=== PATIENT | female | born 1970 | race Caucasian/White ===

== ENCOUNTER → 2020-03-27 16:41 | Outpatient (BNVA) | payer OTHER, SELFPAY | PROVIDERS: PCP Internal Medicine; Referring Provider Internal Medicine; Visit Provider Dietitian, Registered | DX: Z76.89 Persons encountering health services in other specified circumstances (principal) ==

== ENCOUNTER → 2020-12-17 08:24 | Outpatient (REF) | payer OTHER, SELFPAY ==
--- NOTE | 2020-12-17 08:29 | CA_ITS ---
Transthoracic Echocardiogram Patient (Last, First, Middle): Nicole Ortiz A Gender: Female Date of : 1970 Age: 50 Procedure Date: 12/17/2020 Procedure Type: Transthoracic Echocardiogram Location: OP Height: 154.94 cm Weight: 68.04 kg BSA: 1.67 m2 Heart Rate: bpm BP: 115 / 90 mmHg Party Plan Demonstrator: ISAI Referring MD: Jeff Singh MD Symptoms: I35.0 NON RHEUM AVS Study Quality: Good ECG Rhythm: Sinus Conclusions: - The left ventricular systolic function is normal. The calculated ejection fraction is 57% by biplane method. - There is mild aortic valve stenosis. Findings Left Ventricle Normal left ventricular cavity size. There is normal left ventricular wall thickness. The left ventricular systolic function is normal. The calculated ejection fraction is 57% by biplane method. There is no evidence of regional wall motion abnormalities. Diastolic function is normal for age. Right Ventricle Normal right ventricular cavity size and systolic function. Atria The left atrium is mildly dilated. The right atrium is normal in size. Aortic Valve There is mild calcification of the aortic valve. There is mild aortic valve stenosis. The peak aortic velocity is 2.74 m/s with a calculated peak gradient of 30 mmHg. The mean gradient is 16 mmHg. The aortic valve area is 1.32 cm2. There is no aortic valve regurgitation. Mitral Valve The mitral valve appears normal. There is trace mitral valve regurgitation. There is no mitral valve stenosis. Pulmonic Valve The pulmonic valve was not well visualized. Tricuspid Valve Normal tricuspid valve structure. There is trace tricuspid valve regurgitation. The pulmonary artery systolic pressure is normal. Great Vessels The aortic annulus, sinuses of valsalva, and asc aorta are normal in size. Venous The inferior vena cava is normal in size and collapses greater than 50% with inspiration. Pericardium/Pleural There is no evidence of pericardial effusion. Prior Study Comparison No significant change compared to prior study dated: 06/10/2019. Measurements 2D Linear Measurements IVSd: 0.81 0.6-0.9/0.6-1.0 cm LVIDd: 4.92 3.9-5.3/4.2-5.9 cm LVIDd Index: 2.95 2.4-3.2/2.2-3.1 cm/m2 LVIDs: 3.12 2.0-3.6 cm LVPWd: 0.88 0.7-1.1 cm Ao Root: 2.90 2.1-3.5 cm LA Diam: 4.10 2.7-3.8/3.0-4.0 cm LAIDs Index: 2.46 1.5-2.3 cm/m2 LV Mass: 177.32 67-162/88-224 g LV Mass Index: 106.18 43-95/49-115 g/m2 LVOT Diam: 2.00 3.0+(-)1.3 cm 2D Systolic Function EF 4C: 59.50 >55% EF 2C: 59.20 >55% EF BiP: 56.50 >55% Mitral Valve MV Pk E: 0.81 MV PK A: 0.78 MV Decel Time: 337.00 E/A: 1.00 E'Lateral: 12.10 E'Medial: 8.16 E/E' Med: 9.90 E/E' Lat: 6.70 PHT: 99.00 MVA PHT: 2.22 Decel [place]: 2.40 Aortic Valve AoV Pk Uriel: 2.74 AoV Mn Uriel: 1.89 AoV VTI: 0.65 AoV Pk Grad: 30.00 Aov Mn Grad: 16.00 ADOLPH Cont.VTI: 1.32 LVOT LVOT Pk Uriel: 1.17 LVOT Mn Uriel: 0.83 LVOT VTI: 0.27 LVOT Pk Grad: 5.00 LVOT Mn Grad: 3.00 LVOT Diam: 2.00 LVOT Area: 3.14 Diastolic Function MV Pk E: 0.81 MV Pk A: 0.78 E/A: 1.00 E'Medial: 8.16 E/E' Med: 9.90 E' Laterial: 12.10 E/E' Lat: 6.70 Tricuspid Valve TR Pk Uriel: 1.98 TR Pk Grad: 16.00 RA Press: 3.00 RVSP: 19.00 Great Vessels Aorta Ao Root-2D: 2.90 2.0-3.7 cm Ao Asc: 2.90 2.1-3.4 cm Ao Arch: 2.70 Updated in Other Vendor System with Status of Final Popeye Tomlinson MD electronically signed on 12/18/2020 3:36:46 PM with status of Final
== END ==
LOC: HO.CARD 08:24
PROVIDERS: PCP Nurse Practitioner Family; Visit Provider Internal Medicine Cardiovascular Disease
DX: I35.0 Nonrheumatic aortic (valve) stenosis (principal)
CPT/HCPCS: 93306

== ENCOUNTER → 2021-01-14 15:10 | Outpatient (BNVA) | payer OTHER, SELFPAY | PROVIDERS: PCP Nurse Practitioner Family; Visit Provider Internal Medicine Cardiovascular Disease | DX: I35.0 Nonrheumatic aortic (valve) stenosis (principal); I10 Essential (primary) hypertension | CPT/HCPCS: 93005 ==

== ENCOUNTER → 2022-04-11 12:40 | Outpatient (BNVA) | payer OTHER, SELFPAY | PROVIDERS: PCP Nurse Practitioner Family; Visit Provider Internal Medicine Cardiovascular Disease | DX: I35.0 Nonrheumatic aortic (valve) stenosis (principal); I10 Essential (primary) hypertension; E66.01 Morbid (severe) obesity due to excess calories; Z68.30 Body mass index [BMI] 30.0-30.9, adult; Z98.84 Bariatric surgery status | CPT/HCPCS: 93005 ==

== ENCOUNTER 2022-07-25 12:08 | Day surgery (SDC) | payer OTHER, SELFPAY ==
--- NOTE | ~2022-07-25 | CT_ITS ---
EXAMINATION: CT COLONOGRAPHY CLINICAL INFORMATION: Incomplete colonoscopy. COMPARISON: None TECHNIQUE: Despite multiple attempts the patient was unable to tolerate adequate insufflation or distention. Bowel preparation: Inadequate. Stool tagging with Gastrografin and barium: Stool tagging was not used. Colonic distention: CO2 mechanical insufflator used via enema tube with Inadequate distention. Acquisition: Low dose imaging targeted to colonic was performed in the supine and prone positions. Procedure: No immediate complication reported. Review: The acquired images were reviewed in axial, coronal and sagittal planes. Attempts at 3-D fly through images were unsuccessful at an independent workstation. Inadequate distention did not allow 3-D post processing This CT examination was performed using dose optimization techniques as appropriate, variously including the following: *Automated exposure control *Adjustment of mA and/or kV according to patient size (this includes techniques or standardized protocols for targeted exams where dose is matched to indication/reason for exam; i.e. extremities or head) *Use of iterative reconstruction technique DLP: 407 mGy-cm FINDINGS: Colonic findings: Incomplete distention. Large amount retained material including some fat attenuation. The study is nondiagnostic for polyps or masses. Non-colonic findings: Evidence of previous bariatric surgery. The gallbladder is distended. There are multiple right renal calculi. The largest in the right renal pelvis measures 2.1 cm and is 12.2 cm from the skin. There are some punctate left renal calculi without evidence of obstruction. There is a 4.5 cm cyst in the right adnexa. CT/CT colonography IMPRESSION: Incomplete distention and retained colonic material precludes assessment for significant polyps or masses in the colon. There is some fat retained within the colon suggesting malabsorption. Previous bariatric surgery and numerous bilateral renal calculi. 4.5 cm right adnexal cyst. Recommend pelvic ultrasound
--- NOTE | 2022-07-25 12:11 | HO.ANESPROP2 ---
HPI - Anesthesia Eval Consult details Narrative: Colonoscopy PMFSH Active Problems Active Problems: All Active Problems (Updated 07/01/22 @ 07:31 by Marquita Shaw RN) Aortic stenosis (Acute) Essential hypertension (Acute) Past Medical History Medical History (Updated 07/01/22 @ 07:31 by Marquita Shaw RN) Anxiety GERD (gastroesophageal reflux disease) History of kidney stones HTN (hypertension) Hx of panniculitis Family History Family History Father Heart attack Mother Hypertension Brother Hypertension Sister Hypertension Sister Hypertension Family history of problems with anesthesia: No Surgical History Surgical History (Updated 07/22/22 @ 12:53 by Kimberly Cuevas RN) Hx of esophagogastroduodenoscopy Hx of gastric bypass Status post panniculectomy History of Problems with Anesthesia: No Social History Social History Alcohol intake: current Alcohol intake frequency: holidays/special occasions only Patient Tobacco Use Status: Former Tobacco user Quit Date: 2001 Years Smoked: 20+ off/on Meds Allergies Allergy/AdvReac Type Severity Reaction Status Date / Time Seasonal Allergies Allergy Unknown itching Uncoded 02/06/20 00:00 Home Medications Medication Instructions Recorded Confirmed Last Taken Type atenolol 50 mg tablet 25 mg PO DAILY 01/14/21 04/11/22 Unknown History bupropion HCl 150 mg 24 hr tablet, 150 mg PO QAM 01/14/21 04/11/22 Unknown History extended release fluoxetine 20 mg capsule 20 mg PO DAILY 01/14/21 04/11/22 Unknown History Avapro 07/01/22 07/01/22 Unknown History Vitamin B-Complex 07/01/22 07/01/22 Unknown History loratadine 10 mg tablet (Claritin) 10 mg PO DAILY PRN Allergy Symptoms 07/01/22 07/01/22 Unknown History Exam Exam Date and Time: July 25, 2022 121 Airway Mallampati Class: II TM Dist: >3cm Neck ROM: Limited Heart: rrr, sm Lungs: cta Assessment and Plan Assessment Anesthesia Assessment: Anesthesia Plan Discussed and Chart Reviewed Final Anesthetic Review Family History of Problems with Anesthesia: No History of Problems with Anesthesia: No NPO: Yes ASA Class: II Final Preanesthetic Review: No Changes in Pt Med Stat, Meds/Allgs Chart Reviewed, Consent Obtained/Reviewed and Anes Risks/Benef Reviewed Patient Risk: Intermediate Procedure Risk: Low Anesthetic Plan Anesthetic Plan: MAC: Disposition: Standard PACU
--- NOTE | 2022-07-25 12:16 | PC.NURSE ---
patient states has not had a menstrual cycle in years
[2022-07-25 12:26] VITALS: BMI 30.6
[2022-07-25 12:41] VITALS: BP 128/70; PULSE 61; RESP 18; TEMP 36.4; O2SAT 99
[2022-07-25] MEDS: Lactated Ringers 1,000 ML 50 ML IVCONT (12:42)
--- NOTE | 2022-07-25 14:26 | PM.OP ---
Brief Operative Note Date of Service: 07/25/22 Pre-op diagnosis: Screening Post-op diagnosis: other (Incomplete colonoscopy to the sigmoid colon) Procedure: Incomplete Colonoscopy to 50cm Surgeon: Hebert Marino Anesthesia: MAC Was an Customs Brokerage Manager used for this Procedure?: No Estimated blood loss (mL): 0 Pathology: none sent Condition: stable Disposition: PACU
[2022-07-25 14:28] VITALS: BP 106/62; PULSE 62; RESP 16; TEMP 37; O2SAT 95
[2022-07-25 15:45] VITALS: BP 145/71; PULSE 53; RESP 16; TEMP 36.2; O2SAT 99
--- NOTE | 2022-07-26 01:10 | OP_ITS ---
SURGEON: Hebert Marino MD INDICATIONS: The patient presents for evaluation of colorectal cancer screening. Full consent has been obtained from her for this, including risks of bleeding and perforation. PREOPERATIVE DIAGNOSIS: Colorectal cancer screening. POSTOPERATIVE DIAGNOSIS: PROCEDURE PERFORMED: Incomplete colonoscopy to the sigmoid colon. ESTIMATED BLOOD LOSS: COMPLICATIONS: ANESTHESIA: Monitored anesthesia care. ASSISTANTS: SPECIMENS: POSTOPERATIVE DIAGNOSES: Colorectal cancer screening, normal colonoscopy to 50 cm, other than diverticulosis and internal hemorrhoids. DESCRIPTION OF PROCEDURE: The patient was placed in the left lateral decubitus position. The digital rectal exam revealed no abnormalities. The Olympus video pediatric colonoscope was entered into the rectum and advanced to between 40 and 50 cm in the sigmoid colon. At this level, there was a significant diverticular disease and I could not definitively visualize bowel lumen. A good deal of time was spent, trying to find the lumen, but despite the abdominal pressure, I could not visualize any definitive lumen and therefore could not advance the scope. Therefore, the scope was slowly withdrawn assessing all mucosal surfaces carefully. Preparation in this distal portion of the colon and rectum was excellent. Other than diverticulosis, I did not visualize any sign of colitis, polyps nor angiodysplasia. In the rectum, scope was retroflexed visualizing small internal hemorrhoids, but no other pathology. The rectal mucosa appeared normal. The scope was straightened and withdrawn from the patient. She tolerated the procedure well and was returned to the recovery area in stable condition. IMPRESSION: 1. Diverticulosis. 2. Internal hemorrhoids. 3. Incomplete colonoscopy most likely in relation to adhesions from her previous gastric bypass. PLAN: If possible, the patient will have a CT colonography today. I have also instructed her to obtain a Cologuard test kit from her primary care physician for further colorectal cancer screening. If the CT scan and the Cologuard are both negative, I would then recommend a Cologuard test every three years going forward. If the Cologuard test is positive and/or the CT scan shows a suspicion of an abnormality, then we would have to contemplate a repeat attempted colonoscopy. This has been discussed with the patient and her sister today. MD HEBER Levi/CELINA / [id number] CHAO
== END 2022-07-25 16:13 | disposition home or self-care (01) ==
PROVIDERS: PCP Nurse Practitioner Family; Visit Provider Internal Medicine
PROC: 0DJD8ZZ Inspection of Lower Intestinal Tract, Via Natural or Artificial Opening Endoscopic (ICD-10-PCS; CPT 45378; principal; 2022-07-25 13:20)
DX: Z12.11 Encounter for screening for malignant neoplasm of colon (principal); K57.30 Diverticulosis of large intestine without perforation or abscess without bleeding; K64.8 Other hemorrhoids; R93.3 Abnormal findings on diagnostic imaging of other parts of digestive tract; K21.9 Gastro-esophageal reflux disease without esophagitis; N83.291 Other ovarian cyst, right side; N20.0 Calculus of kidney; Z98.84 Bariatric surgery status; I10 Essential (primary) hypertension; F41.1 Generalized anxiety disorder; Z79.899 Other long term (current) drug therapy; Z87.891 Personal history of nicotine dependence
CPT/HCPCS: 45330; 74261; J3010

== ENCOUNTER 2022-12-26 07:33 | Inpatient (IN) | payer OTHER, SELFPAY ==
[2022-12-26] VITALS (7 sets, daily range): BP systolic 97–160; BP diastolic 59–99; PULSE 54–77; RESP 16–20; TEMP 34.5–37.6; O2SAT 94–99; BMI 28.7
--- NOTE | ~2022-12-26 | FL_ITS ---
EXAMINATION: RF fluoroscopy enema with Gastrografin CLINICAL INFORMATION: Large bowel obstruction COMPARISON: Previous CT of the abdomen and pelvis from earlier the same day and CT colonoscopy July 2022 TECHNIQUE: Gel Coater film was obtained. Single contrast limited barium enema was performed using Gastrografin. Post evacuation views were obtained. Fluoroscopy time 1.4 minutes. DAP 26 yu per centimeter squared. Total dose of 94 mgy. 10 fluoroscopic images and 8 overhead images. FINDINGS: Gel Coater film demonstrates dilated large bowel. There are surgical clips from previous gastric surgery. There are bilateral renal stones, right greater than left. There is a near-complete distal large bowel obstruction at the level of the sigmoid colon. There is only a small amount of contrast passing beyond this point into the left colon. No evidence of significant diverticular disease is seen. FL/FL enema w gastrografin IMPRESSION: Near-complete distal large bowel obstruction. Findings were communicated to Dr. Oates and Dr. Hill at the completion of the exam.
--- NOTE | ~2022-12-26 | CT_ITS ---
EXAMINATION: CT ABDOMEN AND PELVIS WITH CONTRAST CLINICAL INFORMATION: Generalized abdominal pain. History of gastric bypass. COMPARISON: 07/25/2022 TECHNIQUE: Multidetector volumetric images were obtained from the superior aspect of the liver through the pubic symphysis following administration 85 mL of Omnipaque 350 intravenous contrast. Sagittal and coronal reformatted images were obtained on the technologist's workstation. Oral contrast: No This CT examination was performed using dose optimization techniques as appropriate, variously including the following: *Automated exposure control *Adjustment of mA and/or kV according to patient size (this includes techniques or standardized protocols for targeted exams where dose is matched to indication/reason for exam; i.e. extremities or head) *Use of iterative reconstruction technique DLP: 487 mGy-cm FINDINGS: LUNG BASES: No pleural or pericardial effusion. LIVER, GALLBLADDER, AND BILIARY TREE: The liver is normal in size and contour. No biliary ductal dilatation is present. The gallbladder is distended. PANCREAS: No ductal dilatation. SPLEEN: Not enlarged. ADRENAL GLANDS: No adrenal mass. KIDNEYS AND URETERS: The kidneys are symmetric in size and enhancement. Nonobstructing bilateral renal calculi. Large nonobstructing calculus in the right renal pelvis measures 2.0 x 1.4 cm. No hydronephrosis or perinephric stranding. BLADDER: Decompressed. GASTROINTESTINAL TRACT: Marked colonic distention up to 8 cm to the level of a possible soft tissue mass in the sigmoid colon as seen on image 56 of series 2. No small bowel obstruction. Small bowel loops are decompressed. Status post gastric bypass. ABDOMINAL WALL: No significant hernia is appreciated. LYMPH NODES: No bulky abdominal or pelvic lymphadenopathy. VASCULAR: Normal caliber abdominal aorta. PELVIC VISCERA: Hypoattenuating lesion in the right hemipelvis measures 4.3 x 5.1 cm. The uterus is displaced into the right hemipelvis. OSSEOUS STRUCTURES: No destructive bone lesions. CT/CT abdomen pelvis w IV con IMPRESSION: Functional obstruction of the large bowel most likely related to an obstructing mass in the sigmoid colon. Correlation with direct visualization is advised. Hypoattenuating lesion in the right hemipelvis measuring 4.3 x 5.1 cm. This may be further evaluated by pelvic ultrasound on a nonemergent basis. Bilateral nephrolithiasis including calculus right renal pelvis measuring 2.0 x 1.4 cm. No hydronephrosis.
--- NOTE | 2022-12-26 08:10 | ED_ITS ---
HPI - Abdominal Pain General Chief Complaint: Abdominal Pain Stated Complaint: abd pain Time Seen by Provider: 12/26/22 07:41 Source: patient Mode of arrival: ambulatory Limitations: no limitations History of Present Illness HPI narrative: 52-year-old female status post gastric bypass presents with generalized abdo soo pain. Symptoms started 3 weeks ago. Patient has a chronic abdominal discomfort followed by acute exacerbations that she rates as a 9/10. Pain is generalized and does not radiate. She describes the pain as severe cramping. Symptoms can be exacerbated by sitting up and relieved by lying on her back. She has had nausea and vomiting. The vomiting has been nonbilious, nonbloody no coffee-ground emesis. She has had no fevers or chills. She has had lack of stool in several days. She has scant passing flatus. She denies and abdominal distension. She denies any blood in her stool or melanotic stool. She has tried managing for constipation with magnesium citrate and MiraLax with no improvement in her symptoms. Related Data Home Medications Medication Instructions Recorded Confirmed atenolol 50 mg tablet 25 mg PO DAILY 01/14/21 04/11/22 bupropion HCl 150 mg 24 hr tablet, 150 mg PO QAM 01/14/21 04/11/22 extended release fluoxetine 20 mg capsule 20 mg PO DAILY 01/14/21 04/11/22 Avapro 07/01/22 07/01/22 Vitamin B-Complex 07/01/22 07/01/22 loratadine 10 mg tablet (Claritin) 10 mg PO DAILY PRN Allergy Symptoms 07/01/22 07/01/22 Previous Rx's Medication Instructions Recorded omeprazole 20 mg capsule,delayed 20 mg PO DAILY #30 caps 06/22/20 release Allergies Allergy/AdvReac Type Severity Reaction Status Date / Time Seasonal Allergies Allergy Unknown itching Uncoded 02/06/20 00:00 Review of Systems Review of Systems CONSTITUTIONAL: Denies weight loss, fever and chills. HEENT: Denies changes in vision and hearing. RESPIRATORY: Denies SOB and cough. CV: Denies palpitations no CP. GI: + abdominal pain, nausea, vomiting - diarrhea. : Denies dysuria and urinary frequency. MSK: Denies myalgia and joint pain. SKIN: Denies rash and pruritus. NEUROLOGICAL: Denies headache and syncope. PSYCHIATRIC: Denies recent changes in mood. Denies anxiety and depression. All other ROS are negative unless in HPI [facility] Past Medical History Medical History Anxiety GERD (gastroesophageal reflux disease) History of kidney stones HTN (hypertension) Hx of panniculitis Surgical History Hx of esophagogastroduodenoscopy Hx of gastric bypass Status post panniculectomy Family History Family History Father Heart attack Mother Hypertension Brother Hypertension Sister Hypertension Sister Hypertension Social History Social History Alcohol intake: current Alcohol intake frequency: holidays/special occasions only Patient Tobacco Use Status: Former Tobacco user Quit Date: 2001 Smoked: 20+ off/on Smoked in Last 30 Days: No Use of substances other than those prescribed or required for medical reasons: No Advance Directives: No Advance Directives Information Provided: No Physical Exam ED Vital Signs: Vital Signs - 24 hr 12/26/22 07:36 12/26/22 11:21 12/26/22 12:26 Temperature 98.8 F 99.5 F 99.6 F Pulse Rate 72 60 55 Respiratory Rate 18 16 20 Blood Pressure 151/99 H 150/85 H 146/84 H Pulse Oximetry 96 97 96 Oxygen Delivery Method Room Air Room Air Room Air BMI result Body Mass Index 28.7 GEN: Well developed, no acute distress, alert, oriented HEENT: Normocephalic, atraumatic, normal external ears, nose appears normal, no oropharyngeal edema or exudates Eyes: Normal to appearance Neck: Supple, no lymphadenopathy Respiratory: Talks in complete sentences, no respiratory distress, clear to auscultation bilaterally Cardiovascular: Regular rate and rhythm, no murmurs rubs or gallops Abdomen: Soft, nontender, nondistended, no guarding, no rebound Back: No CVA tenderness Extremities: No clubbing cyanosis or edema Neurologic: No focal neurologic deficits, cranial nerves 2-12 intact, strength is 5/5 bilaterally Skin: No rash Course Course Course Narrative: Patient's workup is complete at this time. Patient has what appears to be a large bowel obstruction possibly due to an obstructing mass. Earlier this year, patient had a incomplete colonoscopy. They went up to 50 cm. I did contact General surgery, Dr. Hill who will follow along peripherally and LEs need to have surgical intervention. Dr. Oates was contacted as well who will evaluate the patient and planned O2 and colonoscopy. Hospitalist was made aware of the patient's admission. Medical Decision Making Medical Decision Making [facility] Narrative: 52-year-old female presents with generalized abdominal pain. She does have a history of gastric bypass. She reports decreased flatus and stool. Examination was benign. Differential diagnosis: Small-bowel obstruction, ileus, constipation, IBS, IBD, stricture Plan: In order rule out the differential diagnosis above, will perform routine laboratory analysis, CT scan the abdomen and pelvis especially important given her history of gastric bypass and concerns for small bowel obstruction versus ileus. Patient will also receive analgesia, antiemetics, IV fluids. Disposition: Admission is possible depending upon findings on CT scan as well as clinical improvement. Differential Diagnosis Differential Diagnoses: The differential diagnosis associated with the presentation includes (See above) Large bowel obstruction Admission/Observation Consideration of admission/observation: Escalation of care including admission/observation considered Consult Healthcare Provider Management of the patient was discussed with: Hospitalist and Piano Accompanist Lab Data [facility] Lab Attestation statement: I reviewed the patient's lab results. 12/26/22 08:21 12/26/22 08:21 Labs: Lab Results 12/26/22 12/26/22 12/26/22 Range/Units 08:21 08:21 12:16 WBC 8.0 (4.8-10.8) X10*3/uL RBC 3.99 L (4.20-5.50) X10*6/uL Hgb 11.8 L (12.0-16.0) g/dl Hct 36.6 L (37.0-47.0) % MCV 91.7 (80.0-98.0) fL MCH 29.6 (27.0-33.0) pg MCHC 32.2 (31.0-35.0) g/dl RDW 12.7 (11.0-16.0) % Plt Count 359 (160-400) X10*3/uL MPV 9.0 L (9.4-12.3) fL Immature Gran % (Auto) 0.2 (0.0-0.4) % Neut % (Auto) 71.8 (45-73) % Lymph % (Auto) 19.0 L (20-40) % [place] % (Auto) 7.2 (2-11) % Eos % (Auto) 1.1 (0-4) % Baso % (Auto) 0.7 (0-2) % Lymph # (Auto) 1.5 (1.2-4.9) X10*3/uL [place] # (Auto) 0.6 (0.1-1.2) X10*3/uL Eos # (Auto) 0.1 (0.0-0.4) X10*3/uL Baso # (Auto) 0.1 (0.0-0.2) X10*3/uL Abs Immat Gran (auto) 0.02 (0.00-0.03) X10*3/uL Absolute Neuts (auto) 5.8 (2.0-8.3) x10*3/uL Absolute Nucleated RBC 0.000 (0.0-0.012) X10*3/uL Nucleated RBC % (auto) 0.0 (0.0-0.2) /100WBC Sodium 137 (135-145) mmol/L Potassium 3.8 (3.3-5.1) mmol/L Chloride 101 (96-108) mmol/L Carbon Dioxide 21 L (22-29) mmol/L Anion Gap 19 (12-20) BUN 13 (9-16) mg/dL Creatinine 0.84 (0.5-1.4) mg/dL Estim Creat Clear Calc 68.8 Estimated GFR > 60 Random Glucose 89 (60-115) mg/dL Calcium 9.4 (8.4-10.2) mg/dL Total Bilirubin 1.1 H (0.0-1.0) mg/dL AST 10 (5-31) U/L ALT 8 (0-31) U/L Alkaline Phosphatase 72 (39-117) U/L Total Protein 7.1 (6.5-8.0) g/dL Albumin 3.9 (3.5-5.0) g/dL Lipase 8 (8-78) U/L TSH 0.80 (0.32-4.0) uIU/mL Urine Color Yellow Urine Appearance Clear Urine pH 5.5 (5.0-9.0) Ur Specific [place] >= 1.030 H (1.005-1.025) Urine Protein Trace (Neg-Trace) mg/dL Urine Glucose (UA) Negative (Negative) mg/dL Urine Ketones 40 (Negative) mg/dL Urine Blood Small (1+) H (Negative) Urine Nitrite Negative (Negative) Ur Leukocyte Esterase Negative (Negative) Independent Interpretation I performed an independent interpretation of an: CT Scan Radiology Impression Discussion of test interpretation with radiology: I have reviewed the radiolog ist's reading. Prescription Management I considered prescription management with: Pain Medication Medications Administered Discontinued Medications Generic Name Dose Route Start Last Admin Trade Name Freq PRN Reason Stop Dose Admin Famotidine 20 mg 12/26/22 07:55 12/26/22 08:38 Famotidine/Pf 20 Mg/2 Ml Vial IVPUSH 12/26/22 07:56 20 mg ONCE ONE Administration Glycerin 1 supp 12/26/22 08:17 12/26/22 09:46 Glycerin Adult Supp.Rect TN 12/26/22 08:18 1 supp ONCE ONE Administration Sodium Chloride 2,068.38 mls @ 2,068.38 mls/hr 12/26/22 07:55 12/26/22 10:40 Ns 30 ml/kg infuse over 1 hr (2068.38 ml) 12/26/22 08:54 Infused IV Infusion .Q1H STA Iohexol 100 ml 12/26/22 09:15 12/26/22 09:16 Iohexol 350 Mg/Ml 100 Ml Infus..Btl IV 12/26/22 09:16 85 ml ONCE ONE Administration Morphine Sulfate 4 mg 12/26/22 07:55 12/26/22 08:38 Morphine Sulfate 4 Mg/Ml Cartridge IVPUSH 12/26/22 07:56 4 mg ONCE ONE Administration Protocol Ondansetron HCl 4 mg 12/26/22 07:55 12/26/22 08:37 Ondansetron Hcl 4 Mg/2 Ml Vial IVPUSH 12/26/22 07:56 4 mg ONCE ONE Administration Critical Care Time Critical Care Time Total Critical Care Time: 40 Attestation: Approximately 40 minutes of critical care time was spent with patient inclusive of initial evaluation, repeat evaluation, interpretation and medical data, consultation with consultants including General surgery and Gastroenterology. Patient is large bowel obstruction that has a potential for significant morbidity mortality inclusive of bowel perforation. Discharge Plan Discharge Clinical Impression: Abdominal pain, Large bowel obstruction Patient Disposition: Admitted As Inpatient Instructions: Constipation (ED), Abdominal Pain (ED) Prescriptions: No Action omeprazole 20 mg capsule,delayed release(DR/EC) 20 mg PO DAILY Qty: 30 6RF Avapro loratadine [Claritin] 10 mg Tablet 10 mg PO DAILY PRN (Reason: Allergy Symptoms) Vitamin B-Complex fluoxetine 20 mg capsule 20 mg PO DAILY atenolol 50 mg tablet 25 mg PO DAILY bupropion HCl 150 mg tablet extended release 24 hr 150 mg PO QAM Referrals: Vianca Braden NP [Primary Care Provider] - 3 days
[2022-12-26 08:25] LABS: MANUAL DIFF FLAG NO
[2022-12-26 08:28] LABS: Basophils Absolute Auto 0.1 X10*3/uL (0.0-0.2); Basophils Percent Auto 0.7 % (0-2); Eosinophils Absolute Auto 0.1 X10*3/uL (0.0-0.4); Eosinophils Percent Auto 1.1 % (0-4); Hematocrit 36.6 % (37.0-47.0); Hemoglobin 11.8 g/dl (12.0-16.0); Imm Gran Abs Auto 0.02 X10*3/uL (0.00-0.03); Imm Gran Pct Auto 0.2 % (0.0-0.4); Lymphocytes Absolute Auto 1.5 X10*3/uL (1.2-4.9); Mean Corpuscular HGB Conc 32.2 g/dl (31.0-35.0); Mean Corpuscular Hemoglobin 29.6 pg (27.0-33.0); Mean Corpuscular Volume 91.7 fL (80.0-98.0); Monocytes Absolute Auto 0.6 X10*3/uL (0.1-1.2); Monocytes Percent Auto 7.2 % (2-11); Neutrophils Absolute Auto 5.8 x10*3/uL (2.0-8.3); Neutrophils Percent Auto 71.8 % (45-73); Platelet Count 359 X10*3/uL (160-400); Red Blood Count 3.99 X10*6/uL (4.20-5.50); Red Cell Distribution Width 12.7 % (11.0-16.0)
[2022-12-26] MEDS: ondansetron HCL 4 MG/2 ML VIAL IVPUSH ×2 (08:37→15:01)
[2022-12-26] MEDS: 0.9 % Sodium Chloride 2,068.38 ML 2068.38 ML IV (08:37)
[2022-12-26] MEDS: Famotidine/PF 20 MG/2 ML VIAL IVPUSH (08:38)
[2022-12-26] MEDS: Morphine Sulfate 4 MG/ML CARTRIDGE IVPUSH (08:38)
[2022-12-26 08:50] LABS: Alanine Aminotransferase 8 U/L (0-31); Albumin Level 3.9 g/dL (3.5-5.0); Alkaline Phosphatase 72 U/L (39-117); Anion Gap 19 (12-20); Aspartate Amino Transferase 10 U/L (5-31); Bilirubin Total 1.1 mg/dL (0.0-1.0); Blood Urea Nitrogen 13 mg/dL (9-16); Calcium 9.4 mg/dL (8.4-10.2); Carbon Dioxide 21 mmol/L (22-29); Chloride 101 mmol/L (96-108); Creatinine Clr Calc Pharmacy 68.8; Estimated Glomerular Filt Rate > 60; Glucose Random 89 mg/dL (60-115); Lipase 8 U/L (8-78); Potassium 3.8 mmol/L (3.3-5.1); Sodium 137 mmol/L (135-145); Total Protein 7.1 g/dL (6.5-8.0)
[2022-12-26] MEDS: iohexoL 350 MG/ML 100 ML INFUS..BTL IV (09:16)
[2022-12-26] MEDS: Glycerin Adult SUPP.RECT 1 SUPP PR (09:46)
[2022-12-26 12:26] LABS: Appearance Urine Clear; Color Urine Yellow; Glucose Urine UA Negative (Negative); Leukocyte Esterase Urine Negative (Negative); Nitrite Urine Negative (Negative); PH 5.5 (5.0-9.0); Specific Gravity - Urine >= 1.030 (1.005-1.025); UMIC TRIGGER UACC YES; Urine Blood Small (1+) (Negative); Urine Ketones 40 mg/dL (Negative); Urine Protein Trace mg/dL (Neg-Trace)
[2022-12-26 12:51] LABS: Bacteria Urine None Seen (None Seen); Hyaline Casts Urine 0-2 /LPF (0-2); RBC Urine >20 /HPF (0-2); Squamous Epithelial Cell Urine 0-2 /HPF (0-2); WBC Urine 0-5 /HPF (0-5)
--- NOTE | 2022-12-26 13:23 | P.CONGS_ITS ---
History of Present Illness Consult details Consult date: 12/26/22 Narrative: Patient being evaluated emerged department because of abdominal pain and failure to pass stool over the last several days time. She is passing flatus. Patient has history of gastric bypass in the past. She lost almost 200 lb. Weight. In July this year, patient had attempted colonoscopy which was aborted because scope could not be advanced above the sigmoid. This was followed by virtual CT colonoscopy which was a suboptimal exam as well. Patient has attempted stool softeners and laxatives with minimal success. She is passing some flatus however. Chart was reviewed patient evaluated [facility] Past Medical History Medical History Anxiety GERD (gastroesophageal reflux disease) History of kidney stones HTN (hypertension) Hx of panniculitis Family History Family History Father Heart attack Mother Hypertension Brother Hypertension Sister Hypertension Sister Hypertension Surgical History Surgical History Hx of esophagogastroduodenoscopy Hx of gastric bypass Status post panniculectomy Social History Social History Alcohol intake: current Alcohol intake frequency: holidays/special occasions only Patient Tobacco Use Status: Former Tobacco user Quit Date: 2001 Years Smoked: 20+ off/on Smoked in Last 30 Days: No Use of substances other than those prescribed or required for medical reasons: No Advance Directives: No Advance Directives Information Provided: No Meds Allergies Allergy/AdvReac Type Severity Reaction Status Date / Time Seasonal Allergies Allergy Unknown itching Uncoded 02/06/20 00:00 Home Medications Medication Instructions Recorded Confirmed Last Taken Type atenolol 50 mg tablet 25 mg PO DAILY 01/14/21 04/11/22 Unknown History bupropion HCl 150 mg 24 hr tablet, 150 mg PO QAM 01/14/21 04/11/22 Unknown History extended release fluoxetine 20 mg capsule 20 mg PO DAILY 01/14/21 04/11/22 Unknown History Avapro 07/01/22 07/01/22 Unknown History Vitamin B-Complex 07/01/22 07/01/22 Unknown History loratadine 10 mg tablet (Claritin) 10 mg PO DAILY PRN Allergy Symptoms 07/01/22 07/01/22 Unknown History Physical Exam Vital Signs: Vital Signs: Last Vital Signs Temp 94.1 F L 12/26/22 12:31 Pulse 77 12/26/22 12:31 Resp 17 12/26/22 12:31 BP 97/59 L 12/26/22 12:31 Pulse Ox 94 12/26/22 12:31 O2 Del Method BiPAP 12/26/22 12:31 FiO2 30 12/26/22 12:31 BMI result Body Mass Index 28.7 GI: Other: Mildly corpulent abdomen. Laparoscopic scars are all well healed. Abdomen is soft with no focalized tenderness. No evidence of any guarding, rebound, or rigidity. Results Labs 12/26/22 08:21 12/26/22 08:21 Labs: Abnormal lab results 12/26/22 12/26/22 12/26/22 Range/Units 08:21 08:21 12:16 RBC 3.99 L (4.20-5.50) X10*6/uL Hgb 11.8 L (12.0-16.0) g/dl Hct 36.6 L (37.0-47.0) % MPV 9.0 L (9.4-12.3) fL Lymph % (Auto) 19.0 L (20-40) % Carbon Dioxide 21 L (22-29) mmol/L Total Bilirubin 1.1 H (0.0-1.0) mg/dL Ur Specific [place] >= 1.030 H (1.005-1.025) Urine Blood Small (1+) H (Negative) Urine RBC >20 H (0-2) /HPF Short CBC 12/26/22 Range/Units 08:21 WBC 8.0 (4.8-10.8) X10*3/uL Hgb 11.8 L (12.0-16.0) g/dl Hct 36.6 L (37.0-47.0) % Plt Count 359 (160-400) X10*3/uL BMP 12/26/22 08:21 Sodium 137 Potassium 3.8 Chloride 101 Carbon Dioxide 21 L BUN 13 Creatinine 0.84 Calcium 9.4 Liver Function 12/26/22 Range/Units 08:21 Total Bilirubin 1.1 H (0.0-1.0) mg/dL AST 10 (5-31) U/L ALT 8 (0-31) U/L Alkaline Phosphatase 72 (39-117) U/L Albumin 3.9 (3.5-5.0) g/dL Urine 12/26/22 Range/Units 12:16 Urine Color Yellow Urine Appearance Clear Urine pH 5.5 (5.0-9.0) Ur Specific [place] >= 1.030 H (1.005-1.025) Urine Protein Trace (Neg-Trace) mg/dL Urine Glucose (UA) Negative (Negative) mg/dL All other labs normal. Assessment and Plan (1) Large bowel obstruction: Status: Acute Plan Current plan is to her consider GI consultation for colonoscopy. Further interventions and studies will be directed by the results of the above-mentioned procedure. Surgery will follow in consultation. Time Spent With Patient Time: Total time managing care of this patient today ____ minutes. Procedures Date of Service Date of Service: 12/26/22
--- NOTE | 2022-12-26 13:43 | P.HPHOSP_ITS ---
History of Present Illness Date of Service: 12/26/22 Attending physician on admission: Sp Moses Chief Complaint: abd pain 52-year-old female with history of hypertension, depression, GERD, aortic stenosis, and history of gastric bypass in 1999 with chronic constipation presented to the ED earlier today for evaluation of diffuse abdominal pain worsening over the last 3 weeks. She states the pain is sharp and crampy and is constant but occasionally acutely worsens in the lower abdomen. There is also been nausea and vomiting which she feels is secondary to the pain. She has not moved her bowels since despite taking magnesium citrate, MiraLax, and stool softeners. She does report occasionally passing flatus. Denies any fevers, chills, diarrhea, melena, hematochezia. Colonoscopy attempt was made 4 months ago but was aborted as the go could not be advanced beyond the sigmoid and with and followed by a virtual CT colonoscopy which was also suboptimal due to patient's discomfort. In the ED, vitals have been stable. There is no leukocytosis. There is a mild normocytic anemia with H/H 11.8/36.6%. Renal function and electrolyte levels normal. Urinalysis indicative of some dehydration but otherwise unremarkable. CT abdomen/pelvis showed functional obstruction of the large bowel most likely related to an obstructing mass in the sigmoid colon. Incidentally seen hypoattenuating lesion in the right hemipelvis measuring 4.3 x 5.1 cm which may be further evaluated with pelvic ultrasound on nonemergent basis. General surgery and Gastroenterology with plan for colonoscopy tomorrow. Review of Systems Review of Systems: General: No fevers, malaise, unintentional weight loss Cardiovascular: No chest pain, palpitations, or leg edema Respiratory: No shortness of breath, wheezing, cough GI: + abdominal pain, + nausea, + vomiting, + obstipation. No diarrhea, melena, hematochezia : No dysuria, hematuria, increased urinary frequency, decreased urinary output MSK: No myalgia, back pain Neuro: No headaches, weakness, paresthesias Skin: No rashes or lesions [facility] Medical History Anxiety GERD (gastroesophageal reflux disease) History of kidney stones HTN (hypertension) Hx of panniculitis Family History Father Heart attack Mother Hypertension Brother Hypertension Sister Hypertension Sister Hypertension Surgical History Hx of esophagogastroduodenoscopy Hx of gastric bypass Status post panniculectomy Social History Alcohol intake: current Alcohol intake frequency: holidays/special occasions only Patient Tobacco Use Status: Former Tobacco user Quit Date: 2001 Years Smoked: 20+ off/on Smoked in Last 30 Days: No Use of substances other than those prescribed or required for medical reasons: No Advance Directives: No Advance Directives Information Provided: No Meds Allergies Allergy/AdvReac Type Severity Reaction Status Date / Time Seasonal Allergies Allergy Unknown itching Uncoded 02/06/20 00:00 Active Medications: Current Medications Acetaminophen (Acetaminophen 325 Mg Tablet) 650 mg PO Q6H PRN PRN Reason: Pain, Mild (Pain Scale 1-3) Ondansetron HCl (Ondansetron Hcl 4 Mg/2 Ml Vial) 4 mg IVPUSH Q8H PRN PRN Reason: Nausea and Vomiting Pharmacy Consult (Consult Rx Perform Med Rec) 1 each MISCELLANE ONCE PRN PRN Reason: Consult order Sodium Chloride (0.9 % Sodium Chloride Flush 3 Ml Syringe) [facility] Medication Instructions Recorded Confirmed Last Taken Type atenolol 50 mg tablet 25 mg PO DAILY 01/14/21 04/11/22 Unknown History bupropion HCl 150 mg 24 hr tablet, 150 mg PO QAM 01/14/21 04/11/22 Unknown History extended release fluoxetine 20 mg capsule 20 mg PO DAILY 01/14/21 04/11/22 Unknown History Avapro 07/01/22 07/01/22 Unknown History Vitamin B-Complex 07/01/22 07/01/22 Unknown History loratadine 10 mg tablet (Claritin) 10 mg PO DAILY PRN Allergy Symptoms 07/01/22 07/01/22 Unknown History Physical Exam Vital Signs and Narrative: Vital Signs: Last Vital Signs Temp 94.1 F L 12/26/22 12:31 Pulse 77 12/26/22 12:31 Resp 17 12/26/22 12:31 BP 97/59 L 12/26/22 12:31 Pulse Ox 94 12/26/22 12:31 O2 Del Method BiPAP 12/26/22 12:31 FiO2 30 12/26/22 12:31 BMI result Body Mass Index 28.7 Constitutional - Awake and Alert, No apparent distress Eyes - PERRLA, EOMI Cardiovascular - S1S2, RRR, No edema Respiratory - Normal lung expansion, Normal respiratory effort, No respiratory distress, CTA bilaterally Gastrointestinal - softly distended with mild diffuse ttp, hypoactive bowel sounds; No rebound or guarding Extremities - no calf tenderness bilaterally, no swelling Skin - Warm/Dry Neurological - Alert & oriented x3 Psychological - Appropriate affect Results Labs 12/26/22 08:21 12/26/22 08:21 Labs: Laboratory Results - last 24 hr 12/26/22 12/26/22 12/26/22 08:21 08:21 12:16 MCV 91.7 MCH 29.6 MCHC 32.2 RDW 12.7 Plt Count 359 MPV 9.0 L Immature Gran % (Auto) 0.2 Neut % (Auto) 71.8 Lymph % (Auto) 19.0 L [place] % (Auto) 7.2 Eos % (Auto) 1.1 Baso % (Auto) 0.7 Lymph # (Auto) 1.5 [place] # (Auto) 0.6 Eos # (Auto) 0.1 Baso # (Auto) 0.1 Abs Immat Gran (auto) 0.02 Absolute Neuts (auto) 5.8 Absolute Nucleated RBC 0.000 Nucleated RBC % (auto) 0.0 Anion Gap 19 Estim Creat Clear Calc 68.8 Estimated GFR > 60 Random Glucose 89 Calcium 9.4 Total Bilirubin 1.1 H AST 10 ALT 8 Alkaline Phosphatase 72 Total Protein 7.1 Albumin 3.9 Lipase 8 TSH 0.80 Urine Color Yellow Urine Appearance Clear Urine pH 5.5 Ur Specific [place] >= 1.030 H Urine Protein Trace Urine Glucose (UA) Negative Urine Ketones 40 Urine Blood Small (1+) H Urine Nitrite Negative Ur Leukocyte Esterase Negative Urine RBC >20 H Urine WBC 0-5 Ur Squamous Epith Cells 0-2 Urine Bacteria None Seen Hyaline Casts 0-2 Imaging Radiologist's Impressions: Impressions Abdomen/Pelvis CT 12/26/22 09:18 IMPRESSION: Functional obstruction of the large bowel most likely related to an obstructing mass in the sigmoid colon. Correlation with direct visualization is advised. Hypoattenuating lesion in the right hemipelvis measuring 4.3 x 5.1 cm. This may be further evaluated by pelvic ultrasound on a nonemergent basis. Bilateral nephrolithiasis including calculus right renal pelvis measuring 2.0 x 1.4 cm. No hydronephrosis. Assessment and Plan (1) Large bowel obstruction: Status: Acute Plan 52-year-old female with history of hypertension, depression, GERD, aortic stenosis, and history of gastric bypass in 1999 with chronic constipation admitted for large bowel obstruction. #Large bowel obstruction -CT abd/pelvis shows functional obstruction sigmoid colon with possible sigmoid mass -GI consult with plan for colonoscopy tomorrow -Colonoscopy prep per GI given hx gastric bypass -Clear liquids with small sips -Pain management prn -General surgery to follow as well #Obstipation -2/2 to above -Plan as above #HTN -bp reasonably controlled -continue home meds #depression -continue home meds #Gerd -continue ppi DVT prophylaxis- SCPs Full code Pt requires inpt stay at least 2 midnights for management of large bowel obstruction with possible sigmoid mass with intractable abdominal pain and PO i ntolerance and possible surgical intervention pending colonoscopy findings. Time Spent With Patient Time: Total time managing care of this patient today ____ minutes. Quality Stroke Does the patient have a stroke diagnosis?: No VTE Prior VTE?: No VTE Risk Level:: Medical - moderate - high VTE Device Contraindication: N/A - Device Ordered VTE Drug Contraindication: Treatment Not Indicated
--- NOTE | 2022-12-26 14:31 | PHA.MEDREC ---
Pharmacy Consult ? Medication Reconciliation Pharmacy has completed the medication reconciliation. spoke with patient and confirmed her medications.
[2022-12-26] MEDS: Morphine Sulfate 2 MG/ML CARTRIDGE IVPUSH ×2 (15:01→21:14)
[2022-12-26] MEDS: 0.9 % Sodium Chloride Flush 3 ML SYRINGE IVFLUSH (15:06)
--- NOTE | 2022-12-26 15:30 | PC.NURSE ---
pt reports feeling abd cramping and nausea, admission was completed
--- NOTE | 2022-12-26 16:18 | PC.NURSE ---
RETURNS FROM PROCEDURE, STATES SHE WAS ABLE TO MOVE SOME STOOL OUT. PAIN WELL MANAGED
[2022-12-26] MEDS: Diatrizoate Meglumine, Sodium 120 ML SOLUTION PO (16:34)
[2022-12-26] MEDS: Lactated Ringers 1,000 ML 100 ML IVCONT (17:10)
--- NOTE | 2022-12-26 17:16 | PM.EVENT ---
Event Note Date of Service: 12/26/22 Event Note: GI consult dictated Unprepped LGI endoscopy planned 12/27 for further evaluation. Time Spent With Patient Time: Total time managing care of this patient today ____ minutes.
--- NOTE | 2022-12-26 17:19 | MHC.SHP ---
Pre-Procedural Eval Section A Date of Service: 12/26/22 The patient is an INPATIENT: Yes Changes since office visit: No Cold of Flu in the past 2 weeks, No New Medical Problems, No Changes in Medication and No Patient answered all questions The History & Physical has been completed within 30 days and I have reviewed it.: Yes Section B Chief Complaint: Large Bowel Obstruction Allergies: Allergies Allergy/AdvReac Type Severity Reaction Status Date / Time Seasonal Allergies Allergy Unknown itching Uncoded 02/06/20 00:00 Plan I have reviewed the history and physical and performed a pertinent physical examination on my patient. No changes have occurred unless specified. Time Spent With Patient Time: Total time managing care of this patient today ____ minutes.
--- NOTE | 2022-12-26 22:25 | CONS_ITS ---
DATE OF SERVICE: 12/26/2022 REFERRING PHYSICIAN: Boogie Pennington MD REASON FOR CONSULTATION: Abdominal pain and abnormal CT scan of the colon. HISTORY OF PRESENT ILLNESS: The patient is a pleasant 52-year-old woman, who was admitted to the hospital after presenting to the emergency department with complaints of 3 weeks of abdominal discomfort, crampy abdominal pain, constipation and bloating. Symptoms worsened and did not respond to citrate of magnesia, MiraLAX and stool softeners and she presented to the emergency room, where she was evaluated with CT scanning as well as lab work. She was found to have a mild anemia with a hematocrit of 36.[address] scanning, which is reviewed. This is interpreted as showing a possible obstructing mass in the sigmoid colon. She subsequently underwent a Gastrografin enema, which showed a near complete distal large bowel obstruction, at the level of the sigmoid colon. She underwent a screening colonoscopy in July of this year, which showed diverticulosis, internal hemorrhoids and was an incomplete examination to 40-50 cm, which was limited rather by diverticulosis. No mass was identified. A CT colonography was done, which was limited examination due to inability to tolerate adequate insufflation. The patient denies any rectal bleeding. She has no family history of colon cancer and reports a good appetite up until her symptoms began approximately 3 weeks ago. PAST MEDICAL HISTORY: 1. Hypertension. 2. Anxiety. 3. Gastroesophageal reflux disease. 4. Aortic stenosis. 5. Laparoscopic Davon-en-Y gastric bypass. 6. Panniculectomy. CURRENT MEDICATIONS: Her current medication list is reviewed in the chart. ALLERGIES: SEASONAL. FAMILY HISTORY: This is reviewed with the patient and is noncontributory. SOCIAL HISTORY: There is no current tobacco, alcohol, or substance abuse. REVIEW OF SYSTEMS: SKIN: No pruritus. HEENT: Negative. CARDIOPULMONARY: No shortness of breath or chest pain. GASTROINTESTINAL: As above. GENITOURINARY: Negative. NEUROPSYCHIATRIC: Negative. PHYSICAL EXAMINATION: GENERAL: Shows a pleasant female in no acute distress. VITAL SIGNS: Reviewed in electronic medical record and are stable. SKIN: Anicteric. HEENT: Shows no scleral icterus. NECK: Without lymphadenopathy or thyromegaly. LUNGS: Clear. HEART: Shows a regular rate and rhythm. S1, S2. No murmur. ABDOMEN: Soft. Bowel sounds are present. No organomegaly is noted. There is mild tenderness diffusely. EXTREMITIES: Without edema. LABORATORY DATA AND IMAGING STUDIES: Reviewed. IMPRESSION: Abdominal pain with bowel obstruction. It seems most likely that based on her workup to date, this is due to diverticular disease rather than a mass. I have recommended a repeat attempt at lower GI tract endoscopy to try to further define this. I have discussed risks and benefits of sigmoidoscopy with her and this will be arranged for tomorrow. I do not think she will tolerate a GoLYTELY prep. Therefore, she will have a Fleet enema in the morning. Thanks for asking me to see her. I will follow her in the hospital with you. MD ROLO Alvarado/CELINA / [phone]
[2022-12-27] VITALS (12 sets, daily range): BP systolic 118–180; BP diastolic 62–90; PULSE 57–90; RESP 16–20; TEMP 36.2–37.2; O2SAT 95–100
[2022-12-27] MEDS: Morphine Sulfate 2 MG/ML CARTRIDGE IVPUSH (03:38)
[2022-12-27] MEDS: Lactated Ringers 1,000 ML 100 ML IVCONT ×2 (03:38→20:29)
[2022-12-27 06:17] LABS: MANUAL DIFF FLAG NO
[2022-12-27 06:20] LABS: Basophils Absolute Auto 0.1 X10*3/uL (0.0-0.2); Basophils Percent Auto 0.8 % (0-2); Eosinophils Absolute Auto 0.1 X10*3/uL (0.0-0.4); Eosinophils Percent Auto 1.3 % (0-4); Hematocrit 32.8 % (37.0-47.0); Hemoglobin 10.5 g/dl (12.0-16.0); Imm Gran Abs Auto 0.04 X10*3/uL (0.00-0.03); Imm Gran Pct Auto 0.5 % (0.0-0.4); Lymphocytes Percent Auto 25.1 % (20-40); Mean Corpuscular Hemoglobin 29.4 pg (27.0-33.0); Mean Corpuscular Volume 91.9 fL (80.0-98.0); Mean Platelet Volume 9.2 fL (9.4-12.3); Monocytes Absolute Auto 0.8 X10*3/uL (0.1-1.2); Neutrophils Percent Auto 62.3 % (45-73); Platelet Count 306 X10*3/uL (160-400); Red Blood Count 3.57 X10*6/uL (4.20-5.50); Red Cell Distribution Width 12.7 % (11.0-16.0)
[2022-12-27 06:29] LABS: Anion Gap 16 (12-20); Blood Urea Nitrogen 11 mg/dL (9-16); Calcium 8.9 mg/dL (8.4-10.2); Carbon Dioxide 21 mmol/L (22-29); Chloride 107 mmol/L (96-108); Creatinine Clr Calc Pharmacy 71.3; Estimated Glomerular Filt Rate > 60; Glucose Random 72 mg/dL (60-115); Potassium 3.3 mmol/L (3.3-5.1); Sodium 141 mmol/L (135-145)
--- NOTE | 2022-12-27 10:17 | HO.ANESPROP2 ---
HPI - Anesthesia Eval Consult details Narrative: 52 yo female patient for Laparotomy, sigmoid colon resection PMFSH Active Problems Active Problems: All Active Problems (Updated 12/27/22 @ 12:15 by Mary Jo Flaherty MD) Large bowel obstruction (Acute) Aortic stenosis (Acute)- mild ADOLPH 1.32. Asymptomatic. Sees cardiology every 1-2 years. Last visit 04/02. Stable Essential hypertension (Acute) Abdominal pain (Acute) H/o gastric bypass 2020 Past Medical History Medical History Anxiety GERD (gastroesophageal reflux disease) History of kidney stones HTN (hypertension) Hx of panniculitis Family History Family History Father Heart attack Mother Hypertension Brother Hypertension Sister Hypertension Sister Hypertension Family history of problems with anesthesia: No Surgical History Surgical History (Updated 12/27/22 @ 12:37 by Mary Jo Flaherty MD) Hx of colonoscopy Hx of esophagogastroduodenoscopy Hx of gastric bypass Status post panniculectomy History of Problems with Anesthesia: No Social History Social History Household Members: Other Household Members Other:: mother Housing: House Do you presently have visiting nurse or other home services: No Alcohol intake: current Alcohol intake frequency: does not drink Patient Tobacco Use Status: Former Tobacco user Quit Date: 2001 Years Smoked: 20+ off/on Second Hand Smoke Exposure: No Substance Use Type: Marijuana Meds Allergies Allergy/AdvReac Type Severity Reaction Status Date / Time Seasonal Allergies Allergy Unknown itching Uncoded 02/06/20 00:00 Active Medications: Current Medications Acetaminophen (Acetaminophen 325 Mg Tablet) 650 mg PO Q6H PRN PRN Reason: Pain, Mild (Pain Scale 1-3) Lactated Ringer's (Lr) 1,000 mls @ 100 mls/hr IVCONT .Q10H MARY Last Admin: 12/27/22 03:38 Dose: 100 mls/hr Morphine Sulfate (Morphine Sulfate 2 Mg/Ml Cartridge) 2 mg IVPUSH Q4H PRN; Protocol PRN Reason: Pain, Severe (Pain Scale 7-10) Last Admin: 12/27/22 03:38 Dose: 2 mg Ondansetron HCl (Ondansetron Hcl 4 Mg/2 Ml Vial) 4 mg IVPUSH Q8H PRN PRN Reason: Nausea and Vomiting Last Admin: 12/26/22 15:01 Dose: 4 mg Oxycodone HCl (Oxycodone Hcl Immed Release 5 Mg Tablet) 5 mg PO Q4H PRN PRN Reason: Pain, Moderate(Pain Scale 4-6) Pharmacy Consult (Consult Rx Perform Med Rec) 1 each MISCELLANE ONCE PRN PRN Reason: Consult order Sodium Biphosphate/Sodium Phosphate (Sodium Phosphate,[place]-Dibasic 133 Ml Enema) 133 ml GA ONCE MARY Sodium Chloride (0.9 % Sodium Chloride Flush 3 Ml Syringe) 3 ml IVFLUSH QSHIFT MARY Last Admin: 12/27/22 06:54 Dose: Not Given Home Medications Medication Instructions Recorded Confirmed Last Taken Type atenolol 50 mg tablet 25 mg PO DAILY 01/14/21 12/26/22 12/26/22 History bupropion HCl 150 mg 24 hr tablet, 150 mg PO QAM 01/14/21 12/26/22 12/26/22 History extended release fluoxetine 20 mg capsule 20 mg PO DAILY 01/14/21 12/26/22 12/26/22 History loratadine 10 mg tablet (Claritin) 10 mg PO DAILY PRN Allergy Symptoms 07/01/22 12/26/22 12/26/22 History ascorbic acid (vitamin C) 500 mg 500 mg PO DAILY 12/26/22 12/26/22 12/26/22 History tablet (Vitamin C) cyanocobalamin (vitamin B-12) 1,000 mcg PO DAILY 12/26/22 12/26/22 12/26/22 History 1,000 mcg tablet docusate sodium 100 mg capsule 200 mg PO DAILY 12/26/22 12/26/22 12/26/22 History (Stool Softener) valsartan 160 mg tablet 80 mg PO DAILY 12/26/22 12/26/22 12/26/22 History Exam Exam Date and Time: December 27, 2022 1017 Height,Weight and Vital Signs: Height 5 ft 1 in Weight 68.946 kg Last Vital Signs Temp 98.4 F 12/27/22 07:48 Pulse 90 12/27/22 07:48 Resp 20 12/27/22 07:48 BP 154/84 H 07/18/23 07:48 Pulse Ox 95 12/27/22 07:48 O2 Del Method Room Air 12/27/22 07:48 FiO2 30 12/26/22 12:31 Vital Signs Temp Pulse Resp BP Pulse Ox O2 Del Method 12/27/22 10:56 98.9 F 57 16 163/84 H 98 Room Air 12/27/22 07:48 98.4 F 90 20 154/84 H 95 Room Air 12/27/22 01:11 97.6 F 59 16 146/80 H 98 Room Air Pertinent Lab Results Pertinent Lab Results: Laboratory Tests 12/26/22 12/26/22 12/26/22 08:21 08:21 12:16 WBC 8.0 RBC 3.99 L Hgb 11.8 L Hct 36.6 L MCV 91.7 MCH 29.6 MCHC 32.2 RDW 12.7 Plt Count 359 MPV 9.0 L Immature Gran % (Auto) 0.2 Neut % (Auto) 71.8 Lymph % (Auto) 19.[address] [place] % (Auto) 7.2 Eos % (Auto) 1.1 Baso % (Auto) 0.7 Lymph # (Auto) 1.5 [place] # (Auto) 0.6 Eos # (Auto) 0.1 Baso # (Auto) 0.1 Abs Immat Gran (auto) 0.02 Absolute Neuts (auto) 5.8 Absolute Nucleated RBC 0.000 Nucleated RBC % (auto) 0.0 Sodium 137 Potassium 3.8 Chloride 101 Carbon Dioxide 21 L Anion Gap 19 BUN 13 Creatinine 0.84 Estim Creat Clear Calc 68.8 Estimated GFR > 60 Random Glucose 89 Calcium 9.4 Total Bilirubin 1.1 H AST 10 ALT 8 Alkaline Phosphatase 72 Total Protein 7.1 Albumin 3.9 Lipase 8 Carcinoembryonic Ag TSH 0.80 Urine Color Yellow Urine Appearance Clear Urine pH 5.5 Ur Specific [place] >= 1.030 H Urine Protein Trace Urine Glucose (UA) Negative Urine Ketones 40 Urine Blood Small (1+) H Urine Nitrite Negative Ur Leukocyte Esterase Negative Urine RBC >20 H Urine WBC 0-5 Ur Squamous Epith Cells 0-2 Urine Bacteria None Seen Hyaline Casts 0-2 Blood Type Antibody Screen 12/26/22 12/26/22 12/27/22 16:54 16:54 06:06 WBC 8.0 RBC 3.57 L Hgb 10.5 L Hct 32.8 L MCV 91.9 MCH 29.4 MCHC 32.0 RDW 12.7 Plt Count 306 MPV 9.2 L Immature Gran % (Auto) 0.5 H Neut % (Auto) 62.3 Lymph % (Auto) 25.1 [place] % (Auto) 10.0 Eos % (Auto) 1.3 Baso % (Auto) 0.8 Lymph # (Auto) 2.0 [place] # (Auto) 0.8 Eos # (Auto) 0.1 Baso # (Auto) 0.1 Abs Immat Gran (auto) 0.04 H Absolute Neuts (auto) 5.0 Absolute Nucleated RBC 0.000 Nucleated RBC % (auto) 0.0 Sodium Potassium Chloride Carbon Dioxide Anion Gap BUN Creatinine Estim Creat Clear Calc Estimated GFR Random Glucose Calcium Total Bilirubin AST ALT Alkaline Phosphatase Total Protein Albumin Lipase Carcinoembryonic Ag 3.60 TSH Urine Color Urine Appearance Urine pH Ur Specific [place] Urine Protein Urine Glucose (UA) Urine Ketones Urine Blood Urine Nitrite Ur Leukocyte Esterase Urine RBC Urine WBC Ur Squamous Epith Cells Urine Bacteria Hyaline Casts Blood Type A Positive Antibody Screen NEGATIVE 12/27/22 06:06 WBC RBC Hgb Hct MCV MCH MCHC RDW Plt Count MPV Immature Gran % (Auto) Neut % (Auto) Lymph % (Auto) [place] % (Auto) Eos % (Auto) Baso % (Auto) Lymph # (Auto) [place] # (Auto) Eos # (Auto) Baso # (Auto) Abs Immat Gran (auto) Absolute Neuts (auto) Absolute Nucleated RBC Nucleated RBC % (auto) Sodium 141 Potassium 3.3 Chloride 107 Carbon Dioxide 21 L Anion Gap 16 BUN 11 Creatinine 0.81 Estim Creat Clear Calc 71.3 Estimated GFR > 60 Random Glucose 72 Calcium 8.9 Total Bilirubin AST ALT Alkaline Phosphatase Total Protein Albumin Lipase Carcinoembryonic Ag TSH Urine Color Urine Appearance Urine pH Ur Specific [place] Urine Protein Urine Glucose (UA) Urine Ketones Urine Blood Urine Nitrite Ur Leukocyte Esterase Urine RBC Urine WBC Ur Squamous Epith Cells Urine Bacteria Hyaline Casts Blood Type Antibody Screen Narrative Narrative: Procedure Date:? 12/17/2020 Procedure Type:? Transthoracic Echocardiogram Conclusions: - The left ventricular systolic function is normal.? The ? calculated ejection fraction is 57% by biplane method. ? - There is mild aortic valve stenosis. ? 04/11/22 EKG NSR 62. Non-specific T wave abnormality Airway Mallampati Class: II TM Dist: >3cm Neck ROM: Full Loose/Missing/Broken Teeth: Yes (Missing molars) and No ([place] bottom right intact. denie broken or loose teeth) Heart: RRR + murmur Lungs: CTAB Assessment and Plan Assessment Anesthesia Assessment: Anesthesia Plan Discussed and Chart Reviewed Final Anesthetic Review Family History of Problems with Anesthesia: No History of Problems with Anesthesia: No NPO: Yes ASA Class: III and Emergency Final Preanesthetic Review: No Changes in Pt Med Stat, Meds/Allgs Chart Reviewed, Consent Obtained/Reviewed and Anes Risks/Benef Reviewed Patient Risk: High Procedure Risk: Intermediate Assessment/Block/Sedation in SS: Assess/Block/Sedation-SS Anesthetic Plan Anesthetic Plan: GA Disposition: Standard PACU and Inp. Admit - Standard Bed
--- NOTE | 2022-12-27 12:39 | P.PNIM_ITS ---
Subjective Subjective Date of Service: 12/27/22 Review of Systems Follow up Bowel obstruction pain is not as bad no nausea or vomiting Physical Exam Vital Signs: Vital Signs: Last Vital Signs Temp 98.9 F 12/27/22 10:56 Pulse 57 12/27/22 10:56 Resp 16 12/27/22 10:56 BP 163/84 H 12/27/22 10:56 Pulse Ox 98 12/27/22 10:56 O2 Del Method Room Air 12/27/22 10:56 FiO2 30 12/26/22 12:31 BMI result Body Mass Index 28.7 Appearing in no acute distress lung sounds are clear to auscultation heart regular rate rhythm, clear S1, S2 positive bowel sounds, abdomen is soft, nontender neuro patient is alert x3, no focal deficits Objective Data Active Medications Acetaminophen (Acetaminophen 325 Mg Tablet) 650 mg PO Q6H PRN PRN Reason: Pain, Mild (Pain Scale 1-3) Lactated Ringer's (Lr) 1,000 mls @ 100 mls/hr IVCONT .Q10H [facility] Last Admin: 12/27/22 03:38 Dose: 100 mls/hr Documented By: SINA Morphine Sulfate (Morphine Sulfate 2 Mg/Ml Cartridge) 2 mg IVPUSH Q4H PRN; Protocol PRN Reason: Pain, Severe (Pain Scale 7-10) Last Admin: 12/27/22 03:38 Dose: 2 mg Documented By: SINA Ondansetron HCl (Ondansetron Hcl 4 Mg/2 Ml Vial) 4 mg IVPUSH Q8H PRN PRN Reason: Nausea and Vomiting Last Admin: 12/26/22 15:01 Dose: 4 mg Documented By: LASHON Oxycodone HCl (Oxycodone Hcl Immed Release 5 Mg Tablet) 5 mg PO Q4H PRN PRN Reason: Pain, Moderate(Pain Scale 4-6) Pharmacy Consult (Consult Rx Perform Med Rec) 1 each MISCELLANE ONCE PRN PRN Reason: Consult order Sodium Biphosphate/Sodium Phosphate (Sodium Phosphate,[place]-Dibasic 133 Ml Enema) 133 ml [place] ONCE MARY Sodium Chloride (0.9 % Sodium Chloride Flush 3 Ml Syringe) 3 ml IVFLUSH QSHIFT [facility] Last Admin: 12/27/22 06:54 Dose: Not Given Documented By: HO.DABA Non-Admin Reason: IV Running Labs 12/27/22 06:06 12/27/22 06:06 Labs: Laboratory Results - last 24 hr 12/26/22 12/26/22 12/26/22 12:16 16:54 16:54 MCV MCH MCHC RDW Plt Count MPV Immature Gran % (Auto) Neut % (Auto) Lymph % (Auto) [place] % (Auto) Eos % (Auto) Baso % (Auto) Lymph # (Auto) [place] # (Auto) Eos # (Auto) Baso # (Auto) Abs Immat Gran (auto) Absolute Neuts (auto) Absolute Nucleated RBC Nucleated RBC % (auto) Anion Gap Estim Creat Clear Calc Estimated GFR Random Glucose Calcium Carcinoembryonic Ag 3.60 Urine Color Yellow Urine Appearance Clear Urine pH 5.5 Ur Specific [place] >= 1.030 H Urine Protein Trace Urine Glucose (UA) Negative Urine Ketones 40 Urine Blood Small (1+) H Urine Nitrite Negative Ur Leukocyte Esterase Negative Urine RBC >20 H Urine WBC 0-5 Ur Squamous Epith Cells 0-2 Urine Bacteria None Seen Hyaline Casts 0-2 Blood Type A Positive Antibody Screen NEGATIVE 12/27/22 12/27/22 06:06 06:06 MCV 91.9 MCH 29.4 MCHC 32.0 RDW 12.7 Plt Count 306 MPV 9.2 L Immature Gran % (Auto) 0.5 H Neut % (Auto) 62.3 Lymph % (Auto) 25.1 [place] % (Auto) 10.0 Eos % (Auto) 1.3 Baso % (Auto) 0.8 Lymph # (Auto) 2.0 [place] # (Auto) 0.8 Eos # (Auto) 0.1 Baso # (Auto) 0.1 Abs Immat Gran (auto) 0.04 H Absolute Neuts (auto) 5.0 Absolute Nucleated RBC 0.000 Nucleated RBC % (auto) 0.0 Anion Gap 16 Estim Creat Clear Calc 71.3 Estimated GFR > 60 Random Glucose 72 Calcium 8.9 Carcinoembryonic Ag Urine Color Urine Appearance Urine pH Ur Specific [place] Urine Protein Urine Glucose (UA) Urine Ketones Urine Blood Urine Nitrite Ur Leukocyte Esterase Urine RBC Urine WBC Ur Squamous Epith Cells Urine Bacteria Hyaline Casts Blood Type Antibody Screen Assessment and Plan (1) Large bowel obstruction: Status: Acute Plan 52-year-old female with history of hypertension, depression, GERD, aortic stenosis, and history of gastric bypass in 1999 with chronic constipation admitted for large bowel obstruction. Large bowel obstruction with obstipation CT abd/pelvis shows functional obstruction sigmoid colon with possible sigmoid mass Seen and evaluated by GI>CT likely representing diverticular disease plan for laparotomy and sigmoid resection pain management post op normocytic anemia, non blood loss, acute monitor HH above transfusion threshold HTN bp reasonably controlled hold blood pressure medications preoperative avoid postoperative hypotension start medications as blood pressure allows depression continue home meds Gerd continue ppi Mental health Continue home medications DVT prophylaxis- SCPs Attending Dr. Moses Full code continue hospitalization for treatment of bowel obstruction requiring surgical intervention Time Spent With Patient Time: Total time managing care of this patient today ____ minutes. Quality Stroke Does the patient have a stroke diagnosis?: No VTE Prior VTE?: No VTE Risk Level:: Medical - moderate - high VTE Device Contraindication: N/A - Device Ordered VTE Drug Contraindication: Treatment Not Indicated
--- NOTE | 2022-12-27 14:16 | MHC.SHP ---
Pre-Procedural Eval Section A Date of Service: 12/27/22 The patient is an INPATIENT: Yes Changes since office visit: No Cold of Flu in the past 2 weeks, No New Medical Problems, No Changes in Medication and No Patient answered all questions Section B Chief Complaint: Large Bowel Obstruction Details of Present Illness: Patient is a complete large bowel of obstruction of the sigmoid based on clinical evaluation, CT scan, and Gastrografin enema performed yesterday Evening. Risks, benefits, alternatives exploratory laparotomy with sigmoid resection and ostomy formation were extensively reviewed with the patient and included but not limited to bleeding, infection, numbness, pain, scarring, ostomy issues, and the patient wishes to proceed. All questions were answered. This Will be performed as an add on case today. Allergies: Allergies Allergy/AdvReac Type Severity Reaction Status Date / Time Seasonal Allergies Allergy Unknown itching Uncoded 02/06/20 00:00 Plan I have reviewed the history and physical and performed a pertinent physical examination on my patient. No changes have occurred unless specified. Time Spent With Patient Time: Total time managing care of this patient today ____ minutes.ay.
--- NOTE | 2022-12-27 15:30 | MHC.CM.PN ---
met with pts sister who was waiting for pt to come up from or she explains that pt lives w/mother ,and that pt is worried she just started a new job andfd may not health ins coverage referral faxced to financial counselor
--- NOTE | 2022-12-27 16:07 | W.PM.OPN ---
Operative Note Operative Note Date of Service: 12/27/22 Narrative: <del>Preoperative</del> <del>diagnosis:</del> <del>[]</del> <del>Complete</del> <del>distal</del> <del>large</del> <del>bowel</del> <del>obstruction</del> Postop diagnosis: [] Same Procedure [] exploratory laparotomy, enterolysis, sleeve resection sigmoid colon, end colostomy, Zia's pouch Surgeon: [] Sergio Senior Enterprise Architect: [] MEHDI Cast Type of Anesthesia: [] General Indication for surgery: [] Patient presents with a distal complete large bowel obstruction. Intraoperative findings demonstrated chino cicatrization and scarring involving the left ovary, fallopian tube, and uterus around a segment of mid sigmoid colon resulting in chronic stricturing and complete obstruction. Aside from a large right ovarian cyst, and massively dilated colon proximal to the obstruction, No other gross abdominal pathology demonstrated. Findings: [] Patient brought to the operating room, placed on operative table in supine position, after adequate level of general anesthesia was induced, the patient's abdomen was prepped and draped usual sterile fashion. Patient has had a prior abdominal plasty and no umbilicus was present. What would amount to a lower midline incision, this carried down through skin, subcutaneous tissue, and linea alba. Posterior fascia and perineum were opened and extended along the length of the incision using Bovie. Packs and retractors were placed to enhance exposure. Exploration of the abdomen demonstrated findings as noted above. The left fallopian tube, ovary and uterus were intimately adhered around the knuckle of mid sigmoid colon resulting in kinking and marked cicatrization/ scarring resulting in complete obstruction. The left ovary, fallopian tube and uterus were dissected off the sigmoid colon. Because of the chronicity of the pathology, this was not amenable to leaving it intact secondary to scarring resulting in complete obstruction,, it was decided to perform a sleeve resection. TANIKA 80 and TANIKA 60 were placed sigmoid colon at the desired locations and uneventfully fired. Mesentery of the specimen was sequentially taken down using double firing of ligature device. Specimen sent to pathology. The lateral peritoneal reflection was taken down using Bovie and with adequately mobilized massively dilated proximal bowel, an ostomy site was performed a muscle sparing position in the left lower quadrant. Bowel was brought out through this without incident and correctly oriented. Abdominal cavity was then copiously irrigated and secured hemostasis. Wound was closed in the following manner; posterior fashion and perineum were closed using running 0 Maxon suture. Fascia was reapproximated using looped 1. PDS. Interrupted inverted dermal 3-0 Vicryl sutures followed by running subcuticular 4-0 Vicryl sutures were placed. Steri-Strips sterile dressings and Tegaderm were placed. Next the ostomy was secured to the skin using seromuscular to dermal circumferential interrupted 3-0 Vicryl sutures. The ostomy was pink, viable, and showed good perfusion. Because of the enormous size, the ostomy could not be formally matured. Next the staple line was partially opened and the colon was cannulated with a pool sucker and copious amounts of liquid stool were retrieved. Remaining Staple line was then excised using Bovie peer Next an ostomy appliance was appropriately fitted and placed. Continued copious stool output was demonstrated. Sponge, needle, instrument counts reported correct. Patient tolerated the procedure well and emerged anesthesia stable condition. EBL minimal
[2022-12-27] MEDS: Acetaminophen 1,000 MG/100 ML PIGGYBACK 400 MG IV (20:28)
[2022-12-27] MEDS: Ketorolac Tromethamine 15 MG/ML VIAL IVPUSH (20:29)
[2022-12-27] MEDS: hydrALAZINE HCl 20 MG/ML VIAL 10 MG IVPUSH (22:38)
[2022-12-28] VITALS: RESP 18
[2022-12-28] MEDS: Acetaminophen 1,000 MG/100 ML PIGGYBACK 400 MG IV ×4 (04:05→22:24)
[2022-12-28] MEDS: Lactated Ringers 1,000 ML 100 ML IVCONT (06:22)
[2022-12-28] MEDS: Omeprazole 20 MG CAPSULE.DR PO (06:22)
[2022-12-28] MEDS: FLUoxetine HCl 20 MG CAPSULE PO (07:16)
[2022-12-28] MEDS: buPROPion HCl XL 150 MG TAB.ER.24H PO (07:16)
[2022-12-28] MEDS: Cyanocobalamin (Vitamin B-12) 1,000 MCG TABLET 1000 MCG PO (07:17)
[2022-12-28] MEDS: Ascorbic Acid 500 MG TABLET PO (07:17)
--- NOTE | 2022-12-28 07:43 | PM.PNGS ---
Subjective Subjective Date of Service: 12/28/22 Interval history: Feels well this morning. Has only required ofirmev and ketorolac overnight for pain. Tolerating water. Denies nausea/vomiting. Has not been OOB yet. Physical Exam Vital Signs: Vital Signs: Last Vital Signs Temp 97.2 F 12/27/22 18:42 Pulse 62 12/27/22 23:17 Resp 18 12/28/22 00:00 BP 118/62 12/27/22 23:17 Pulse Ox 97 12/27/22 23:38 O2 Del Method Room Air 12/27/22 23:38 O2 Flow Rate 2.0 12/27/22 18:42 FiO2 30 12/26/22 12:31 BMI result Body Mass Index 28.7 Const: General: comfortable, no acute distress and alert Orientation/consciousness: patient oriented x3 Resp: Effort & Inspection: normal respiratory effort Cardio: Rate: regular rate GI: Other: colostomy viable appearing, very edematous, liquid stool in appliance Inspection: No distended and Yes incision (dressing c/d/i) Palpation (GI): Soft to palpation, Tenderness to palpation present (GI) (incisional), no guarding and not rigid Skin: General skin exam: no rashes or lesions noted Neuro: General: patient oriented x3 and moves all extremities Objective Data Active Medications Ascorbic Acid (Ascorbic Acid 500 Mg Tablet) 500 mg PO DAILY [facility] Last Admin: 12/28/22 07:17 Dose: 500 mg Documented By: ZORA Bupropion HCl (Bupropion Hcl Xl 150 Mg Tab.Er.24h) 150 mg PO DAILY [facility] Last Admin: 12/28/22 07:16 Dose: 150 mg Documented By: ZORA Cyanocobalamin (Cyanocobalamin (Vitamin B-12) 1,000 Mcg Tablet) 1,000 mcg PO DAILY [facility] Last Admin: 12/28/22 07:17 Dose: 1,000 mcg Documented By: ZORA Fluoxetine HCl (Fluoxetine Hcl 20 Mg Capsule) 20 mg PO DAILY [facility] Last Admin: 12/28/22 07:16 Dose: 20 mg Documented By: ZORA Lactated Ringer's (Lr) 1,000 mls @ 100 mls/hr IVCONT .Q10H [facility] Last Admin: 12/28/22 06:22 Dose: 100 mls/hr Documented By: HO.LYSZ Acetaminophen (Ofirmev) 1,000 mg in 100 mls @ 400 mls/hr IV Q6H [facility] Last Infusion: 12/28/22 04:20 Dose: 0 mls/hr Documented By: WALLY Ketorolac Tromethamine (Ketorolac Tromethamine 15 Mg/Ml Vial) 15 mg IVPUSH Q6H PRN PRN Reason: Pain, Moderate(Pain Scale 4-6) Last Admin: 12/27/22 20:29 Dose: 15 mg Documented By: WALLY Loratadine (Loratadine 10 Mg Tablet) 10 mg PO DAILY PRN PRN Reason: Allergy Symptoms Morphine Sulfate (Morphine Sulfate 4 Mg/Ml Cartridge) 4 mg IVPUSH Q4H PRN; Protocol PRN Reason: Pain, Severe (Pain Scale 7-10) Omeprazole (Omeprazole 20 Mg Capsule.Dr) 20 mg PO DAILY@0630 [facility] Last Admin: 12/28/22 06:22 Dose: 20 mg Documented By: WALLY Ondansetron HCl (Ondansetron Hcl 4 Mg/2 Ml Vial) 4 mg IVPUSH Q8H PRN PRN Reason: Nausea and Vomiting Last Admin: 12/26/22 15:01 Dose: 4 mg Documented By: LASHON Oxycodone HCl (Oxycodone Hcl Immed Release 5 Mg Tablet) 5 mg PO Q4H PRN PRN Reason: Pain, Moderate(Pain Scale 4-6) Oxycodone HCl (Oxycodone Hcl Immed Release 5 Mg Tablet) 10 mg PO Q4H PRN PRN Reason: Pain, Severe (Pain Scale 7-10) Pharmacy Consult (Consult Rx Perform Med Rec) 1 each MISCELLANE ONCE PRN PRN Reason: Consult order Sodium Chloride (0.9 % Sodium Chloride Flush 3 Ml Syringe) 3 ml IVFLUSH QSHIFT [facility] Last Admin: 12/28/22 07:14 Dose: Not Given Documented By: ZORA Non-Admin Reason: IV Running Labs 12/27/22 06:06 12/27/22 06:06 Procedures Date of Service Date of Service: 12/28/22 Progress Note: A&P Assessment and plan (1) Large bowel obstruction: Status: Acute Plan 52 year old female admitted with LBO now POD #1 s/p exploratory laparotomy, enterolysis, sleeve resection sigmoid colon, end colostomy, Zia's pouch. Found to have chino cicatrization and scarring involving the left ovary, fallopian tube, and uterus around a segment of mid sigmoid colon resulting in chronic stricturing and complete obstruction.? Patient doing well post, good pain control. VSS. Abd benign with appropriate post op tenderness. Colostomy viable appearing but edematous with stool output. Will advance diet as tolerated. howard James IVF. Encouraged OOB/ambulation of halls today and IS use. Pain management. Colostomy education. Await pathology. Time Spent With Patient Time: Total time managing care of this patient today ____ minutes. Quality Stroke Does the patient have a stroke diagnosis?: No VTE Prior VTE?: No VTE Risk Level:: Medical - moderate - high VTE Device Contraindication: N/A - Device Ordered VTE Drug Contraindication: Treatment Not Indicated
[2022-12-28 08:00] VITALS: BP 152/75; PULSE 66; RESP 18; TEMP 36; O2SAT 98
[2022-12-28 08:23] LABS: Hematocrit 32.3 % (37.0-47.0); Hemoglobin 10.6 g/dl (12.0-16.0); Mean Corpuscular HGB Conc 32.8 g/dl (31.0-35.0); Mean Corpuscular Hemoglobin 29.7 pg (27.0-33.0); Mean Corpuscular Volume 90.5 fL (80.0-98.0); Mean Platelet Volume 9.5 fL (9.4-12.3); Platelet Count 350 X10*3/uL (160-400); Red Blood Count 3.57 X10*6/uL (4.20-5.50); Red Cell Distribution Width 12.5 % (11.0-16.0); White Blood Count 11.3 X10*3/uL (4.8-10.8)
[2022-12-28 08:36] LABS: Anion Gap 16 (12-20); Blood Urea Nitrogen 9 mg/dL (9-16); Calcium 9.2 mg/dL (8.4-10.2); Carbon Dioxide 24 mmol/L (22-29); Chloride 103 mmol/L (96-108); Creatinine Clr Calc Pharmacy 68.8; Estimated Glomerular Filt Rate > 60; Glucose Random 82 mg/dL (60-115); Potassium 3.7 mmol/L (3.3-5.1); Sodium 139 mmol/L (135-145)
--- NOTE | 2022-12-28 08:51 | PC.NURSE ---
Will menard D/C at 0815 pt DTV @[id number]
[2022-12-28] MEDS: Ketorolac Tromethamine 15 MG/ML VIAL IVPUSH (10:32)
[2022-12-28] MEDS: Morphine Sulfate 4 MG/ML CARTRIDGE IVPUSH (13:38)
--- NOTE | 2022-12-28 14:12 | HO.POSTANES ---
Post Anesthesia Evaluation Post Anesthesia Evaluation Date of Service: 12/28/22 Vital Signs: Vital Signs Temp Pulse Resp BP Pulse Ox O2 Del Method 12/28/22 08:00 96.8 F 66 18 152/75 H 98 Room Air Anesthesia: General Endotracheal-GETA Mental Status: Awake Pain Control: Satisfactory Nausea/Vomiting: None Hydration: Adequate Anesthesia-Related Issues: No Anes. Related Issues
--- NOTE | 2022-12-28 14:24 | P.PNIM_ITS ---
Subjective Subjective Date of Service: 12/28/22 Interval History: seen and examined this morning follow up for large bowel obstruction s/p exploratory laparotomy, enterolysis, sleeve resection sigmoid colon, end colostomy, Zia's pouch received a dose of IV hydralazine for elevated bp overnight feeling well this am, pain adequately controlled Review of Systems Review of Systems: Yes all other systems are reviewed and are negative Constitutional Constitutional: Denies chills and Denies fever(s) ENT Ears, Nose, Mouth, and Throat: Denies dizziness Cardiovascular Cardiovascular: Denies chest pain, Denies palpitations and Denies dyspnea Respiratory Respiratory: Denies cough and Denies dyspnea Gastrointestinal Gastrointestinal: Denies nausea and Denies vomiting Neurologic Neurologic: Denies dizziness Endocrine Endocrine: Denies palpitations Physical Exam Vital Signs: Vital Signs: Last Vital Signs Temp 96.8 F 12/28/22 08:00 Pulse 66 12/28/22 08:00 Resp 18 12/28/22 08:00 BP 152/75 H 12/28/22 08:00 Pulse Ox 98 12/28/22 08:00 O2 Del Method Room Air 12/28/22 08:00 O2 Flow Rate 2.0 12/27/22 18:42 FiO2 30 12/26/22 12:31 BMI result Body Mass Index 28.7 Const: General: cooperative, comfortable, no acute distress, alert and awake Nutritional Appearance: average body habitus Orientation/consciousness: patient oriented x3 Resp: Effort & Inspection: normal respiratory effort, no respiratory distress and no use of accessory muscles Auscultation: clear to auscultation bilaterally Cardio: Rate: regular rate Heart sounds: S1 normal heart sound present, S2 normal heart sound present and Murmur heart sound present GI: Other: colostomy in place with some liquid stool output abdomen non-distended, dressing c/d/i Inspection: No distended Palpation (GI): Soft to palpation and no guarding Neuro: General: patient oriented x3, moves all extremities and CN's II-XI intact bilaterally Extrem: General: Yes no pedal edema Objective Data Active Medications Ascorbic Acid (Ascorbic Acid 500 Mg Tablet) 500 mg PO DAILY [facility] Last Admin: 12/28/22 07:17 Dose: 500 mg Documented By: DABAntony Bupropion HCl (Bupropion Hcl Xl 150 Mg Tab.Er.24h) 150 mg PO DAILY [facility] Last Admin: 12/28/22 07:16 Dose: 150 mg Documented By: ZORA Cyanocobalamin (Cyanocobalamin (Vitamin B-12) 1,000 Mcg Tablet) 1,000 mcg PO DAILY [facility] Last Admin: 12/28/22 07:17 Dose: 1,000 mcg Documented By: ZORA Fluoxetine HCl (Fluoxetine Hcl 20 Mg Capsule) 20 mg PO DAILY [facility] Last Admin: 12/28/22 07:16 Dose: 20 mg Documented By: ZORA Lactated Ringer's (Lr) 1,000 mls @ 60 mls/hr IVCONT .[id number] [facility] Last Admin: 12/28/22 06:22 Dose: 100 mls/hr Documented By: WALLY Acetaminophen (Ofirmev) 1,000 mg in 100 mls @ 400 mls/hr IV Q6H [facility] Last Infusion: 12/28/22 09:35 Dose: 0 mls/hr Documented By: ZORA Ketorolac Tromethamine (Ketorolac Tromethamine 15 Mg/Ml Vial) 15 mg IVPUSH Q6H PRN PRN Reason: Pain, Moderate(Pain Scale 4-6) Last Admin: 12/28/22 10:32 Dose: 15 mg Documented By: ZORA Loratadine (Loratadine 10 Mg Tablet) 10 mg PO DAILY PRN PRN Reason: Allergy Symptoms Morphine Sulfate (Morphine Sulfate 4 Mg/Ml Cartridge) 4 mg IVPUSH Q4H PRN; Protocol PRN Reason: Pain, Severe (Pain Scale 7-10) Last Admin: 12/28/22 13:38 Dose: 4 mg Documented By: ZORA Omeprazole (Omeprazole 20 Mg Capsule.Dr) 20 mg PO DAILY@0630 [facility] Last Admin: 12/28/22 06:22 Dose: 20 mg Documented By: WALLY Ondansetron HCl (Ondansetron Hcl 4 Mg/2 Ml Vial) 4 mg IVPUSH Q8H PRN PRN Reason: Nausea and Vomiting Last Admin: 12/26/22 15:01 Dose: 4 mg Documented By: LASHON Oxycodone HCl (Oxycodone Hcl Immed Release 5 Mg Tablet) 5 mg PO Q4H PRN PRN Reason: Pain, Moderate(Pain Scale 4-6) Oxycodone HCl (Oxycodone Hcl Immed Release 5 Mg Tablet) 10 mg PO Q4H PRN PRN Reason: Pain, Severe (Pain Scale 7-10) Pharmacy Consult (Consult Rx Perform Med Rec) 1 each MISCELLANE ONCE PRN PRN Reason: Consult order Sodium Chloride (0.9 % Sodium Chloride Flush 3 Ml Syringe) 3 ml IVFLUSH QSHIFT [facility] Last Admin: 12/28/22 13:21 Dose: Not Given Documented By: ZORA Non-Admin Reason: IV Running Labs 12/28/22 07:48 12/28/22 07:48 Labs: Laboratory Results - last 24 hr 12/28/22 12/28/22 07:48 07:48 MCV 90.5 MCH 29.7 MCHC 32.8 RDW 12.5 Plt Count 350 MPV 9.5 Absolute Nucleated RBC 0.000 Nucleated RBC % (auto) 0.0 Anion Gap 16 Estim Creat Clear Calc 68.8 Estimated GFR > 60 Random Glucose 82 Calcium 9.2 Assessment and Plan (1) Large bowel obstruction: Status: Acute Plan 52-year-old female with history of hypertension, depression, GERD, aortic stenosis, and history of gastric bypass in 1999 with chronic constipation admitted for large bowel obstruction. Large bowel obstruction CT abd/pelvis shows functional obstruction sigmoid colon with possible sigmoid mass. Found to have marked cicatrization and scarring involving the left ovary, fallopian tube, and uterus around a segment of mid sigmoid colon resulting in chronic stricturing and complete obstruction seen by surgery and POD #1 s/p exploratory laparotomy, enterolysis, sleeve resection sigmoid colon, end colostomy, Zia's pouch normocytic anemia, non blood loss, acute above transfusion threshold H/H stable HTN bp reasonably controlled resume home atenolol, and likely losartan in am monitor bp closely mood continue home meds Gerd continue ppi DVT prophylaxis- SCDs Attending Dr. Moses Full code continue hospitalization for treatment of bowel obstruction requiring surgical intervention Time Spent With Patient Time: Total time managing care of this patient today ____ minutes. Quality Stroke Does the patient have a stroke diagnosis?: No VTE Prior VTE?: No VTE Risk Level:: Medical - moderate - high VTE Device Contraindication: N/A - Device Ordered VTE Drug Contraindication: Treatment Not Indicated
--- NOTE | 2022-12-28 14:38 | MHC.CM.PN ---
CM MET WITH PT AT BEDSIDE. LIVES WITH MOTHER. INDEPENDENT AND EMPLOYED F/T. +COVID VAX X3 NO HCP BUT WILLING TO COMPLETE WHILE HERE. PCP MELITON FIELDS NP DP: HOME , NO SERVICES ANTICIPATED. HAS OWN RIDE HOME.
[2022-12-28] MEDS: atenoloL 25 MG TABLET PO (15:11)
[2022-12-28 15:43] VITALS: BP 115/58; PULSE 56; RESP 18; TEMP 36; O2SAT 97
[2022-12-28 19:20] VITALS: BP 140/63; PULSE 55; RESP 18; TEMP 36.1; O2SAT 97
[2022-12-28] MEDS: 0.9 % Sodium Chloride Flush 3 ML SYRINGE IVFLUSH (22:49)
[2022-12-28 23:24] VITALS: BP 154/73; PULSE 51; RESP 16; TEMP 36; O2SAT 98
[2022-12-29] MEDS: Omeprazole 20 MG CAPSULE.DR PO (05:49)
[2022-12-29] MEDS: buPROPion HCl XL 150 MG TAB.ER.24H PO (07:50)
[2022-12-29] MEDS: Cyanocobalamin (Vitamin B-12) 1,000 MCG TABLET 1000 MCG PO (07:50)
[2022-12-29] MEDS: Valsartan 80 MG TABLET PO (07:50)
[2022-12-29] MEDS: atenoloL 25 MG TABLET PO (07:50)
[2022-12-29] MEDS: Ascorbic Acid 500 MG TABLET PO (07:50)
[2022-12-29] MEDS: FLUoxetine HCl 20 MG CAPSULE PO (07:51)
[2022-12-29] MEDS: 0.9 % Sodium Chloride Flush 3 ML SYRINGE IVFLUSH ×3 (07:51→19:57)
[2022-12-29 08:00] VITALS: BP 152/77; PULSE 56; RESP 18; TEMP 36.7; O2SAT 97
--- NOTE | 2022-12-29 08:16 | PM.PNGS ---
Subjective Subjective Date of Service: 12/29/22 Interval history: Continues to feel better. Comfortable at rest, mild incisional discomfort but relieved by analgesics. Tolerating clears and is hungry. OOB and ambulating halls without difficulty. Physical Exam Vital Signs: Vital Signs: Last Vital Signs Temp 98.1 F 12/29/22 08:00 Pulse 56 12/29/22 08:00 Resp 18 12/29/22 08:00 BP 152/77 H 12/29/22 08:00 Pulse Ox 97 12/29/22 08:00 O2 Del Method Room Air 12/29/22 08:00 O2 Flow Rate 2.0 12/27/22 18:42 FiO2 30 12/26/22 12:31 BMI result Body Mass Index 28.7 Const: General: comfortable, no acute distress and alert Orientation/consciousness: patient oriented x3 Resp: Effort & Inspection: normal respiratory effort GI: Other: dressings c/d/i stoma viable appearing,remains edematous, liquid stool in appliance Inspection: No distended Palpation (GI): Soft to palpation, Tenderness to palpation present (GI) (incisional), no guarding and not rigid Skin: General skin exam: no rashes or lesions noted Neuro: General: patient oriented x3 and moves all extremities Objective Data Active Medications Ascorbic Acid (Ascorbic Acid 500 Mg Tablet) 500 mg PO DAILY [facility] Last Admin: 12/29/22 07:50 Dose: 500 mg Documented By: ZORA Atenolol (Atenolol 25 Mg Tablet) 25 mg PO DAILY [facility]; Protocol Last Admin: 12/29/22 07:50 Dose: 25 mg Documented By: ZORA Bupropion HCl (Bupropion Hcl Xl 150 Mg Tab.Er.24h) 150 mg PO DAILY [facility] Last Admin: 12/29/22 07:50 Dose: 150 mg Documented By: ZORA Cyanocobalamin (Cyanocobalamin (Vitamin B-12) 1,000 Mcg Tablet) 1,000 mcg PO DAILY [facility] Last Admin: 12/29/22 07:50 Dose: 1,000 mcg Documented By: ZORA Fluoxetine HCl (Fluoxetine Hcl 20 Mg Capsule) 20 mg PO DAILY [facility] Last Admin: 12/29/22 07:51 Dose: 20 mg Documented By: ZORA Acetaminophen (Ofirmev) 1,000 mg in 100 mls @ 400 mls/hr IV Q6H [facility] Last Admin: 12/29/22 03:46 Dose: Not Given Documented By: ISABELLA Non-Admin Reason: Patient Refused Ketorolac Tromethamine (Ketorolac Tromethamine 15 Mg/Ml Vial) 15 mg IVPUSH Q6H PRN PRN Reason: Pain, Moderate(Pain Scale 4-6) Last Admin: 12/28/22 10:32 Dose: 15 mg Documented By: ZORA Loratadine (Loratadine 10 Mg Tablet) 10 mg PO DAILY PRN PRN Reason: Allergy Symptoms Morphine Sulfate (Morphine Sulfate 4 Mg/Ml Cartridge) 4 mg IVPUSH Q4H PRN; Protocol PRN Reason: Pain, Severe (Pain Scale 7-10) Last Admin: 12/28/22 13:38 Dose: 4 mg Documented By: ZORA Omeprazole (Omeprazole 20 Mg Capsule.Dr) 20 mg PO DAILY@0630 [facility] Last Admin: 12/29/22 05:49 Dose: 20 mg Documented By: ISABELLA Ondansetron HCl (Ondansetron Hcl 4 Mg/2 Ml Vial) 4 mg IVPUSH Q8H PRN PRN Reason: Nausea and Vomiting Last Admin: 12/26/22 15:01 Dose: 4 mg Documented By: LASHON Oxycodone HCl (Oxycodone Hcl Immed Release 5 Mg Tablet) 5 mg PO Q4H PRN PRN Reason: Pain, Moderate(Pain Scale 4-6) Oxycodone HCl (Oxycodone Hcl Immed Release 5 Mg Tablet) 10 mg PO Q4H PRN PRN Reason: Pain, Severe (Pain Scale 7-10) Pharmacy Consult (Consult Rx Perform Med Rec) 1 each MISCELLANE ONCE PRN PRN Reason: Consult order Sodium Chloride (0.9 % Sodium Chloride Flush 3 Ml Syringe) 3 ml IVFLUSH QSHIFT [facility] Last Admin: 12/29/22 07:51 Dose: 3 ml Documented By: ZORA Valsartan (Valsartan 80 Mg Tablet) 80 mg PO DAILY [facility]; Protocol Last Admin: 12/29/22 07:50 Dose: 80 mg Documented By: ZORA Labs 12/28/22 07:48 12/28/22 07:48 Labs: Laboratory Results - last 24 hr 12/28/22 12/28/22 07:48 07:48 MCV 90.5 MCH 29.7 MCHC 32.8 RDW 12.5 Plt Count 350 MPV 9.5 Absolute Nucleated RBC 0.000 Nucleated RBC % (auto) 0.0 Anion Gap 16 Estim Creat Clear Calc 68.8 Estimated GFR > 60 Random Glucose 82 Calcium 9.2 Procedures Date of Service Date of Service: 12/29/22 Progress Note: A&P Assessment and plan (1) Large bowel obstruction: Status: Acute (2) Colostomy in place: Status: Acute Plan 52 year old female admitted with LBO now POD #2 s/p exploratory laparotomy, enterolysis, sleeve resection sigmoid colon, end colostomy, Zia's pouch. Found to have chino cicatrization and scarring involving the left ovary, fallopian tube, and uterus around a segment of mid sigmoid colon resulting in chronic stricturing and complete obstruction. Continues to do well post op. VSS. Abd remains benign, dressing c/d/i, colostomy remains edematous but viable appearing with stool output. Advance diet to solids. Transition to po analgesics. Encouraged OOB/ambulation and IS use. Colostomy education. Await pathology. Time Spent With Patient Time: Total time managing care of this patient today ____ minutes. Quality Stroke Does the patient have a stroke diagnosis?: No VTE Prior VTE?: No VTE Risk Level:: Medical - moderate - high VTE Device Contraindication: N/A - Device Ordered VTE Drug Contraindication: Treatment Not Indicated
[2022-12-29] MEDS: Acetaminophen 325 MG TABLET 975 MG PO ×3 (08:31→19:52)
--- NOTE | 2022-12-29 10:29 | PM.GIPN ---
Subjective Subjective Date of Service: 12/29/22 Interval History: feels ok Critical Care Time (minutes): 0 Physical Exam Vital Signs: Vital Signs: Last Vital Signs Temp 98.1 F 12/29/22 08:00 Pulse 56 12/29/22 08:00 Resp 18 12/29/22 08:00 BP 152/77 H 12/29/22 08:00 Pulse Ox 97 12/29/22 08:00 O2 Del Method Room Air 12/29/22 08:00 O2 Flow Rate 2.0 12/27/22 18:42 FiO2 30 12/26/22 12:31 BMI result Body Mass Index 28.7 GI: Other: abdomen is soft Objective Data Labs 12/28/22 07:48 12/28/22 07:48 Procedures Date of Service Date of Service: 12/29/22 Progress Note: A&P Assessment and plan (1) Large bowel obstruction: Status: Acute Assessment and Plan: doing well after surgery pathology pending given the limitations of her previous lower gi tract evaluation, she should have a colonoscopy at some point down the road. I discussed this with Nicole. Time Spent With Patient Time: Total time managing care of this patient today ____ minutes. Quality Stroke Does the patient have a stroke diagnosis?: No VTE Prior VTE?: No VTE Risk Level:: Medical - moderate - high VTE Device Contraindication: N/A - Device Ordered VTE Drug Contraindication: Treatment Not Indicated
[2022-12-29] MEDS: oxyCODONE HCl Immed Release 5 MG TABLET PO ×2 (11:43→19:56)
--- NOTE | 2022-12-29 12:33 | MHC.CM.PN ---
Call placed to financial counselors to follow up with patient re: insurance.
[2022-12-29 15:16] VITALS: BP 141/71; PULSE 54; RESP 18; TEMP 36.6; O2SAT 98
--- NOTE | 2022-12-29 15:30 | P.PNIM_ITS ---
Subjective Subjective Date of Service: 12/29/22 Interval History: seen and examined this morning follow up for bowel obstruction no overnight events feeling well, diet advanced to solid food this am ambulating in the hallway without difficulty Review of Systems Review of Systems: Yes all other systems are reviewed and are negative Constitutional Constitutional: Denies chills and Denies fever(s) Cardiovascular Cardiovascular: Denies chest pain, Denies palpitations and Denies dyspnea Respiratory Respiratory: Denies cough and Denies dyspnea Gastrointestinal Gastrointestinal: Denies abdominal pain, Denies nausea and Denies vomiting Endocrine Endocrine: Denies palpitations Physical Exam Vital Signs: Vital Signs: Last Vital Signs Temp 97.9 F 12/29/22 15:16 Pulse 54 12/29/22 15:16 Resp 18 12/29/22 15:16 BP 141/71 H 12/29/22 15:16 Pulse Ox 98 12/29/22 15:16 O2 Del Method Room Air 12/29/22 15:16 O2 Flow Rate 2.0 12/27/22 18:42 FiO2 30 12/26/22 12:31 BMI result Body Mass Index 28.7 Const: General: cooperative, comfortable, no acute distress, alert and awake Nutritional Appearance: average body habitus Orientation/consciousness: patient oriented x3 Resp: Effort & Inspection: normal respiratory effort, no respiratory distress and no use of accessory muscles Auscultation: clear to auscultation bilaterally Cardio: Rate: regular rate Heart sounds: S1 normal heart sound present, S2 normal heart sound present and Murmur heart sound present GI: Other: colostomy in place with some liquid stool output abdomen non-distended Inspection: No distended Palpation (GI): Soft to palpation and no guarding Neuro: General: patient oriented x3, moves all extremities and CN's II-XI intact bilaterally Extrem: General: Yes no pedal edema Objective Data Active Medications Acetaminophen (Acetaminophen 325 Mg Tablet) 975 mg PO Q6H [facility] Last Admin: 12/29/22 14:40 Dose: 975 mg Documented By: ZORA Ascorbic Acid (Ascorbic Acid 500 Mg Tablet) 500 mg PO DAILY [facility] Last Admin: 12/29/22 07:50 Dose: 500 mg Documented By: ZORA Atenolol (Atenolol 25 Mg Tablet) 25 mg PO DAILY [facility]; Protocol Last Admin: 12/29/22 07:50 Dose: 25 mg Documented By: ZORA Bupropion HCl (Bupropion Hcl Xl 150 Mg Tab.Er.24h) 150 mg PO DAILY [facility] Last Admin: 12/29/22 07:50 Dose: 150 mg Documented By: ZORA Cyanocobalamin (Cyanocobalamin (Vitamin B-12) 1,000 Mcg Tablet) 1,000 mcg PO DAILY [facility] Last Admin: 12/29/22 07:50 Dose: 1,000 mcg Documented By: ZORA Fluoxetine HCl (Fluoxetine Hcl 20 Mg Capsule) 20 mg PO DAILY [facility] Last Admin: 12/29/22 07:51 Dose: 20 mg Documented By: ZORA Ketorolac Tromethamine (Ketorolac Tromethamine 15 Mg/Ml Vial) 15 mg IVPUSH Q6H PRN PRN Reason: Pain, Moderate(Pain Scale 4-6) Last Admin: 12/28/22 10:32 Dose: 15 mg Documented By: ZORA Loratadine (Loratadine 10 Mg Tablet) 10 mg PO DAILY PRN PRN Reason: Allergy Symptoms Morphine Sulfate (Morphine Sulfate 4 Mg/Ml Cartridge) 4 mg IVPUSH Q4H PRN; Protocol PRN Reason: Pain, Severe (Pain Scale 7-10) Last Admin: 12/28/22 13:38 Dose: 4 mg Documented By: ZORA Omeprazole (Omeprazole 20 Mg Capsule.Dr) 20 mg PO DAILY@0630 [facility] Last Admin: 12/29/22 05:49 Dose: 20 mg Documented By: OZORALMalgorzata Ondansetron HCl (Ondansetron Hcl 4 Mg/2 Ml Vial) 4 mg IVPUSH Q8H PRN PRN Reason: Nausea and Vomiting Last Admin: 12/26/22 15:01 Dose: 4 mg Documented By: LASHON Oxycodone HCl (Oxycodone Hcl Immed Release 5 Mg Tablet) 5 mg PO Q4H PRN PRN Reason: Pain, Moderate(Pain Scale 4-6) Last Admin: 12/29/22 11:43 Dose: 5 mg Documented By: ZORA Oxycodone HCl (Oxycodone Hcl Immed Release 5 Mg Tablet) 10 mg PO Q4H PRN PRN Reason: Pain, Severe (Pain Scale 7-10) Pharmacy Consult (Consult Rx Perform Med Rec) 1 each MISCELLANE ONCE PRN PRN Reason: Consult order Sodium Chloride (0.9 % Sodium Chloride Flush 3 Ml Syringe) 3 ml IVFLUSH QSHIFT [facility] Last Admin: 12/29/22 14:42 Dose: 3 ml Documented By: ZORA Valsartan (Valsartan 80 Mg Tablet) 80 mg PO DAILY [facility]; Protocol Last Admin: 12/29/22 07:50 Dose: 80 mg Documented By: ZORA Labs 12/28/22 07:48 12/28/22 07:48 Assessment and Plan (1) Colostomy in place: Status: Acute (2) Large bowel obstruction: Status: Acute Plan 52-year-old female with history of hypertension, depression, GERD, aortic stenosis, and history of gastric bypass in 1999 with chronic constipation admitt ed for large bowel obstruction. Large bowel obstruction CT abd/pelvis shows functional obstruction sigmoid colon with possible sigmoid mass. Found to have marked cicatrization and scarring involving the left ovary, fallopian tube, and uterus around a segment of mid sigmoid colon resulting in chronic stricturing and complete obstruction POD #2 s/p exploratory laparotomy, enterolysis, sleeve resection sigmoid colon, end colostomy, Zia's pouch surgery following, tolerating regular diet per GI - should have outpatient colonoscopy in the future normocytic anemia, non blood loss, acute above transfusion threshold H/H stable HTN losartan, atenolol resumed at home doses mood continue home meds Gerd continue ppi DVT prophylaxis- SCDs, has been ambulating in the hallway Attending Dr. Moses Full code continue hospitalization for treatment of bowel obstruction requiring surgical intervention Time Spent With Patient Time: Total time managing care of this patient today ____ minutes. Quality Stroke Does the patient have a stroke diagnosis?: No VTE Prior VTE?: No VTE Risk Level:: Medical - moderate - high VTE Device Contraindication: N/A - Device Ordered VTE Drug Contraindication: Treatment Not Indicated
[2022-12-29 23:11] VITALS: BP 141/70; PULSE 53; RESP 16; TEMP 36.1; O2SAT 98
[2022-12-30] MEDS: Acetaminophen 325 MG TABLET 975 MG PO (02:24)
[2022-12-30] MEDS: Omeprazole 20 MG CAPSULE.DR PO (05:30)
[2022-12-30] MEDS: oxyCODONE HCl Immed Release 5 MG TABLET 10 MG PO (05:30)
[2022-12-30 07:36] VITALS: BP 135/73; PULSE 76; RESP 18; TEMP 37; O2SAT 99
--- NOTE | 2022-12-30 08:24 | PM.PNGS ---
Subjective Subjective Date of Service: 12/30/22 Interval history: Feels well this morning. Reports some abdominal discomfort but manageable. Tolerating a solid diet. OOB and ambulating. Emptying ostomy appliance on her own. Feels ready for discharge. Physical Exam Vital Signs: Vital Signs: Last Vital Signs Temp 98.6 F 12/30/22 07:36 Pulse 76 12/30/22 07:36 Resp 18 12/30/22 07:36 BP 135/73 12/30/22 07:36 Pulse Ox 99 12/30/22 07:36 O2 Del Method Room Air 12/30/22 07:36 O2 Flow Rate 2.0 12/27/22 18:42 FiO2 30 12/26/22 12:31 BMI result Body Mass Index 28.7 Const: General: comfortable, no acute distress and alert Orientation/consciousness: patient oriented x3 Resp: Effort & Inspection: normal respiratory effort GI: Other: ostomy remains edematous, protruding, stool in appliance Inspection: No distended and Yes incision (clean) Palpation (GI): Soft to palpation, Tenderness to palpation present (GI) (mild, incisional), no guarding and not rigid Percussion: Yes normal to percussion Skin: General skin exam: no rashes or lesions noted Neuro: General: patient oriented x3 and moves all extremities Objective Data Active Medications Acetaminophen (Acetaminophen 325 Mg Tablet) 975 mg PO Q6H [facility] Last Admin: 12/30/22 02:24 Dose: 975 mg Documented By: OZORALB Ascorbic Acid (Ascorbic Acid 500 Mg Tablet) 500 mg PO DAILY [facility] Last Admin: 12/29/22 07:50 Dose: 500 mg Documented By: ZORA Atenolol (Atenolol 25 Mg Tablet) 25 mg PO DAILY [facility]; Protocol Last Admin: 12/29/22 07:50 Dose: 25 mg Documented By: ZORA Bupropion HCl (Bupropion Hcl Xl 150 Mg Tab.Er.24h) 150 mg PO DAILY [facility] Last Admin: 12/29/22 07:50 Dose: 150 mg Documented By: ZORA Cyanocobalamin (Cyanocobalamin (Vitamin B-12) 1,000 Mcg Tablet) 1,000 mcg PO DAILY [facility] Last Admin: 12/29/22 07:50 Dose: 1,000 mcg Documented By: ZORA Fluoxetine HCl (Fluoxetine Hcl 20 Mg Capsule) 20 mg PO DAILY [facility] Last Admin: 12/29/22 07:51 Dose: 20 mg Documented By: ZORA Ketorolac Tromethamine (Ketorolac Tromethamine 15 Mg/Ml Vial) 15 mg IVPUSH Q6H PRN PRN Reason: Pain, Moderate(Pain Scale 4-6) Last Admin: 12/28/22 10:32 Dose: 15 mg Documented By: ZORA Loratadine (Loratadine 10 Mg Tablet) 10 mg PO DAILY PRN PRN Reason: Allergy Symptoms Morphine Sulfate (Morphine Sulfate 4 Mg/Ml Cartridge) 4 mg IVPUSH Q4H PRN; Protocol PRN Reason: Pain, Severe (Pain Scale 7-10) Last Admin: 12/28/22 13:38 Dose: 4 mg Documented By: ZORA Omeprazole (Omeprazole 20 Mg Capsule.Dr) 20 mg PO DAILY@0630 [facility] Last Admin: 12/30/22 05:30 Dose: 20 mg Documented By: MONISHA Ondansetron HCl (Ondansetron Hcl 4 Mg/2 Ml Vial) 4 mg IVPUSH Q8H PRN PRN Reason: Nausea and Vomiting Last Admin: 12/26/22 15:01 Dose: 4 mg Documented By: LASHON Oxycodone HCl (Oxycodone Hcl Immed Release 5 Mg Tablet) 5 mg PO Q4H PRN PRN Reason: Pain, Moderate(Pain Scale 4-6) Last Admin: 12/29/22 19:56 Dose: 5 mg Documented By: ISABELLA Oxycodone HCl (Oxycodone Hcl Immed Release 5 Mg Tablet) 10 mg PO Q4H PRN PRN Reason: Pain, Severe (Pain Scale 7-10) Last Admin: 12/30/22 05:30 Dose: 10 mg Documented By: MONISHA Pharmacy Consult (Consult Rx Perform Med Rec) 1 each MISCELLANE ONCE PRN PRN Reason: Consult order Sodium Chloride (0.9 % Sodium Chloride Flush 3 Ml Syringe) 3 ml IVFLUSH [facility] Last Admin: 12/29/22 19:57 Dose: 3 ml Documented By: ISABELLA Valsartan (Valsartan 80 Mg Tablet) 80 mg PO DAILY [facility]; Protocol Last Admin: 12/29/22 07:50 Dose: 80 mg Documented By: DABA Labs 12/28/22 07:48 12/28/22 07:48 Procedures Date of Service Date of Service: 12/30/22 Progress Note: A&P Assessment and plan (1) Colostomy in place: Status: Acute (2) Large bowel obstruction: Status: Acute Plan 52 year old female admitted with LBO now POD #3 s/p exploratory laparotomy, enterolysis, sleeve resection sigmoid colon, end colostomy, Zia's pouch. Found to have chino cicatrization and scarring involving the left ovary, fallopian tube, and uterus around a segment of mid sigmoid colon resulting in chronic stricturing and complete obstruction. Doing well from surgical standpoint. Abd benign with clean incision, colostomy viable and functioning well. Stable for discharge to home today with VNA services. F/u in office in 1 week. Pathology remains pending. Time Spent With Patient Time: Total time managing care of this patient today ____ minutes. Quality Stroke Does the patient have a stroke diagnosis?: No VTE Prior VTE?: No VTE Risk Level:: Medical - moderate - high VTE Device Contraindication: N/A - Device Ordered VTE Drug Contraindication: Treatment Not Indicated
[2022-12-30] MEDS: Valsartan 80 MG TABLET PO (08:25)
[2022-12-30] MEDS: FLUoxetine HCl 20 MG CAPSULE PO (08:26)
[2022-12-30] MEDS: atenoloL 25 MG TABLET PO (08:26)
[2022-12-30] MEDS: buPROPion HCl XL 150 MG TAB.ER.24H PO (08:26)
[2022-12-30] MEDS: Ascorbic Acid 500 MG TABLET PO (08:26)
[2022-12-30] MEDS: 0.9 % Sodium Chloride Flush 3 ML SYRINGE IVFLUSH (08:27)
[2022-12-30] MEDS: Cyanocobalamin (Vitamin B-12) 1,000 MCG TABLET 1000 MCG PO (08:27)
--- NOTE | 2022-12-30 10:19 | MHC.CM.PN ---
DP: PT HAS BEEN MEDICALLY CLEARED FOR DC HOME, NO SERVICES. RN AWARE AND OSTOMY SUPPLIES SENT. PT HAS OWN RIDE HOME.
[2022-12-30] MEDS: oxyCODONE HCl Immed Release 5 MG TABLET PO (10:35)
--- NOTE | 2022-12-30 11:06 | PM.DS ---
DS: Providers Provider Date of Service: 12/30/22 Date of admission: 12/26/22 13:39 Date of discharge: 12/30/22 Primary care physician: Vianca Braden NP Consults: 12/26/22 13:39 Consult to Gastroenterology Routine Consulting Provider: Syed Oates Reason for consultation: Large bowel obstruction- colonoscopy prep s/p gastric bypass Attending physician on discharge: Sp Moses Discharging clinician: Renetta Sandra DS: Diagnosis Discharge Diagnosis (1) Colostomy in place: Status: Acute (2) Large bowel obstruction: Status: Acute DS: Summary Hospital Course Hospital Course: From H&P on day of admission 52-year-old female with history of hypertension, depression, GERD, aortic stenosis, and history of gastric bypass in 1999 with chronic constipation presented to the ED earlier today for evaluation of diffuse abdominal pain worsening over the last 3 weeks.? She states the pain is sharp and crampy and is constant but occasionally acutely worsens in the lower abdomen.? There is also been nausea and vomiting which she feels is secondary to the pain.? She has not moved her bowels since despite taking magnesium citrate, MiraLax, and stool softeners.? She does report occasionally passing flatus.? Denies any fevers, chills, diarrhea, melena, hematochezia.? Colonoscopy attempt was made 4 months ago but was aborted as the go could not be advanced beyond the sigmoid and with and followed by a virtual CT colonoscopy which was also suboptimal due to patient's discomfort. In the ED, vitals have been stable.? There is no leukocytosis.? There is a mild normocytic anemia with H/H 11.8/36.6%.? Renal function and electrolyte levels normal.? Urinalysis indicative of some dehydration but otherwise unremarkable.? CT abdomen/pelvis showed functional obstruction of the large bowel most likely related to an obstructing mass in the sigmoid colon.? Incidentally seen hypoattenuating lesion in the right hemipelvis measuring 4.3 x 5.1 cm which may be further evaluated with pelvic ultrasound on nonemergent basis.? General surgery and Gastroenterology with plan for colonoscopy tomorrow. CT abd/pelvis showed functional obstruction sigmoid colon with possible sigmoid mass. Initially lower GI was planned, but ultimately she was seen by surgery and went to the OR for exploratory laparotomy and was found to have marked cicatrization and scarring involving the left ovary, fallopian tube, and uterus around a segment of mid sigmoid colon resulting in chronic stricturing and complete obstruction requiring enterolysis, sleeve resection sigmoid colon, end colostomy, Zia's pouch. She has done well postoperatively and is tolerating a solid diet, she has been ambulating and emptying ostomy appliance on her own. She will be discharged home with VNA with plans to follow up with General surgery as outpatient. Pathology results pending at the time of discharge. GI recommends outpatient colonoscopy in the future. Time Spent with Patient Time attestation: Total time managing care of this patient today ____ minutes. Discharge coordination time: Greater than 30 minutes Quality: Safe Use of Opioids Does Pt have an Active Cancer Diagnosis on the Problem List?: No Quality: Stroke Does the patient have a stroke diagnosis?: No Physical Exam Vital Signs: Vital Signs: Last Vital Signs Temp 98.6 F 12/30/22 07:36 Pulse 76 12/30/22 07:36 Resp 18 12/30/22 07:36 BP 135/73 12/30/22 07:36 Pulse Ox 99 12/30/22 07:36 O2 Del Method Room Air 12/30/22 07:36 O2 Flow Rate 2.0 12/27/22 18:42 FiO2 30 12/26/22 12:31 BMI result Body Mass Index 28.7 Const: General: cooperative, comfortable, no acute distress, alert and awake Nutritional Appearance: average body habitus Orientation/consciousness: patient oriented x3 Resp: Effort & Inspection: normal respiratory effort, no respiratory distress and no use of accessory muscles Auscultation: clear to auscultation bilaterally Cardio: Rate: regular rate Heart sounds: S1 normal heart sound present, S2 normal heart sound present and Murmur heart sound present GI: Other: colostomy in place with some liquid stool output abdomen non-distended Inspection: No distended Palpation (GI): Soft to palpation and no guarding Neuro: General: patient oriented x3, moves all extremities and CN's II-XI intact bilaterally Extrem: General: Yes no pedal edema DS: Data Data Completed and Pending Pending studies at discharge: Pending at discharge 12/27/22 16:06 Surgical [PTH] Routine Discharge Plan Discharge Anticipated Discharge Date/Time: 12/30/22 11:44 Patient Disposition: Home, Self-Care Discharge Diagnosis: sigmoid stricture Referrals: Vianca Braden NP [Primary Care Provider] - 3 days Rudolph Hill MD [Physician] - 1 Week Discharge Medications: New oxycodone 5 mg tablet 5 mg PO Q4H PRN (Reason: pain (scale score 7-10)) Qty: 24 0RF Rx Instructions: Partial Fill upon patient request. (DME) ostomy adhesive Strip See Rx Instructions .Route Qty: 15 2RF Rx Instructions: As directed (DME) Skin Prep Wipes Misc See Rx Instructions .Route Qty: 50 2RF Rx Instructions: As directed (DME) colostomy bags 3 misc See Rx Instructions .ROUTE .MEDSUPPLY Qty: 30 2RF Rx Instructions: As directed Continued omeprazole 20 mg capsule,delayed release(DR/EC) 20 mg PO DAILY Qty: 30 6RF loratadine [Claritin] 10 mg Tablet 10 mg PO DAILY PRN (Reason: Allergy Symptoms) cyanocobalamin (vitamin B-12) 1,000 mcg Tablet 1,000 mcg PO DAILY ascorbic acid (vitamin C) [Vitamin C] 500 mg Tablet 500 mg PO DAILY docusate sodium [Stool Softener] 100 mg Capsule 200 mg PO DAILY valsartan 160 mg tablet 80 mg PO DAILY fluoxetine 20 mg capsule 20 mg PO DAILY atenolol 50 mg tablet 25 mg PO DAILY bupropion HCl 150 mg tablet extended release 24 hr 150 mg PO QAM Discharge Orders: Discharge Order (Routine); Ordered 12/30/22 Ordered By: Awa Cast Diet: Advance to usual diet Activity on Discharge: No heavy lifting Stand Alone Forms: Patient Portal Discharge page, Work/School Release Activity Restrictions/Additional Instructions: Apply an ice pack for short intervals (20 minutes on, followed by at least 20 minutes off) for the first 2 days. Do not apply heat. Do not use creams, lotions, or topical antibiotics. These can cause infection or allergic reaction. Ok to shower. You have steri strips (small white cloth strips) covering your incision- these will fall off ~1 week. Follow up in office with Dr. Hill in 1 week. ([phone]) No heavy lifting (>10lbs) or strenuous activity! Call Your Doctor If: -Your temperature exceeds 101.5? F -You experience excessive pain or swelling -You have an unexpected reaction to medication -You have excessive bleeding -You experience continued vomiting/nausea -Your incision begins to separate -Your incision shows signs of infection such as increased redness, swelling, excessive pain, drainage (light blood or clear fluid is normal) or heat Care Plan Goals: Return to baseline health and resume normal activities following recovery period. Health Concerns: large bowel obstruction sigmoid stricture Plan of Treatment: s/p ex lap, hartmanns procedure colostomy care f/u in office in 1 week recommend outpatient colonocopy in near future Assessment: Doing well post op Patient Instructions: Constipation (ED), Abdominal Pain (ED)
== END 2022-12-30 11:39 | disposition home or self-care (01) | DRG 331 ==
LOC: HO.ED 12:38 → HO.EDOVER 13:49 → HO.S3 15:41
PROVIDERS: Surgery; Admitting Provider Physician Assistant; Emergency Provider Emergency Medicine; PCP Nurse Practitioner Family; Visit Provider Physician Assistant Medical
PROC: 0DBN0ZZ Excision of Sigmoid Colon, Open Approach (ICD-10-PCS; principal; 2022-12-27 11:10)
DX: K56.691 Other complete intestinal obstruction (principal); F41.9 Anxiety disorder, unspecified; I10 Essential (primary) hypertension; G89.18 Other acute postprocedural pain; Z98.84 Bariatric surgery status; Z79.899 Other long term (current) drug therapy
CPT/HCPCS: 36415; 74177; 74270; 80048; 80053; 81001; 82378; 83690; 84443; 85025; 85027; 86850; 86900; 86901; 88304; 88307; 88341; 88342; 99284; C1758; J0131; J0330; J1100; J1170; J1885; J2250; J2270; J2405; J2795; J3010; Q9967

== ENCOUNTER → 2022-12-26 08:02 | Outpatient (BNV) | payer SELFPAY | PROVIDERS: Emergency Provider Emergency Medicine; PCP Nurse Practitioner Family; Visit Provider Surgery | DX: K56.609 Unspecified intestinal obstruction, unspecified as to partial versus complete obstruction (principal); Z93.3 Colostomy status | CPT/HCPCS: 44143; 99024; 99223 ==

== ENCOUNTER 2022-12-26 13:39 | Outpatient (BNV) | payer SELFPAY | END 2022-12-26 14:45 | PROVIDERS: Admitting Provider Physician Assistant; Emergency Provider Emergency Medicine; PCP Nurse Practitioner Family; Visit Provider Radiology Diagnostic Radiology | DX: K56.600 Partial intestinal obstruction, unspecified as to cause (principal) | CPT/HCPCS: 74270 ==

== ENCOUNTER → 2022-12-26 13:39 | Outpatient (BNV) | payer SELFPAY | PROVIDERS: Admitting Provider Physician Assistant; Emergency Provider Emergency Medicine; PCP Nurse Practitioner Family; Visit Provider Physician Assistant | DX: K56.609 Unspecified intestinal obstruction, unspecified as to partial versus complete obstruction (principal); Z93.3 Colostomy status | CPT/HCPCS: 99223; 99232; 99233; 99239 ==

== ENCOUNTER 2023-01-06 09:23 | Outpatient (AMB) | payer BC, OTHER, SELFPAY ==
[2023-01-06 09:31] VITALS: BP 180/84; PULSE 73
--- NOTE | 2023-01-06 09:31 | MHC.OFFVIS ---
Intake Vital Signs 01/06/23 09:31 Weight 154 lb BP 180/84 H Blood Pressure Location Rt brachial Position Sitting Pulse 73 Intake Visit Reasons: s/p exploratory laparotomy Intake Note: Patient here s/p exploratory laparotomy. Patient c/o pain on Lt lower back that spreads accross to lower abd. Pain is 4 out of 10. Pain gets worse with walking. Taking rx pain meds as needed. 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 All things considered, she is doing quite well. She has time diet. She is having normal ostomy output. She is slowly but steadily increasing her activity level. She has minimal incisional discomfort. [facility] Medical History Anxiety GERD (gastroesophageal reflux disease) History of kidney stones HTN (hypertension) Hx of panniculitis Surgical History Hx of colonoscopy Hx of esophagogastroduodenoscopy Hx of gastric bypass Status post panniculectomy Family History Father Heart attack Mother Hypertension Brother Hypertension Sister Hypertension Sister Hypertension Social History Household Members: Other Household Members Other:: mother Housing: House Do you presently have visiting nurse or other home services: No Alcohol intake: current Alcohol intake frequency: does not drink Patient Tobacco Use Status: Former Tobacco user Quit Date: 2001 Years Smoked: 20+ off/on Second Hand Smoke Exposure: No Substance Use Type: Marijuana service: No Physical Exam Vital Signs: Last Vital Signs Pulse 73 01/06/23 09:31 BP 180/84 H 01/06/23 09:31 GI Other: Abdomen soft. Midline wound well healed. Ostomy has had a markedly decreased in size of her obstructed colon. Assessment & Plan Assessment & Plan (1) Colostomy in place: Comment: ex lap, BRIDGETTE, sigmoid resection, end colostomy 12/27/22 (Sergio) Code(s): Z93.3 - Colostomy status (2) Large bowel obstruction: Code(s): K56.609 - Unspecified intestinal obstruction, unspecified as to partial versus complete obstruction Plan Patient is to continue her convalescence. She can increase her activity level but no heavy lifting. Diet as tolerated. She will see me as directed or p.r.n.. Prior to colostomy reversal, patient will require a formal colonoscopy. Coding Level of Care Code Global (00292) Diagnoses Colostomy in place Z93.3 Large bowel obstruction K56.609
== END 2023-01-06 09:48 | disposition home or self-care (01) ==
PROVIDERS: PCP Nurse Practitioner Family; Visit Provider Surgery
DX: Z93.3 Colostomy status (principal); K56.609 Unspecified intestinal obstruction, unspecified as to partial versus complete obstruction
CPT/HCPCS: 99024

== ENCOUNTER → 2023-01-06 09:23 | Outpatient (BNVA) | payer BC, OTHER, SELFPAY | PROVIDERS: PCP Nurse Practitioner Family; Visit Provider Surgery ==

== ENCOUNTER 2023-01-21 13:39 | Emergency (ER) | payer BC, OTHER, SELFPAY ==
[2023-01-21 14:17] VITALS: BP 163/83; PULSE 58; RESP 16; TEMP 37.3; O2SAT 97; BMI 30.2
--- NOTE | 2023-01-21 14:18 | ED_ITS ---
HPI - General Adult General Chief complaint: Skin/Abscess/Foreign Body Stated complaint: ? infection on surgery site Time Seen by Provider: 01/21/23 16:33 Source: patient and old records reviewed Mode of arrival: ambulatory Limitations: no limitations History of Present Illness HPI narrative: 52 yo female with history of large bowel obstruction s/p exploratory laparotomy, enterolysis, sleeve resection sigmoid colon, end colostomy, Zia's pouch on 12/[address] Hill who presents to the ER for evaluation of ongoing irritation at her colostomy site with new discoloration of the skin adjacent to the stoma that she noticed today. She states she has been having difficulty with the bags fitting properly and is constantly having liquid stool leaking. She states she was unable to have ostomy nurses come to her home because of insurance issues. She denies any fever or chills. She is concerned about possible infection. MD complaint: Discoloration of skin at ostomy site Onset (ago): day(s) Location: abdomen Radiation: non-radiation Severity: moderate Quality: aching Pain Consistency: intermittent Relieving factors: none Exacerbating factors: other (Changing ostomy bag) Associated symptoms: denies other symptoms Treatments prior to arrival: none Related Data Home Medications Medication Instructions Recorded Confirmed atenolol 50 mg tablet 25 mg PO DAILY 01/14/21 12/26/22 bupropion HCl 150 mg 24 hr tablet, 150 mg PO QAM 01/14/21 12/26/22 extended release fluoxetine 20 mg capsule 20 mg PO DAILY 01/14/21 12/26/22 loratadine 10 mg tablet (Claritin) 10 mg PO DAILY PRN Allergy Symptoms 07/01/22 12/26/22 ascorbic acid (vitamin C) 500 mg 500 mg PO DAILY 12/26/22 12/26/22 tablet (Vitamin C) cyanocobalamin (vitamin B-12) 1,000 mcg PO DAILY 12/26/22 12/26/22 1,000 mcg tablet docusate sodium 100 mg capsule 200 mg PO DAILY 12/26/22 12/26/22 (Stool Softener) valsartan 160 mg tablet 80 mg PO DAILY 12/26/22 12/26/22 Previous Rx's Medication Instructions Recorded omeprazole 20 mg capsule,delayed 20 mg PO DAILY #30 caps 06/22/20 release colostomy bags 3 #30 ea 12/30/22 ostomy adhesive #15 ea 12/30/22 ostomy supplies (Skin Prep Wipes) #50 ea 12/30/22 oxycodone 5 mg tablet 5 mg PO Q4H PRN pain (scale score 12/30/22 7-10) #24 tabs Allergies Allergy/AdvReac Type Severity Reaction Status Date / Time Seasonal Allergies Allergy Unknown itching Uncoded 01/21/23 14:17 Review of Systems Review of Systems: Yes all other systems are reviewed and are negative [facility] Past Medical History Medical History Anxiety GERD (gastroesophageal reflux disease) History of kidney stones HTN (hypertension) Hx of panniculitis Surgical History Hx of colonoscopy Hx of esophagogastroduodenoscopy Hx of gastric bypass Status post panniculectomy Family History Family History Father Heart attack Mother Hypertension Brother Hypertension Sister Hypertension Sister Hypertension Social History Social History Household Members: Other Household Members Other:: mother Housing: House Do you presently have visiting nurse or other home services: No Alcohol intake: current Alcohol intake frequency: does not drink Patient Tobacco Use Status: Former Tobacco user Quit Date: 2001 Years Smoked: 20+ off/on Second Hand Smoke Exposure: No Substance Use Type: Marijuana Advance Directives: No Advance Directives Information Provided: Yes service: No Physical Exam ED Vital Signs: Vital Signs - 24 hr 01/21/23 14:17 Temperature 99.1 F Pulse Rate 58 Respiratory Rate 16 Blood Pressure 163/83 H Pulse Oximetry 97 Oxygen Delivery Method Room Air BMI result Body Mass Index 30.2 Appearance: Alert. Oriented X3. No acute distress. Head: normocephalic, atraumatic. Eyes: Pupils equal, round and reactive to light. ENT: Pharynx normal. No tonsillar swelling or exudate. Neck: Normal inspection. Neck supple. CVS: Normal heart rate and rhythm. Pulses normal. Respiratory: No respiratory distress. Breath sounds normal. Abdomen: Well-healing surgical scar. Soft and nontender. Ostomy site is red with some edema. Liquid stool draining. There is some erythema and induration expanding slightly short suprapubic area with a ulceration at 09:00 o'clock.. See photo below +BS x4 Skin: Skin warm and dry. Normal skin color. Normal skin turgor. No rashes. Extremities: No lower extremity edema. No joint swelling. Neuro/psych: Oriented X 3. No motor deficit. No sensory deficit. CN II-XII intact. Normal speech and cognition. Course Course Course Narrative: RME- a 52-year-old female presents for evaluation of ?I think my ostomy is infected. ? Patient had a colostomy placed last month the left lower quadrant. She reports the skin around the ostomy is painful, red and ?there is a wound there. Medical Decision Making Medical Decision Making [facility] Narrative: 52-year-old female with history of large bowel resection and colostomy on December 27 presents to the ER for evaluation for skin irritation and wound adjacent to her ostomy site. She has been having difficulty with proper ostomy bag fitting and leakage of stool since the procedure. Her lab workup today is unremarkable. There is no drainage from the ulceration adjacent to the ostomy site to suggest a fistula at this time. Dr. Allred as, the surgeon on-call came to evaluate the patient at the bedside. He does not feel it is acutely infected. He feels most likely due to skin irritation from stool. He is recommending patient follow-up closely with Jayden the ostomy nurse in the office. Patient stable for discharge home with close outpatient follow-up. Differential Diagnosis Differential Diagnoses: The differential diagnosis associated with the presentation includes Skin irritation due to stool exposure, fistula creation, cellulitis, abscess, complication of ostomy site Admission/Observation Consideration of admission/observation: Escalation of care including admission/observation considered Considered admission for this patient with new wound and a fresh ostomy site w ith erythema and ulceration Consult Healthcare Provider Management of the patient was discussed with: Barrel Inspector Tight Dr. Marin Lab Data [facility] Lab Attestation statement: I reviewed the patient's lab results. Stable anemia, no leukocytosis 01/21/23 14:34 01/21/23 14:34 Labs: Lab Results 01/21/23 01/21/23 01/21/23 Range/Units 14:34 14:34 14:34 WBC 8.3 (4.8-10.8) X10*3/uL RBC 3.32 L (4.20-5.50) X10*6/uL Hgb 9.6 L (12.0-16.0) g/dl Hct 30.6 L (37.0-47.0) % MCV 92.2 (80.0-98.0) fL MCH 28.9 (27.0-33.0) pg MCHC 31.4 (31.0-35.0) g/dl RDW 13.7 (11.0-16.0) % Plt Count 354 (160-400) X10*3/uL MPV 8.8 L (9.4-12.3) fL Immature Gran % (Auto) 0.4 (0.0-0.4) % Neut % (Auto) 68.1 (45-73) % Lymph % (Auto) 20.0 (20-40) % Frederick % (Auto) 7.7 (2-11) % Eos % (Auto) 3.3 (0-4) % Baso % (Auto) 0.5 (0-2) % Lymph # (Auto) 1.7 (1.2-4.9) X10*3/uL Frederick # (Auto) 0.6 (0.1-1.2) X10*3/uL Eos # (Auto) 0.3 (0.0-0.4) X10*3/uL Baso # (Auto) 0.0 (0.0-0.2) X10*3/uL Abs Immat Gran (auto) 0.03 (0.00-0.03) X10*3/uL Absolute Neuts (auto) 5.7 (2.0-8.3) x10*3/uL Absolute Nucleated RBC 0.000 (0.0-0.012) X10*3/uL Nucleated RBC % (auto) 0.0 (0.0-0.2) /100WBC Sodium 142 (135-145) mmol/L Potassium 4.0 (3.3-5.1) mmol/L Chloride 105 (96-108) mmol/L Carbon Dioxide 28 (22-29) mmol/L Anion Gap 13 (12-20) BUN 10 (9-16) mg/dL Creatinine 0.70 (0.5-1.4) mg/dL Estim Creat Clear Calc 84.7 Estimated GFR > 60 Random Glucose 116 H (60-115) mg/dL Lactic Acid 0.8 (0.5-2.0) mmol/L Calcium 9.2 (8.4-10.2) mg/dL Total Bilirubin 0.7 (0.0-1.0) mg/dL AST 8 (5-31) U/L ALT 5 (0-31) U/L Alkaline Phosphatase 86 (39-117) U/L Total Protein 6.8 (6.5-8.0) g/dL Albumin 3.4 L (3.5-5.0) g/dL Lipase 8 (8-78) U/L External Record Review External record reviewed: Office record, Outpatient record, Prior outpatient labs and Prior outpatient radiology Tests considered The following testing was considered but not selected: Considered CT scan to look for deeper infection however not indicated today given examination by surgeon Prescription Management I considered prescription management with: Pain Medication and Antibiotic Social Determinants Patient?s care significantly limited by Social Determinants of Health including: Other Social Determinant of Health (insurance issues) Critical Care Time Critical Care Time Critical Care Time: No Discharge Plan Discharge Clinical Impression: Skin irritation Patient Disposition: Home, Self-Care Instructions: Colostomy Care (ED) Additional Instructions: Your labs today were unremarkable. There is no evidence of active infection Recommend following up with Ostomy nurse in the office If you develop new or worsening symptoms call 911 or come back to the ER for further evaluation. Prescriptions: No Action omeprazole 20 mg capsule,delayed release(DR/EC) 20 mg PO DAILY Qty: 30 6RF loratadine [Claritin] 10 mg Tablet 10 mg PO DAILY PRN (Reason: Allergy Symptoms) cyanocobalamin (vitamin B-12) 1,000 mcg Tablet 1,000 mcg PO DAILY ascorbic acid (vitamin C) [Vitamin C] 500 mg Tablet 500 mg PO DAILY docusate sodium [Stool Softener] 100 mg Capsule 200 mg PO DAILY valsartan 160 mg tablet 80 mg PO DAILY oxycodone 5 mg tablet 5 mg PO Q4H PRN (Reason: pain (scale score 7-10)) Qty: 24 0RF Rx Instructions: Partial Fill upon patient request. (DME) ostomy adhesive Strip See Rx Instructions .Route Qty: 15 2RF Rx Instructions: As directed (DME) Skin Prep Wipes Misc See Rx Instructions .Route Qty: 50 2RF Rx Instructions: As directed (DME) colostomy bags 3 misc See Rx Instructions .ROUTE .MEDSUPPLY Qty: 30 2RF Rx Instructions: As directed fluoxetine 20 mg capsule 20 mg PO DAILY atenolol 50 mg tablet 25 mg PO DAILY bupropion HCl 150 mg tablet extended release 24 hr 150 mg PO QAM Referrals: [facility] [place] General Surgeons [Provider Group] (ostomy site irritation) Vianca Braden NP [Primary Care Provider] - Interventions: ED Discharge Assessment Last Done: 01/21/23 18:38 Discharge Date/Time: 01/21/23 18:38
[2023-01-21 14:39] LABS: MANUAL DIFF FLAG NO
[2023-01-21 14:40] LABS: Basophils Percent Auto 0.5 % (0-2); Eosinophils Absolute Auto 0.3 X10*3/uL (0.0-0.4); Eosinophils Percent Auto 3.3 % (0-4); Hematocrit 30.6 % (37.0-47.0); Hemoglobin 9.6 g/dl (12.0-16.0); Imm Gran Abs Auto 0.03 X10*3/uL (0.00-0.03); Imm Gran Pct Auto 0.4 % (0.0-0.4); Lymphocytes Absolute Auto 1.7 X10*3/uL (1.2-4.9); Mean Corpuscular HGB Conc 31.4 g/dl (31.0-35.0); Mean Corpuscular Hemoglobin 28.9 pg (27.0-33.0); Mean Corpuscular Volume 92.2 fL (80.0-98.0); Mean Platelet Volume 8.8 fL (9.4-12.3); Monocytes Absolute Auto 0.6 X10*3/uL (0.1-1.2); Monocytes Percent Auto 7.7 % (2-11); Neutrophils Absolute Auto 5.7 x10*3/uL (2.0-8.3); Neutrophils Percent Auto 68.1 % (45-73); Platelet Count 354 X10*3/uL (160-400); Red Blood Count 3.32 X10*6/uL (4.20-5.50); Red Cell Distribution Width 13.7 % (11.0-16.0); White Blood Count 8.3 X10*3/uL (4.8-10.8)
[2023-01-21 15:15] LABS: Lactic Acid 0.8 mmol/L (0.5-2.0)
[2023-01-21 15:19] LABS: Alanine Aminotransferase 5 U/L (0-31); Albumin Level 3.4 g/dL (3.5-5.0); Alkaline Phosphatase 86 U/L (39-117); Anion Gap 13 (12-20); Aspartate Amino Transferase 8 U/L (5-31); Bilirubin Total 0.7 mg/dL (0.0-1.0); Blood Urea Nitrogen 10 mg/dL (9-16); Calcium 9.2 mg/dL (8.4-10.2); Carbon Dioxide 28 mmol/L (22-29); Chloride 105 mmol/L (96-108); Creatinine Clr Calc Pharmacy 84.7; Estimated Glomerular Filt Rate > 60; Glucose Random 116 mg/dL (60-115); Lipase 8 U/L (8-78); Sodium 142 mmol/L (135-145); Total Protein 6.8 g/dL (6.5-8.0)
--- NOTE | 2023-01-21 18:00 | PC.NURSE ---
removed ostomy appliance, stoma warm,moist, red-pink in color. pt stoma site cleansed with NS, patted dry,placed saline soaked dressing over stoma- Gen surgery contacted
--- NOTE | 2023-01-21 18:26 | PC.NURSE ---
new ostomy appliance applied with Dr. Marin at bedside, plan is for pt to follow up with ostomy nurse, Jayden RN on monday- pt agrees and verbalizes understanding
== END 2023-01-21 18:38 | disposition home or self-care (01) ==
PROVIDERS: Physician Assistant; Emergency Provider Emergency Medicine; PCP Nurse Practitioner Family
DX: Z43.3 Encounter for attention to colostomy (principal); R21 Rash and other nonspecific skin eruption
CPT/HCPCS: 36415; 80053; 83605; 83690; 85025; 87040; 99282; 99283

== ENCOUNTER → 2023-01-24 09:32 | Outpatient (BNVA) | payer BC, OTHER, SELFPAY | PROVIDERS: PCP Nurse Practitioner Family; Visit Provider Surgery ==

== ENCOUNTER 2023-02-06 10:06 | Outpatient (AMB) | payer BC, OTHER, SELFPAY ==
[2023-02-06 10:20] VITALS: BP 133/75; PULSE 55; BMI 28.9
--- NOTE | 2023-02-06 10:20 | MHC.OFFVIS ---
Intake Vital Signs 02/06/23 10:20 Height 5 ft 1 in Weight 153 lb BMI 28.9 BP 133/75 Blood Pressure Location Lt brachial Position Sitting Pulse 55 Intake Visit Reasons: S/p colectomy Intake Note: Patient here s/p colectomy. Reports healing well. No changes with meds or medical hx since last visit. 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 She demonstrates continued improvement from her original surgery. She is tolerating her diet. Ostomy is functioning well. [facility] Medical History Anxiety GERD (gastroesophageal reflux disease) History of kidney stones HTN (hypertension) Hx of panniculitis Surgical History Hx of colonoscopy Hx of esophagogastroduodenoscopy Hx of gastric bypass Status post panniculectomy Family History Father Heart attack Mother Hypertension Brother Hypertension Sister Hypertension Sister Hypertension Social History Household Members: Other Household Members Other:: mother Housing: House Do you presently have visiting nurse or other home services: No Alcohol intake: current Alcohol intake frequency: does not drink Patient Tobacco Use Status: Former Tobacco user Quit Date: 2001 Years Smoked: 20+ off/on Second Hand Smoke Exposure: No Substance Use Type: Marijuana service: No Physical Exam Vital Signs: Last Vital Signs Pulse 55 02/06/23 10:20 BP 133/75 02/06/23 10:20 BMI result Body Mass Index 28.9 GI Other: Ostomy bag full of stool. Patient's incision demonstrates good 1st intention healing said for the most central part which has a superficial area which is granulating uneventfully. Measures approximately 1 cm. Assessment & Plan Assessment & Plan (1) Colostomy in place: Comment: ex lap, BRIDGETTE, sigmoid resection, end colostomy 12/27/22 (Sergio) Code(s): Z93.3 - Colostomy status (2) Large bowel obstruction: Code(s): K56.609 - Unspecified intestinal obstruction, unspecified as to partial versus complete obstruction Plan Patient is continue current therapy. Down the road, she will require a colonoscopy prior to takedown of ostomy. Incidentally patient has a kidney stone issue and we will refer her to Urology. Coding Level of Care Code Global (18356) Diagnoses Colostomy in place Z93.3 Large bowel obstruction K56.609
== END 2023-02-06 10:38 | disposition home or self-care (01) ==
PROVIDERS: PCP Nurse Practitioner Family; Visit Provider Surgery
DX: Z93.3 Colostomy status (principal); K56.609 Unspecified intestinal obstruction, unspecified as to partial versus complete obstruction
CPT/HCPCS: 99024

== ENCOUNTER → 2023-02-06 10:06 | Outpatient (BNVA) | payer BC, OTHER, SELFPAY | PROVIDERS: PCP Nurse Practitioner Family; Visit Provider Surgery ==

== ENCOUNTER 2023-03-13 09:03 | Outpatient (AMB) | payer BC, OTHER, SELFPAY ==
[2023-03-13 09:09] VITALS: BP 145/68; PULSE 53
--- NOTE | 2023-03-13 09:09 | MHC.OFFVIS ---
Intake Vital Signs 03/13/23 09:09 Weight 159 lb BP 145/68 H Blood Pressure Location Rt brachial Position Sitting Pulse 53 Intake Visit Reasons: 1 mth follow up colectomy Intake Note: Patient here for 1m f/u colectomy. C/o swelling, redness. Feels sore. Constantly experiencing belly aches. 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 She is having no ostomy issues or complaints although she has some protuberance at the ostomy site. [facility] Medical History Hx of panniculitis GERD (gastroesophageal reflux disease) HTN (hypertension) Anxiety History of kidney stones Surgical History Hx of colonoscopy Status post panniculectomy Hx of esophagogastroduodenoscopy Hx of gastric bypass Family History Father Heart attack Mother Hypertension Brother Hypertension Sister Hypertension Sister Hypertension Social History Household Members: Other Household Members Other:: mother Housing: House Do you presently have visiting nurse or other home services: No Alcohol intake: current Alcohol intake frequency: does not drink Patient Tobacco Use Status: Former Tobacco user Quit Date: 2001 Years Smoked: 20+ off/on Second Hand Smoke Exposure: No Substance Use Type: Marijuana service: No Physical Exam Vital Signs: Last Vital Signs Pulse 53 03/13/23 09:09 BP 145/68 H 03/13/23 09:09 GI Other: Abdomen soft. Incision clean clean and healed uneventfully. Small peristomal protrusion/early hernia. Assessment & Plan Assessment & Plan (1) Colostomy in place: Comment: ex lap, BRIDGETTE, sigmoid resection, end colostomy 12/27/22 ([facility]) Code(s): Z93.3 - Colostomy status Plan Patient was reassured that the personal hernia once the ostomy is reversed will be repaired and should resolve that issue. In the meantime, patient is to have a scheduled pre colostomy takedown colonoscopy there networking engineer Dr. Marino. Arrangements will be made for this. Patient will see me in approximately 6 weeks time or p.r.n.. Incidentally, patient is being evaluated by [facility] regarding her kidney stone issues this month. Coding Level of Care Code Global (59031) Diagnoses Colostomy in place Z93.3
== END 2023-03-13 09:33 | disposition home or self-care (01) ==
PROVIDERS: PCP Nurse Practitioner Family; Visit Provider Surgery
DX: Z93.3 Colostomy status (principal)
CPT/HCPCS: 99024

== ENCOUNTER → 2023-03-13 09:03 | Outpatient (BNVA) | payer BC, OTHER, SELFPAY | PROVIDERS: PCP Nurse Practitioner Family; Visit Provider Surgery ==

== ENCOUNTER 2023-04-17 13:19 | Outpatient (AMB) | payer BC, SELFPAY ==
--- NOTE | 2023-04-17 13:28 | MHC.OFFVIS ---
Intake Vital Signs 04/17/23 13:41 Height 5 ft 1 in Weight 159 lb 9.835 oz BMI 30.2 BP 122/72 Blood Pressure Location Rt brachial Position Sitting Respiration 12 Pulse 68 Pulse Source Palpation Intake Visit Reasons: 1 year fu Intake Note: Nicole is a 52 year old female who presets today for her 1 year follow up. EKG was obtained. Patient reports no changes at the moment. Allergies Seasonal Allergies Allergy (Unknown, Uncoded 03/13/23 09:10) itching Medication List - Last Reconciled 04/17/23 by Jeff Singh MD ascorbic acid (vitamin C) (Vitamin C) 500 mg PO DAILY atenolol 25 mg PO DAILY bupropion HCl 150 mg PO QAM colostomy bags As directed cyanocobalamin (vitamin B-12) 1,000 mcg PO DAILY docusate sodium (Stool Softener) 200 mg PO DAILY fluoxetine 20 mg PO DAILY loratadine (Claritin) 10 mg PO DAILY PRN omeprazole 20 mg PO DAILY ostomy adhesive As directed ostomy supplies (Skin Prep Wipes) As directed valsartan 80 mg PO DAILY HPI HPI Comments History of Present Illness Details 52-year-old female who is here for follow-up. She has background history of hypertension. She underwent bariatric surgery and she was seen for perioperative cardiovascular risk assessment. She underwent bariatric surgery successfully and lost significant weight. She is returning for follow-up today and unfortunately had its bowel obstruction in December 2022 and currently has colostomy bag. She is saying that there will be close to do were so at some stage. She is denying any chest pain or shortness of breath. No other complaints currently. Blood pressure control is good. EKG reviewed. [facility] Medical History Hx of panniculitis GERD (gastroesophageal reflux disease) HTN (hypertension) Anxiety History of kidney stones Surgical History Hx of colonoscopy Status post panniculectomy Hx of esophagogastroduodenoscopy Hx of gastric bypass Family History Father Heart attack Mother Hypertension Brother Hypertension Sister Hypertension Sister Hypertension Social History Household Members: Other Household Members Other:: mother Housing: House Do you presently have visiting nurse or other home services: No Alcohol intake: current Alcohol intake frequency: does not drink Patient Tobacco Use Status: Former Tobacco user Quit Date: 2001 Years Smoked: 20+ off/on Second Hand Smoke Exposure: No Substance Use Type: Marijuana service: No Physical Exam GENERAL APPEARANCE: in no acute distress, pleasant. NECK: no carotid bruit, no jugular venous distention. SKIN: no suspicious lesions, warm and dry. HEART: no murmurs, regular rate and rhythm. Bradycardic. LUNGS: clear to auscultation bilaterally. ABDOMEN: soft, nontender. Colostomy bag. EXTREMITIES: no edema. PERIPHERAL PULSES: equal. NEUROLOGIC: No gross deficits, AAO X 3 Office Procedures EKG Details: Sinus bradycardia 49 beats per minute, normal axis, normal EKG, QTC 393 milliseconds. [id number], Complete Assessment & Plan Assessment & Plan (1) Essential hypertension: Code(s): I10 - Essential (primary) hypertension (2) Aortic stenosis: Code(s): I35.0 - Nonrheumatic aortic (valve) stenosis Plan Pleasant 52-year-old female who is here for follow-up. She has background of mild aortic valve stenosis hypertension. Clinically stable from cardiovascular point of view. Blood pressure control is good. Low to intermediate risk for surgery whenever she goes back for colostomy reversal. Follow-up with us in 1 year. Thank you for allowing me to participate in the care of your patient. Please feel free to contact me if you have any questions. Coding Level of Care Code Est Pt Level 3 (98048) Diagnoses Essential hypertension I10 Aortic stenosis I35.0 CPT Codes EKG - CPT: [id number], Complete ([id number])
[2023-04-17 13:41] VITALS: BP 122/72; PULSE 68; RESP 12; BMI 30.2
== END 2023-04-17 13:49 | disposition home or self-care (01) ==
PROVIDERS: PCP Nurse Practitioner Family; Visit Provider Internal Medicine Cardiovascular Disease
DX: I10 Essential (primary) hypertension (principal); I35.0 Nonrheumatic aortic (valve) stenosis
CPT/HCPCS: 93010; 99213

== ENCOUNTER → 2023-04-17 13:19 | Outpatient (BNVA) | payer BC, OTHER, SELFPAY | PROVIDERS: PCP Nurse Practitioner Family; Visit Provider Internal Medicine Cardiovascular Disease | DX: I10 Essential (primary) hypertension (principal); I35.0 Nonrheumatic aortic (valve) stenosis; R00.1 Bradycardia, unspecified; Z98.84 Bariatric surgery status; Z93.3 Colostomy status | CPT/HCPCS: 93005 ==

== ENCOUNTER 2023-04-24 08:59 | Outpatient (AMB) | payer BC, SELFPAY ==
[2023-04-24 09:04] VITALS: BP 157/71; PULSE 53; BMI 30.2
--- NOTE | 2023-04-24 09:04 | A.OFFVIS_ITS ---
Intake Vital Signs 04/24/23 09:04 Height 5 ft 1 in Weight 160 lb BMI 30.2 BP 157/71 H Blood Pressure Location Rt brachial Position Sitting Pulse 53 Intake Visit Reasons: 6 wk follow up colostomy Intake Note: Patient here for 6wk f/u colostomy. Doing well. Scheduled with Dr. Marino on 05-22-23. Endoscope Technician Required: No Accompanied by: Self / Same As Patient Allergies Seasonal Allergies Allergy (Unknown, Uncoded 04/24/23 09:07) itching HPI HPI Comments History of Present Illness Details Patient is doing well. She has no GI issues or complaints. She is anxious to have her colostomy reversed. Patient is tentatively scheduled for colonoscopy by Dr. Marino on 05/22. She will see me after this to arrange for colostomy reversal. PFSH Medical History Hx of panniculitis GERD (gastroesophageal reflux disease) HTN (hypertension) Anxiety History of kidney stones Surgical History Hx of colonoscopy Status post panniculectomy Hx of esophagogastroduodenoscopy Hx of gastric bypass Family History Father Heart attack Mother Hypertension Brother Hypertension Sister Hypertension Sister Hypertension Social History Household Members: Other Household Members Other:: mother Housing: House Do you presently have visiting nurse or other home services: No Alcohol intake: current Alcohol intake frequency: does not drink Patient Tobacco Use Status: Former Tobacco user Quit Date: 2001 Years Smoked: 20+ off/on Second Hand Smoke Exposure: No Substance Use Type: Marijuana service: No Physical Exam Vital Signs: Last Vital Signs Pulse 53 04/24/23 09:04 BP 157/71 H 04/24/23 09:04 BMI result Body Mass Index 30.2 GI Other: Abdomen soft. Ostomy clean dry and intact. Small parastomal hernia status quo Assessment & Plan Assessment & Plan (1) Colostomy in place: Comment: ex lap, BRIDGETTE, sigmoid resection, end colostomy 12/27/22 ([facility]) Code(s): Z93.3 - Colostomy status Plan As noted above, for preop colonoscopy in May and she will see me after that procedure for arrangements for colostomy reversal. All questions answered. Coding Level of Care Code Est Pt Level 4 (44239) Diagnoses Colostomy in place Z93.3
== END 2023-04-24 09:24 | disposition home or self-care (01) ==
PROVIDERS: PCP Nurse Practitioner Family; Visit Provider Surgery
DX: Z93.3 Colostomy status (principal)
CPT/HCPCS: 99214

== ENCOUNTER → 2023-04-24 08:59 | Outpatient (BNVA) | payer BC, OTHER, SELFPAY | PROVIDERS: PCP Nurse Practitioner Family; Visit Provider Surgery ==

== ENCOUNTER 2023-05-22 12:20 | Day surgery (SDC) | payer BC, OTHER, SELFPAY ==
--- NOTE | 2023-05-19 10:22 | P.CONAN_ITS ---
Documented by User: Stefanie Calle NP 05/19/23 10:25 HPI - Anesthesia Eval Consult details Narrative: 52yo F for Colonoscopy PMFSH Active Problems Active Problems: All Active Problems (Updated 01/22/23 @ 00:07 by Joseph Devries) Colostomy in place (Acute) Large bowel obstruction (Acute) Aortic stenosis (Acute) Essential hypertension (Acute) Past Medical History Medical History Hx of panniculitis GERD (gastroesophageal reflux disease) HTN (hypertension) Anxiety History of kidney stones Family History Family History Father Heart attack Mother Hypertension Brother Hypertension Sister Hypertension Sister Hypertension Family history of problems with anesthesia: No Surgical History Surgical History Hx of colonoscopy Status post panniculectomy Hx of esophagogastroduodenoscopy Hx of gastric bypass History of Problems with Anesthesia: No Social History Social History Household Members: Other Household Members Other:: mother Housing: House Do you presently have visiting nurse or other home services: No Alcohol intake: current Alcohol intake frequency: does not drink Patient Tobacco Use Status: Former Tobacco user Quit Date: 2001 Years Smoked: 20+ off/on Second Hand Smoke Exposure: No Substance Use Type: Marijuana Substance Use Frequency: Occasionally Are you DNR?: No Advance Directives: No Advance Directives Information Provided: Yes Nutrition Risks: No Nutritional Risk service: No Meds Allergies Allergy/AdvReac Type Severity Reaction Status Date / Time Seasonal Allergies Allergy Unknown itching Uncoded 05/22/23 12:44 Home Medications Medication Instructions Recorded Confirmed Last Taken Type atenolol 50 mg tablet 25 mg PO DAILY 01/14/21 05/22/23 05/22/23 History bupropion HCl 150 mg 24 hr tablet, 150 mg PO QAM 01/14/21 04/17/23 12/26/22 History extended release fluoxetine 20 mg capsule 20 mg PO DAILY 01/14/21 05/22/23 05/22/23 History loratadine 10 mg tablet (Claritin) 10 mg PO DAILY PRN Allergy Symptoms 01/04/17/23 12/26/22 History ascorbic acid (vitamin C) 500 mg 500 mg PO DAILY 12/26/22 04/17/23 12/26/22 History tablet (Vitamin C) cyanocobalamin (vitamin B-12) 1,000 mcg PO DAILY 12/26/22 04/17/23 12/26/22 History 1,000 mcg tablet docusate sodium 100 mg capsule 200 mg PO DAILY 12/26/22 04/17/23 12/26/22 History (Stool Softener) valsartan 160 mg tablet 80 mg PO DAILY 12/26/22 04/17/23 12/26/22 History Exam Pertinent Lab Results Pertinent Lab Results: Laboratory Tests 01/21/23 14:34 WBC 8.3 Hgb 9.6 L Hct 30.6 L Plt Count 354 Sodium 142 Potassium 4.0 Chloride 105 Carbon Dioxide 28 BUN 10 Creatinine 0.70 Assessment and Plan Assessment Anesthesia Assessment: Chart Reviewed Final Anesthetic Review Family History of Problems with Anesthesia: No History of Problems with Anesthesia: No Documented by User: Sarah Flores MD 05/22/23 13:04 [facility] Past Medical History Medical History Hx of panniculitis GERD (gastroesophageal reflux disease) HTN (hypertension) Anxiety History of kidney stones Family History Family History Father Heart attack Mother Hypertension Brother Hypertension Sister Hypertension Sister Hypertension Surgical History Surgical History Hx of colonoscopy Status post panniculectomy Hx of esophagogastroduodenoscopy Hx of gastric bypass Social History Social History Household Members: Other Household Members Other:: mother Housing: House Do you presently have visiting nurse or other home services: No Alcohol intake: current Alcohol intake frequency: does not drink Patient Tobacco Use Status: Former Tobacco user Quit Date: 2001 Years Smoked: 20+ off/on Second Hand Smoke Exposure: No Substance Use Type: Marijuana Substance Use Frequency: Occasionally Are you DNR?: No Advance Directives: No Advance Directives Information Provided: Yes Nutrition Risks: No Nutritional Risk service: No Meds Allergies Allergy/AdvReac Type Severity Reaction Status Date / Time Seasonal Allergies Allergy Unknown itching Uncoded 05/22/23 12:44 Home Medications Medication Instructions Recorded Confirmed Last Taken Type atenolol 50 mg tablet 25 mg PO DAILY 01/14/21 05/22/23 05/22/23 History bupropion HCl 150 mg 24 hr tablet, 150 mg PO QAM 01/14/21 04/17/23 12/26/22 History extended release fluoxetine 20 mg capsule 20 mg PO DAILY 01/14/21 05/22/23 05/22/23 History loratadine 10 mg tablet (Claritin) 10 mg PO DAILY PRN Allergy Symptoms 07/01/22 04/17/23 12/26/22 History ascorbic acid (vitamin C) 500 mg 500 mg PO DAILY 12/26/22 04/17/23 12/26/22 History tablet (Vitamin C) cyanocobalamin (vitamin B-12) 1,000 mcg PO DAILY 12/26/22 04/17/23 12/26/22 History 1,000 mcg tablet docusate sodium 100 mg capsule 200 mg PO DAILY 12/26/22 04/17/23 12/26/22 History (Stool Softener) valsartan 160 mg tablet 80 mg PO DAILY 12/26/22 04/17/23 12/26/22 History Exam Airway Mallampati Class: II (crown bottom side) TM Dist: >3cm Neck ROM: Full Heart: rr r Lungs: cta Assessment and Plan Assessment Anesthesia Assessment: Anesthesia Plan Discussed Final Anesthetic Review NPO: Yes ASA Class: II Final Preanesthetic Review: No Changes in Pt Med Stat, Meds/Allgs Chart Reviewed and Consent Obtained/Reviewed Patient Risk: Intermediate Procedure Risk: Intermediate Anesthetic Plan Anesthetic Plan: MAC: Disposition: Standard PACU
[2023-05-22 12:42] VITALS: BMI 30.3
[2023-05-22] MEDS: Lactated Ringers 1,000 ML 100 ML IVCONT (12:46)
[2023-05-22 12:57] VITALS: BP 151/69; PULSE 45; RESP 18; TEMP 36.7; O2SAT 98
--- NOTE | 2023-05-22 12:59 | PC.NURSE ---
Dr. Flores aware of pulse. ok to proceed.
--- NOTE | 2023-05-22 15:05 | PM.OP ---
Brief Operative Note Date of Service: 05/22/23 Pre-op diagnosis: Screening Post-op diagnosis: other (Normal colonoscopy to the cecum via the stoma) Procedure: Colonoscopy to the cecum via the stoma Surgeon: Hebert Marino MD Anesthesia: MAC Was an Home Theater Specialist used for this Procedure?: No Estimated blood loss (mL): 0 Pathology: none sent Condition: stable Disposition: PACU
[2023-05-22 15:06] VITALS: BP 118/64; PULSE 52; RESP 16; TEMP 36.3; O2SAT 99
[2023-05-22 15:21] VITALS: BP 132/60; PULSE 53; RESP 14; O2SAT 99
[2023-05-22 15:36] VITALS: BP 133/89; PULSE 50; RESP 14; TEMP 36.2; O2SAT 100
--- NOTE | 2023-05-23 00:38 | OP_ITS ---
DATE OF SERVICE: 05/22/2023 SURGEON: Hebert Marino MD INDICATIONS: The patient presents for evaluation of colorectal cancer screening prior to planned colostomy reversal. Full consent has been obtained from her for this, including risks of bleeding and perforation. PREOPERATIVE DIAGNOSIS: Colorectal cancer screening. POSTOPERATIVE DIAGNOSIS: PROCEDURE PERFORMED: Colonoscopy via the stoma to the cecum. ESTIMATED BLOOD LOSS: COMPLICATIONS: ANESTHESIA: Monitored anesthesia care. ASSISTANTS: SPECIMENS: POSTOPERATIVE DIAGNOSES: Colorectal cancer screening, normal colonoscopy to the cecum via the stoma. DESCRIPTION OF PROCEDURE: The patient was placed in the supine position. The stoma was visualized and appeared pink and completely normal. With lubrication the Olympus video pediatric colonoscope was entered into the stoma and then advanced easily to the cecum. Once in the cecum I did identify normal-appearing cecal pouch with appendiceal orifice and a normal-appearing ileocecal valve. The entire cecum and ileocecal valve appeared normal. The scope was slowly withdrawn assessing all mucosal surfaces carefully. Preparation was excellent. I did not visualize any sign of polyps, colitis, nor angiodysplasia. The scope was then withdrawn from the stoma. She tolerated the procedure well and was returned to the recovery area in stable condition. IMPRESSION: Normal colonoscopy to the cecum via the stoma. PLAN: I would recommend a repeat colonoscopy in 10 years for further screening. She does have an appointment to see Dr. Hill at the end of this week to further discuss the colostomy reversal and schedule that procedure. Of note, I did not bother to evaluate the rectum and remaining distal sigmoid colon as that had been done with her limited colonoscopy back in July. At that time in July. I did not visualize any polyps nor other abnormalities aside from just diverticulosis. If the patient continues to do well from a GI standpoint she will see me on a p.r.n. basis. This has been discussed with her sister. MD HEBER Levi/CELINA / [id number] MTDD
== END 2023-05-22 15:40 | disposition home or self-care (01) ==
PROVIDERS: PCP Nurse Practitioner Family; Visit Provider Internal Medicine
PROC: 0DJD8ZZ Inspection of Lower Intestinal Tract, Via Natural or Artificial Opening Endoscopic (ICD-10-PCS; CPT 45378; principal; 2023-05-22 13:50)
DX: Z12.11 Encounter for screening for malignant neoplasm of colon (principal); K63.89 Other specified diseases of intestine; N20.0 Calculus of kidney; I10 Essential (primary) hypertension; I35.0 Nonrheumatic aortic (valve) stenosis; K21.9 Gastro-esophageal reflux disease without esophagitis; F12.90 Cannabis use, unspecified, uncomplicated; Z93.3 Colostomy status; Z87.891 Personal history of nicotine dependence; Z79.899 Other long term (current) drug therapy
CPT/HCPCS: 44388; J2704

== ENCOUNTER 2023-05-26 08:47 | Outpatient (AMB) | payer BC, SELFPAY ==
[2023-05-26 08:58] VITALS: BP 157/78; PULSE 78
--- NOTE | 2023-05-26 08:58 | A.OFFVIS_ITS ---
Intake Vital Signs 05/26/23 08:58 Weight 158 lb BP 157/78 H Blood Pressure Location Rt brachial Position Sitting Pulse 78 Intake Visit Reasons: 1 mth follow up colostomy Intake Note: Patient here for 1m f/u to discuss colostomy reversal. Patient recently seen by Dr. Marino on 05-22-23. Colonoscopy went well. Was recommended repeat colonoscopy in 10 yrs. 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 This was within normal limits. Patient is very anxious to have her colostomy reversed. She has no other issues or complaints PFSH Medical History Hx of panniculitis GERD (gastroesophageal reflux disease) HTN (hypertension) Anxiety History of kidney stones Surgical History Hx of colonoscopy Status post panniculectomy Hx of esophagogastroduodenoscopy Hx of gastric bypass Family History Father Heart attack Mother Hypertension Brother Hypertension Sister Hypertension Sister Hypertension Social History Household Members: Other Household Members Other:: mother Housing: House Do you presently have visiting nurse or other home services: No Alcohol intake: current Alcohol intake frequency: does not drink Patient Tobacco Use Status: Former Tobacco user Quit Date: 2001 Years Smoked: 20+ off/on Second Hand Smoke Exposure: No Substance Use Type: Marijuana service: No Physical Exam Vital Signs: Last Vital Signs Pulse 78 05/26/23 08:58 BP 157/78 H 05/26/23 08:58 Chest Other: Chest sounds bilaterally, HS 1 in 2 GI Other: Abdomen soft. Midline wound well healed. Ostomy with small para-stomal hernia. Assessment & Plan Assessment & Plan (1) Colostomy in place: Comment: ex lap, BRIDGETTE, sigmoid resection, end colostomy 12/27/22 ([facility]) Code(s): Z93.3 - Colostomy status Plan Risks, benefits, alternatives all colostomy reversal reviewed with the patient and included but not limited to bleeding, infection, numbness, pain, scarring, temporary diverting ostomy, and the patient which to proceed. All questions answered. She will undergo full bowel prep with oral antibiotics day prior to surgery as well as fleets enema through the rectal stump. Coding Level of Care Code Est Pt Level 5 (31302) Diagnoses Colostomy in place Z93.3
== END 2023-05-26 09:03 | disposition home or self-care (01) ==
PROVIDERS: PCP Nurse Practitioner Family; Visit Provider Surgery
DX: Z93.3 Colostomy status (principal)
CPT/HCPCS: 99214

== ENCOUNTER → 2023-05-26 08:47 | Outpatient (BNVA) | payer BC, OTHER, SELFPAY | PROVIDERS: PCP Nurse Practitioner Family; Visit Provider Surgery | DX: Z93.3 Colostomy status (principal) ==

== ENCOUNTER 2023-05-31 13:42 | Outpatient (AMB) | payer BC, SELFPAY ==
--- NOTE | 2023-05-31 14:13 | MHC.OFFVIS ---
Intake Intake Visit Reasons: Kidney Stones Intake Note: New Patient presents for initial visit for kidney stones Urology Medications: none Blood Thinner: none Service Or Work Dispatcher Chief Required: No Accompanied by: Self / Same As Patient Allergies Seasonal Allergies Allergy (Unknown, Uncoded 06/01/23 23:22) itching Medication List - Last Reconciled 06/01/23 by DEB Bonilla-ROLO ascorbic acid (vitamin C) (Vitamin C) 500 mg PO DAILY atenolol 25 mg PO DAILY bupropion HCl 150 mg PO QAM colostomy bags As directed cyanocobalamin (vitamin B-12) 1,000 mcg PO DAILY fluoxetine 20 mg PO DAILY loratadine (Claritin) 10 mg PO DAILY PRN omeprazole 20 mg PO DAILY ostomy adhesive As directed ostomy supplies (Skin Prep Wipes) As directed valsartan 80 mg PO DAILY HPI HPI Comments History of Present Illness Details Nicole is a very pleasant 52-year-old female patient of Dr. Braden. SHe has a PMH of large bowel obstruction s/p exploratory laparotomy, enterolysis, sleeve resection sigmoid colon, end colostomy, Zia's pouch on 12/[address] Hill, GERD, hypertension, anxiety, and nephrolithiasis. She presents to the office today as a new patient for nephrolithiasis. In discussion with the patient today she reports during episode of bowel obstruction she was noted to have 2.0 x 1.4 cm right renal pelvis stone with no hydronephrosis noted. CT results reviewed with the patient today. Discussed at length potential causes of nephrolithiasis. Discussed surgical intervention versus surveillance monitoring at length. Discussed PCNL versus ureteroscopy verses ESWL. Discussed risks and benefits of these interventions at length. When asked she denies any bothersome urinary issues or concerns. She denies urinary urgency, urinary frequency, incontinence, nocturia, hematuria, dysuria, foul smelling urine, changes to urinary stream, flank pain, fever, and or chills.She is happy with her current voiding parameters. She discusses her upcoming colostomy reversal within the next few weeks. When asked she reports difficulty with drinking plenty of water daily given history of gastric sleeve. She does report a history of nephrolithiasis the past however has never undergone any surgical intervention for nephrolithiasis. In office urinalysis results reviewed with the patient today. She otherwise offers no other issues or concerns at this time. [facility] Medical History Hx of panniculitis GERD (gastroesophageal reflux disease) HTN (hypertension) Anxiety History of kidney stones Surgical History Hx of colonoscopy Status post panniculectomy Hx of esophagogastroduodenoscopy Hx of gastric bypass Family History Father Heart attack Mother Hypertension Brother Hypertension Sister Hypertension Sister Hypertension Social History Household Members: Other Household Members Other:: mother Housing: House Do you presently have visiting nurse or other home services: No Alcohol intake: current Alcohol intake frequency: does not drink Patient Tobacco Use Status: Former Tobacco user Quit Date: 2001 Years Smoked: 20+ off/on Second Hand Smoke Exposure: No Substance Use Type: Marijuana service: No Review of Systems Const Reports as per HPI Eyes Reports no additional complaints ENT Reports no additional complaints Card Reports as per HPI Resp Reports no additional complaints GI Reports as per HPI Reports as per HPI Musc Reports no additional complaints Neuro Reports no additional complaints Psych Reports no additional complaints Endo Reports no additional complaints Xu/Lymph Reports no additional complaints Aller/Immun Reports no additional complaints Physical Exam Const General: cooperative, healthy appearing, comfortable, no acute distress, well developed, alert and awake Orientation/consciousness: patient oriented x3 Limitations: no limitations HEENT Head: Yes normal to inspection, Yes normocephalic and Yes atraumatic Ears: hearing grossly normal bilaterally Eyes General: appearance normal, both eyes and all related structures Neck Neck: Yes normal visual inspection and Yes trachea midline Chest Chest palpation & inspection: normal inspection of the chest Resp Effort & Inspection: normal respiratory effort and able to speak in complete sentences Cardio Rate: regular rate GI Inspection: Yes normal to inspection General: Yes no CVA tenderness Back/Spine/Pelvis Back: no CVA tenderness Skin General skin exam: no rashes or lesions noted Neuro General: patient oriented x3 Extrem General: Yes normal to inspection Psych Appearance: grossly normal and well kempt Mental Status: mental status grossly normal Speech and movement: Normal speech and movement present and Clear speech present Affect: normal affect Attitude: cooperative Thought process: Normal thought process present Thought content: Normal thought content present Insight: Good insight present (Psych) Judgement: Good judgement present (Psych) Results AMB Urinalysis, Automated UA Leukoctes 0 Jessica/uL Last Edit by [employer]be[employer] on 05/31/23 14:35 UA Nitrite Negative Last Edit by [employer] on 05/31/23 14:35 UA Urobilinogen 0.2 mg/dL Last Edit by [employer] on 05/31/23 14:35 UA Protein 0 mg/dL Last Edit by [employer] on 05/31/23 14:35 UA pH 6.5 Last Edit by [employer] on 05/31/23 14:35 UA Blood 25 Adilson/uL Last Edit by [employer] on 05/31/23 14:35 UA Specific [place] 1.015 Last Edit by [employer] on 05/31/23 14:35 UA Ketone Negative Last Edit by [employer] on 05/31/23 14:35 UA Bilirubin 0 mg/dL Last Edit by [employer] on 05/31/23 14:35 UA Glucose 0 mg/dL Last Edit by Mod[employer] on 05/31/23 14:35 Results Reviewed Results Reviewed: Laboratory Last Values Urine pH (Auto) 6.5 05/31/23 14:34 Specific [place] (Auto) 1.015 05/31/23 14:34 Urine Protein (Auto) 0 mg/dL 05/31/23 14:34 Glucose (UA)(Auto) 0 mg/dL 05/31/23 14:34 Urine Ketones (Auto) Negative 05/31/23 14:34 Urine Blood (Auto) 25 Adilson/uL 05/31/23 14:34 Urine Nitrite (Auto) Negative 05/31/23 14:34 Urine Bilirubin (Auto) 0 mg/dL 05/31/23 14:34 Urine Urobilinogen (Auto) 0.2 mg/dL 05/31/23 14:34 Leukocyte Esterase (Auto) 0 Jessica/uL 05/31/23 14:34 Date of Service: 12/26/22 EXAMINATION: CT ABDOMEN AND PELVIS WITH CONTRAST FINDINGS: LUNG BASES: No pleural or pericardial effusion. LIVER, GALLBLADDER, AND BILIARY TREE: The liver is normal in size and contour. No biliary ductal dilatation is present. The gallbladder is distended. PANCREAS: No ductal dilatation. SPLEEN: Not enlarged. ADRENAL GLANDS: No adrenal mass. KIDNEYS AND URETERS: The kidneys are symmetric in size and enhancement. Nonobstructing bilateral renal calculi. Large nonobstructing calculus in the right renal pelvis measures 2.0 x 1.4 cm. No hydronephrosis or perinephric stranding. BLADDER: Decompressed. GASTROINTESTINAL TRACT: Marked colonic distention up to 8 cm to the level of a possible soft tissue mass in the sigmoid colon as seen on image 56 of series 2. No small bowel obstruction. Small bowel loops are decompressed. Status post gastric bypass. ABDOMINAL WALL: No significant hernia is appreciated. LYMPH NODES: No bulky abdominal or pelvic lymphadenopathy. VASCULAR: Normal caliber abdominal aorta. PELVIC VISCERA: Hypoattenuating lesion in the right hemipelvis measures 4.3 x 5.1 cm. The uterus is displaced into the right hemipelvis. OSSEOUS STRUCTURES: No destructive bone lesions. CT/CT abdomen pelvis w IV con IMPRESSION: Functional obstruction of the large bowel most likely related to an obstructing mass in the sigmoid colon. Correlation with direct visualization is advised. Hypoattenuating lesion in the right hemipelvis measuring 4.3 x 5.1 cm. This may be further evaluated by pelvic ultrasound on a nonemergent basis. Bilateral nephrolithiasis including calculus right renal pelvis measuring 2.0 x 1.4 cm. No hydronephrosis. Assessment & Plan Assessment & Plan (1) Nephrolithiasis: Code(s): N20.0 - Calculus of kidney Plan: Plan Extracorporeal Shock Wave Lithotripsy We discussed the nature of the decision and reasonable alternatives for performing the above surgery. Interventions include chemical dissolution, ESWL, ureteroscopy with laser lithotripsy and stent placement, PCNL. ? Options such as medical therapy were discussed. The relative uncertainties and benefits related to each alternate procedure were adequately discussed. General surgical risks including, but not limited to, pain, bleeding, infection, myocardial infarction, pulmonary embolus, deep vein thrombosis and cerebrovascular accident which may result in further hospitalization were discussed.? Full disclosure of the procedure as well as all major risks, benefits and complications were discussed including but not limited to risks of bleeding, injury to the kidney with hematoma or chinyere-hematoma, failure to fragments stone, potential for ureteric obstruction from stone passage and need for secondary procedures.? There is a small long-term risk of hypertension and a question chino of diabetes.? Success rate of fragmentation and passage is approximately 70- 75%.? This is compared to the risks and benefits for ureteroscopy which has a higher success rate but is a more invasive procedure. The success rate of the procedure was discussed. Success of the procedure in the short-term does not necessarily guarantee that long-term success will be maintained. Suitable follow up will need to be maintained. The patient showed understanding of the discussion as well as the typical recovery time, and the outpatient nature of this procedure. Opportunity was given for questions. Repeat-back protocol used to confirm understanding. They wish to proceed with right ESWL Plan In office urinalysis results reviewed with the patient today; as noted above. Recent CT results reviewed with the patient today; as noted above. Discussed at length treatment options; discussed PCNL versus ureteroscopy verses ESWL; discussed risks and benefits of these interventions at length; all questions were answered Discussed, educated, and stressed the importance of drinking water throughout the day. Discussed adding 1 oz of lemon juice to water daily. Will schedule for right-sided ESWL as discussed once she is cleared to do so after colostomy reversal. Follow-up status post right-sided ESWL per Dr. Hartley's orders; or sooner with any issues, concerns, and or questions. Orders: Orders AMB Urinalysis Automated 05/31/23 Z13.9 - Encounter for screening, unspecified Patient Instructions: The patient had an opportunity to ask questions regarding the treatment plan. All questions were answered. Physical exam, labs, and imaging were discussed and reviewed in detail. As well as risks, benefits, and discussion of treatment choices. No major barriers to understanding were identified. The patient expressed understanding and agreement with the above treatment plan. The patient was made aware they should contact our office by phone for worsening of their current condition, the appearance of new symptoms, or with any questions or concerns. Compliance is encouraged with any medications and follow up testing that is ordered. It is a privilege to be allowed the opportunity to participate in? your urological care.? Again, if you have any questions or concerns If you have any questions or concerns please do not hesitate to contact me. The office is [phone]. This note is constructed using voice recognition software. While every effort has been made to ensure accuracy communications analyst errors may have been included. Yours sincerely, DEB Bonilla-ROLO Coding Level of Care Code New Pt Level 4 (46758) Diagnoses Nephrolithiasis N20.0
== END 2023-05-31 15:10 | disposition home or self-care (01) ==
PROVIDERS: PCP Nurse Practitioner Family; Visit Provider Nurse Practitioner Family
DX: N20.0 Calculus of kidney (principal)
CPT/HCPCS: 99204

== ENCOUNTER → 2023-05-31 13:42 | Outpatient (BNVA) | payer BC, SELFPAY | PROVIDERS: PCP Nurse Practitioner Family; Visit Provider Nurse Practitioner Family | DX: N20.0 Calculus of kidney (principal) | CPT/HCPCS: 81003 ==

== ENCOUNTER 2023-06-15 07:20 | Inpatient (IN) | payer BC, SELFPAY ==
[2023-06-07 12:10] VITALS: BP 157/86; PULSE 54; RESP 16; O2SAT 98
[2023-06-07 12:45] LABS: Hematocrit 33.8 % (37.0-47.0); Hemoglobin 10.8 g/dl (12.0-16.0); Mean Corpuscular Volume 90.6 fL (80.0-98.0); Mean Platelet Volume 9.3 fL (9.4-12.3); Platelet Count 281 X10*3/uL (160-400); Red Blood Count 3.73 X10*6/uL (4.20-5.50); Red Cell Distribution Width 14.3 % (11.0-16.0); White Blood Count 6.7 X10*3/uL (4.8-10.8)
[2023-06-07 13:32] LABS: Anion Gap 13 (12-20); Blood Urea Nitrogen 22 mg/dL (9-16); Calcium 9.5 mg/dL (8.4-10.2); Carbon Dioxide 26 mmol/L (22-29); Chloride 107 mmol/L (96-108); Creatinine Clr Calc Pharmacy 74.7; Estimated Glomerular Filt Rate > 60; Glucose Random 85 mg/dL (60-115); Potassium 4.2 mmol/L (3.3-5.1); Sodium 142 mmol/L (135-145)
--- NOTE | 2023-06-14 09:07 | HO.ANESPROP2 ---
Documented by User: Stefanie Calle NP 06/14/23 09:13 HPI - Anesthesia Eval Consult details Narrative: 52yo F for Exploratory Laparotomy takedown colostomy lithotomy, protoscope Follows [facility] [place] cardiology. Stable at 04/2023 appoint and cleared for surgery Seen in [facility] 06/07/[address] Wayne s/p colectomy 12/2022 with GA-ETT 7.5 s/p colo 05/2023 with MAC PMFSH Active Problems Active Problems: All Active Problems (Updated 06/08/23 @ 10:01 by Sherri Vickers, GINGER) Nephrolithiasis (Acute) Colostomy in place (Acute) Large bowel obstruction (Acute) Essential hypertension (Acute) Aortic stenosis (Acute) Past Medical History Medical History Seasonal allergies History of anemia Hx of panniculitis GERD (gastroesophageal reflux disease) HTN (hypertension) Anxiety History of kidney stones Family History Family History Father Heart attack Mother Hypertension Brother Hypertension Sister Hypertension Sister Hypertension Family history of problems with anesthesia: No Surgical History Surgical History Hx of colectomy (~12/27/22) Hx of colonoscopy Status post panniculectomy Hx of esophagogastroduodenoscopy Hx of gastric bypass History of Problems with Anesthesia: No Social History Social History Household Members: Other Household Members Other:: mother Housing: House Are you a primary managed care coordinator to a significant other at home: Yes (mom, sister will help post-op) Do you presently have visiting nurse or other home services: No Alcohol intake: current Alcohol intake frequency: does not drink Patient Tobacco Use Status: Former Tobacco user Quit Date: 15 yrs ago Tobacco use type: Cigarette Years Smoked: 20+ off/on Second Hand Smoke Exposure: No Use of substances other than those prescribed or required for medical reasons: Yes Substance Use Type: Marijuana Substance Use Frequency: Daily Have you been hit, kicked, punched, or otherwise hurt by someone within the past year? If so, by whom?: No Are you DNR?: No Advance Directives: No Advance Directives Information Provided: Yes Advance Directives on File: No Recently lost weight without trying: No Nutrition Risks: No Nutritional Risk Patient : No FDLMP: years service: No Meds Allergies Allergy/AdvReac Type Severity Reaction Status Date / Time Seasonal Allergies Allergy Unknown itching Uncoded 06/01/23 23:22 Home Medications Medication Instructions Recorded Confirmed Last Taken Type atenolol 50 mg tablet 25 mg PO DAILY 01/14/21 06/07/23 05/22/23 History bupropion HCl 150 mg 24 hr tablet, 150 mg PO QAM 01/14/21 06/07/23 12/26/22 History extended release fluoxetine 20 mg capsule 20 mg PO DAILY 01/14/21 06/07/23 05/22/23 History loratadine 10 mg tablet (Claritin) 10 mg PO DAILY PRN Allergy Symptoms 07/01/22 06/07/23 12/26/22 History cyanocobalamin (vitamin B-12) 1,000 mcg PO DAILY 12/26/22 06/07/23 12/26/22 History 1,000 mcg tablet valsartan 160 mg tablet 80 mg PO DAILY 12/26/22 06/07/23 12/26/22 History cholecalciferol (vitamin D3) 50 50 mcg PO DAILY 06/07/23 06/07/23 Unknown History mcg (2,000 unit) tablet (Vitamin D3) Exam Height,Weight and Vital Signs: Height 5 ft 1 in Weight 72.121 kg Last Vital Signs Pulse 54 06/07/23 12:10 Resp 16 06/07/23 12:10 BP 157/86 H 06/07/23 12:10 Pulse Ox 98 06/07/23 12:10 O2 Del Method Room Air 06/07/23 12:10 Pertinent Lab Results Pertinent Lab Results: Laboratory Tests 06/07/23 12:37 WBC 6.7 RBC 3.73 L Hgb 10.8 L Hct 33.8 L MCV 90.6 MCH 29.0 MCHC 32.0 RDW 14.3 Plt Count 281 MPV 9.3 L Absolute Nucleated RBC 0.000 Nucleated RBC % (auto) 0.0 Sodium 142 Potassium 4.2 Chloride 107 Carbon Dioxide 26 Anion Gap 13 BUN 22 H Creatinine 0.79 Estim Creat Clear Calc 74.7 Estimated GFR > 60 Random Glucose 85 Calcium 9.5 Narrative Narrative: EKG 03/2023 Sinus bradycardia 49 beats per minute, normal axis, normal EKG, QTC 393 milliseconds ECHO 2020 Conclusions: - The left ventricular systolic function is normal. The calculated ejection fraction is 57% by biplane method. - There is mild aortic valve stenosis. Assessment and Plan Assessment Anesthesia Assessment: Chart Reviewed Final Anesthetic Review Family History of Problems with Anesthesia: No History of Problems with Anesthesia: No Documented by User: Sheldon Coker MD 06/15/23 08:11 [facility] Past Medical History Medical History Seasonal allergies History of anemia Hx of panniculitis GERD (gastroesophageal reflux disease) HTN (hypertension) Anxiety History of kidney stones Family History Family History Father Heart attack Mother Hypertension Brother Hypertension Sister Hypertension Sister Hypertension Surgical History Surgical History Hx of colectomy (~12/27/22) Hx of colonoscopy Status post panniculectomy Hx of esophagogastroduodenoscopy Hx of gastric bypass Social History Social History Household Members: Other Household Members Other:: mother Housing: House Are you a primary managed care coordinator to a significant other at home: Yes (mom, sister will help post-op) Do you presently have visiting nurse or other home services: No Alcohol intake: current Alcohol intake frequency: does not drink Patient Tobacco Use Status: Former Tobacco user Quit Date: 15 yrs ago Tobacco use type: Cigarette Years Smoked: 20+ off/on Second Hand Smoke Exposure: No Use of substances other than those prescribed or required for medical reasons: Yes Substance Use Type: Marijuana Substance Use Frequency: Daily Have you been hit, kicked, punched, or otherwise hurt by someone within the past year? If so, by whom?: No Are you DNR?: No Advance Directives: No Advance Directives Information Provided: Yes Advance Directives on File: No Recently lost weight without trying: No Nutrition Risks: No Nutritional Risk Patient : No FDLMP: years service: No Meds Allergies Allergy/AdvReac Type Severity Reaction Status Date / Time Seasonal Allergies Allergy Unknown itching Uncoded 06/01/23 23:22 Home Medications Medication Instructions Recorded Confirmed Last Taken Type atenolol 50 mg tablet 25 mg PO DAILY 01/14/21 06/07/23 05/22/23 History bupropion HCl 150 mg 24 hr tablet, 150 mg PO QAM 01/14/21 06/07/23 12/26/22 History extended release fluoxetine 20 mg capsule 20 mg PO DAILY 01/14/21 06/07/23 05/22/23 History loratadine 10 mg tablet (Claritin) 10 mg PO DAILY PRN Allergy Symptoms 07/01/22 06/07/23 12/26/22 History cyanocobalamin (vitamin B-12) 1,000 mcg PO DAILY 12/26/22 06/07/23 12/26/22 History 1,000 mcg tablet valsartan 160 mg tablet 80 mg PO DAILY 12/26/22 06/07/23 12/26/22 History cholecalciferol (vitamin D3) 50 50 mcg PO DAILY 06/07/23 06/07/23 Unknown History mcg (2,000 unit) tablet (Vitamin D3) Exam Airway Mallampati Class: III TM Dist: >3cm Neck ROM: Full Loose/Missing/Broken Teeth: No Heart: rrr +s1s2 Lungs: cta b/l Assessment and Plan Assessment Anesthesia Assessment: Anesthesia Plan Discussed and PAT Visit Final Anesthetic Review NPO: Yes ASA Class: II Final Preanesthetic Review: No Changes in Pt Med Stat, Meds/Allgs Chart Reviewed, Consent Obtained/Reviewed and Anes Risks/Benef Reviewed Patient Risk: Intermediate Procedure Risk: Intermediate Assessment/Block/Sedation in SS: Assess/Block/Sedation-SS Anesthetic Plan Anesthetic Plan: GA and Agree w/ Assess. and Plan Disposition: Standard PACU
--- NOTE | 2023-06-14 11:44 | MHC.SHP ---
Pre-Procedural Eval Section A Date of Service: 06/14/23 The patient is an INPATIENT: Yes Changes since office visit: No Cold of Flu in the past 2 weeks, No New Medical Problems, No Changes in Medication and No Patient answered all questions The History & Physical has been completed within 30 days and I have reviewed it.: Yes Section B Chief Complaint: Colostomy status Allergies: Allergies Allergy/AdvReac Type Severity Reaction Status Date / Time Seasonal Allergies Allergy Unknown itching Uncoded 06/01/23 23:22 Plan I have reviewed the history and physical and performed a pertinent physical examination on my patient. No changes have occurred unless specified. Time Spent With Patient Time: Total time managing care of this patient today ____ minutes.
--- NOTE | 2023-06-14 12:26 | PHA.MEDREC ---
Pharmacy Consult ? Medication Reconciliation Pharmacy has completed the medication reconciliation. Reviewed med rec done by nursing
[2023-06-15] VITALS (12 sets, daily range): BP systolic 130–180; BP diastolic 64–84; PULSE 48–62; RESP 14–18; TEMP 35.8–37.1; O2SAT 94–100; BMI 30.9
--- NOTE | 2023-06-15 14:49 | W.PM.OPN ---
Operative Note Operative Note Date of Service: 06/15/23 Narrative: Preoperative diagnosis: [] End colostomy Postop diagnosis: [] Same Procedure [] exploratory laparotomy, colostomy takedown, colo colo functional end to end anastomosis, enterolysis, primary repair of peristomal hernia Surgeon: [] Sergio Sports Instructor: [] Dao/Segun Type of Anesthesia: [] General Indication for surgery: [] Patient is status post end colostomy for large bowel obstruction several months ago. She presents for colostomy reversal. Intraoperative findings demonstrated dense small bowel adhesions necessitating extensive enterolysis just to gain entry into the abdominal cavity. Uneventful functional end-to-end anastomosis was performed with distal left colon and sigmoid colon. Patient had a significant peristomal hernia repaired primarily. Findings: [] Patient brought to the operating room, placed on table supine position, after adequate level of general anesthesia was induced, patient placed in lithotomy position. Rectal exam demonstrated minimal intra rectal mucus in stool. Ostomy was sutured closed and the abdomen and perineum were prepped and draped in usual sterile fashion. A transverse bi- elliptical incision was made around the ostomy site and carried down through skin, subcutaneous tissue, down to the fascia and a peristomal hernia sac was identified as well. Bowel was circumferentially dissected down to the fascia and return to down the cavity. Hernia sac was amputated. Next the lower midline incisional scar was excised in this with incision was carried down through subcutaneous tissue down the fascia and opened longitudinally. Posterior fascia peritoneum were opened and extended along the length of the incision. Small-bowel adhesions were meticulously taken down and small packed into the upper abdomen. Next the lateral peritoneal reflection of the left colon was mobilized along with the peritoneal reflection of the rectosigmoid to allow a tension-free functional end-to-end anastomosis. Both ends of the anastomotic bowel were transected using TANIKA staplers and supplying mesentery to these areas taken on 3 clamps, cut, tied using 2-0 Vicryl ties. Using TANIKA 60 TA 60, functional end-to-end anastomosis was then performed. Anastomosis was patent, under no tension, well perfused. Proximal anastomosis was buttressed using seromuscular 3-0 silk sutures. Succus and air traversed the anastomosis with no obvious leak. Abdominal cavity was very copiously irrigated secured hemostasis. Wounds were closed in the following manner; perineum of the ostomy site was closed using running 0 Vicryl suture. Fascia of the ostomy site was closed using interrupted 0 Vicryl suture. Midline wound has fascia reapproximated using running looped 1. PDS suture followed by interrupted inverted dermal 3-0 Vicryl sutures. Ostomy site was closed using widely spaced interrupted inverted dermal 3-0 Vicryl sutures followed by skin terese. Wounds were infiltrated 0.5% Marcaine at completion. Sponge, needle, instrument counts reported correct. Patient tolerated the procedure well emerged anesthesia stable condition. EBL minimal
[2023-06-15] MEDS: Acetaminophen 1,000 MG/100 ML PIGGYBACK 400 MG IV (16:05)
[2023-06-16 00:02] VITALS: BP 144/76; PULSE 61; RESP 16; TEMP 36.3; O2SAT 95
[2023-06-16 03:30] VITALS: BP 146/78; PULSE 63; RESP 16; TEMP 36.4; O2SAT 95
[2023-06-16 06:23] LABS: Anion Gap 15 (12-20); Blood Urea Nitrogen 11 mg/dL (9-16); Carbon Dioxide 26 mmol/L (22-29); Chloride 102 mmol/L (96-108); Creatinine Clr Calc Pharmacy 84.3; Estimated Glomerular Filt Rate > 60; Glucose Random 96 mg/dL (60-115); Potassium 4.1 mmol/L (3.3-5.1); Sodium 139 mmol/L (135-145)
[2023-06-16 07:34] VITALS: BP 129/71; PULSE 59; RESP 18; TEMP 37.3; O2SAT 96
--- NOTE | 2023-06-16 08:22 | PM.PNGS ---
Subjective Subjective Date of Service: 06/16/23 Interval history: Feels overall well, has some incisional soreness mostly at old colostomy site but overall comfortable with analgesics. Has not been OOB or used incentive spirometer yet. Denies nausea, did not have much of clears yet. Physical Exam Vital Signs: Vital Signs: Last Vital Signs Temp 99.1 F 06/16/23 07:34 Pulse 59 06/16/23 07:34 Resp 18 06/16/23 07:34 BP 129/71 06/16/23 07:34 Pulse Ox 96 06/16/23 07:34 O2 Del Method Room Air 06/16/23 07:34 O2 Flow Rate 4 06/15/23 15:06 BMI result Body Mass Index 30.9 Const: General: comfortable, no acute distress and alert Orientation/consciousness: patient oriented x3 Resp: Effort & Inspection: normal respiratory effort GI: Inspection: No distended and Yes incision (dressings c/d/i) Palpation (GI): Soft to palpation, Tenderness to palpation present (GI) (mild incisional), no guarding and not rigid Skin: General skin exam: no rashes or lesions noted and no jaundice Neuro: General: patient oriented x3 and moves all extremities Objective Data Active Medications Al Hydroxide/Mg Hydroxide (Magnesium Hydrox/Alum Hydrox 30 Ml Oral.Susp) 30 ml PO Q4H PRN PRN Reason: Heartburn/Nausea Atenolol (Atenolol 25 Mg Tablet) 25 mg PO DAILY [facility]; Protocol Last Admin: 06/16/23 08:03 Dose: 25 mg Documented By: TEMO Bupropion HCl (Bupropion Hcl Xl 150 Mg Tab.Er.24h) 150 mg PO DAILY [facility] Last Admin: 06/16/23 08:02 Dose: 150 mg Documented By: TEMO Fentanyl (Fentanyl Citrate/Pf 100 Mcg/2 Ml Vial) 50 mcg IVPUSH Q5M PRN; Protocol PRN Reason: Pain, Severe (Pain Scale 7-10) Last Admin: 06/15/23 15:10 Dose: 50 mcg Documented By: SHARON Fluoxetine HCl (Fluoxetine Hcl 20 Mg Capsule) 20 mg PO DAILY [facility] Last Admin: 06/16/23 08:02 Dose: 20 mg Documented By: TEMO Heparin Sodium (Porcine) (Heparin Sodium,Porcine 5,000 Unit/Ml Vial) 5,000 unit SUBCUT Q8H [facility] Hydromorphone HCl (Hydromorphone Hcl 0.5 Mg/0.5 Ml Syringe) 0.5 mg IVPUSH Q5M PRN; Protocol PRN Reason: Pain, Severe (Pain Scale 7-10) Hydromorphone HCl (Hydromorphone Hcl 0.5 Mg/0.5 Ml Syringe) 0.5 mg IVPUSH Q4H PRN; Protocol PRN Reason: Pain, Severe (Pain Scale 7-10) Last Admin: 06/16/23 08:01 Dose: 0.5 mg Documented By: TEMO Lactated Ringer's (Lr) 1,000 mls @ 80 mls/hr IVCONT .[id number] [facility] Last Admin: 06/16/23 03:30 Dose: 80 mls/hr Documented By: ISI Acetaminophen (Ofirmev) 1,000 mg in 100 mls @ 400 mls/hr IV Q6H [facility] Last Infusion: 06/16/23 03:43 Dose: Infused Documented By: ISI Melatonin (Melatonin 3 Mg Tablet) 6 mg PO BEDTIME PRN PRN Reason: Insomnia Omeprazole (Omeprazole 20 Mg Capsule.Dr) 20 mg PO DAILY@0630 [facility] Last Admin: 06/16/23 08:03 Dose: 20 mg Documented By: TEMO Ondansetron HCl (Ondansetron Hcl 4 Mg/2 Ml Vial) 4 mg IVPUSH Q8H PRN PRN Reason: Nausea and Vomiting Oxycodone HCl (Oxycodone Hcl Immed Release 5 Mg Tablet) 5 mg PO Q4H PRN PRN Reason: Pain, Moderate(Pain Scale 4-6) Oxycodone HCl (Oxycodone Hcl Immed Release 5 Mg Tablet) 10 mg PO Q4H PRN PRN Reason: Pain, Severe (Pain Scale 7-10) Sodium Chloride (0.9 % Sodium Chloride Flush 3 Ml Syringe) 3 ml IVFLUSH [facility] Last Admin: 06/16/23 08:02 Dose: 3 ml Documented By: TEMO Sodium Chloride (0.9 % Sodium Chloride Flush 3 Ml Syringe) 3 ml IVFLUSH [facility] Last Admin: 01/05/24 08:09 Dose: Not Given Documented By: TEMO Non-Admin Reason: Duplicate Order Valsartan (Valsartan 80 Mg Tablet) 80 mg PO DAILY [facility]; Protocol Last Admin: 06/16/23 08:02 Dose: 80 mg Documented By: TEMO Vitamin D (Cholecalciferol (Vitamin D3) 25 Mcg Tablet) 50 mcg PO DAILY [facility] Last Admin: 06/16/23 08:02 Dose: 50 mcg Documented By: TEMO Labs 06/16/23 05:40 06/16/23 05:40 Labs: Laboratory Results - last 24 hr 06/16/23 05:40 MCV 89.3 MCH 28.8 MCHC 32.3 RDW 14.1 Plt Count 297 MPV 10.0 Immature Gran % (Auto) 0.5 H Neut % (Auto) 82.9 H Lymph % (Auto) 9.0 L [place] % (Auto) 7.4 Eos % (Auto) 0.0 Baso % (Auto) 0.2 Lymph # (Auto) 1.2 [place] # (Auto) 0.9 Eos # (Auto) 0.0 Baso # (Auto) 0.0 Abs Immat Gran (auto) 0.07 H Absolute Neuts (auto) 10.6 H Absolute Nucleated RBC 0.000 Nucleated RBC % (auto) 0.0 Anion Gap 15 Estim Creat Clear Calc 84.3 Estimated GFR > 60 Random Glucose 96 Calcium 9.0 Procedures Date of Service Date of Service: 06/16/23 Progress Note: A&P Assessment and plan (1) History of colostomy reversal: Status: Acute (2) Colostomy in place: Status: Acute Plan 52 year old female POD #1 s/p exploratory laparotomy, colostomy takedown, colo colo functional end to end anastomosis, enterolysis, 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 Doing well post op, vitals stable, abd with appropriate post op tenderness, dressings c/d/i. Dc hogan, cont clear liquids for now. Encouraged OOB and ambulation and IS use today. Cont pain control. Await return of bowel function. Time Spent With Patient Time: Total time managing care of this patient today ____ minutes. Quality Stroke Does the patient have a stroke diagnosis?: No VTE Prior VTE?: No VTE Risk Level:: Surgical - low VTE Device Contraindication: N/A - Device Ordered VTE Drug Contraindication: N/A - Med Ordered
--- NOTE | 2023-06-16 13:09 | HO.POSTANES ---
Post Anesthesia Evaluation Post Anesthesia Evaluation Date of Service: 06/16/23 Vital Signs: Vital Signs Temp Pulse Resp BP Pulse Ox O2 Del Method 06/16/23 07:34 99.1 F 59 18 129/71 96 Room Air 06/16/23 03:30 97.6 F 63 16 146/78 H 95 Room Air Anesthesia: General Endotracheal-GETA Mental Status: Awake Pain Control: Satisfactory Nausea/Vomiting: None Hydration: Adequate Anesthesia-Related Issues: No Anes. Related Issues
[2023-06-16 15:40] VITALS: BP 157/85; PULSE 54; RESP 18; TEMP 36.9; O2SAT 97
[2023-06-16 20:00] VITALS: BP 160/81; PULSE 52; RESP 18; TEMP 37; O2SAT 96
[2023-06-17 03:20] VITALS: BP 160/85; PULSE 52; RESP 16; TEMP 36.5; O2SAT 95
[2023-06-17 07:45] VITALS: BP 147/83; PULSE 63; RESP 18; TEMP 36.6; O2SAT 96
--- NOTE | 2023-06-17 14:22 | PM.PNGS ---
Subjective Subjective Date of Service: 06/17/23 Interval history: pt feels well, no flatus as yet but walking and doing ok, feels full with clear liquids but no emesis or nausea pain fine Physical Exam Vital Signs: Vital Signs: Last Vital Signs Temp 97.8 F 06/17/23 07:45 Pulse 63 06/17/23 07:45 Resp 18 06/17/23 07:45 BP 147/83 H 06/17/23 07:45 Pulse Ox 96 06/17/23 07:45 O2 Del Method Room Air 06/17/23 07:45 O2 Flow Rate 4 06/15/23 15:06 BMI result Body Mass Index 30.9 Const: General: cooperative, healthy appearing, comfortable, no acute distress and well developed Resp: Auscultation: clear to auscultation bilaterally Cardio: Rate: regular rate Rhythm: regular rhythm GI: Other: soft nondistended hypo bowel sounds incision looks good and ostomy site fine- one end a little open Objective Data Active Medications Al Hydroxide/Mg Hydroxide (Magnesium Hydrox/Alum Hydrox 30 Ml Oral.Susp) 30 ml PO Q4H PRN PRN Reason: Heartburn/Nausea Atenolol (Atenolol 25 Mg Tablet) 25 mg PO DAILY [facility]; Protocol Last Admin: 06/17/23 08:30 Dose: 25 mg Documented By: VICTOR HUGO Bupropion HCl (Bupropion Hcl Xl 150 Mg Tab.Er.24h) 150 mg PO DAILY [facility] Last Admin: 06/17/23 08:30 Dose: 150 mg Documented By: VICTOR HUGO Fentanyl (Fentanyl Citrate/Pf 100 Mcg/2 Ml Vial) 50 mcg IVPUSH Q5M PRN; Protocol PRN Reason: Pain, Severe (Pain Scale 7-10) Last Admin: 06/15/23 15:10 Dose: 50 mcg Documented By: SHARON Fluoxetine HCl (Fluoxetine Hcl 20 Mg Capsule) 20 mg PO DAILY [facility] Last Admin: 06/17/23 08:30 Dose: 20 mg Documented By: VICTOR HUGO Heparin Sodium (Porcine) (Heparin Sodium,Porcine 5,000 Unit/Ml Vial) 5,000 unit SUBCUT Q8H [facility] Last Admin: 06/17/23 05:56 Dose: 5,000 unit Documented By: ISI Hydromorphone HCl (Hydromorphone Hcl 0.5 Mg/0.5 Ml Syringe) 0.5 mg IVPUSH Q5M PRN; Protocol PRN Reason: Pain, Severe (Pain Scale 7-10) Hydromorphone HCl (Hydromorphone Hcl 0.5 Mg/0.5 Ml Syringe) 0.5 mg IVPUSH Q4H PRN; Protocol PRN Reason: Pain, Severe (Pain Scale 7-10) Last Admin: 06/17/23 08:39 Dose: 0.5 mg Documented By: VICTOR HUGO Lactated Ringer's (Lr) 1,000 mls @ 80 mls/hr IVCONT .[id number] [facility] Last Admin: 06/17/23 03:49 Dose: 80 mls/hr Documented By: ISI Acetaminophen (Ofirmev) 1,000 mg in 100 mls @ 400 mls/hr IV Q6H [facility] Last Infusion: 06/17/23 08:48 Dose: Infused Documented By: VICTOR HUGO Melatonin (Melatonin 3 Mg Tablet) 6 mg PO BEDTIME PRN PRN Reason: Insomnia Omeprazole (Omeprazole 20 Mg Capsule.Dr) 20 mg PO DAILY@0630 [facility] Last Admin: 06/17/23 05:56 Dose: 20 mg Documented By: ISI Ondansetron HCl (Ondansetron Hcl 4 Mg/2 Ml Vial) 4 mg IVPUSH Q8H PRN PRN Reason: Nausea and Vomiting Oxycodone HCl (Oxycodone Hcl Immed Release 5 Mg Tablet) 5 mg PO Q4H PRN PRN Reason: Pain, Moderate(Pain Scale 4-6) Oxycodone HCl (Oxycodone Hcl Immed Release 5 Mg Tablet) 10 mg PO Q4H PRN PRN Reason: Pain, Severe (Pain Scale 7-10) Last Admin: 06/16/23 11:10 Dose: 10 mg Documented By: TEMO Sodium Chloride (0.9 % Sodium Chloride Flush 3 Ml Syringe) 3 ml IVFLUSH [facility] Last Admin: 06/17/23 08:41 Dose: Not Given Documented By: VICTOR HUGO Non-Admin Reason: IV Running Sodium Chloride (0.9 % Sodium Chloride Flush 3 Ml Syringe) 3 ml IVFLUSH [facility] Last Admin: 06/17/23 08:42 Dose: Not Given Documented By: VICTOR HUGO Non-Admin Reason: IV Running Valsartan (Valsartan 80 Mg Tablet) 80 mg PO DAILY [facility]; Protocol Last Admin: 06/17/23 08:30 Dose: 80 mg Documented By: VICTOR HUGO Vitamin D (Cholecalciferol (Vitamin D3) 25 Mcg Tablet) 50 mcg PO DAILY [facility] Last Admin: 06/17/23 08:30 Dose: 50 mcg Documented By: VICTOR HUGO Labs 06/16/23 05:40 06/16/23 05:40 Procedures Date of Service Date of Service: 06/17/23 Progress Note: A&P Assessment and plan (1) History of colostomy reversal: Status: Acute Assessment and Plan: pod#2 s/p colostomy reversal doing very well cont with just some clear liquids as tolerated , ivf, ambulate, iv to po pain meds once flatus can advance diet and probable dc home - she agrees with the plan Time Spent With Patient Time: Total time managing care of this patient today ____ minutes. Quality Stroke Does the patient have a stroke diagnosis?: No VTE Prior VTE?: No VTE Risk Level:: Surgical - low VTE Device Contraindication: N/A - Device Ordered VTE Drug Contraindication: N/A - Med Ordered
--- NOTE | 2023-06-17 14:37 | MHC.CM.PN ---
PT REPORTS SHE LIVES WITH HER MOTHER AND IS INDEPENDENT WITH CARE PT HAS NO DME AND NO HOME SERVICES AND SHE WORKS [employer] HCP ON FILE PCP: MELITON FIELDS DCP: HOME NO SERVICES VIA PRIVATE TRANSPORT
[2023-06-17 16:00] VITALS: BP 148/82; PULSE 61; RESP 16; TEMP 36.6; O2SAT 95
[2023-06-17 19:40] VITALS: BP 155/74; PULSE 57; RESP 19; TEMP 36.6; O2SAT 94
[2023-06-18 01:36] VITALS: BP 184/84; PULSE 54
[2023-06-18 04:00] VITALS: BP 139/67; PULSE 60; RESP 16; TEMP 36.3; O2SAT 96
[2023-06-18 07:50] VITALS: BP 152/79; PULSE 60; RESP 18; TEMP 36.9; O2SAT 96
--- NOTE | 2023-06-18 14:55 | PM.PNGS ---
Subjective Subjective Date of Service: 06/18/23 Interval history: Patient is doing well has not passed gas yet but feels a lot of rumbling and has been walking other issues or complaints. Physical Exam Vital Signs: Vital Signs: Last Vital Signs Temp 98.4 F 06/18/23 07:50 Pulse 60 06/18/23 07:50 Resp 18 06/18/23 07:50 BP 152/79 H 06/18/23 07:50 Pulse Ox 96 06/18/23 07:50 O2 Del Method Room Air 06/18/23 07:50 O2 Flow Rate 4 06/15/23 15:06 BMI result Body Mass Index 30.9 Const: General: cooperative, healthy appearing, comfortable, no acute distress and well developed Orientation/consciousness: oriented to person, oriented to place and oriented to time Resp: Effort & Inspection: normal respiratory effort Auscultation: clear to auscultation bilaterally Cardio: Rate: regular rate Rhythm: regular rhythm GI: Other: Abdomen is soft nondistended nontender other than just at the incision area. Wounds are good. She has active pretty good bowel sounds. Neuro: General: oriented to person, oriented to place and oriented to time Extrem: General: Yes normal to inspection Psych: Appearance: grossly normal Mental Status: mental status grossly normal Speech and movement: Normal speech and movement present Affect: normal affect Attitude: cooperative Objective Data Active Medications Al Hydroxide/Mg Hydroxide (Magnesium Hydrox/Alum Hydrox 30 Ml Oral.Susp) 30 ml PO Q4H PRN PRN Reason: Heartburn/Nausea Atenolol (Atenolol 25 Mg Tablet) 25 mg PO DAILY [facility]; Protocol Last Admin: 06/18/23 08:43 Dose: 25 mg Documented By: VICTOR HUGO Bupropion HCl (Bupropion Hcl Xl 150 Mg Tab.Er.24h) 150 mg PO DAILY [facility] Last Admin: 06/18/23 08:43 Dose: 150 mg Documented By: VICTOR HUGO Fentanyl (Fentanyl Citrate/Pf 100 Mcg/2 Ml Vial) 50 mcg IVPUSH Q5M PRN; Protocol PRN Reason: Pain, Severe (Pain Scale 7-10) Last Admin: 06/15/23 15:10 Dose: 50 mcg Documented By: PODEPI Fluoxetine HCl (Fluoxetine Hcl 20 Mg Capsule) 20 mg PO DAILY [facility] Last Admin: 06/18/23 08:43 Dose: 20 mg Documented By: VICTOR HUGO Heparin Sodium (Porcine) (Heparin Sodium,Porcine 5,000 Unit/Ml Vial) 5,000 unit SUBCUT Q8H [facility] Last Admin: 06/18/23 14:48 Dose: 5,000 unit Documented By: VICTOR HUGO Hydromorphone HCl (Hydromorphone Hcl 0.5 Mg/0.5 Ml Syringe) 0.5 mg IVPUSH Q5M PRN; Protocol PRN Reason: Pain, Severe (Pain Scale 7-10) Hydromorphone HCl (Hydromorphone Hcl 0.5 Mg/0.5 Ml Syringe) 0.5 mg IVPUSH Q4H PRN; Protocol PRN Reason: Pain, Severe (Pain Scale 7-10) Last Admin: 06/17/23 18:33 Dose: 0.5 mg Documented By: VICTOR HUGO Acetaminophen (Ofirmev) 1,000 mg in 100 mls @ 400 mls/hr IV Q6H [facility] Last Infusion: 06/18/23 09:50 Dose: Infused Documented By: VICTOR HUGO Melatonin (Melatonin 3 Mg Tablet) 6 mg PO BEDTIME PRN PRN Reason: Insomnia Omeprazole (Omeprazole 20 Mg Capsule.Dr) 20 mg PO DAILY@0630 [facility] Last Admin: 06/18/23 06:16 Dose: 20 mg Documented By: ISI Ondansetron HCl (Ondansetron Hcl 4 Mg/2 Ml Vial) 4 mg IVPUSH Q8H PRN PRN Reason: Nausea and Vomiting Oxycodone HCl (Oxycodone Hcl Immed Release 5 Mg Tablet) 5 mg PO Q4H PRN PRN Reason: Pain, Moderate(Pain Scale 4-6) Oxycodone HCl (Oxycodone Hcl Immed Release 5 Mg Tablet) 10 mg PO Q4H PRN PRN Reason: Pain, Severe (Pain Scale 7-10) Last Admin: 06/18/23 01:34 Dose: 10 mg Documented By: MALAIKA Sodium Chloride (0.9 % Sodium Chloride Flush 3 Ml Syringe) 3 ml IVFLUSH [facility] Last Admin: 06/18/23 08:45 Dose: 3 ml Documented By: VICTOR HUGO Sodium Chloride (0.9 % Sodium Chloride Flush 3 Ml Syringe) 3 ml IVFLUSH [facility] Last Admin: 06/18/23 08:46 Dose: 3 ml Documented By: VICTOR HUGO Valsartan (Valsartan 80 Mg Tablet) 80 mg PO DAILY [facility]; Protocol Last Admin: 06/18/23 08:43 Dose: 80 mg Documented By: VICTOR HUGO Vitamin D (Cholecalciferol (Vitamin D3) 25 Mcg Tablet) 50 mcg PO DAILY [facility] Last Admin: 06/18/23 08:43 Dose: 50 mcg Documented By: VICTOR HUGO Labs 06/16/23 05:40 06/16/23 05:40 Procedures Date of Service Date of Service: 06/18/23 Progress Note: A&P Assessment and plan (1) History of colostomy reversal: Status: Acute Assessment and Plan: Patient is a 52-year-old female 3 days status post colostomy reversal doing pretty well. Still has not passed gas but otherwise looks good tolerating p.o. liquids well urinating. Plan to continue with clear liquids care little slice of toast she is hungry and really would like to have something to eat. She is taking p.o. pain meds as needed which isn't very often in ambulating a lot. When she passes more gas with can advance her diet more. She understands and agrees Time Spent With Patient Time: Total time managing care of this patient today ____ minutes. Quality Stroke Does the patient have a stroke diagnosis?: No VTE Prior VTE?: No VTE Risk Level:: Surgical - low VTE Device Contraindication: N/A - Device Ordered VTE Drug Contraindication: N/A - Med Ordered
[2023-06-18 15:43] VITALS: BP 168/80; PULSE 56; RESP 18; TEMP 37; O2SAT 96
[2023-06-18 19:37] VITALS: BP 170/81; PULSE 54; RESP 20; TEMP 36.3; O2SAT 97
[2023-06-19 03:57] VITALS: BP 175/80; PULSE 56; RESP 16; TEMP 35.9; O2SAT 94
[2023-06-19 04:48] VITALS: BP 162/82
--- NOTE | 2023-06-19 04:56 | PC.NURSE ---
pt still not passing the gas, walked [address] 2 times and in side of room, more cramping pain 12/19. oxycodone 5mg wasn't touch. provided dilaudid 0.5 mg per mar. provide zofran for nauseate and ice pack q2. pt couldn't get comfortable. BS active. will continue to provide as much as we can and monitor any changes.
[2023-06-19 07:35] VITALS: BP 136/78; PULSE 56; RESP 18; TEMP 36.1; O2SAT 96
--- NOTE | 2023-06-19 10:24 | PM.PNGS ---
Subjective Subjective Date of Service: 06/19/23 Interval history: Had bad gas pains last night but now passing flatus and had a small liquid BM. Incisional pain is mild. OOB and ambulating without difficulty. Tolerating diet. Wants to go home. Physical Exam Vital Signs: Vital Signs: Last Vital Signs Temp 96.9 F 06/19/23 07:35 Pulse 56 06/19/23 07:35 Resp 18 06/19/23 07:35 BP 136/78 06/19/23 07:35 Pulse Ox 96 06/19/23 07:35 O2 Del Method Room Air 06/19/23 07:35 O2 Flow Rate 4 06/15/23 15:06 BMI result Body Mass Index 30.9 Const: General: comfortable, no acute distress and alert Orientation/consciousness: patient oriented x3 Resp: Effort & Inspection: normal respiratory effort GI: Other: incisions clean, old ostomy site with some serosanguineous drainage Inspection: No distended Palpation (GI): Soft to palpation, Tenderness to palpation present (GI) (very mild incisional), no guarding and not rigid Percussion: Yes normal to percussion Skin: General skin exam: no rashes or lesions noted and no jaundice Neuro: General: patient oriented x3 and moves all extremities Objective Data Active Medications Al Hydroxide/Mg Hydroxide (Magnesium Hydrox/Alum Hydrox 30 Ml Oral.Susp) 30 ml PO Q4H PRN PRN Reason: Heartburn/Nausea Atenolol (Atenolol 25 Mg Tablet) 25 mg PO DAILY [facility]; Protocol Last Admin: 06/19/23 08:01 Dose: Not Given Documented By: TIKA Non-Admin Reason: Decreased Heart Rate Bupropion HCl (Bupropion Hcl Xl 150 Mg Tab.Er.24h) 150 mg PO DAILY [facility] Last Admin: 06/19/23 07:56 Dose: 150 mg Documented By: TIKA Docusate Sodium (Docusate Sodium 100 Mg Capsule) 100 mg PO BID [facility] Last Admin: 06/19/23 08:50 Dose: 100 mg Documented By: TIKA Fentanyl (Fentanyl Citrate/Pf 100 Mcg/2 Ml Vial) 50 mcg IVPUSH Q5M PRN; Protocol PRN Reason: Pain, Severe (Pain Scale 7-10) Last Admin: 06/15/23 15:10 Dose: 50 mcg Documented By: SHARON Fluoxetine HCl (Fluoxetine Hcl 20 Mg Capsule) 20 mg PO DAILY [facility] Last Admin: 06/19/23 07:56 Dose: 20 mg Documented By: TIKA Heparin Sodium (Porcine) (Heparin Sodium,Porcine 5,000 Unit/Ml Vial) 5,000 unit SUBCUT Q8H [facility] Last Admin: 06/19/23 06:16 Dose: Not Given Documented By: ISI Non-Admin Reason: Patient Asleep Hydromorphone HCl (Hydromorphone Hcl 0.5 Mg/0.5 Ml Syringe) 0.5 mg IVPUSH Q5M PRN; Protocol PRN Reason: Pain, Severe (Pain Scale 7-10) Hydromorphone HCl (Hydromorphone Hcl 0.5 Mg/0.5 Ml Syringe) 0.5 mg IVPUSH Q4H PRN; Protocol PRN Reason: Pain, Severe (Pain Scale 7-10) Last Admin: 06/19/23 04:53 Dose: 0.5 mg Documented By: ISI Melatonin (Melatonin 3 Mg Tablet) 6 mg PO BEDTIME PRN PRN Reason: Insomnia Omeprazole (Omeprazole 20 Mg Capsule.Dr) 20 mg PO DAILY@0630 [facility] Last Admin: 06/19/23 07:56 Dose: 20 mg Documented By: TIKA Ondansetron HCl (Ondansetron Hcl 4 Mg/2 Ml Vial) 4 mg IVPUSH Q8H PRN PRN Reason: Nausea and Vomiting Last Admin: 06/19/23 04:53 Dose: 4 mg Documented By: ISI Oxycodone HCl (Oxycodone Hcl Immed Release 5 Mg Tablet) 5 mg PO Q4H PRN PRN Reason: Pain, Moderate(Pain Scale 4-6) Last Admin: 06/19/23 02:18 Dose: 5 mg Documented By: ISI Oxycodone HCl (Oxycodone Hcl Immed Release 5 Mg Tablet) 10 mg PO Q4H PRN PRN Reason: Pain, Severe (Pain Scale 7-10) Last Admin: 06/18/23 01:34 Dose: 10 mg Documented By: MALAIKA Polyethylene Glycol (Polyethylene Glycol 3350 17 Gm Powd.Pack) 17 gm PO DAILY [facility] Last Admin: 06/19/23 08:52 Dose: 17 gm Documented By: TIKA Sodium Chloride (0.9 % Sodium Chloride Flush 3 Ml Syringe) [facility] Last Admin: 06/19/23 07:56 Dose: 3 ml Documented By: TIKA Sodium Chloride (0.9 % Sodium Chloride Flush 3 Ml Syringe) 3 ml IVFLUSH [facility] Last Admin: 06/19/23 08:01 Dose: Not Given Documented By: TIKA Non-Admin Reason: Duplicate Order Valsartan (Valsartan 80 Mg Tablet) 80 mg PO DAILY [facility]; Protocol Last Admin: 06/19/23 07:56 Dose: 80 mg Documented By: TIKA Vitamin D (Cholecalciferol (Vitamin D3) 25 Mcg Tablet) 50 mcg PO DAILY [facility] Last Admin: 06/19/23 07:56 Dose: 50 mcg Documented By: TIKA Labs 06/16/23 05:40 06/16/23 05:40 Procedures Date of Service Date of Service: 06/19/23 Progress Note: A&P Assessment and plan (1) History of colostomy reversal: Status: Acute Plan Doing well with good post op pain control, tolerating diet and now with good GI function. Abd benign with clean incisions. Stable for dc to home. F/u in office with Dr. Hill in 1 week. Patient comfortable with plan. Time Spent With Patient Time: Total time managing care of this patient today ____ minutes. Quality Stroke Does the patient have a stroke diagnosis?: No VTE Prior VTE?: No VTE Risk Level:: Surgical - low VTE Device Contraindication: N/A - Device Ordered VTE Drug Contraindication: N/A - Med Ordered
--- NOTE | 2023-06-19 10:31 | P.DS_ITS ---
DS: Providers Provider Date of Service: 06/19/23 Date of admission: 06/15/23 07:20 Primary care physician: Vianca Braden NP Attending physician on admission: Rudolph Hill Attending physician on discharge: Rudolph Hill DS: Diagnosis Discharge Diagnosis (1) History of colostomy reversal: Status: Acute DS: Summary Hospital Course Hospital Course: HPI AT ADMISSION: Patient is status post end colostomy for large bowel o bstruction several months ago. She presents for colostomy reversal. HOSPITAL COURSE: On 06/15/23, an exploratory laparotomy, colostomy takedown, colo colo functional end to end anastomosis, enterolysis, primary repair of peristomal hernia by Dr. Hill without immediate complications. The patient tolerated the procedure well and was admitted to the medical/surgical floor for observation. She had an uncomplicated recovery course. On POD #1, she felt overall well with good pain control. She was tolerating clears without nausea or vomiting. She was not passing flatus and therefore clears were continued. Her hogan was discontinued. She was ambulated. Her abd was benign with clean incision and wound terese were removed. She remained inpatient over the next few days for incisional pain control and while awaiting return of GI function. She was advanced to a solid diet on POD #3. She was started on a bowel regimen. On POD #4, she began to pass flatus and had a bowel movement. She was tolerating a solid diet without nausea or vomiting. Her abdomen remained benign and incisions clean. She felt ready for discharge to home. She was discharged to home on 06/19/23 in stable condition. Status at Discharge Functional status at discharge: independent ambulation Overall status at discharge: patient is progressing back to baseline Time Attestation Discharge coordination time: Less than 30 minutes Quality: Safe Use of Opioids Does Pt have an Active Cancer Diagnosis on the Problem List?: No Quality: Stroke Does the patient have a stroke diagnosis?: No Physical Exam Vital Signs: Vital Signs: Last Vital Signs Temp 96.9 F 06/19/23 07:35 Pulse 56 06/19/23 07:35 Resp 18 06/19/23 07:35 BP 136/78 06/19/23 07:35 Pulse Ox 96 06/19/23 07:35 O2 Del Method Room Air 06/19/23 07:35 O2 Flow Rate 4 06/15/23 15:06 BMI result Body Mass Index 30.9 Const: General: comfortable, no acute distress and alert Orientation/consciousness: patient oriented x3 GI: Inspection: No distended and Yes incision (clean) Palpation (GI): Soft to palpation Skin: General skin exam: no rashes or lesions noted Neuro: General: patient oriented x3 DS: Data Data Completed and Pending Completed studies during hospitalization [Text1]: Procedures Bypass Sigmoid Colon to Cutaneous with Autologous Tissue Substitute, Open Approach (12/26/22) Excision of Sigmoid Colon, Open Approach (12/26/22) Introduction of Anesthetic Agent into Peripheral Nerves and Plexi, Percutaneous Approach (12/26/22) Pending studies at discharge: 06/15/23 14:11 Surgical [PTH] Routine A. Labeled ostomy site (revision): -Intact mucocutaneous anastomosis with fibrosis, inflammation, and focal foreign body granulomatous reaction to refractile material. -Benign colonic mucosa and wall. -Two annular portions of colon consistent with anastomotic rings. B. Hernia sac, parastomal (herniorrhaphy): -Fibromembranous and adipose tissue consistent with hernia sac. Discharge Plan Discharge Anticipated Discharge Date/Time: 06/18/23 12:16 Patient Disposition: Home, Self-Care Discharge Diagnosis: Colostomy reversal Referrals: Vianca Braden NP [Primary Care Provider] - 1 Week Rudolph Hill MD [Physician] - 1 Week Discharge Medications: New hydrocodone-acetaminophen 5-325 mg tablet 1 tab PO Q4-6H PRN (Reason: pain) Qty: 30 0RF Rx Instructions: Partial Fill upon patient request. Continued omeprazole 20 mg capsule,delayed release(DR/EC) 20 mg PO DAILY Qty: 30 6RF loratadine [Claritin] 10 mg Tablet 10 mg PO DAILY PRN (Reason: Allergy Symptoms) cyanocobalamin (vitamin B-12) 1,000 mcg Tablet 1,000 mcg PO DAILY valsartan 160 mg tablet 80 mg PO DAILY cholecalciferol (vitamin D3) [Vitamin D3] 50 mcg (2,000 unit) Tablet 50 mcg PO DAILY fluoxetine 20 mg capsule 20 mg PO DAILY atenolol 50 mg tablet 25 mg PO DAILY bupropion HCl 150 mg tablet extended release 24 hr 150 mg PO QAM Discontinued (DME) ostomy adhesive Strip See Rx Instructions .Route Qty: 15 2RF Rx Instructions: As directed (DME) Skin Prep Wipes Misc See Rx Instructions .Route Qty: 50 2RF Rx Instructions: As directed (DME) colostomy bags 3 misc See Rx Instructions .ROUTE .MEDSUPPLY Qty: 30 2RF Rx Instructions: As directed Discharge Orders: Discharge Order (Routine); Ordered 06/19/23 Ordered By: Awa Cast Diet: Advance to usual diet Activity on Discharge: No heavy lifting Stand Alone Forms: Patient Portal Discharge page Activity Restrictions/Additional Instructions: Apply an ice pack for short intervals (20 minutes on, followed by at least 20 minutes off) for the first 2 days. Do not apply heat. Do not use creams, lotions, or topical antibiotics. These can cause infection or allergic reaction. Ok to shower. No tub bath. You have steri strips (small white cloth strips) c overing your incision- these will fall off ~1 week. Follow up in office with Dr. Hill in 1 week. ([phone]) No heavy lifting (>10lbs) or strenuous activity! Call Your Doctor If: -Your temperature exceeds 101.5? F -You experience excessive pain or swelling -You have an unexpected reaction to medication -You have excessive bleeding -You experience continued vomiting/nausea -Your incision begins to separate -Your incision shows signs of infection such as increased redness, swelling, excessive pain, drainage (light blood or clear fluid is normal) or heat Care Plan Goals: Return to baseline health and resume normal activities following recovery period. Health Concerns: sigmoid stricture s/p janis procedure, colostomy in place Plan of Treatment: s/p colostomy closure f/u in office in 1 week Assessment: Doing well post op. Discharge Date/Time: 06/19/23 12:02
--- NOTE | 2023-06-19 10:41 | MHC.CM.PN ---
PT WILL DC HOME TODAY WITH NO SERVICES VIA PRIVATE TRANSPORT
--- NOTE | 2023-06-19 12:03 | PC.NURSE ---
1030- Pt states she is now passing gas and had a BM in toilet, witnessed by this RN
== END 2023-06-19 12:02 | disposition home or self-care (01) | DRG 223 ==
LOC: HO.SSSA 08:14 → HO.S3 14:59
PROVIDERS: Physician Assistant Surgical; Admitting Provider Surgery; PCP Nurse Practitioner Family; Visit Provider Surgery
PROC: 0DSN0ZZ Reposition Sigmoid Colon, Open Approach (ICD-10-PCS; CPT 49000; principal; 2023-06-15 09:40)
DX: Z43.3 Encounter for attention to colostomy (principal); K43.5 Parastomal hernia without obstruction or gangrene; K66.0 Peritoneal adhesions (postprocedural) (postinfection); Z98.84 Bariatric surgery status; Z59.02 Unsheltered homelessness; Z79.899 Other long term (current) drug therapy
CPT/HCPCS: 36415; 80048; 85025; 85027; 86850; 86900; 86901; 88302; 88304; 88305; 99024; C1758; J0131; J0690; J1100; J1170; J1596; J1644; J2250; J2405; J2704; J2795; J3010; J7120

== ENCOUNTER → 2023-06-15 07:20 | Outpatient (BNV) | payer BC, SELFPAY | PROVIDERS: Admitting Provider Surgery; PCP Nurse Practitioner Family; Visit Provider Surgery | DX: Z98.890 Other specified postprocedural states (principal) | CPT/HCPCS: 44626; 99024 ==

== ENCOUNTER 2023-06-23 10:03 | Outpatient (AMB) | payer BC, SELFPAY ==
--- NOTE | 2023-06-23 10:53 | MHC.OFFVIS ---
Intake Intake Visit Reasons: wound check, bleeding Allergies Seasonal Allergies Allergy (Unknown, Uncoded 06/01/23 23:22) itching HPI HPI Comments History of Present Illness Details Patient's proximal weeks status post colostomy reversal. She had some drainage from her midline incision yesterday. She presents here for further evaluation. She is otherwise doing relatively well. She has tolerating a diet. She is having regular bowel habits. She is increasing her activity level. [facility] Medical History Seasonal allergies History of anemia Hx of panniculitis GERD (gastroesophageal reflux disease) HTN (hypertension) Anxiety History of kidney stones Surgical History Hx of colectomy (~12/27/22) Hx of colonoscopy Status post panniculectomy Hx of esophagogastroduodenoscopy Hx of gastric bypass Family History Father Heart attack Mother Hypertension Brother Hypertension Sister Hypertension Sister Hypertension Social History Household Members: Family Household Members Other:: mother Housing: Homeless Are you a primary director of patient care to a significant other at home: Yes (mom, sister will help post-op) Do you presently have visiting nurse or other home services: No Alcohol intake: current Alcohol intake frequency: does not drink Comment: COUNTS CORRECT Patient Tobacco Use Status: Former Tobacco user Quit Date: 15 yrs ago Tobacco use type: Cigarette Years Smoked: 20+ off/on Second Hand Smoke Exposure: No Substance Use Type: Marijuana service: No Physical Exam GI Other: Ostomy site clean dry and intact. Midline wound has along the lower midline area some drainage. Under sterile technique, this was opened and copious amounts of infected seroma was retrieved. Wound was digitally explored and completely empty. The wound Was irrigated, packed, and dressing applied. Assessment & Plan Assessment & Plan (1) Superficial postoperative wound infection: Code(s): T81.49XA - Infection following a procedure, other surgical site, initial encounter Plan Patient has been given local instructions and arrangements Jayden regarding wound care. She will see me as directed. She will be given a script for antibiotics. Orders: Referrals [facility] Referral T81.49XA - Infection following a procedure, other surgical site, initial encounter, Z98.890 - Other specified postprocedural states Coding Level of Care Code Global (23800) Diagnoses Superficial postoperative wound infection T81.49XA
== END 2023-06-23 10:48 | disposition home or self-care (01) ==
PROVIDERS: PCP Nurse Practitioner Family; Visit Provider Surgery
DX: T81.49XA Infection following a procedure, other surgical site, initial encounter (principal)
CPT/HCPCS: 99024

== ENCOUNTER → 2023-06-23 10:03 | Outpatient (BNVA) | payer BC, SELFPAY | PROVIDERS: PCP Nurse Practitioner Family; Visit Provider Surgery ==

== ENCOUNTER 2023-07-04 10:52 | Outpatient (AMB) | payer BC, OTHER, SELFPAY ==
[2023-07-04 10:57] VITALS: BP 126/66; PULSE 60
--- NOTE | 2023-07-04 10:57 | A.OFFVIS_ITS ---
Intake Vital Signs 07/04/23 10:57 Weight 151 lb BP 126/66 Blood Pressure Location Rt brachial Position Sitting Pulse 60 Intake Visit Reasons: S/P Expl. lap takedown colostomy Intake Note: Patient here s/p exp lap takedown colostomy. Reports incisions healing well. Patient c/o: starting to heal well. Finished cipro course. Growth Media Mixer Mushroom Required: No Accompanied by: Self / Same As Patient Allergies Seasonal Allergies Allergy (Unknown, Uncoded 07/04/23 10:59) itching HPI HPI Comments History of Present Illness Details Patient presents for follow-up. She has tolerating a diet. He is having regular bowel habits. Her central part of her incision drainage is res olving. [facility] Medical History Seasonal allergies History of anemia Hx of panniculitis GERD (gastroesophageal reflux disease) HTN (hypertension) Anxiety History of kidney stones Surgical History Hx of colectomy (~12/27/22) Hx of colonoscopy Status post panniculectomy Hx of esophagogastroduodenoscopy Hx of gastric bypass Family History Father Heart attack Mother Hypertension Brother Hypertension Sister Hypertension Sister Hypertension Social History Household Members: Family Household Members Other:: mother Housing: Homeless Are you a primary gericare aide to a significant other at home: Yes (mom, sister will help post-op) Do you presently have visiting nurse or other home services: No Alcohol intake: current Alcohol intake frequency: does not drink Comment: COUNTS CORRECT Patient Tobacco Use Status: Former Tobacco user Quit Date: 15 yrs ago Tobacco use type: Cigarette Years Smoked: 20+ off/on Second Hand Smoke Exposure: No Substance Use Type: Marijuana service: No Physical Exam Vital Signs: Last Vital Signs Pulse 60 07/04/23 10:57 BP 126/66 07/04/23 10:57 GI Other: Abdomen soft. Ostomy site clean dry and intact. Midline wound has good 1st intention healing above and below the central part which is granulating well. Packing was placed. This has markedly decreased in size. Dressing applied. Assessment & Plan Assessment & Plan (1) Superficial postoperative wound infection: Code(s): T81.49XA - Infection following a procedure, other surgical site, initial encounter Plan Patient is continue local wound care and will follow-up as directed or p.r.n.. All questions answered. Coding Level of Care Code Global (23703) Diagnoses Superficial postoperative wound infection T81.49XA
== END 2023-07-04 11:06 | disposition home or self-care (01) ==
PROVIDERS: PCP Nurse Practitioner Family; Visit Provider Surgery
DX: T81.49XA Infection following a procedure, other surgical site, initial encounter (principal)
CPT/HCPCS: 99024

== ENCOUNTER → 2023-07-04 10:52 | Outpatient (BNVA) | payer BC, OTHER, SELFPAY | PROVIDERS: PCP Nurse Practitioner Family; Visit Provider Surgery ==

== ENCOUNTER 2023-07-18 10:38 | Outpatient (AMB) | payer BC, OTHER, SELFPAY ==
[2023-07-18 10:47] VITALS: BP 136/71; PULSE 59
--- NOTE | 2023-07-18 10:47 | A.OFFVIS_ITS ---
Intake Vital Signs 07/18/23 10:47 Weight 153 lb BP 136/71 Blood Pressure Location Rt brachial Position Sitting Pulse 59 Intake Visit Reasons: S/P Expl. lap takedown colostomy, 2wk follow up Intake Note: Patient here for 2wk f/u exp lap takedown colostomy. Patient reports incisions healing well. No concerns. Sdv Pilot/Navigator/Dds Operator Required: No Accompanied by: Self / Same As Patient Allergies Seasonal Allergies Allergy (Unknown, Uncoded 07/18/23 10:48) itching HPI HPI Comments History of Present Illness Details Patient presents for follow-up. She is using both VNA and self-care regarding her incisional wound packing. Patient is otherwise doing well. She has tolerating a diet. Having regular bowel habits. [facility] Medical History Seasonal allergies History of anemia Hx of panniculitis GERD (gastroesophageal reflux disease) HTN (hypertension) Anxiety History of kidney stones Surgical History Hx of colectomy (~12/27/22) Hx of colonoscopy Status post panniculectomy Hx of esophagogastroduodenoscopy Hx of gastric bypass Family History Father Heart attack Mother Hypertension Brother Hypertension Sister Hypertension Sister Hypertension Social History Household Members: Family Household Members Other:: mother Housing: Homeless Are you a primary emergency care tech to a significant other at home: Yes (mom, sister will help post-op) Do you presently have visiting nurse or other home services: No Alcohol intake: current Alcohol intake frequency: does not drink Comment: COUNTS CORRECT Patient Tobacco Use Status: Former Tobacco user Quit Date: 15 yrs ago Tobacco use type: Cigarette Years Smoked: 20+ off/on Second Hand Smoke Exposure: No Substance Use Type: Marijuana service: No Physical Exam Vital Signs: Last Vital Signs Pulse 59 07/18/23 10:47 BP 136/71 07/18/23 10:47 GI Other: Superior and inferior aspect of the incision have good 1st intention healing. Central part is granulating with healthy tissue. Wound was probed with a Q-tip and no evidence of any infection or under drained areas. Packing and dressing were reapplied. Well-tolerated. Assessment & Plan Assessment & Plan (1) Superficial postoperative wound infection: Code(s): T81.49XA - Infection following a procedure, other surgical site, initial encounter Plan Patient has been given local instructions as before and will see me as directed or p.r.n.. All questions answered. Coding Level of Care Code Global (19676) Diagnoses Superficial postoperative wound infection T81.49XA
== END 2023-07-18 11:09 | disposition home or self-care (01) ==
PROVIDERS: PCP Nurse Practitioner Family; Visit Provider Surgery
DX: T81.49XA Infection following a procedure, other surgical site, initial encounter (principal)
CPT/HCPCS: 99024

== ENCOUNTER → 2023-07-18 10:38 | Outpatient (BNVA) | payer BC, OTHER, SELFPAY | PROVIDERS: PCP Nurse Practitioner Family; Visit Provider Surgery ==

== ENCOUNTER 2023-08-01 11:10 | Outpatient (AMB) | payer BC, SELFPAY ==
[2023-08-01 11:22] VITALS: BP 137/73; PULSE 54
--- NOTE | 2023-08-01 11:22 | MHC.OFFVIS ---
Intake Vital Signs 08/01/23 11:22 Weight 154 lb BP 137/73 Blood Pressure Location Rt brachial Position Sitting Pulse 54 Intake Visit Reasons: S/P Expl. lap takedown colostomy, 2wk follow up Intake Note: Patient here for 2wk f/u superficial postoperative wound infection. Patient c/o: mild discharge with dressing changes. Plate Put In Worker Required: No Accompanied by: Self / Same As Patient Allergies Seasonal Allergies Allergy (Unknown, Uncoded 08/01/23 11:23) itching HPI HPI Comments History of Present Illness Details Patient presents for follow-up for wound check. According to the visiting nurse, her wound is decreasing in size. She has no other GI issues or complaints. [facility] Medical History Seasonal allergies History of anemia Hx of panniculitis GERD (gastroesophageal reflux disease) HTN (hypertension) Anxiety History of kidney stones Surgical History Hx of colectomy (~12/27/22) Hx of colonoscopy Status post panniculectomy Hx of esophagogastroduodenoscopy Hx of gastric bypass Family History Father Heart attack Mother Hypertension Brother Hypertension Sister Hypertension Sister Hypertension Social History Household Members: Family Household Members Other:: mother Housing: Homeless Are you a primary before and after school daycare worker to a significant other at home: Yes (mom, sister will help post-op) Do you presently have visiting nurse or other home services: No Alcohol intake: current Alcohol intake frequency: does not drink Comment: COUNTS CORRECT Patient Tobacco Use Status: Former Tobacco user Quit Date: 15 yrs ago Tobacco use type: Cigarette Years Smoked: 20+ off/on Second Hand Smoke Exposure: No Substance Use Type: Marijuana service: No Physical Exam Vital Signs: Last Vital Signs Pulse 54 08/01/23 11:22 BP 137/73 08/01/23 11:22 GI Other: Abdomen soft. Central part of the incision demonstrates healthy granulating tissue with good 1st intention healing on either side. This was probed with no obvious foreign bodies demonstrated. Granulating tissue was clean dry and intact. Dressing was applied. Assessment & Plan Assessment & Plan (1) Superficial postoperative wound infection: Code(s): T81.49XA - Infection following a procedure, other surgical site, initial encounter Plan Patient is continue local therapy and will see me as directed or p.r.n.. If she still has persistence of slow healing, patient may need formal wound exploration to rule out any other foreign body or stitch. This was explained. Patient will see me as directed or p.r.n.. All questions answered. Coding Level of Care Code Global (28886) Diagnoses Superficial postoperative wound infection T81.49XA
== END 2023-08-01 11:31 | disposition home or self-care (01) ==
PROVIDERS: PCP Nurse Practitioner Family; Visit Provider Surgery
DX: T81.49XA Infection following a procedure, other surgical site, initial encounter (principal)
CPT/HCPCS: 99024

== ENCOUNTER → 2023-08-01 11:10 | Outpatient (BNVA) | payer BC, OTHER, SELFPAY | PROVIDERS: PCP Nurse Practitioner Family; Visit Provider Surgery ==

== ENCOUNTER 2023-08-22 14:47 | Outpatient (AMB) | payer BC, SELFPAY ==
--- NOTE | 2023-08-22 14:48 | MHC.OFFVIS ---
Intake Intake Visit Reasons: H&P Right ESWL LVM reminder Allergies Seasonal Allergies Allergy (Unknown, Uncoded 08/30/23 06:22) itching HPI HPI Comments History of Present Illness Details Nicole is a pleasant female. She is a patient of Dr. Cormier. She is seen for the following urologic conditions - nephrolithiasis Telemedicine Evaluation 15 min Consultation DoximSezWho Devin Video attempted' Discussed procedure Right-sided ESWL Nephrolithiasis Background of Zia's pouch May have malabsorption CT scan - 06/03 Large nonobstructing calculus in the right renal pelvis measures 2.0 x 1.4 cm Plan ESWL This is a staged procedure and may require secondary intervention She is aware [facility] Medical History Seasonal allergies History of anemia Hx of panniculitis GERD (gastroesophageal reflux disease) HTN (hypertension) Anxiety History of kidney stones Surgical History History of colostomy reversal Hx of colectomy (~12/27/22) Hx of colonoscopy Status post panniculectomy Hx of esophagogastroduodenoscopy Hx of gastric bypass Family History Father Heart attack Mother Hypertension Brother Hypertension Sister Hypertension Sister Hypertension Social History Household Members: Family Household Members Other:: mother Housing: Homeless Are you a primary patient care technician to a significant other at home: Yes (mom, sister will help post-op) Do you presently have visiting nurse or other home services: No Alcohol intake: current Alcohol intake frequency: does not drink Patient Tobacco Use Status: Former Tobacco user Quit Date: 15 yrs ago Tobacco use type: Cigarette Years Smoked: 20+ off/on Second Hand Smoke Exposure: No Substance Use Type: Marijuana service: No Review of Systems Const All systems reviewed & are unremarkable except as noted in HPI and below Reports no additional complaints Resp Reports no additional complaints GI Reports no additional complaints Reports as per HPI Musc Reports no additional complaints Physical Exam Telemedicine evaluation Appropriate responses Regular breathing rate and rhythm HEENT Head: Yes normal to inspection Ears: hearing grossly normal bilaterally Eyes General: appearance normal, both eyes and all related structures Neck Neck: Yes normal visual inspection Chest Chest palpation & inspection: normal inspection of the chest Resp Effort & Inspection: normal respiratory effort and able to speak in complete sentences Assessment & Plan Assessment & Plan (1) Nephrolithiasis: Code(s): N20.0 - Calculus of kidney Plan Extracorporeal Shock Wave Lithotripsy We discussed the nature of the decision and reasonable alternatives for performing the above surgery. Interventions include chemical dissolution, ESWL, ureteroscopy with laser lithotripsy and stent placement, PCNL. Options such as medical therapy were discussed. The relative uncertainties and benefits related to each alternate procedure were adequately discussed. General surgical risks including, but not limited to, pain, bleeding, infection, myocardial infarction, pulmonary embolus, deep vein thrombosis and cerebrovascular accident which may result in further hospitalization were discussed. Full disclosure of the procedure as well as all major risks, benefits and complications were discussed including but not limited to risks of bleeding, injury to the kidney with hematoma or chinyere-hematoma, failure to fragments stone, potential for ureteric obstruction from stone passage and need for secondary procedures. There is a small long-term risk of hypertension and a question chino of diabetes. Success rate of fragmentation and passage is approximately 70- 75%. This is compared to the risks and benefits for ureteroscopy which has a higher success rate but is a more invasive procedure. The success rate of the procedure was discussed. Success of the procedure in the short-term does not necessarily guarantee that long-term success will be maintained. Suitable follow up will need to be maintained. The patient showed understanding of the discussion as well as the typical recovery time, and the outpatient nature of this procedure. Opportunity was given for questions. Repeat-back protocol used to confirm understanding. They wish to proceed with right ESWL Patient Instructions: Imaging studies, laboratory and physical exam results were discussed and reviewed in detail. No major barriers to patient understanding were identified. An opportunity to ask questions regarding the treatment plan was provided. All questions were answered. The patient expressed understanding and agreement with the above treatment plan. The patient is aware they should contact our office by phone for worsening of their current condition or the appearance of new urologic symptoms. Compliance is encouraged with any medications and followup testing that is ordered. It is a privilege to participate in the urologic care of your patient. If you have any questions or concerns regarding treatment for the above conditions, or other urologic issues, please do not hesitate to contact me. The office telephone contact is [phone]. This note is constructed using voice recognition software. While every effort has been made to ensure accuracy central station operator errors may have been included. Yours sincerely, Dr Hal Hartley MD, JONATHAN [facility] - Urology Providers of Expert, Compassionate Care for the Genitourinary System Telehealth Telehealth Location of provider rendering services: practice address Location of patient: address on file Patient Identification confirmed using: Name, : Yes Telehealth method: voice only Patient verbally consented to treatment: Yes Patient verbally consented to billing insurance company: Yes Patient informed of any privacy concerns related to visit: Yes Coding Level of Care Code Tele Est Pt Level 3 (31191) Diagnoses Nephrolithiasis N20.0
== END 2023-08-22 15:13 | disposition home or self-care (01) ==
LOC: HO.HUSH 14:48
PROVIDERS: PCP Nurse Practitioner Family; Visit Provider Urology
DX: N20.0 Calculus of kidney (principal)
CPT/HCPCS: 99442

== ENCOUNTER → 2023-08-22 14:47 | Outpatient (BNVA) | payer BC, SELFPAY | PROVIDERS: PCP Nurse Practitioner Family; Visit Provider Urology ==

== ENCOUNTER 2023-08-29 10:44 | Outpatient (AMB) | payer BC, OTHER, SELFPAY ==
--- NOTE | 2023-08-29 10:49 | A.OFFVIS_ITS ---
Intake Vital Signs 08/29/23 10:53 Weight 154 lb BP 148/70 H Blood Pressure Location Rt brachial Position Sitting Pulse 52 Intake Visit Reasons: S/P Expl. lap takedown colostomy, 1mo follow up Intake Note: Patient here s/p exp lap takedown colostomy. Reports incision healing well. SX: 06-15-23. Patient c/o: no concerns. 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 She is returned to work. She has tolerating a diet. Having regular bowel habits. She is undergoing self central part of incision local wound care. She states that the wound is decreasing in size. [facility] Medical History Seasonal allergies History of anemia Hx of panniculitis GERD (gastroesophageal reflux disease) HTN (hypertension) Anxiety History of kidney stones Surgical History History of colostomy reversal Hx of colectomy (~12/27/22) Hx of colonoscopy Status post panniculectomy Hx of esophagogastroduodenoscopy Hx of gastric bypass Family History Father Heart attack Mother Hypertension Brother Hypertension Sister Hypertension Sister Hypertension Social History Household Members: Family Household Members Other:: mother Housing: Homeless Are you a primary acute care physician to a significant other at home: Yes (mom, sister will help post-op) Do you presently have visiting nurse or other home services: No Alcohol intake: current Alcohol intake frequency: does not drink Comment: COUNTS CORRECT Patient Tobacco Use Status: Former Tobacco user Quit Date: 15 yrs ago Tobacco use type: Cigarette Years Smoked: 20+ off/on Second Hand Smoke Exposure: No Substance Use Type: Marijuana service: No Physical Exam Vital Signs: Last Vital Signs Pulse 52 08/29/23 10:53 BP 148/70 H 08/29/23 10:53 GI Other: Abdomen is soft, benign. The central part incision has markedly decreased in size and granulating well. Remaining incision above and below has good 1st intention healing. Assessment & Plan Assessment & Plan (1) Superficial postoperative wound infection: Code(s): T81.49XA - Infection following a procedure, other surgical site, initial encounter (2) Status post colon resection: Code(s): Z90.49 - Acquired absence of other specified parts of digestive tract Plan Patient is continue local therapy and will otherwise follow-up p.r.n.. I told her that within a few weeks time she should have complete closure of the central part of her incision. All questions answered. Coding Level of Care Code Global (30075) Diagnoses Superficial postoperative wound infection T81.49XA Status post colon resection Z90.49
[2023-08-29 10:53] VITALS: BP 148/70; PULSE 52
== END 2023-08-29 10:58 | disposition home or self-care (01) ==
PROVIDERS: PCP Nurse Practitioner Family; Visit Provider Surgery
DX: T81.49XA Infection following a procedure, other surgical site, initial encounter (principal); Z90.49 Acquired absence of other specified parts of digestive tract
CPT/HCPCS: 99024

== ENCOUNTER → 2023-08-29 10:44 | Outpatient (BNVA) | payer BC, OTHER, SELFPAY | PROVIDERS: PCP Nurse Practitioner Family; Visit Provider Surgery ==

== ENCOUNTER 2023-08-30 06:02 | Day surgery (SDC) | payer BC, SELFPAY ==
[2023-08-28 14:15] VITALS: BMI 29.1
--- NOTE | 2023-08-29 09:47 | HO.ANESPROP2 ---
Documented by User: Stefanie Calle NP 08/29/23 09:48 HPI - Anesthesia Eval Consult details Narrative: 52yo F for Right Lithotripsy ESW s/p Exploratory Laparotomy takedown colostomy 06/2023 Follows [facility] [place] cardiology. Stable at 04/2023 appoint and cleared for exlap surgery s/p colectomy 12/2022 with GA-ETT 7.5 s/p colo 05/2023 with MAC PMFSH Active Problems Active Problems: All Active Problems (Updated 06/27/23 @ 00:02 by Background Damaryann) Superficial postoperative wound infection (Acute) Nephrolithiasis (Acute) Large bowel obstruction (Acute) Essential hypertension (Acute) Aortic stenosis (Acute) Past Medical History Medical History Seasonal allergies History of anemia Hx of panniculitis GERD (gastroesophageal reflux disease) HTN (hypertension) Anxiety History of kidney stones Family History Family History Father Heart attack Mother Hypertension Brother Hypertension Sister Hypertension Sister Hypertension Family history of problems with anesthesia: No Surgical History Surgical History History of colostomy reversal Hx of colectomy (~12/27/22) Hx of colonoscopy Status post panniculectomy Hx of esophagogastroduodenoscopy Hx of gastric bypass History of Problems with Anesthesia: No Social History Social History Household Members: Family Household Members Other:: mother Housing: Homeless Are you a primary foster care case manager to a significant other at home: Yes (mom, sister will help post-op) Do you presently have visiting nurse or other home services: No Alcohol intake: current Alcohol intake frequency: does not drink Comment: COUNTS CORRECT Patient Tobacco Use Status: Former Tobacco user Quit Date: 15 yrs ago Tobacco use type: Cigarette Years Smoked: 20+ off/on Second Hand Smoke Exposure: No Use of substances other than those prescribed or required for medical reasons: Yes Substance Use Type: Marijuana Substance Use Frequency: Daily Are you DNR?: No Advance Directives: No Advance Directives Information Provided: Yes service: No Meds Allergies Allergy/AdvReac Type Severity Reaction Status Date / Time Seasonal Allergies Allergy Unknown itching Uncoded 08/30/23 06:22 Home Medications Medication Instructions Recorded Confirmed Last Taken Type atenolol 50 mg tablet 25 mg PO DAILY 01/14/21 08/30/23 05/22/23 History bupropion HCl 150 mg 24 hr tablet, 150 mg PO QAM 01/14/21 08/30/23 08/30/23 05:15 History extended release fluoxetine 20 mg capsule 20 mg PO DAILY 01/14/21 08/30/23 08/30/23 05:15 History loratadine 10 mg tablet (Claritin) 10 mg PO DAILY PRN Allergy Symptoms 07/01/22 08/30/23 12/26/22 History cyanocobalamin (vitamin B-12) 1,000 mcg PO DAILY 12/26/22 08/30/23 12/26/22 History 1,000 mcg tablet valsartan 160 mg tablet 80 mg PO DAILY 12/26/22 08/30/23 12/26/22 History cholecalciferol (vitamin D3) 50 50 mcg PO DAILY 06/07/23 08/30/23 Unknown History mcg (2,000 unit) tablet (Vitamin D3) Exam Height,Weight and Vital Signs: Height 5 ft 1 in Weight 69.853 kg Pertinent Lab Results Pertinent Lab Results: Laboratory Tests 06/07/23 12:37 WBC 6.7 RBC 3.73 L Hgb 10.8 L Hct 33.8 L MCV 90.6 MCH 29.0 MCHC 32.0 RDW 14.3 Plt Count 281 MPV 9.3 L Absolute Nucleated RBC 0.000 Nucleated RBC % (auto) 0.0 Sodium 142 Potassium 4.2 Chloride 107 Carbon Dioxide 26 Anion Gap 13 BUN 22 H Creatinine 0.79 Estim Creat Clear Calc 74.7 Estimated GFR > 60 Random Glucose 85 Calcium 9.5 Narrative Narrative: EKG 03/2023 Sinus bradycardia 49 beats per minute, normal axis, normal EKG, QTC 393 milliseconds ECHO 2020 Conclusions: - The left ventricular systolic function is normal. The calculated ejection fraction is 57% by biplane method. - There is mild aortic valve stenosis. Assessment and Plan Assessment Anesthesia Assessment: Chart Reviewed Final Anesthetic Review Family History of Problems with Anesthesia: No History of Problems with Anesthesia: No Documented by User: Chanel Rodríguez MD 08/30/23 07:27 [facility] Past Medical History Medical History Seasonal allergies History of anemia Hx of panniculitis GERD (gastroesophageal reflux disease) HTN (hypertension) Anxiety History of kidney stones Family History Family History Father Heart attack Mother Hypertension Brother Hypertension Sister Hypertension Sister Hypertension Surgical History Surgical History History of colostomy reversal Hx of colectomy (~12/27/22) Hx of colonoscopy Status post panniculectomy Hx of esophagogastroduodenoscopy Hx of gastric bypass Social History Social History Household Members: Family Household Members Other:: mother Housing: Homeless Are you a primary foster care case manager to a significant other at home: Yes (mom, sister will help post-op) Do you presently have visiting nurse or other home services: No Alcohol intake: current Alcohol intake frequency: does not drink Comment: COUNTS CORRECT Patient Tobacco Use Status: Former Tobacco user Quit Date: 15 yrs ago Tobacco use type: Cigarette Years Smoked: 20+ off/on Second Hand Smoke Exposure: No Use of substances other than those prescribed or required for medical reasons: Yes Substance Use Type: Marijuana Substance Use Frequency: Daily Are you DNR?: No Advance Directives: No Advance Directives Information Provided: Yes service: No Meds Allergies Allergy/AdvReac Type Severity Reaction Status Date / Time Seasonal Allergies Allergy Unknown itching Uncoded 08/30/23 06:22 Home Medications Medication Instructions Recorded Confirmed Last Taken Type atenolol 50 mg tablet 25 mg PO DAILY 01/14/21 08/30/23 05/22/23 History bupropion HCl 150 mg 24 hr tablet, 150 mg PO QAM 01/14/21 08/30/23 08/30/23 05:15 History extended release fluoxetine 20 mg capsule 20 mg PO DAILY 01/14/21 08/30/23 08/30/23 05:15 History loratadine 10 mg tablet (Claritin) 10 mg PO DAILY PRN Allergy Symptoms 07/01/22 08/30/23 12/26/22 History cyanocobalamin (vitamin B-12) 1,000 mcg PO DAILY 12/26/22 08/30/23 12/26/22 History 1,000 mcg tablet valsartan 160 mg tablet 80 mg PO DAILY 12/26/22 08/30/23 12/26/22 History cholecalciferol (vitamin D3) 50 50 mcg PO DAILY 06/07/23 08/30/23 Unknown History mcg (2,000 unit) tablet (Vitamin D3) Exam Airway Mallampati Class: II TM Dist: >3cm Neck ROM: Full Heart: RRR Lungs: CTA Assessment and Plan Assessment Anesthesia Assessment: Anesthesia Plan Discussed Final Anesthetic Review NPO: Yes ASA Class: II Final Preanesthetic Review: Meds/Allgs Chart Reviewed, Consent Obtained/Reviewed and Anes Risks/Benef Reviewed Patient Risk: Low Procedure Risk: Low Anesthetic Plan Anesthetic Plan: MAC: Disposition: Standard PACU
--- NOTE | ~2023-08-30 | XR_ITS ---
EXAMINATION: XR ABDOMEN KUB CLINICAL INDICATION: Renal calculus COMPARISON: CT of 12/26/2022 TECHNIQUE: AP view of the abdomen. FINDINGS: A 23 mm calcification in the expected location of the right renal pelvis is unchanged. At least 5 additional calcifications throughout the right kidney are also unchanged, including an 8 mm upper pole calculus; a 9 mm mid pole calculus; an 8 mm lower pole calculus; and several additional smaller calculi. Multiple surgical clips are evident in the left hemiabdomen. The bowel gas pattern is normal. XR/XR KUB IMPRESSION: Multiple unchanged right renal calculi, including a 23 mm calculus which appears unchanged in position and was located at the right ureteropelvic junction on CT of 12/26/2022
[2023-08-30 06:27] VITALS: BMI 29.7
[2023-08-30 06:44] VITALS: BP 118/57; PULSE 51; RESP 15; TEMP 36.9; O2SAT 99
[2023-08-30] MEDS: Lactated Ringers 1,000 ML 100 ML IVCONT (06:45)
[2023-08-30] MEDS: Acetaminophen 1,000 MG/100 ML PIGGYBACK 400 MG IV (07:08)
--- NOTE | 2023-08-30 07:31 | MHC.SHP ---
Pre-Procedural Eval Section A - 24 Hr Update-Section A only Date of Service: 08/30/23 The patient is an INPATIENT: No Changes since office visit: No Cold of Flu in the past 2 weeks, No New Medical Problems, No Changes in Medication and No Patient answered all questions The patient has been examined within 24 hours of the surgical procedure. The History & Physical has been completed within 30 days and I have reviewed it.: Yes Section B - Complete if H&P > 30 days Chief Complaint: Calculus of kidney Details of Present Illness: Large nonobstructing calculus in the right renal pelvis measures 2.0 x 1.4 cm Relevant Family History (Specify if Yes): No Present Medications: see Short Stay Collaborative assessment Medical History: No relevant PMH History of Previous Operations: Relevant previous surgery/procedure and date(s) Allergies: Allergies Allergy/AdvReac Type Severity Reaction Status Date / Time Seasonal Allergies Allergy Unknown itching Uncoded 08/30/23 06:22 Review of Systems Sugical H&P ROS: Negative: Constitution, Cardiovascular, Respiratory, Neurological, Psychiatric, Hem-Onc, Allergic/Immunologic, Gastrointestinal, Genitourinary, Musculoskeletal, Integumentary, Endocrine and Eyes/Ears/Nose/Throat Exam Surgical H&P Exam: Normal: HEENT, Normal: Heart, Normal: Lungs, Normal: Extremities, Normal: Abdomen, Normal: Skin and Normal: Neurological Plan Diagnosis/Plan: Unchanged (Large nonobstructing calculus in the right renal pelvis measures 2.0 x 1.4 cm) I have reviewed the history and physical and performed a pertinent physical examination on my patient. No changes have occurred unless specified. Time Spent With Patient Time: Total time managing care of this patient today ____ minutes.
--- NOTE | 2023-08-30 08:06 | W.PM.OPN ---
Operative Note Operative Note Date of Service: 08/30/23 Narrative: PreOperative Diagnosis: right Renal stones Post Operative Diagnosis: right Renal stones Procedure: right ESWL Surgeon: Dr Hal Hartley Anesthesia: mac/sedation Indications for procedure: The patient understands ESWL may be a staged procedure and subsequent intervention may be required based on imaging after ESWL. Quoted stone clearance rates for a solitary procedure are in the 70-80% range based primarily on stone location. They also understand there is a risk of bleeding to the kidney, infection, damage to adjacent organs, and stone migration following the procedure. - Imaging 1.8cm right stone Procedure: After informed consent was verified the patient was brought to the operating room and placed in a supine position. Anesthesia was performed per protocol. Safety pause time-out was performed. Imaging was displayed in the room and laterality confirmed. ESWL was performed. The 1st 500 shocks were performed at 60 hertz. These were performed with increasing power. Once maximum power was reached the rate was increased to 180 hertz. A total of 2500 shocks were given. Targeted imaging with ultrasound/fluoroscopy showed stone smudging suggestive of disintegration. The patient tolerated the procedure well and was transferred to the recovery area upon completion. Post procedure imaging will be organized. There was no evidence for flank discoloration.
[2023-08-30 08:20] VITALS: BP 132/81; PULSE 71; RESP 18; TEMP 36.1; O2SAT 98
[2023-08-30 08:35] VITALS: BP 137/80; PULSE 63; RESP 16; O2SAT 100
[2023-08-30 08:50] VITALS: BP 132/78; PULSE 69; RESP 16; TEMP 36.2; O2SAT 99
== END 2023-08-30 09:20 | disposition home or self-care (01) ==
PROVIDERS: PCP Nurse Practitioner Family; Visit Provider Urology
PROC: (CPT 50590; principal; 2023-08-30 07:30)
DX: N20.0 Calculus of kidney (principal); I10 Essential (primary) hypertension; K21.9 Gastro-esophageal reflux disease without esophagitis; F41.9 Anxiety disorder, unspecified; J30.2 Other seasonal allergic rhinitis; Z79.51 Long term (current) use of inhaled steroids; Z79.899 Other long term (current) drug therapy; Z87.891 Personal history of nicotine dependence; Z98.84 Bariatric surgery status; Z98.890 Other specified postprocedural states; Z90.49 Acquired absence of other specified parts of digestive tract
CPT/HCPCS: 50590; 74018; J0131; J1596; J1940; J2250; J2704; J3010

== ENCOUNTER → 2023-08-30 06:02 | Outpatient (BNV) | payer BC, SELFPAY | PROVIDERS: PCP Nurse Practitioner Family; Visit Provider Urology | DX: N20.0 Calculus of kidney (principal) | CPT/HCPCS: 50590 ==

== ENCOUNTER 2023-09-27 08:21 | Outpatient (REF) | payer BC, SELFPAY ==
--- NOTE | ~2023-09-27 | US_ITS ---
EXAMINATION: US RETROPERITONEAL LIMITED (RENAL ONLY) CLINICAL INFORMATION: Calculus of kidney. COMPARISON: X-ray abdomen KUB 08/30/2023. CT abdomen and pelvis 12/26/2022. Ultrasound abdomen complete with elastography 06/10/2019. TECHNIQUE: Real-time imaging of the kidneys and bladder. Limited visualization due to bowel gas. FINDINGS: RIGHT KIDNEY: 13.3 x 5.4 x 8.3 cm (SAG x AP x TRV). Severe right hydronephrosis. Limited visualization. 12 mm lower pole and 8 mm mid pole right renal calculi. Imaged proximal right ureter appears dilated with 4.6 x 1.1 cm echogenic focus characteristic of a calculus, difficult to image due to shadowing and bowel gas. LEFT KIDNEY: 10.1 x 5.7 x 5.4 cm (SAG x AP x TRV). 4 mm lower pole and 4 mm mid pole calculi. No hydronephrosis. Renal cortical thickness is normal. Limited visualization. BLADDER: Partially distended, limiting evaluation. Complex material within the bladder is characteristic of debris. Right ureteral jet is demonstrated; left is not. ADDITIONAL FINDINGS: Incidental note on limited images of a 4.7 x 3.1 x 4.8 cm right adnexal cyst with low-level internal echoes and peripheral flow, difficult to characterize due to bowel gas, and possibly related to the right ovary. Dedicated pelvic ultrasound with transabdominal and transvaginal ultrasound imaging recommended. US/US renal BI IMPRESSION: 1. Severe right hydronephrosis. Limited visualization. 12 mm lower pole and 8 mm mid pole right renal calculi. Imaged proximal right ureter appears dilated with 4.6 x 1.1 cm echogenic focus characteristic of a calculus difficult to image due to shadowing and bowel gas. 2. Left renal calculi. No hydronephrosis. 3. Complex material within the bladder is characteristic of debris. 4. Incidental note on limited images of a 4.7 x 3.1 x 4.8 cm right adnexal cyst with low-level internal echoes and peripheral flow, difficult to characterize due to bowel gas, and possibly related to the right ovary. Dedicated pelvic ultrasound with transabdominal and transvaginal ultrasound imaging recommended. This study was presented today October 03, 2023 for interpretation. PSA staff will provide results to referring provider at this time.
== END 2023-09-27 08:22 | disposition home or self-care (01) ==
LOC: HO.HMGCX 08:21
PROVIDERS: PCP Nurse Practitioner Family; Visit Provider Urology
DX: N20.0 Calculus of kidney (principal)
CPT/HCPCS: 76775

== ENCOUNTER 2023-10-10 13:32 | Outpatient (AMB) | payer BC, SELFPAY ==
--- NOTE | 2023-10-10 13:42 | A.OFFVIS_ITS ---
Intake Visit Reasons: S/P ESWL/Ultrasound(set) Intake Note: Patient is present for US Follow up Patient is no longer taking Tamsulosin Allergies Seasonal Allergies Allergy (Unknown, Uncoded 08/30/23 06:22) itching HPI Comments Details: Nicole is a pleasant female. She is a patient of Dr. Cormier. She is seen for the following urologic conditions - nephrolithiasis Follow-up from right ESWL Remnant fragments within right side Discussed ureteroscopy She would like to proceed Nephrolithiasis Background of Zia's pouch May have malabsorption CT scan - 06/03 Large nonobstructing calculus in the right renal pelvis measures 2.0 x 1.4 cm Intervention - 09/02 right ESWL PFSH Medical History Seasonal allergies History of anemia Hx of panniculitis GERD (gastroesophageal reflux disease) HTN (hypertension) Anxiety History of kidney stones Surgical History History of colostomy reversal Hx of colectomy (~12/27/22) Hx of colonoscopy Status post panniculectomy Hx of esophagogastroduodenoscopy Hx of gastric bypass Family History Father Heart attack Mother Hypertension Brother Hypertension Sister Hypertension Sister Hypertension Social History Household Members: Family Household Members Other:: mother Housing: Homeless Are you a primary inpatient care manager rn to a significant other at home: Yes (mom, sister will help post-op) Do you presently have visiting nurse or other home services: No Alcohol intake: current Alcohol intake frequency: does not drink Patient Tobacco Use Status: Former Tobacco user Tobacco use type: Cigarette Years Smoked: 20+ off/on Second Hand Smoke Exposure: No Substance Use Type: Marijuana service: No Review of Systems Const Denies chills and Denies fever(s) Card Reports no additional complaints and Denies syncope Resp Denies cough GI Denies abdominal pain and Denies heartburn Reports as per HPI and Denies change in libido Neuro Denies syncope Psych Denies change in libido Endo Denies change in libido Physical Exam Const General: cooperative, healthy appearing, comfortable and no acute distress Orientation/consciousness: patient oriented x3 HEENT Face and sinus: Yes normal facial exam Mouth: moist mucous membranes Neck Neck: Yes normal visual inspection, Yes full ROM and Yes trachea midline Chest Chest palpation & inspection: normal inspection of the chest Resp Effort & Inspection: normal respiratory effort, able to speak in complete sentences and no respiratory distress GI Inspection: Yes normal to inspection Back/Spine/Pelvis Cervical Spine: normal cervical lordosis Thoracic/Lumbar Spine: thoracic and lumbar spine normal to inspection Skin General skin exam: no rashes or lesions noted Neuro General: patient oriented x3, gait normal, tone normal and moves all extremities Extrem General: Yes normal to inspection and Yes capillary refill normal Assessment & Plan Assessment & Plan (1) Nephrolithiasis: Code(s): N20.0 - Calculus of kidney Category: Medical Plan Schedule ureteroscopy Risks, benefits and alternatives to therapy were discussed. These include but are not limited to infection, bleeding, damage to local organs and tissues, need for further interventions. Anesthetic risks regarding cardiac arrhythmia, blood clots, and potential mortality were discussed. The patient understands the typical recovery time and the outpatient nature of the procedure. After consideration of these risks the patient gives full informed consent and they wish to move ahead with the procedure. Right ureteroscopy with laser lithotripsy Orders: Orders Surgical 10/10/23 N20.0 - Calculus of kidney Patient Instructions: Imaging studies, laboratory and physical exam results were discussed and reviewed in detail. No major barriers to patient understanding were identified. An opportunity to ask questions regarding the treatment plan was provided. All questions were answered. The patient expressed understanding and agreement with the above treatment plan. The patient is aware they should contact our office by phone for worsening of their current condition or the appearance of new urologic symptoms. Compliance is encouraged with any medications and followup testing that is ordered. It is a privilege to participate in the urologic care of your patient. If you have any questions or concerns regarding treatment for the above conditions, or other urologic issues, please do not hesitate to contact me. The office telephone contact is [phone]. This note is constructed using voice recognition software. While every effort has been made to ensure accuracy manager procurement errors may have been included. Yours sincerely, Dr Hal Hartley MD, [facility] [place] - Urology Providers of Expert, Compassionate Care for the Genitourinary System Coding Level of Care Code Est Pt Level 4 (74856) Diagnoses Nephrolithiasis N20.0
== END 2023-10-10 14:23 | disposition home or self-care (01) ==
PROVIDERS: PCP Nurse Practitioner Family; Visit Provider Urology
DX: N20.0 Calculus of kidney (principal)
CPT/HCPCS: 99024

== ENCOUNTER 2023-10-10 13:32 | Outpatient (REF) | payer BC, SELFPAY ==
[2023-11-02 14:54] LABS: Stone Source KIDNEY STONE
== END 2023-10-10 13:33 | disposition home or self-care (01) ==
LOC: HO.LAB 13:32
PROVIDERS: PCP Nurse Practitioner Family; Visit Provider Urology
DX: N20.0 Calculus of kidney (principal)
CPT/HCPCS: 82365; 88300

== ENCOUNTER 2023-12-11 11:51 | Day surgery (SDC) | payer BC, SELFPAY ==
--- NOTE | 2023-12-08 12:17 | P.CONAN_ITS ---
Documented by User: Stefanie Calle NP 12/08/23 12:19 HPI - Anesthesia Eval Consult details Narrative: 53yo F for Right Cystoscopy, Ureteroroscopy, Retro, Laser, possible stent placement s/p ESWL 08/2023 [place]s [facility] [place] mild aortic valve stenosis, hypertension. Stable at 04/2023 office visit for 1 year f/u PMFSH Active Problems Active Problems: All Active Problems Status post colon resection (Acute) Superficial postoperative wound infection (Acute) Nephrolithiasis (Acute) Large bowel obstruction (Acute) Essential hypertension (Acute) Aortic stenosis (Acute) Past Medical History Medical History Seasonal allergies History of anemia Hx of panniculitis GERD (gastroesophageal reflux disease) HTN (hypertension) Anxiety History of kidney stones Family History Family History Father Heart attack Mother Hypertension Brother Hypertension Sister Hypertension Sister Hypertension Family history of problems with anesthesia: No Surgical History Surgical History History of colostomy reversal Hx of colectomy (~12/27/22) Hx of colonoscopy Status post panniculectomy Hx of esophagogastroduodenoscopy Hx of gastric bypass History of Problems with Anesthesia: No Social History Social History Household Members: Family Household Members Other:: mother Housing: Homeless Are you a primary resident care supervisor to a significant other at home: Yes (mom, sister will help post-op) Do you presently have visiting nurse or other home services: No Alcohol intake: current Alcohol intake frequency: does not drink Patient Tobacco Use Status: Former Tobacco user Tobacco use type: Cigarette Years Smoked: 20+ off/on Second Hand Smoke Exposure: No Use of substances other than those prescribed or required for medical reasons: Yes Substance Use Type: Marijuana Substance Use Type Other:: 1/2 joint this am Are you DNR?: No Advance Directives: No Advance Directives Information Provided: Yes service: No Meds Allergies Allergy/AdvReac Type Severity Reaction Status Date / Time Seasonal Allergies Allergy Unknown itching Uncoded 08/30/23 06:22 Home Medications ?Medication ?Instructions ?Recorded ?Confirmed ?Last Taken ?Type atenolol 50 mg tablet 25 mg PO DAILY 01/14/21 12/11/23 05/22/23 History bupropion HCl 150 mg 24 hr tablet, 150 mg PO QAM 01/14/21 12/11/23 12/11/23 History extended release fluoxetine 20 mg capsule 20 mg PO DAILY 01/14/21 12/11/23 12/11/23 History loratadine 10 mg tablet (Claritin) 10 mg PO DAILY PRN Allergy Symptoms 07/01/22 12/11/23 12/26/22 History cyanocobalamin (vitamin B-12) 1,000 mcg PO DAILY 12/26/22 12/11/23 12/26/22 History 1,000 mcg tablet valsartan 160 mg tablet 80 mg PO DAILY 12/26/22 12/11/23 12/11/23 History cholecalciferol (vitamin D3) 50 50 mcg PO DAILY 06/07/23 12/11/23 Unknown History mcg (2,000 unit) tablet (Vitamin D3) Exam Height,Weight and Vital Signs: Height 5 ft 1 in Weight 72.121 kg Pertinent Lab Results Pertinent Lab Results: Laboratory Tests 06/16/23 05:40 WBC 12.7 H Hgb 10.2 L Hct 31.6 L Plt Count 297 Sodium 139 Potassium 4.1 Chloride 102 Carbon Dioxide 26 BUN 11 Creatinine 0.71 Narrative Narrative: EKG 03/2023 Sinus bradycardia 49 beats per minute, normal axis, normal EKG, QTC 393 milliseconds ECHO 2020 Conclusions: - The left ventricular systolic function is normal. The calculated ejection fraction is 57% by biplane method. - There is mild aortic valve stenosis. Assessment and Plan Assessment Anesthesia Assessment: Chart Reviewed Final Anesthetic Review Family History of Problems with Anesthesia: No History of Problems with Anesthesia: No Documented by User: Jerod Gallegos MD 12/11/23 18:41 [facility] Past Medical History Medical History Seasonal allergies History of anemia Hx of panniculitis GERD (gastroesophageal reflux disease) HTN (hypertension) Anxiety History of kidney stones Family History Family History Father Heart attack Mother Hypertension Brother Hypertension Sister Hypertension Sister Hypertension Surgical History Surgical History History of colostomy reversal Hx of colectomy (~12/27/22) Hx of colonoscopy Status post panniculectomy Hx of esophagogastroduodenoscopy Hx of gastric bypass History of Problems with Anesthesia: Yes (severe ponv on the car ride home.) Social History Social History Household Members: Family Household Members Other:: mother Housing: Homeless Are you a primary resident care supervisor to a significant other at home: Yes (mom, sister will help post-op) Do you presently have visiting nurse or other home services: No Alcohol intake: current Alcohol intake frequency: does not drink Patient Tobacco Use Status: Former Tobacco user Tobacco use type: Cigarette Years Smoked: 20+ off/on Second Hand Smoke Exposure: No Use of substances other than those prescribed or required for medical reasons: Yes Substance Use Type: Marijuana Substance Use Type Other:: 1/2 joint this am Are you DNR?: No Advance Directives: No Advance Directives Information Provided: Yes service: No Meds Allergies Allergy/AdvReac Type Severity Reaction Status Date / Time Seasonal Allergies Allergy Unknown itching Uncoded 08/30/23 06:22 Home Medications ?Medication ?Instructions ?Recorded ?Confirmed ?Last Taken ?Type atenolol 50 mg tablet 25 mg PO DAILY 01/14/21 12/11/23 05/22/23 History bupropion HCl 150 mg 24 hr tablet, 150 mg PO QAM 01/14/21 12/11/23 12/11/23 History extended release fluoxetine 20 mg capsule 20 mg PO DAILY 01/14/21 12/11/23 12/11/23 History loratadine 10 mg tablet (Claritin) 10 mg PO DAILY PRN Allergy Symptoms 07/01/22 12/11/23 12/26/22 History cyanocobalamin (vitamin B-12) 1,000 mcg PO DAILY 12/26/22 12/11/23 12/26/22 History 1,000 mcg tablet valsartan 160 mg tablet 80 mg PO DAILY 12/26/22 12/11/23 12/11/23 History cholecalciferol (vitamin D3) 50 50 mcg PO DAILY 06/07/23 12/11/23 Unknown History mcg (2,000 unit) tablet (Vitamin D3) Exam Airway Mallampati Class: I TM Dist: >3cm Neck ROM: Full Loose/Missing/Broken Teeth: No Heart: ok. see above. Other: ok Assessment and Plan Assessment Anesthesia Assessment: Anesthesia Plan Discussed Final Anesthetic Review History of Problems with Anesthesia: Yes (severe ponv on the car ride home.) NPO: Yes ASA Class: II Final Preanesthetic Review: No Changes in Pt Med Stat, Meds/Allgs Chart Reviewed, Consent Obtained/Reviewed and Anes Risks/Benef Reviewed Patient Risk: Low Procedure Risk: Low Anesthetic Plan Anesthetic Plan: GA and Agree w/ Assess. and Plan Disposition: Standard PACU
[2023-12-11] VITALS (8 sets, daily range): BP systolic 100–134; BP diastolic 57–73; PULSE 45–57; RESP 14–18; TEMP 36.5–36.7; O2SAT 98–100; BMI 28.6
--- NOTE | ~2023-12-11 | FL_ITS ---
EXAMINATION: XR FLUOROSCOPY WITH IMAGES CLINICAL INFORMATION: Cysto, ureteroscopy, retro, laser, stent, right. COMPARISON: None available. TECHNIQUE: Fluoroscopy Supervised By: Dr. Hartley. Fluoroscopy Time: 19.8 sec. Cumulative Dose: 4.43 mGy. DAP: None given. Images: Number of images not given. FINDINGS: Intraoperative fluoroscopy and spot films were performed during a procedure in the OR. Contrast is injected in the right pelvicalyceal system is unremarkable aside from some mild fullness. A catheter is seen in the ureter on some images. Please correlate with Dr. Hartley's report for complete details. FL/FL guidance in OR IMPRESSION: Intraoperative fluoroscopy and spot films were obtained. Please see Dr. Hartley's report for complete details.
[2023-12-11] MEDS: Lactated Ringers 1,000 ML 100 ML IVCONT (13:43)
--- NOTE | 2023-12-11 17:49 | MHC.SHP ---
Pre-Procedural Eval Section A - 24 Hr Update-Section A only Date of Service: 12/11/23 The patient is an INPATIENT: No Changes since office visit: No Cold of Flu in the past 2 weeks, No New Medical Problems, No Changes in Medication and No Patient answered all questions The patient has been examined within 24 hours of the surgical procedure. The History & Physical has been completed within 30 days and I have reviewed it.: Yes Section B - Complete if H&P > 30 days Chief Complaint: Calculus of kidney Details of Present Illness: Right renal stones - fragments after ESWL Relevant Family History (Specify if Yes): No Relevant Social History: None Present Medications: see Short Stay Collaborative assessment Medical History: No relevant PMH History of Previous Operations: Relevant previous surgery/procedure and date(s) Allergies: Allergies Allergy/AdvReac Type Severity Reaction Status Date / Time Seasonal Allergies Allergy Unknown itching Uncoded 08/30/23 06:22 Review of Systems Sugical H&P ROS: Negative: Constitution, Cardiovascular, Respiratory, Neurological, Psychiatric, Hem-Onc, Allergic/Immunologic, Gastrointestinal, Genitourinary, Musculoskeletal, Integumentary, Endocrine and Eyes/Ears/Nose/Throat Exam Surgical H&P Exam: Normal: HEENT, Normal: Heart, Normal: Lungs, Normal: Extremities, Normal: Abdomen, Normal: Skin and Normal: Neurological Plan Diagnosis/Plan: Unchanged (Cystoscopy, right retrograde, right ureteroscopy with laser lithotripsy on stent placement) I have reviewed the history and physical and performed a pertinent physical examination on my patient. No changes have occurred unless specified. Time Spent With Patient Time: Total time managing care of this patient today ____ minutes.
[2023-12-11] MEDS: Scopolamine 1.5 MG PATCH.TD.3 EAR-BEHIND (18:17)
--- NOTE | 2023-12-11 19:37 | P.OP_ITS ---
Operative Note Operative Note Date of Service: 12/11/23 Narrative: PreOperative Diagnosis: Right renal kidney stones Post Operative Diagnosis: Right proximal ureter stones x3 Procedure: - cystoscopy, right retrograde - right dilatation of ureteric orifice under fluoroscopy - right ureteroscopy, laser lithotripsy, stone basketing modifier 22 - 100% longer than typical multiple stones Surgeon: Dr Hal Hartley Anesthesia: General Indications for procedure: Prior multiple kidney stones. Underwent ESWL. Found to have remnant fragments between 6 to 9 mm on ultrasound. Procedure: After informed consent was verified patient was brought to the operating placed in supine position. Anesthesia was administered per protocol. Patient was placed in modified dorsal lithotomy position and prepped and draped in a sterile fashion. Safety pause time-out and side of surgery confirmed. Antibiotics confirmed. 22 Syrian cystoscope was inserted per urethra. Bladder was normal in its entirety. Both ureteric orifices were in normal position. The right ureteric orifice was cannulated and a retrograde examination was performed. Possible filling defect at proximal ureter. A Sensor guidewire was placed up to the level of the renal pelvis under fluoroscopy. The rigid cystoscope was removed and the inner cannula of ureteric access sheath was used under fluoroscopy to dilate the ureteric orifice. The suction ureteric access sheath was placed and the inner cannula with access wire removed. The disposable digital flexible ureteral scope was placed. The renal pelvis examined in its entirety. No stones were seen. The scope was then retracted. At the junction between the proximal and mid ureter 3 stones were found ranging in size from 6-9 mm. Using the 265 nm laser fiber the stones were broken into small pieces. This took approximately 45 minutes which is 100% longer than typical. We then used the 0 tip basket to remove multiple fragments. This entailed more than a dozen passes removing stone fragments. This took approximately 30 minutes which is also 100% longer than typical. The ureter was then examined and seen to be free from stone. There were minimal areas of mucosal irritation disruption and a decision was made not to place stent. The access sheath was carefully withdrawn examining the ureter throughout and there was no evidence of mucosal disruption. The bladder was emptied. The patient tolerated the procedure well and was extubated in the operating room, and transferred in stable condition to the recovery area. Pathology: Stones Drains: None left
[2023-12-11] MEDS: Acetaminophen 325 MG TABLET 975 MG PO (19:51)
[2023-12-11] MEDS: Phenazopyridine HCL 100 MG TABLET PO (19:51)
[2023-12-20 21:49] LABS: Stone Source URETERAL STONE
== END 2023-12-11 20:13 | disposition home or self-care (01) ==
PROVIDERS: PCP Nurse Practitioner Family; Visit Provider Urology
PROC: (CPT 52353; principal; 2023-12-11 14:30)
DX: N20.1 Calculus of ureter (principal); Z87.442 Personal history of urinary calculi; I10 Essential (primary) hypertension; F41.9 Anxiety disorder, unspecified; K21.9 Gastro-esophageal reflux disease without esophagitis; J30.2 Other seasonal allergic rhinitis; Z79.51 Long term (current) use of inhaled steroids; Z79.899 Other long term (current) drug therapy; Z87.891 Personal history of nicotine dependence; Z98.890 Other specified postprocedural states
CPT/HCPCS: 52353; 82365; 88300; C1758; C1769; J1885; J1956; J2405; J2704; J3010; Q9967

== ENCOUNTER → 2023-12-11 11:51 | Outpatient (BNV) | payer BC, SELFPAY | PROVIDERS: PCP Nurse Practitioner Family; Visit Provider Urology | DX: N20.1 Calculus of ureter (principal) | CPT/HCPCS: 52353; 74420 ==

== ENCOUNTER 2023-12-28 12:46 | Inpatient (IN) | payer BC, SELFPAY ==
--- NOTE | ~2023-12-28 | CT_ITS ---
EXAMINATION: CT ABDOMEN AND PELVIS WITH CONTRAST CLINICAL INFORMATION: Abdominal pain COMPARISON: CT abdomen pelvis 12/26/2022 TECHNIQUE: Multidetector volumetric images were obtained from the superior aspect of the liver through the pubic symphysis following administration 85 mL of Omnipaque 350 intravenous contrast. Sagittal and coronal reformatted images were obtained on the technologist's workstation. Oral contrast: No This CT examination was performed using dose optimization techniques as appropriate, variously including the following: *Automated exposure control *Adjustment of mA and/or kV according to patient size (this includes techniques or standardized protocols for targeted exams where dose is matched to indication/reason for exam; i.e. extremities or head) *Use of iterative reconstruction technique DLP: 472 mGy-cm FINDINGS: LUNG BASES: The visualized lung bases are unremarkable. LIVER, GALLBLADDER, AND BILIARY TREE: The liver is enlarged at 20.4 cm in cephalocaudad dimension with decreased attenuation suggesting steatosis. No focal hepatic lesion or biliary ductal dilatation is present. The gallbladder is unremarkable with no evidence of radiopaque gallstones, gallbladder wall thickening, or obvious pericholecystic inflammatory changes. PANCREAS: Unremarkable. SPLEEN: Unremarkable. ADRENAL GLANDS: Unremarkable. KIDNEYS AND URETERS: The kidneys are normal in size, shape, and attenuation. Bilateral nonobstructing renal calculi are seen with the largest measuring 7 mm in the right mid kidney. The. Large right renal pelvic stone seen at the time of the prior study is no longer present. No hydronephrosis, hydroureter, or ureteral calculi seen. No perinephric stranding. BLADDER: Unremarkable. GASTROINTESTINAL TRACT: A sigmoid anastomosis is present (2:51) along with a small bowel anastomosis (2:33) likely related to gastric bypass. There is no colonic obstruction. Moderate stool is present in the colon. There are mildly dilated loops of small bowel in the right abdomen with a transition zone seen in the mid upper pelvis (2:44) a discrete mass is not seen although there appears to be some increased density in the mesentery around this region. ABDOMINAL WALL: No significant hernia is appreciated. LYMPH NODES: No retroperitoneal lymphadenopathy. VASCULAR: Calcific atherosclerotic changes are present in the aorta and iliofemoral vessels. There is no evidence of an abdominal aortic aneurysm. PELVIC VISCERA: An anteverted uterus is present. A benign simple cyst is seen in the right adnexa. No free pelvic fluid. OSSEOUS STRUCTURES: Unremarkable. Minimal grade 1 anterolisthesis L4 upon L5. CT/CT abdomen pelvis w IV con IMPRESSION: 1. Mildly dilated loops of small bowel in the right abdomen with a transition zone seen in the mid upper pelvis. A discrete mass is not seen although there appears to be some increased density in the mesentery around this region. Findings are consistent with a partial small bowel obstruction. 2. Incidental note made of enlarged fatty liver, bilateral nonobstructing renal calculi, gastric bypass and other findings described above. Fleischner guidelines were followed.
--- NOTE | ~2023-12-28 | XR_ITS ---
EXAMINATION: XR ABDOMEN KUB CLINICAL INDICATION: Partial small bowel obstruction. Gastrografin given between 5 and 7 PM. COMPARISON: CT scan of December 28, 2023 TECHNIQUE: AP view of the abdomen. FINDINGS: Patient status post previous epigastric surgery with the appearance of gastric bypass surgery. There is contrast seen within the ascending and transverse colon as well as small amount of contrast which appears to be either within the sigmoid colon or urinary bladder. There are again noted to be some prominent loops of small bowel present measuring up to approximately 4 cm in diameter. Appearance is consistent with either small bowel ileus or obstruction. There is either contrast or calculi seen within the right kidney. XR/XR KUB IMPRESSION: Contrast has progressed into the ascending and transverse colon. There are distended loops of small bowel present. Above findings are consistent with either small bowel ileus or partial small bowel obstruction.
[2023-12-28 12:50] VITALS: BP 160/85; PULSE 58; RESP 20; TEMP 36.6; O2SAT 99; BMI 28.0
--- NOTE | 2023-12-28 12:50 | ED.ABDPAIN ---
HPI - Abdominal Pain General Chief Complaint: Abdominal Pain Stated Complaint: stomach pains Time Seen by Provider: 12/28/23 16:09 Related Data Home Medications ?Medication ?Instructions ?Recorded ?Confirmed atenolol 50 mg tablet 25 mg PO DAILY 01/14/21 12/11/23 bupropion HCl 150 mg 24 hr tablet, 150 mg PO QAM 01/14/21 12/11/23 extended release fluoxetine 20 mg capsule 20 mg PO DAILY 01/14/21 12/11/23 loratadine 10 mg tablet (Claritin) 10 mg PO DAILY PRN Allergy Symptoms 07/01/22 12/11/23 cyanocobalamin (vitamin B-12) 1,000 mcg PO DAILY 12/26/22 12/11/23 1,000 mcg tablet valsartan 160 mg tablet 80 mg PO DAILY 12/26/22 12/11/23 cholecalciferol (vitamin D3) 50 50 mcg PO DAILY 06/07/23 12/11/23 mcg (2,000 unit) tablet (Vitamin D3) Previous Rx's ?Medication ?Instructions ?Recorded omeprazole 20 mg capsule,delayed 20 mg PO DAILY #30 caps 06/22/20 release oxycodone-acetaminophen 5 mg-325 1 tab PO Q4H PRN pain (scale score 08/30/23 mg tablet 4-6) 7 days #14 tabs naproxen 500 mg tablet 500 mg PO BID PRN pain 7 days #14 12/11/23 tabs oxycodone 5 mg tablet 5 mg PO Q8H PRN pain 3 days #8 tabs 12/11/23 phenazopyridine 100 mg tablet 100 mg PO TID PRN Spasm 4 days #12 12/11/23 (Pyridium) tabs tamsulosin 0.4 mg capsule 0.4 mg PO BEDTIME 14 days #14 caps 12/11/23 Allergies Allergy/AdvReac Type Severity Reaction Status Date / Time Seasonal Allergies Allergy Unknown itching Uncoded 12/28/23 12:52 PMFSH Past Medical History Medical History Seasonal allergies History of anemia Hx of panniculitis GERD (gastroesophageal reflux disease) HTN (hypertension) Anxiety History of kidney stones Surgical History History of colostomy reversal Hx of colectomy (~12/27/22) Hx of colonoscopy Status post panniculectomy Hx of esophagogastroduodenoscopy Hx of gastric bypass Family History Family History Father Heart attack Mother Hypertension Brother Hypertension Sister Hypertension Sister Hypertension Social History Social History Household Members: Family Household Members Other:: mother Housing: Homeless Are you a primary career development counselor to a significant other at home: Yes (mom, sister will help post-op) Do you presently have visiting nurse or other home services: No Alcohol intake: current Alcohol intake frequency: holidays/special occasions only Patient Tobacco Use Status: Former Tobacco user Tobacco use type: Cigarette Years Smoked: 20+ off/on Smoked in Last 30 Days: No Second Hand Smoke Exposure: No Substance Use Type: Marijuana Advance Directives: No Advance Directives Information Provided: No service: No Physical Exam ED Vital Signs: Vital Signs - 24 hr 12/28/23 12:50 12/28/23 16:02 12/28/23 19:17 Temperature 97.9 F 97.9 F 97.8 F Pulse Rate 58 58 47 L Respiratory Rate 20 20 16 Blood Pressure 160/85 H 160/85 H 145/65 H Pulse Oximetry 99 99 99 Oxygen Delivery Method Room Air Room Air Room Air 12/28/23 22:21 Temperature 97.2 F Pulse Rate 54 Respiratory Rate 16 Blood Pressure 147/67 H Pulse Oximetry 98 Oxygen Delivery Method Room Air BMI result Body Mass Index 28.0 Course Course Course Narrative: This is a Rapid Medical Exam performed in triage by Sydnie Gonzalez PA-C. Full HPI, ROS and PE to be performed by primary ED provider. 53 year-old F w/ PMHx obstruction s/p colostomy & reversal Jun, , nephrolithiasis s/p lithotripsy cystoscopy and presenting to the ED c/o abdominal pain w/vomiting starting on Monday. denies nausea, constipation, fever, urinary sx. PE: abdomen soft with epigastric/RUQ tenderness, no rebound or guarding Plan: labs, UA ordered Medical Decision Making Lab Data 12/28/23 12:59 12/28/23 12:59 Labs: Lab Results 12/28/23 12/28/23 Range/Units 12:59 15:27 WBC 6.7 (4.8-10.8) X10*3/uL RBC 3.32 L (4.20-5.50) X10*6/uL Hgb 10.1 L (12.0-16.0) g/dl Hct 31.0 L (37.0-47.0) % MCV 93.4 (80.0-98.0) fL MCH 30.4 (27.0-33.0) pg MCHC 32.6 (31.0-35.0) g/dl RDW 14.3 (11.0-16.0) % Plt Count 315 (160-400) X10*3/uL MPV 9.7 (9.4-12.3) fL Immature Gran % (Auto) 0.3 (0.0-0.4) % Neut % (Auto) 49.7 (45-73) % Lymph % (Auto) 37.6 (20-40) % [place] % (Auto) 7.2 (2-11) % Eos % (Auto) 4.6 H (0-4) % Baso % (Auto) 0.6 (0-2) % Lymph # (Auto) 2.5 (1.2-4.9) X10*3/uL [place] # (Auto) 0.5 (0.1-1.2) X10*3/uL Eos # (Auto) 0.3 (0.0-0.4) X10*3/uL Baso # (Auto) 0.0 (0.0-0.2) X10*3/uL Abs Immat Gran (auto) 0.02 (0.00-0.03) X10*3/uL Absolute Neuts (auto) 3.3 (2.0-8.3) x10*3/uL Absolute Nucleated RBC 0.000 (0.0-0.012) X10*3/uL Nucleated RBC % (auto) 0.0 (0.0-0.2) /100WBC Sodium 142 (135-145) mmol/L Potassium 4.3 (3.3-5.1) mmol/L Chloride 104 (96-108) mmol/L Carbon Dioxide 27 (22-29) mmol/L Anion Gap 15 (12-20) BUN 20 H (9-16) mg/dL Creatinine 1.01 (0.5-1.4) mg/dL Estim Creat Clear Calc 55.8 Estimated GFR 57 Random Glucose 85 (60-115) mg/dL Calcium 9.6 D (8.4-10.2) mg/dL Magnesium 1.9 (1.6-2.6) mg/dL Total Bilirubin 0.8 (0.0-1.0) mg/dL Direct Bilirubin 0.3 (0.0-0.5) mg/dL AST 11 (5-31) U/L ALT 8 (0-31) U/L Alkaline Phosphatase 77 (39-117) U/L Total Protein 7.1 (6.5-8.0) g/dL Albumin 4.1 (3.5-5.0) g/dL Lipase 17 (8-78) U/L Urine Color Yellow Urine Appearance Clear Urine pH 6.5 (5.0-9.0) Ur Specific [place] 1.010 (1.005-1.025) Urine Protein Negative (Neg-Trace) mg/dL Urine Glucose (UA) Negative (Negative) mg/dL Urine Ketones Negative (Negative) mg/dL Urine Blood Negative (Negative) Urine Nitrite Negative (Negative) Ur Leukocyte Esterase Negative (Negative) Medications Administered Discontinued Medications Generic Name Dose Route Start Last Admin Trade Name Freq PRN Reason Stop Dose Admin Sodium Chloride 500 mls @ 999 mls/hr 12/28/23 16:45 12/28/23 18:59 Ns IV 12/28/23 17:15 Infused .Q31M MARY Infusion Iohexol 85 ml 12/28/23 19:34 12/28/23 19:34 Iohexol 350 Mg/Ml 100 Ml Infus..Btl IV 12/28/23 19:35 85 ml ONCE ONE Administration Discharge Plan Discharge Clinical Impression: Partial small bowel obstruction Patient Disposition: Admitted As Inpatient
[2023-12-28 13:03] LABS: MANUAL DIFF FLAG NO
[2023-12-28 13:07] LABS: Basophils Percent Auto 0.6 % (0-2); Eosinophils Absolute Auto 0.3 X10*3/uL (0.0-0.4); Eosinophils Percent Auto 4.6 % (0-4); Hemoglobin 10.1 g/dl (12.0-16.0); Imm Gran Abs Auto 0.02 X10*3/uL (0.00-0.03); Imm Gran Pct Auto 0.3 % (0.0-0.4); Lymphocytes Absolute Auto 2.5 X10*3/uL (1.2-4.9); Lymphocytes Percent Auto 37.6 % (20-40); Mean Corpuscular HGB Conc 32.6 g/dl (31.0-35.0); Mean Corpuscular Hemoglobin 30.4 pg (27.0-33.0); Mean Corpuscular Volume 93.4 fL (80.0-98.0); Mean Platelet Volume 9.7 fL (9.4-12.3); Monocytes Absolute Auto 0.5 X10*3/uL (0.1-1.2); Monocytes Percent Auto 7.2 % (2-11); Neutrophils Absolute Auto 3.3 x10*3/uL (2.0-8.3); Neutrophils Percent Auto 49.7 % (45-73); Platelet Count 315 X10*3/uL (160-400); Red Blood Count 3.32 X10*6/uL (4.20-5.50); Red Cell Distribution Width 14.3 % (11.0-16.0); White Blood Count 6.7 X10*3/uL (4.8-10.8)
[2023-12-28 15:36] LABS: Alanine Aminotransferase 8 U/L (0-31); Albumin Level 4.1 g/dL (3.5-5.0); Alkaline Phosphatase 77 U/L (39-117); Anion Gap 15 (12-20); Aspartate Amino Transferase 11 U/L (5-31); Bilirubin Direct 0.3 mg/dL (0.0-0.5); Bilirubin Total 0.8 mg/dL (0.0-1.0); Blood Urea Nitrogen 20 mg/dL (9-16); Calcium 9.6 mg/dL (8.4-10.2); Carbon Dioxide 27 mmol/L (22-29); Chloride 104 mmol/L (96-108); Creatinine Clr Calc Pharmacy 55.8; Estimated Glomerular Filt Rate 57; Glucose Random 85 mg/dL (60-115); Lipase 17 U/L (8-78); Magnesium 1.9 mg/dL (1.6-2.6); Potassium 4.3 mmol/L (3.3-5.1); Sodium 142 mmol/L (135-145); Total Protein 7.1 g/dL (6.5-8.0)
[2023-12-28 15:41] LABS: Appearance Urine Clear; Color Urine Yellow; Glucose Urine UA Negative (Negative); Leukocyte Esterase Urine Negative (Negative); Nitrite Urine Negative (Negative); PH 6.5 (5.0-9.0); Urine Blood Negative (Negative); Urine Ketones Negative (Negative); Urine Protein Negative (Neg-Trace)
[2023-12-28 16:02] VITALS: BP 160/85; PULSE 58; RESP 20; TEMP 36.6; O2SAT 99
--- NOTE | 2023-12-28 16:39 | ED.ABDPAIN ---
HPI - Abdominal Pain General Chief Complaint: Abdominal Pain Stated Complaint: stomach pains Time Seen by Provider: 12/28/23 16:09 History of Present Illness HPI narrative: Patient is a 53-year-old female with a history of bowel obstructions in the past. Had a colostomy subsequently had a reversal. Was all done last year at [facility] with Dr. Hill. Presented today with having epigastric abdominal pain for the last 4 days. Had some nausea on Monday. Symptom has since been improving but still has the pain. There is no pain on urination. Able to tolerate p.o.. Passing gas. Positive bowel movement. Patient from home. There is no fever no chills no cough no congestion or upper respiratory symptoms there is no chest pain there is no diaphoresis. There is no pain on urination. Patient not on blood thinners. Related Data Home Medications ?Medication ?Instructions ?Recorded ?Confirmed atenolol 50 mg tablet 25 mg PO DAILY 01/14/21 12/11/23 bupropion HCl 150 mg 24 hr tablet, 150 mg PO QAM 01/14/21 12/11/23 extended release fluoxetine 20 mg capsule 20 mg PO DAILY 01/14/21 12/11/23 loratadine 10 mg tablet (Claritin) 10 mg PO DAILY PRN Allergy Symptoms 07/01/22 12/11/23 cyanocobalamin (vitamin B-12) 1,000 mcg PO DAILY 12/26/22 12/11/23 1,000 mcg tablet valsartan 160 mg tablet 80 mg PO DAILY 12/26/22 12/11/23 cholecalciferol (vitamin D3) 50 50 mcg PO DAILY 06/07/23 12/11/23 mcg (2,000 unit) tablet (Vitamin D3) Previous Rx's ?Medication ?Instructions ?Recorded omeprazole 20 mg capsule,delayed 20 mg PO DAILY #30 caps 06/22/20 release oxycodone-acetaminophen 5 mg-325 1 tab PO Q4H PRN pain (scale score 08/30/23 mg tablet 4-6) 7 days #14 tabs naproxen 500 mg tablet 500 mg PO BID PRN pain 7 days #14 12/11/23 tabs oxycodone 5 mg tablet 5 mg PO Q8H PRN pain 3 days #8 tabs 12/11/23 phenazopyridine 100 mg tablet 100 mg PO TID PRN Spasm 4 days #12 12/11/23 (Pyridium) tabs tamsulosin 0.4 mg capsule 0.4 mg PO BEDTIME 14 days #14 caps 12/11/23 Allergies Allergy/AdvReac Type Severity Reaction Status Date / Time Seasonal Allergies Allergy Unknown itching Uncoded 12/28/23 12:52 Review of Systems Review of Systems Positive abdominal pain Yes all other systems are reviewed and are negative PMFSH Past Medical History Attestation statement: The following information was validated with the patient. Medical History Seasonal allergies History of anemia Hx of panniculitis GERD (gastroesophageal reflux disease) HTN (hypertension) Anxiety History of kidney stones Surgical History History of colostomy reversal Hx of colectomy (~12/27/22) Hx of colonoscopy Status post panniculectomy Hx of esophagogastroduodenoscopy Hx of gastric bypass Family History Family History Father Heart attack Mother Hypertension Brother Hypertension Sister Hypertension Sister Hypertension Social History Social History Household Members: Family Household Members Other:: mother Housing: Homeless Are you a primary critical care rn to a significant other at home: Yes (mom, sister will help post-op) Do you presently have visiting nurse or other home services: No Alcohol intake: current Alcohol intake frequency: holidays/special occasions only Patient Tobacco Use Status: Former Tobacco user Tobacco use type: Cigarette Years Smoked: 20+ off/on Smoked in Last 30 Days: No Second Hand Smoke Exposure: No Substance Use Type: Marijuana Advance Directives: No Advance Directives Information Provided: No service: No Physical Exam ED Vital Signs: Vital Signs - 24 hr 12/28/23 12:50 12/28/23 16:02 12/28/23 19:17 Temperature 97.9 F 97.9 F 97.8 F Pulse Rate 58 58 47 L Respiratory Rate 20 20 16 Blood Pressure 160/85 H 160/85 H 145/65 H Pulse Oximetry 99 99 99 Oxygen Delivery Method Room Air Room Air Room Air 12/28/23 22:21 Temperature 97.2 F Pulse Rate 54 Respiratory Rate 16 Blood Pressure 147/67 H Pulse Oximetry 98 Oxygen Delivery Method Room Air BMI result Body Mass Index 28.0 Appearance: Alert. Oriented X3. No acute distress. Eyes: Pupils equal, round and reactive to light. ENT: Pharynx normal. Neck: Normal inspection. Neck supple. No lymph nodes noted. No crepitus CVS: Normal heart rate and rhythm. Pulses normal. Normal S1 and S2 Respiratory: No respiratory distress. Breath sounds normal. No Wheezing. No rales Abdomen: Soft and nontender. No rigidity. No distention. good BS x4 Skin: Skin warm and dry. Normal skin color. Normal skin turgor. Extremities: No lower extremity edema. Neurovascular intact to all extremities. No Lacerations. No Rash Neuro: Oriented X 3. No motor deficit. No sensory deficit. Moving all extermities. No slurred speech Medical Decision Making Medical Decision Making MDM Narrative: Positive nausea positive abdominal pain with a previous history of colon resection history of colostomy status post reversal. CT scan of the abdomen pelvis was positive for having a small bowel obstruction. The finding was discussed with surgery. Will admit patient for further evaluation. Currently in stable condition. IV fluids started. Labs were drawn. Patient's hemoglobin is 10. BUN and creatinine consistent with dehydration with a BUN of 20 creatinine of 1. Differential Diagnosis Differential Diagnoses: The differential diagnosis associated with the presentation includes Dehydration, bowel obstruction, diverticulitis Admission/Observation Consideration of admission/observation: Escalation of care including admission/observation considered Consult Healthcare Provider Management of the patient was discussed with: Pay Station Attendant (Surgery) Lab Data [facility] Lab Attestation statement: I reviewed the patient's lab results. 12/28/23 12:59 12/28/23 12:59 Labs: Lab Results 12/28/23 12/28/23 Range/Units 12:59 15:27 WBC 6.7 (4.8-10.8) X10*3/uL RBC 3.32 L (4.20-5.50) X10*6/uL Hgb 10.1 L (12.0-16.0) g/dl Hct 31.0 L (37.0-47.0) % MCV 93.4 (80.0-98.0) fL MCH 30.4 (27.0-33.0) pg MCHC 32.6 (31.0-35.0) g/dl RDW 14.3 (11.0-16.0) % Plt Count 315 (160-400) X10*3/uL MPV 9.7 (9.4-12.3) fL Immature Gran % (Auto) 0.3 (0.0-0.4) % Neut % (Auto) 49.7 (45-73) % Lymph % (Auto) 37.6 (20-40) % [place] % (Auto) 7.2 (2-11) % Eos % (Auto) 4.6 H (0-4) % Baso % (Auto) 0.6 (0-2) % Lymph # (Auto) 2.5 (1.2-4.9) X10*3/uL [place] # (Auto) 0.5 (0.1-1.2) X10*3/uL Eos # (Auto) 0.3 (0.0-0.4) X10*3/uL Baso # (Auto) 0.0 (0.0-0.2) X10*3/uL Abs Immat Gran (auto) 0.02 (0.00-0.03) X10*3/uL Absolute Neuts (auto) 3.3 (2.0-8.3) x10*3/uL Absolute Nucleated RBC 0.000 (0.0-0.012) X10*3/uL Nucleated RBC % (auto) 0.0 (0.0-0.2) /100WBC Sodium 142 (135-145) mmol/L Potassium 4.3 (3.3-5.1) mmol/L Chloride 104 (96-108) mmol/L Carbon Dioxide 27 (22-29) mmol/L Anion Gap 15 (12-20) BUN 20 H (9-16) mg/dL Creatinine 1.01 (0.5-1.4) mg/dL Estim Creat Clear Calc 55.8 Estimated GFR 57 Random Glucose 85 (60-115) mg/dL Calcium 9.6 D (8.4-10.2) mg/dL Magnesium 1.9 (1.6-2.6) mg/dL Total Bilirubin 0.8 (0.0-1.0) mg/dL Direct Bilirubin 0.3 (0.0-0.5) mg/dL AST 11 (5-31) U/L ALT 8 (0-31) U/L Alkaline Phosphatase 77 (39-117) U/L Total Protein 7.1 (6.5-8.0) g/dL Albumin 4.1 (3.5-5.0) g/dL Lipase 17 (8-78) U/L Urine Color Yellow Urine Appearance Clear Urine pH 6.5 (5.0-9.0) Ur Specific [place] 1.010 (1.005-1.025) Urine Protein Negative (Neg-Trace) mg/dL Urine Glucose (UA) Negative (Negative) mg/dL Urine Ketones Negative (Negative) mg/dL Urine Blood Negative (Negative) Urine Nitrite Negative (Negative) Ur Leukocyte Esterase Negative (Negative) Independent Interpretation I performed an independent interpretation of an: CT Scan Radiology Impression Discussion of test interpretation with radiology: I have reviewed the radiologist's reading. External Record Review External record reviewed: Inpatient record Chronic Conditions History of hemicolectomy history of reversal colostomy Medications Administered Discontinued Medications Generic Name Dose Route Start Last Admin Trade Name Freq PRN Reason Stop Dose Admin Sodium Chloride 500 mls @ 999 mls/hr 12/28/23 16:45 12/28/23 18:59 Ns IV 12/28/23 17:15 Infused .Q31M MARY Infusion Iohexol 85 ml 12/28/23 19:34 12/28/23 19:34 Iohexol 350 Mg/Ml 100 Ml Infus..Btl IV 12/28/23 19:35 85 ml ONCE ONE Administration Discharge Plan Discharge Clinical Impression: Partial small bowel obstruction Patient Disposition: Admitted As Inpatient Prescriptions: No Action omeprazole 20 mg capsule,delayed release(DR/EC) 20 mg PO DAILY Qty: 30 6RF loratadine [Claritin] 10 mg Tablet 10 mg PO DAILY PRN (Reason: Allergy Symptoms) cyanocobalamin (vitamin B-12) 1,000 mcg Tablet 1,000 mcg PO DAILY valsartan 160 mg tablet 80 mg PO DAILY cholecalciferol (vitamin D3) [Vitamin D3] 50 mcg (2,000 unit) Tablet 50 mcg PO DAILY oxycodone-acetaminophen 5-325 mg tablet 1 tab PO Q4H PRN (Reason: pain (scale score 4-6)) 7 Days Qty: 14 0RF Rx Instructions: Partial Fill upon patient request. tamsulosin 0.4 mg capsule 0.4 mg PO BEDTIME 14 Days Qty: 14 0RF phenazopyridine [Pyridium] 100 mg tablet 100 mg PO TID PRN (Reason: Spasm) 4 Days Qty: 12 0RF naproxen 500 mg tablet 500 mg PO BID PRN (Reason: pain) 7 Days Qty: 14 0RF oxycodone 5 mg tablet 5 mg PO Q8H PRN (Reason: pain) 3 Days Qty: 8 0RF Rx Instructions: Partial Fill upon patient request. fluoxetine 20 mg capsule 20 mg PO DAILY atenolol 50 mg tablet 25 mg PO DAILY bupropion HCl 150 mg tablet extended release 24 hr 150 mg PO QAM Print Language: Setswana
--- NOTE | 2023-12-28 16:41 | ECG_ITS ---
Test Reason : CP Blood Pressure : / mmHG Vent. Rate : 051 BPM Atrial Rate : 051 BPM P-R Int : 192 ms QRS Dur : 080 ms QT Int : 454 ms P-R-T Axes : 059 013 035 degrees QTc Int : 418 ms Sinus bradycardia Nonspecific ST and T wave abnormality Abnormal ECG When compared with ECG of 02-AUG-2019 12:39, No significant change was found Referred By: Shelly Osborn Electronically Signed By:GUERRERO GROSS MD
[2023-12-28] MEDS: 0.9 % Sodium Chloride 500 ML 999 ML IV (17:22)
[2023-12-28 19:17] VITALS: BP 145/65; PULSE 47; RESP 16; TEMP 36.6; O2SAT 99
[2023-12-28] MEDS: iohexoL 350 MG/ML 100 ML INFUS..BTL 85 ML IV (19:34)
[2023-12-28 22:21] VITALS: BP 147/67; PULSE 54; RESP 16; TEMP 36.2; O2SAT 98
[2023-12-29] MEDS: 0.9 % Sodium Chloride Flush 3 ML SYRINGE IVFLUSH (00:18)
[2023-12-29] MEDS: Lactated Ringers 1,000 ML 100 ML IVCONT ×2 (00:18→09:31)
[2023-12-29 05:37] VITALS: BP 129/64; PULSE 60; RESP 16; TEMP 36.7; O2SAT 99
[2023-12-29 06:34] VITALS: BP 146/73; PULSE 50; RESP 50; TEMP 36.6; O2SAT 98
[2023-12-29 08:00] VITALS: BP 139/71; PULSE 51; RESP 16; TEMP 36.3; O2SAT 99
--- NOTE | 2023-12-29 08:27 | P.HPGS_ITS ---
History of Present Illness History of Present Illness Date of Service: 12/29/23 Chief complaint: psbo Narrative: Nicole Ortiz is a 53 year old female with PMH of aortic stenosis, HTN, laparoscopic gastric bypass, diverticular sticture s/p janis procedure and subsequent colostomy reversal who presented to the ED with c/o abdominal pain. Pain began 4 days ago and is mainly in the upper abdomen associated with some nausea. She denies fever, chills, diarrhea, change in bowel habits, sick contacts. She reports getting anxious with any abdominal pain due to her history and therefore sought care in the ED. Work up included CBC, BMP, LFTs which was significant for anemia but at her baseline. CT scan abd/pelvis with PO contrast showed mildly dilated loops of small bowel in the right abdomen, moderate stool burden. Given concern for SBO, she was admitted to the surgical service for further treatment. She reports improvement in her pain and reports its more intermittent. She denies bloating but states a fullness. She denies flatus or BM. She would like to try solid food. Review of Systems Constitutional: Constitutional: Denies chills and Denies fever(s) ENT: Denies dizziness Cardiovascular: Cardiovascular: Denies chest pain and Denies dyspnea Respiratory: Respiratory: Denies dyspnea Gastrointestinal: Gastrointestinal: Reports as per HPI Genitourinary: Genitourinary: Denies hematuria and Denies dysuria Integumentary/Breasts: Skin/Breast: Denies rash and Denies jaundice Neurologic: Denies dizziness PMFSH Past Medical History Medical History Seasonal allergies History of anemia Hx of panniculitis GERD (gastroesophageal reflux disease) HTN (hypertension) Anxiety History of kidney stones Family History Family History Father Heart attack Mother Hypertension Brother Hypertension Sister Hypertension Sister Hypertension Surgical History Surgical History History of colostomy reversal Hx of colectomy (~12/27/22) Hx of colonoscopy Status post panniculectomy Hx of esophagogastroduodenoscopy Hx of gastric bypass Social History Social History Household Members: Family Household Members Other:: mother Housing: House Are you a primary assurance services manager health care to a significant other at home: Yes (mom, sister will help post-op) Do you presently have visiting nurse or other home services: No Alcohol intake: current Alcohol intake frequency: holidays/special occasions only Patient Tobacco Use Status: Former Tobacco user Tobacco use type: Cigarette Years Smoked: 20+ off/on Smoked in Last 30 Days: No Second Hand Smoke Exposure: No Substance Use Type: Marijuana Substance Use Frequency: Daily Last Used Substance: Days (ago) Have you been hit, kicked, punched, or otherwise hurt by someone within the past year? If so, by whom?: No Do you feel safe in your current relationship?: Yes Is there a partner from a previous relationship who is making you feel unsafe now?: No Are you made to feel afraid or neglected: No Advance Directives: No Advance Directives Information Provided: No Do you have a plan to hurt others: No Plan Recently lost weight without trying: No Eating poorly because of decreased appetite: No Nutrition Risks: No Nutritional Risk Patient : No : No Poor oral hygiene: No service: No Meds Allergies Allergy/AdvReac Type Severity Reaction Status Date / Time Seasonal Allergies Allergy Unknown itching Uncoded 12/28/23 12:52 Active Medications: Current Medications Acetaminophen (Acetaminophen 325 Mg Tablet) 650 mg PO Q6H PRN PRN Reason: Pain, Mild (Pain Scale 1-3), fever or headache Al Hydroxide/Mg Hydroxide (Magnesium Hydrox/Alum Hydrox 30 Ml Oral.Susp) 30 ml PO Q4H PRN PRN Reason: Heartburn Calcium Carbonate (Calcium Carbonate 750 Mg Tab.Chew) 750 mg PO Q4H PRN PRN Reason: Heartburn Hydromorphone HCl (Hydromorphone Hcl 1 Mg/Ml Syringe) 0.5 mg IVPUSH Q4H PRN; Protocol PRN Reason: Pain, Severe (Pain Scale 7-10) Lactated Ringer's (Lr) 1,000 mls @ 100 mls/hr IVCONT .Q10H MARY Last Admin: 12/29/23 00:18 Dose: 100 mls/hr Magnesium Hydroxide (Milk Of Magnesia 30 Ml Oral.Susp) 30 ml PO DAILY PRN PRN Reason: Constipation Melatonin (Melatonin 3 Mg Tablet) 6 mg PO BEDTIME PRN PRN Reason: Insomnia Ondansetron HCl (Ondansetron Hcl 4 Mg/2 Ml Vial) 4 mg IVPUSH Q8H PRN PRN Reason: Nausea and Vomiting Sodium Chloride (0.9 % Sodium Chloride Flush 3 Ml Syringe) 3 ml IVFLUSH QSHIFT [facility] Last Admin: 12/29/23 07:20 Dose: Not Given Home Medications ?Medication ?Instructions ?Recorded ?Confirmed ?Last Taken ?Type atenolol 50 mg tablet 25 mg PO DAILY 01/14/21 12/11/23 05/22/23 History bupropion HCl 150 mg 24 hr tablet, 150 mg PO DAILY 01/14/21 12/11/23 12/11/23 History extended release fluoxetine 20 mg capsule 20 mg PO DAILY 01/14/21 12/11/23 12/11/23 History cyanocobalamin (vitamin B-12) 1,000 mcg PO DAILY 12/26/22 12/11/23 12/26/22 History 1,000 mcg tablet cholecalciferol (vitamin D3) 50 50 mcg PO DAILY 06/07/23 12/11/23 Unknown History mcg (2,000 unit) tablet (Vitamin D3) valsartan 80 mg tablet 80 mg PO BEDTIME 12/29/23 Unknown History Physical Exam Vital Signs: Vital Signs: Last Vital Signs Temp 97.3 F 12/29/23 08:00 Pulse 51 12/29/23 08:00 Resp 16 12/29/23 08:00 BP 139/71 12/29/23 08:00 Pulse Ox 99 12/29/23 08:00 O2 Del Method Room Air 12/29/23 08:00 BMI result Body Mass Index 28.0 Const: General: comfortable, no acute distress and alert Orientation/consciousness: patient oriented x3 Resp: Effort & Inspection: normal respiratory effort GI: Inspection: No distended, Yes scar and No visible herniation Palpation (GI): Soft to palpation, nontender and no guarding Percussion: Yes normal to percussion Skin: General skin exam: no rashes or lesions noted and no jaundice Neuro: General: patient oriented x3 and moves all extremities Results Results Labs: Short CBC 12/28/23 Range/Units 12:59 WBC 6.7 (4.8-10.8) X10*3/uL Hgb 10.1 L (12.0-16.0) g/dl Hct 31.0 L (37.0-47.0) % Plt Count 315 (160-400) X10*3/uL BMP 12/28/23 12:59 Sodium 142 Potassium 4.3 Chloride 104 Carbon Dioxide 27 BUN 20 H Creatinine 1.01 Calcium 9.6 D Liver Function 12/28/23 Range/Units 12:59 Total Bilirubin 0.8 (0.0-1.0) mg/dL Direct Bilirubin 0.3 (0.0-0.5) mg/dL AST 11 (5-31) U/L ALT 8 (0-31) U/L Alkaline Phosphatase 77 (39-117) U/L Albumin 4.1 (3.5-5.0) g/dL Urine 12/28/23 Range/Units 15:27 Urine Color Yellow Urine Appearance Clear Urine pH 6.5 (5.0-9.0) Ur Specific [place] 1.010 (1.005-1.025) Urine Protein Negative (Neg-Trace) mg/dL Urine Glucose (UA) Negative (Negative) mg/dL Abdomen CT scan report/results: report reviewed and image reviewed Assessment and Plan (1) Abdominal pain: Status: Acute Plan Nicole Ortiz is a 53 year old female with PMH of aortic stenosis, HTN, laparoscopic gastric bypass, diverticular sticture s/p janis procedure and subsequent colostomy reversal who presented with abdominal pain for [address] scan showed dilated small bowel loops concerning for SBO however f/u AXR this AM shows contrast in the colon. She is clinically appearing well with benign abdominal exam. Unclear etiology of pain, may have had a PSBO that has resolved at this point. Will therefore advance diet. If tolerating, stable for dc to home later today. Bowel regimen for stool burden. Quality Stroke Does the patient have a stroke diagnosis?: No VTE Prior VTE?: No VTE Risk Level:: Surgical - low VTE Device Contraindication: Treatment Not Indicated VTE Drug Contraindication: Treatment Not Indicated Procedures Date of Service Date of Service: 12/29/23
--- NOTE | 2023-12-29 08:50 | PHA.MEDREC ---
Addendum entered by Stephany Carvalho ramirez 12/29/23 10:00: reviewed Original Note: Pharmacy Consult ? Medication Reconciliation Pharmacy has completed the medication reconciliation.Spoke to patient at bedside, she was able to confirm all her medications with me. Notably no longer taking Loratadine, Naproxen, Oxycodone, or Phenazopyridine. Last took her meds yesterday morning.
[2023-12-29] MEDS: Docusate Sodium 100 MG CAPSULE PO (09:32)
[2023-12-29] MEDS: Omeprazole 20 MG CAPSULE.DR PO (09:32)
[2023-12-29] MEDS: FLUoxetine HCl 20 MG CAPSULE PO (09:32)
[2023-12-29] MEDS: polyethylene glycoL 3350 17 GM POWD.PACK PO (09:32)
--- NOTE | 2023-12-29 13:44 | MHC.CM.PN ---
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
--- NOTE | 2024-01-04 13:40 | PM.DS ---
DS: Providers Provider Date of Service: 12/29/23 Date of admission: 12/28/23 23:18 Date of discharge: 12/29/23 Primary care physician: DEB Meza Attending physician on admission: Rudolph Hill Attending physician on discharge: Rudolph Hill DS: Diagnosis Discharge Diagnosis (1) Abdominal pain: Status: Acute DS: Summary Hospital Course Hospital Course: HPI AT ADMISSION: Nicole Ortiz is a 53 year old female with PMH of aortic stenosis, HTN, laparoscopic gastric bypass, diverticular sticture s/p janis procedure and subsequent colostomy reversal who presented to the ED with c/o abdominal pain. Pain began 4 days ago and is mainly in the upper abdomen associated with some nausea. She denies fever, chills, diarrhea, change in bowel habits, sick contacts. She reports getting anxious with any abdominal pain due to her history and therefore sought care in the ED. Work up included CBC, BMP, LFTs which was significant for anemia but at her baseline. CT scan abd/pelvis with PO contrast showed mildly dilated loops of small bowel in the right abdomen, moderate stool burden. HOSPITAL COURSE: Given concern for SBO, she was admitted to the surgical service for further treatment. Follow up AXR showed contrast in the colon. She reported improvement in her pain and reports its more intermittent. Her diet was advanced to solids. She was reassessed later in the day and was tolerating a diet without any abdominal symptoms. She remained clinically appearing well with benign abdominal exam. She felt ready for discharged to home. She was discharged to home on 12/29/23 in stable condition. Bowel regimen for stool burden was encouraged at home. Status at Discharge Functional status at discharge: independent ambulation Overall status at discharge: patient is back to baseline Time Attestation Discharge Coordination Time (in mins): 30 Quality: Safe Use of Opioids Does Pt have an Active Cancer Diagnosis on the Problem List?: No Quality: Stroke Does the patient have a stroke diagnosis?: No Physical Exam Vital Signs: Vital Signs: Last Vital Signs Temp 97.3 F 12/29/23 08:00 Pulse 51 12/29/23 08:00 Resp 16 12/29/23 08:00 BP 139/71 12/29/23 08:00 Pulse Ox 99 12/29/23 08:00 O2 Del Method Room Air 12/29/23 08:00 BMI result Body Mass Index 28.0 Const: General: comfortable, no acute distress and alert Orientation/consciousness: patient oriented x3 GI: Inspection: No distended Palpation (GI): Soft to palpation, nontender and no guarding Percussion: Yes normal to percussion Skin: General skin exam: no rashes or lesions noted Neuro: General: patient oriented x3 DS: Data Data Completed and Pending Completed studies during hospitalization [Text1]: Procedures Bypass Sigmoid Colon to Cutaneous with Autologous Tissue Substitute, Open Approach (12/26/22) Excision of Sigmoid Colon, Open Approach (12/26/22) Introduction of Anesthetic Agent into Peripheral Nerves and Plexi, Percutaneous Approach (12/26/22) Release Peritoneum, Open Approach (06/15/23) Repair Abdominal Wall, Open Approach (06/15/23) Reposition Sigmoid Colon, Open Approach (06/15/23) Discharge Plan Discharge Anticipated Discharge Date/Time: 12/29/23 13:28 Patient Disposition: Home, Self-Care Discharge Diagnosis: Gastroenteritis/partial small bowel obstruction Referrals: Rudolph Hill MD [Physician] - 1 Week Physician,Deandre Logan [Physician] - 1 Week Discharge Medications: Continued omeprazole 20 mg capsule,delayed release(DR/EC) 20 mg PO DAILY Qty: 30 6RF cyanocobalamin (vitamin B-12) 1,000 mcg Tablet 1,000 mcg PO DAILY cholecalciferol (vitamin D3) [Vitamin D3] 50 mcg (2,000 unit) Tablet 50 mcg PO DAILY tamsulosin 0.4 mg capsule 0.4 mg PO BEDTIME 14 Days Qty: 14 0RF valsartan 80 mg tablet 80 mg PO BEDTIME fluoxetine 20 mg capsule 20 mg PO DAILY atenolol 50 mg tablet 25 mg PO DAILY bupropion HCl 150 mg tablet extended release 24 hr 150 mg PO DAILY Discharge Orders: Discharge Order (Routine); Ordered 12/29/23 Ordered By: Awa Cast Diet: Advance to usual diet Activity on Discharge: No heavy lifting Stand Alone Forms: Patient Portal Discharge page Print Language: Ukrainian Activity Restrictions/Additional Instructions: Follow up with your PCP. Call Your Doctor If: ? ? -Your temperature exceeds 101.5? F? ? ? -You experience excessive pain or swelling ? ? -You have an unexpected reaction to medication ? ? -You experience continued vomiting/nausea Care Plan Goals: Returned to baseline Health Concerns: No new health issue concerns Plan of Treatment: Convalescence Assessment: Stable Discharge Date/Time: 12/29/23 14:28
== END 2023-12-29 14:28 | disposition home or self-care (01) | DRG 247 ==
LOC: HO.ED 23:21 → HO.EDOVER 23:25 → HO.S3 12-29 00:13
PROVIDERS: Physician Assistant; Admitting Provider Surgery; Emergency Provider Emergency Medicine Emergency Medical Services; PCP Nurse Practitioner Family; Visit Provider Surgery
DX: K56.600 Partial intestinal obstruction, unspecified as to cause (principal); D64.9 Anemia, unspecified; Z98.84 Bariatric surgery status; Z87.891 Personal history of nicotine dependence; Z79.899 Other long term (current) drug therapy
CPT/HCPCS: 36415; 74018; 74177; 80048; 80076; 81003; 83690; 83735; 85025; 93005; 99285; J7120; Q9967

== ENCOUNTER → 2023-12-28 16:41 | Outpatient (BNV) | payer BC, SELFPAY | PROVIDERS: Admitting Provider Surgery; Emergency Provider Emergency Medicine Emergency Medical Services; Visit Provider Internal Medicine Cardiovascular Disease | DX: R94.31 Abnormal electrocardiogram [ECG] [EKG] (principal) | CPT/HCPCS: 93010 ==

== ENCOUNTER → 2023-12-28 23:18 | Outpatient (BNV) | payer BC, SELFPAY | PROVIDERS: Admitting Provider Surgery; Emergency Provider Emergency Medicine Emergency Medical Services; Visit Provider Physician Assistant Surgical | DX: R10.9 Unspecified abdominal pain (principal) | CPT/HCPCS: 99235 ==

== ENCOUNTER 2024-01-10 07:58 | Outpatient (AMB) | payer BC, SELFPAY ==
--- NOTE | 2024-01-10 08:01 | A.OFFVIS_ITS ---
Vital Signs 01/10/24 08:02 Height 5 ft 1 in Weight 147 lb 11.355 oz BMI 27.9 Pulse 52 Intake Visit Reasons: abdominal pain, ER f/u Intake Note: Patient is seen in office for ER follow up visit, following abdominal pain. Pt c/o: denies any symptoms at the time of visit CT:12/28/23 Sweet Pickled Fruit Maker Required: No Accompanied by: Self / Same As Patient Allergies Seasonal Allergies Allergy (Unknown, Uncoded 12/28/23 12:52) itching HPI Comments Details: Patient presents for follow-up status post recent hospitalization for most likely gastroenteritis. She has complete resolution of her symptoms. She is tolerating a diet. Having regular bowel habits. She has no abdominal issues or complaints [facility] Medical History Seasonal allergies History of anemia Hx of panniculitis GERD (gastroesophageal reflux disease) HTN (hypertension) Anxiety History of kidney stones Surgical History History of colostomy reversal Hx of colectomy (~12/27/22) Hx of colonoscopy Status post panniculectomy Hx of esophagogastroduodenoscopy Hx of gastric bypass Family History Father Heart attack Mother Hypertension Brother Hypertension Sister Hypertension Sister Hypertension Social History Household Members: Family Household Members Other:: mother Housing: House Are you a primary client care manager to a significant other at home: Yes (mom, sister will help post-op) Do you presently have visiting nurse or other home services: No Alcohol intake: current Alcohol intake frequency: holidays/special occasions only Patient Tobacco Use Status: Former Tobacco user Tobacco use type: Cigarette Years Smoked: 20+ off/on Second Hand Smoke Exposure: No Substance Use Type: Marijuana service: No Physical Exam GI Other: Abdomen is soft, benign Assessment & Plan Assessment & Plan (1) Gastroenteritis: Code(s): K52.9 - Noninfective gastroenteritis and colitis, unspecified Category: Surgical Plan Patient is doing well and will otherwise follow-up p.r.n.. All questions answered Coding Level of Care Code Est Pt Level 3 (45372) Diagnoses Gastroenteritis K52.9
[2024-01-10 08:02] VITALS: PULSE 52; BMI 27.9
== END 2024-01-10 08:05 | disposition home or self-care (01) ==
PROVIDERS: PCP Nurse Practitioner Family; Visit Provider Surgery
DX: K52.9 Noninfective gastroenteritis and colitis, unspecified (principal)
CPT/HCPCS: 99212

== ENCOUNTER → 2024-01-10 07:58 | Outpatient (BNVA) | payer BC, SELFPAY | PROVIDERS: PCP Nurse Practitioner Family; Visit Provider Surgery ==

== ENCOUNTER 2024-01-30 10:59 | Outpatient (AMB) | payer BC, SELFPAY ==
--- NOTE | 2024-01-30 11:53 | A.OFFVIS_ITS ---
Intake Visit Reasons: Ureteroscopy Follow Up(12/10) Intake Note: Patient is present for Post Op Ureteroscopy Urology Med: Tamsulosin Unmanned Equipment Operator Required: No Allergies Seasonal Allergies Allergy (Unknown, Uncoded 01/30/24 11:55) itching HPI Comments Details: Nicole is a pleasant female. She is a patient of Dr. Cormier. She is seen for the following urologic conditions - nephrolithiasis Would encourage use of Tums with main meal Continue imaging surveillance Understands maintaining fluid intake is important Nephrolithiasis Background of Zia's pouch May have malabsorption CT scan - 06/03 Large nonobstructing calculus in the right renal pelvis measures 2.0 x 1.4 cm Intervention - 09/02 right ESWL Stone composition - 01/02 calcium oxalate monohydrate PFSH Medical History Seasonal allergies History of anemia Hx of panniculitis GERD (gastroesophageal reflux disease) HTN (hypertension) Anxiety History of kidney stones Surgical History (Updated 01/29/24 @ 11:14 by QUIRINO Jaime) History of ureteroscopy History of colostomy reversal Hx of colectomy (~12/27/22) Hx of colonoscopy Status post panniculectomy Hx of esophagogastroduodenoscopy Hx of gastric bypass Family History Father Heart attack Mother Hypertension Brother Hypertension Sister Hypertension Sister Hypertension Social History Household Members: Family Household Members Other:: mother Housing: House Are you a primary respite care provider to a significant other at home: Yes (mom, sister will help post-op) Do you presently have visiting nurse or other home services: No Alcohol intake: current Alcohol intake frequency: holidays/special occasions only Patient Tobacco Use Status: Former Tobacco user Tobacco use type: Cigarette Years Smoked: 20+ off/on Second Hand Smoke Exposure: No Substance Use Type: Marijuana service: No Review of Systems Const Denies chills and Denies fever(s) Card Reports no additional complaints and Denies syncope Resp Denies cough GI Denies abdominal pain and Denies heartburn Reports as per HPI and Denies change in libido Neuro Denies syncope Psych Denies change in libido Endo Denies change in libido Physical Exam Const General: cooperative, healthy appearing, comfortable and no acute distress Orientation/consciousness: patient oriented x3 HEENT Face and sinus: Yes normal facial exam Mouth: moist mucous membranes Neck Neck: Yes normal visual inspection, Yes full ROM and Yes trachea midline Chest Chest palpation & inspection: normal inspection of the chest Resp Effort & Inspection: normal respiratory effort, able to speak in complete sentences and no respiratory distress GI Inspection: Yes normal to inspection Back/Spine/Pelvis Cervical Spine: normal cervical lordosis Thoracic/Lumbar Spine: thoracic and lumbar spine normal to inspection Skin General skin exam: no rashes or lesions noted Neuro General: patient oriented x3, gait normal, tone normal and moves all extremities Extrem General: Yes normal to inspection and Yes capillary refill normal Assessment & Plan Assessment & Plan (1) Nephrolithiasis: Code(s): N20.0 - Calculus of kidney Category: Medical Plan Six-month follow-up renal ultrasound Orders: Orders US renal BI 6 Months N20.0 - Calculus of kidney Patient Instructions: Imaging studies, laboratory and physical exam results were discussed and reviewed in detail. No major barriers to patient understanding were identified. An opportunity to ask questions regarding the treatment plan was provided. All questions were answered. The patient expressed understanding and agreement with the above treatment plan. The patient is aware they should contact our office by phone for worsening of their current condition or the appearance of new urologic symptoms. Compliance is encouraged with any medications and followup testing that is ordered. It is a privilege to participate in the urologic care of your patient. If you have any questions or concerns regarding treatment for the above conditions, or other urologic issues, please do not hesitate to contact me. The office telephone contact is [phone]. This note is constructed using voice recognition software. While every effort has been made to ensure accuracy roller pneumatic errors may have been included. Yours sincerely, Dr Hal Hartley MD, [facility] - Urology Providers of Expert, Compassionate Care for the Genitourinary System Coding Level of Care Code Est Pt Level 3 (51053) Diagnoses Nephrolithiasis N20.0
== END 2024-01-30 12:33 | disposition home or self-care (01) ==
PROVIDERS: PCP Nurse Practitioner Family; Visit Provider Urology
DX: N20.0 Calculus of kidney (principal)
CPT/HCPCS: 99213

== ENCOUNTER → 2024-01-30 10:59 | Outpatient (BNVA) | payer BC, SELFPAY | PROVIDERS: PCP Nurse Practitioner Family; Visit Provider Urology ==

== ENCOUNTER 2024-04-17 09:01 | Outpatient (AMB) | payer BC, SELFPAY ==
[2024-04-17 09:20] VITALS: BP 134/76; PULSE 62; BMI 30.4
--- NOTE | 2024-04-17 09:20 | MHC.OFFVIS ---
Vital Signs 04/17/24 09:20 Height 5 ft 1 in Weight 160 lb 14.999 oz BMI 30.4 BP 134/76 Blood Pressure Location Lt brachial Position Sitting Pulse 62 Pulse Source Pulse Oximeter Intake Visit Reasons: 1 yr f/up Allergies Seasonal Allergies Allergy (Unknown, Uncoded 01/30/24 11:55) itching Medication List - Last Reconciled 04/17/24 by Jeff Singh MD atenolol 25 mg PO DAILY bupropion HCl XL 150 mg PO DAILY cholecalciferol (vitamin D3) (Vitamin D3) 50 mcg PO DAILY cyanocobalamin (vitamin B-12) 1,000 mcg PO DAILY fluoxetine 20 mg PO DAILY omeprazole 20 mg PO DAILY valsartan 80 mg PO BEDTIME HPI Comments Details: 53-year-old female who is here for follow-up. She has background history of hypertension. She underwent bariatric surgery and she was seen for perioperative cardiovascular risk assessment. She underwent bariatric surgery successfully and lost significant weight. She is returning for follow-up today and unfortunately had its bowel obstruction in December 2022 and currently has colostomy bag. She is saying that there will be close to do were so at some stage. She is denying any chest pain or shortness of breath. No other complaints currently. Blood pressure control is good. EKG reviewed. 04/17/2024: She is here for follow-up. Blood pressure is well controlled. She previously had mild aortic valve stenosis. She had colostomy reversal done and has been doing well. [facility] Medical History Seasonal allergies History of anemia Hx of panniculitis GERD (gastroesophageal reflux disease) HTN (hypertension) Anxiety History of kidney stones Surgical History (Updated 01/29/24 @ 11:14 by QUIRINO Jaime) History of ureteroscopy History of colostomy reversal Hx of colectomy (~12/27/22) Hx of colonoscopy Status post panniculectomy Hx of esophagogastroduodenoscopy Hx of gastric bypass Family History Father Heart attack Mother Hypertension Brother Hypertension Sister Hypertension Sister Hypertension Social History Household Members: Family Household Members Other:: mother Housing: House Are you a primary child day care teacher to a significant other at home: Yes (mom, sister will help post-op) Do you presently have visiting nurse or other home services: No Alcohol intake: current Alcohol intake frequency: holidays/special occasions only Patient Tobacco Use Status: Former Tobacco user Tobacco use type: Cigarette Years Smoked: 20+ off/on Second Hand Smoke Exposure: No Substance Use Type: Marijuana service: No Review of Systems Const Denies weakness ENT Denies dizziness Card Denies chest pain, Denies chest pain with activity, Denies syncope, Denies rapid heart rate, Denies pedal edema, Denies edema, Denies leg edema, Denies lightheadedness, Denies palpitations, Denies dyspnea, Denies dyspnea on exertion and Denies orthopnea Resp Denies cough, Denies dyspnea and Denies dyspnea on exertion GI Denies hematochezia and Denies change in stool character Musc Denies abnormal gait, Denies muscle cramps, Denies muscle weakness, Denies numbness, Denies radiating pain into limb and Denies tingling Neuro Denies abnormal gait, Denies dizziness, Denies syncope, Denies numbness, Denies tingling and Denies weakness Endo Denies palpitations Physical Exam Vital Signs: Last Vital Signs Pulse 62 04/17/24 09:20 BP 134/76 04/17/24 09:20 BMI result Body Mass Index 30.4 GENERAL APPEARANCE: in no acute distress, pleasant. NECK: no carotid bruit, no jugular venous distention. SKIN: no suspicious lesions, warm and dry. HEART: Ejection systolic murmur with preserved 2nd heart sound, regular rate and rhythm. LUNGS: clear to auscultation bilaterally. ABDOMEN: soft, nontender. EXTREMITIES: no edema. PERIPHERAL PULSES: equal. NEUROLOGIC: No gross deficits, AAO X 3 Assessment & Plan Assessment & Plan (1) Aortic stenosis: Code(s): I35.0 - Nonrheumatic aortic (valve) stenosis Category: Medical (2) Essential hypertension: Code(s): I10 - Essential (primary) hypertension Category: Medical Plan [age] year female who is here for follow-up. She has mild aortic valve stenosis. Continues to be stable at this stage. Blood pressure is well controlled. She will need repeat echocardiography in 3 years. She will see us as needed. Yearly lipid panel with LDL target less than 100. She will reach out to us if there is any concerns. Follow-up as needed. Coding Level of Care Code Est Pt Level 3 (29214) Diagnoses Aortic stenosis I35.0 Essential hypertension I10
== END 2024-04-17 09:57 | disposition home or self-care (01) ==
LOC: HO.HCS 09:01
PROVIDERS: PCP Physician Assistant Surgical; Visit Provider Internal Medicine Cardiovascular Disease
DX: I35.0 Nonrheumatic aortic (valve) stenosis (principal); I10 Essential (primary) hypertension
CPT/HCPCS: 99213

== ENCOUNTER 2024-07-26 14:10 | Outpatient (REF) | payer BC, SELFPAY ==
--- OUTSIDE RECORDS SUMMARY | 2024-07-26 14:12 | XMS_ITS | Patient Health Record ---
Author Organization [facility] Address [address] [place] [address] Care Team Providers Care Executive Advisor Name Role Phone Asiya LEACH, Vianca Primary Care Provider Hebert Landa Unavailable [phone] ALLERGIES No Known Allergies REASON FOR REFERRAL No Information MEDICATIONS Medication SIG (Take, Route, Frequency, Duration) Notes Start Date End Date Status Vitamin D Active Vitamin B Complex Ac tive Claritin Active buPROPion HCl ER (XL) 150 MG TAKE 1 TABLET BY MOUTH EVERY DAY Oral for 90 Active Avapro Active FLUoxetine HCl 20 MG TAKE 1 CAPSULE BY M OUTH EVERY DAY Oral for 90 Active Prilosec 20 MG as directed Orally O NCE A DAY Active atenolol Active IMMUNIZATIONS Vaccine Route Administration Date Status Comme nts Influenza Unknown 04/12/2022 Administered Influenza Unknown 03/22/2022 Administered SOCIAL HISTORY Tobacco Use: Social History Observation Description Date Details (start date - stop date) Former Smoker NA - NA Sex Assigned At : Social History Observation Description Sex Assigned At Unknown Tobacco Use/Smoking Question Answer Notes Patient is a former smoker How long has it been since you last smoked? > 10 years Alcohol Screen Question Answer Notes Did you have a drink contain ing alcohol in the past year? Yes How often did you have a dri nk containing alcohol in the past year? Monthly or less (1 point) How many drinks did you have on a typical day when you were drinking in the past year? 1 or 2 drinks (0 point) How often did you have 6 or more drinks on one occasion in the past year? Never (0 point) Points 1 Interpretation Negative PROBLEMS Problem Type ICD Code Onset Dates Problem Status W/U Status Risk SNOMED Code Notes Problem Colon cancer screening (Z12.11) Active confirmed Colon can cer screening (375898211) Problem Preprocedural examination (Z01.818) Active confirmed Preprocedural examination (973879820597661 ) Problem Gastroesophageal reflux disease, unspecified whether esophagitis present (K21.9) Active confirmed 353577796 Problem Diverticulosis of colon (K57.30) Active confirmed Diverticulosi s of colon (662180877) Problem Large bowel obstruction (K56.609) Active confirmed 687128852 Problem Abnormal CT scan, colon (R93.3) Active confirmed 639835343 Problem Anemia, unspecified type (D64.9) Active confirmed [id number] Encounters Encounter Location Date Provider Diagnosis [facility] [address] [place] [address] 08/02/2023 Hebert Marino PLAN OF TREATMENT Future Test Test Name Order Date COLONOSCOPY 05/20/2022 COLONOSCOPY 03/28/2023 Insurance Providers Payer Name Payer Address Payer Phone Subscriber Number Group Number Insured Name Patient Relationship to Insured Coverage Start Date Coverage End Date [facility] [place] [place] [employer] [address] [place] [address] [id number] Self - patient is the insured MEDICAL (GENERAL) HISTORY Medical History History ICD Code Kidney stones---seeing [facility] Urology 03/31 23 Hypertension Anxiety Denies SC,DM,CVA,Lung disease,renal dise ase GERD-EGD with me in 2005 wit h a small to moderate-sized hiatal hernia--no esophagitis, no Almendarez's Limited colonoscopy in 2022 due to adhesions and a followup CT Colonography was nondiagnostic due to a lot of retained stool Surgical History Surgery Date(Month/Year) Gastric bypass 200# 08/2019--Dr. Su los Panniculectomy 08/2021 Colonic obstruction due to a dhesions around the sigmoid colon requiring a sigmoid resection and colostomy by Dr. Hill 12/2022
--- OUTSIDE RECORDS SUMMARY | 2024-07-26 14:12 | XMS_ITS ---
Author Organization [facility] Address [address] [place] [address] Care Team Providers Care Scientist Immunology Name Role Phone Vianca Braden NP Primary Care Provider Hebert Landa Unavailable [phone] Encounters Encounter Location Date Provider Diagnosis [facility] [address] [place] [address] 08/02/2023 Hebert Marino PLAN OF TREATMENT No Information
--- OUTSIDE RECORDS SUMMARY | 2024-07-26 14:12 | XMS_ITS ---
Author Organization [facility] Address [address] [place] [address] Care Team Providers Care Top Printing Press Operator Name Role Phone Asiya LEACH, Vianca Primary Care Provider Hebert Landa Unavailable [phone] REASON FOR VISIT discuss another screening colonoscopy Encounters Encounter Location Date Provider Diagnosis [facility] [address] [place] [address] 07/18/2023 Hebert Marino PLAN OF TREATMENT No Information
--- OUTSIDE RECORDS SUMMARY | 2024-07-26 14:12 | XMS_ITS ---
Author Organization [facility] Address [address] [place] [address] Care Team Providers Care Mine Motor Engineer Name Role Phone Asiya LEACH, Vianca Primary Care Provider Hebert Landa Unavailable [phone] REASON FOR VISIT screening Encounters Encounter Location Date Provider Diagnosis [facility] [place] Out[facility] [address] [place], [place] [phone] 05/22/2023 Hebert Marino Encounter for scre ening colonoscopy Z12.11 ASSESSMENTS Encounter Date Diagnosis Assessment Notes Treatment Notes Treatment Clinical Notes 05/22/2023 Encounter for screening colonoscopy (ICD-10 - Z12.11) PLAN OF TREATMENT No Information
== END 2024-07-26 14:11 | disposition home or self-care (01) ==
LOC: HO.HMGCX 14:10
PROVIDERS: PCP Physician Assistant Surgical; Visit Provider Urology
DX: N20.0 Calculus of kidney (principal)
CPT/HCPCS: 76775

== ENCOUNTER → 2024-07-26 14:15 | Outpatient (BNV) | payer BC, SELFPAY | PROVIDERS: PCP Physician Assistant Surgical; Visit Provider Radiology Diagnostic Radiology | DX: N20.2 Calculus of kidney with calculus of ureter (principal) | CPT/HCPCS: 76775 ==

== ENCOUNTER 2024-08-02 15:39 | Outpatient (AMB) | payer BC, SELFPAY ==
--- OUTSIDE RECORDS SUMMARY | 2024-08-02 15:42 | XMS_ITS ---
Author Organization [facility] Address [address] [place] [address] Care Team Providers Care Coffee Bar Attendant Name Role Phone Vianca Braden NP Primary Care Provider Hebert Landa Unavailable [phone] Encounters Encounter Location Date Provider Diagnosis [facility] [address] [place] [address] 08/02/2023 Hebert Marino PLAN OF TREATMENT No Information
--- OUTSIDE RECORDS SUMMARY | 2024-08-02 15:42 | XMS_ITS ---
Author Organization [facility] Address [address] [place] [address] Care Team Providers Care Home Service Technician Name Role Phone Asiya LEACH, Vianca Primary Care Provider Hebert Landa Unavailable [phone] REASON FOR VISIT discuss another screening colonoscopy Encounters Encounter Location Date Provider Diagnosis [facility] [address] [place] [address] 07/18/2023 Hebert Marino PLAN OF TREATMENT No Information
--- OUTSIDE RECORDS SUMMARY | 2024-08-02 15:43 | XMS_ITS ---
Author Organization [facility] Address [address] [place] [address] Care Team Providers Care Manager Portable Name Role Phone Asiya LEACH, Vianca Primary Care Provider Hebert Landa Unavailable [phone] REASON FOR VISIT screening Encounters Encounter Location Date Provider Diagnosis [facility] [place] Out[place] [address] [place], [place] [phone] 05/22/2023 Hebert Marino Encounter for scre ening colonoscopy Z12.11 ASSESSMENTS Encounter Date Diagnosis Assessment Notes Treatment Notes Treatment Clinical Notes 05/22/2023 Encounter for screening colonoscopy (ICD-10 - Z12.11) PLAN OF TREATMENT No Information
--- OUTSIDE RECORDS SUMMARY | 2024-08-02 15:43 | XMS_ITS | Patient Health Record ---
Author Organization [facility] Address [address] [place] [address] Care Team Providers Care Air Intelligence Officer Name Role Phone Asiya LEACH, Vianca Primary Care Provider Hebert Landa Unavailable [phone] ALLERGIES No Known Allergies REASON FOR REFERRAL [...] (Z12.11) Active confirmed Colon can cer screening (097633155) Problem Preprocedural examination (Z01.818) Active confirmed Preprocedural examination (489624190417663 ) Problem Gastroesophageal reflux disease, unspecified whether esophagitis present (K21.9) Active confirmed 004319244 Problem Diverticulosis of colon (K57.30) Active confirmed Diverticulosi s of colon (988302176) Problem Large bowel obstruction (K56.609) Active confirmed 799360937 Problem Abnormal CT scan, colon (R93.3) Active confirmed 181761354 Problem Anemia, unspecified type (D64.9) Active confirmed 067172401 Encounters Encounter Location Date Provider Diagnosis [facility] [address] [place] [address] 08/02/2023 Hebert Marino PLAN OF TREATMENT Future Test Test Name Order Date COLONOSCOPY 05/20/2022 COLONOSCOPY 03/28/2023 Insurance Providers Payer Name Payer Address Payer Phone Subscriber Number Group Number Insured Name Patient Relationship to Insured Coverage Start Date Coverage End Date [facility] [place] [employer] PROFESSIONAL CLAIMS [address] [place] [address] [id number] JOSIPATRICIO Self - patient is the insured MEDICAL (GENERAL) HISTORY Medical History History ICD Code Kidney stones---[place] [facility] [place] Hypertension Anxiety Denies [place],DM,CVA,Lung disease,renal dise ase GERD-EGD with me in [...]
--- NOTE | 2024-08-02 15:45 | A.OFFVIS_ITS ---
Intake Visit Reasons: 6m follow up Intake Note: Pt presents to office today for 6 month follow up Allergies Seasonal Allergies Allergy (Mild, Uncoded 08/02/24 15:51) itching HPI Comments Details: Nicole is a pleasant female. She is a patient of Dr. Cormier. She is seen for the following urologic conditions - nephrolithiasis Imaging examined Has remaining small stone right side Suggest right ESWL Continue fluid intake Continue lemon water therapy Would plan on Urorisk once stone manage Nephrolithiasis Background of Zia's pouch May have malabsorption CT scan - 06/03 Large nonobstructing calculus in the right renal pelvis measures 2.0 x 1.4 cm - 08/06 renal ultrasound right 6 mm, left 5 mm Intervention - 09/02 right ESWL, 01/02 ureteroscopy Stone composition - 01/02 calcium oxalate monohydrate PFSH Medical History Seasonal allergies History of anemia Hx of panniculitis GERD (gastroesophageal reflux disease) HTN (hypertension) Anxiety History of kidney stones Surgical History History of ureteroscopy History of colostomy reversal Hx of colectomy (~12/27/22) Hx of colonoscopy Status post panniculectomy Hx of esophagogastroduodenoscopy Hx of gastric bypass Family History Father Heart attack Mother Hypertension Brother Hypertension Sister Hypertension Sister Hypertension Social History Household Members: Family Household Members Other:: mother Housing: House Are you a primary hospice care sales consultant to a significant other at home: Yes (mom, sister will help post-op) Do you presently have visiting nurse or other home services: No Alcohol intake: current Alcohol intake frequency: holidays/special occasions only Patient Tobacco Use Status: Former Tobacco user Tobacco use type: Cigarette Years Smoked: 20+ off/on Second Hand Smoke Exposure: No Substance Use Type: Marijuana service: No Review of Systems Const Denies chills and Denies fever(s) Card Reports no additional complaints and Denies syncope Resp Denies cough GI Denies abdominal pain and Denies heartburn Reports as per HPI and Denies change in libido Neuro Denies syncope Psych Denies change in libido Endo Denies change in libido Physical Exam Const General: cooperative, healthy appearing, comfortable and no acute distress Orientation/consciousness: patient oriented x3 HEENT Face and sinus: Yes normal facial exam Mouth: moist mucous membranes Neck Neck: Yes normal visual inspection, Yes full ROM and Yes trachea midline Chest Chest palpation & inspection: normal inspection of the chest Resp Effort & Inspection: normal respiratory effort, able to speak in complete sentences and no respiratory distress GI Inspection: Yes normal to inspection Back/Spine/Pelvis Cervical Spine: normal cervical lordosis Thoracic/Lumbar Spine: thoracic and lumbar spine normal to inspection Skin General skin exam: no rashes or lesions noted Neuro General: patient oriented x3, gait normal, tone normal and moves all extremities Extrem General: Yes normal to inspection and Yes capillary refill normal Assessment & Plan Assessment & Plan (1) Nephrolithiasis: Code(s): N20.0 - Calculus of kidney Category: Medical Plan Extracorporeal Shock Wave Lithotripsy We discussed the nature of the decision and reasonable alternatives for performing the above surgery. Interventions include chemical dissolution, ESWL, ureteroscopy with laser lithotripsy and stent placement, PCNL. Options such as medical therapy were discussed. The relative uncertainties and benefits related to each alternate procedure were adequately discussed. General surgical risks including, but not limited to, pain, bleeding, infection, myocardial infarction, pulmonary embolus, deep vein thrombosis and cerebrovascular accident which may result in further hospitalization were discussed. Full disclosure of the procedure as well as all major risks, benefits and complications were discussed including but not limited to risks of bleeding, injury to the kidney with hematoma or chinyere-hematoma, failure to fragments stone, potential for ureteric obstruction from stone passage and need for secondary procedures. There is a small long-term risk of hypertension and a question chino of diabetes. Success rate of fragmentation and passage is approximately 70- 75%. This is compared to the risks and benefits for ureteroscopy which has a higher success rate but is a more invasive procedure. The success rate of the procedure was discussed. Success of the procedure in the short-term does not necessarily guarantee that long-term success will be maintained. Suitable follow up will need to be maintained. The patient showed understanding of the discussion as well as the typical recovery time, and the outpatient nature of this procedure. Opportunity was given for questions. Repeat-back protocol used to confirm understanding. They wish to proceed with right ESWL Patient Instructions: This note is constructed using voice recognition software. While every effort has been made to ensure accuracy studio operator errors may have been included. Imaging studies, laboratory and physical exam results were discussed and reviewed in detail. No major barriers to patient understanding were identified. An opportunity to ask questions regarding the treatment plan was provided. All questions were answered. The patient expressed understanding and agreement with the above treatment plan. The patient is aware they should contact our office by phone for worsening of their current condition or the appearance of new urologic symptoms. Compliance is encouraged with any medications and followup testing that is ordered. It is a privilege to participate in the urologic care of your patient. If you have any questions or concerns regarding treatment for the above conditions, or other urologic issues, please do not hesitate to contact me. The office telephone contact is [phone]. Sincerely, Dr Hal Hartley MD, JONATHAN [facility] - Urology Compassionate Specialist Care for the Genitourinary System Coding Level of Care Code Est Pt Level 4 (83815) Diagnoses Nephrolithiasis N20.0
== END 2024-08-02 16:39 | disposition home or self-care (01) ==
PROVIDERS: Visit Provider Urology
DX: N20.0 Calculus of kidney (principal)
CPT/HCPCS: 99214

== ENCOUNTER → 2024-08-02 15:39 | Outpatient (BNVA) | payer BC, SELFPAY | PROVIDERS: Visit Provider Urology ==

== ENCOUNTER → 2024-09-25 07:36 | Outpatient (BNV) | payer BC, SELFPAY | PROVIDERS: PCP Physician Assistant Surgical; Visit Provider Radiology Diagnostic Radiology | DX: N28.89 Other specified disorders of kidney and ureter (principal) | CPT/HCPCS: 74018 ==

== ENCOUNTER 2024-09-25 07:38 | Day surgery (SDC) | payer BC, SELFPAY ==
--- OUTSIDE RECORDS SUMMARY | 2024-08-08 07:53 | XMS_ITS ---
Author Organization [facility] Address [address] [place] [address] Care Team Providers Care Rehabilitation Center Manager Name Role Phone Asiya LEACH, Vianca Primary Care Provider Hebert Landa Unavailable [phone] REASON FOR VISIT screening Encounters Encounter Location Date Provider Diagnosis [facility] [place] Out[place] [address] [place], [place] [phone] 05/22/2023 Hebert Marino Encounter for scre ening colonoscopy Z12.11 ASSESSMENTS Encounter Date Diagnosis Assessment Notes Treatment Notes Treatment Clinical Notes 05/22/2023 Encounter for screening colonoscopy (ICD-10 - Z12.11) PLAN OF TREATMENT No Information
--- OUTSIDE RECORDS SUMMARY | 2024-08-08 07:53 | XMS_ITS ---
Author Organization [facility] Address [address] [place] [address] Care Team Providers Care Office Nurse Name Role Phone Vianca Braden NP Primary Care Provider Hebert Landa Unavailable [phone] Encounters Encounter Location Date Provider Diagnosis [facility] [address] [place] [address] 08/02/2023 Hebert Marino PLAN OF TREATMENT No Information
--- OUTSIDE RECORDS SUMMARY | 2024-08-08 07:53 | XMS_ITS | Patient Health Record ---
Author Organization [facility] Address [address] [place] [address] Care Team Providers Care Potato Peeler Name Role Phone Asiya LEACH, Vianca Primary Care Provider Hebert Landa Unavailable [phone] ALLERGIES No Known Allergies REASON FOR REFERRAL [...] (Z12.11) Active confirmed Colon can cer screening (156334784) Problem Preprocedural examination (Z01.818) Active confirmed Preprocedural examination (034997117494613 ) Problem Abnormal CT scan, colon (R93.3) Active confirmed 471109706 Problem Anemia, unspecified type (D64.9) Active confirmed 074595383 Problem Diverticulosis of colon (K57.30) Active confirmed Diverticulosi s of colon (369069141) Problem Gastroesophageal reflux disease, unspecified whether esophagitis present (K21.9) Active confirmed 628281095 Problem Large bowel obstruction (K56.609) Active confirmed 541149633 PLAN OF TREATMENT Future Test Test Name Order Date COLONOSCOPY 05/20/2022 COLONOSCOPY 03/28/2023 Insurance Providers Payer Name Payer Address Payer Phone Subscriber Number Group Number Insured Name Patient Relationship to Insured Coverage Start Date Coverage End Date [facility] [employer] PROFESSIONAL CLAIMS [address] [place] [address] [id number] JOSIPATRICIO Self - patient is the insured MEDICAL (GENERAL) HISTORY Medical History History ICD Code Kidney stones---[place] [facility] [place] Hypertension Anxiety Denies [place],DM,CVA,Lung disease,renal dise ase GERD-EGD with me in [...]
[2024-09-23 13:14] VITALS: BMI 30.2
--- NOTE | ~2024-09-25 | XR_ITS ---
CLINICAL HISTORY: nephrolithaiss 1 view abdomen Comparison: 12/29/2023 Findings: Nonobstructive bowel gas pattern. Interval decrease in number of calcifications projecting over the right renal bed. On the current exam, there are 1-3 subcentimeter calcifications (measuring up to 7 mm; on the prior study at least 6 up to 2.3 cm calcified renal stones were seen) projecting over the right renal bed. Postsurgical left abdominal changes. Two somewhat capsular densities projecting over the left paravertebral region may be due to ingested contents. Correlate clinically. Mild heterotopic ossification adjacent to the lateral aspect of the right iliac wing. No acute fracture. IMPRESSION: Interval decrease in number of calcifications projecting over the right renal bed. On the current exam, there are 1-3 subcentimeter calcifications/likely renal stones (measuring up to 7 mm; on the prior study at least 6 up to 2.3 cm calcified renal stones were seen) projecting over the right renal bed. This document has been electronically signed by: Wendy Garcia MD on 09/26/2024 12:15:00
--- NOTE | 2024-09-25 07:35 | P.HPSUR_ITS ---
Pre-Procedural Eval Section A - 24 Hr Update-Section A only Date of Service: 09/25/24 The patient is an INPATIENT: No Changes since office visit: No Cold of Flu in the past 2 weeks, No New Medical Problems, No Changes in Medication and No Patient answered all questions The patient has been examined within 24 hours of the surgical procedure. The History & Physical has been completed within 30 days and I have reviewed it.: Yes Section B - Complete if H&P > 30 days Chief Complaint: Calculus of kidney Details of Present Illness: 9mm right side stone Relevant Family History (Specify if Yes): No Relevant Social History: None Present Medications: see Short Stay Collaborative assessment Medical History: No relevant PMH History of Previous Operations: No relevant previous surgery Allergies: Allergies Allergy/AdvReac Type Severity Reaction Status Date / Time Seasonal Allergies Allergy Mild itching Uncoded 08/02/24 15:51 Review of Systems Sugical H&P ROS: Negative: Constitution, Cardiovascular, Respiratory, Neurological, Psychiatric, Hem-Onc, Allergic/Immunologic, Gastrointestinal, Genitourinary, Musculoskeletal, Integumentary, Endocrine and Eyes/Ears/Nose/T hroat Exam Surgical H&P Exam: Normal: HEENT, Normal: Heart, Normal: Lungs, Normal: Extremities, Normal: Abdomen, Normal: Skin and Normal: Neurological Plan Diagnosis/Plan: Unchanged (right ESWL) I have reviewed the history and physical and performed a pertinent physical examination on my patient. No changes have occurred unless specified. Time Spent With Patient Time: Total time managing care of this patient today ____ minutes.
[2024-09-25 08:25] VITALS: BP 126/67; PULSE 50; RESP 14; TEMP 36.6; O2SAT 97; BMI 29.6
[2024-09-25] MEDS: Lactated Ringers 1,000 ML 999 ML IV (08:29)
--- NOTE | 2024-09-25 09:27 | W.PM.OPN ---
Operative Note Operative Note Date of Service: 09/25/24 Narrative: PreOperative Diagnosis: right Renal stones Post Operative Diagnosis: right Renal stones Procedure: right ESWL Surgeon: Dr Hal Hartley Anesthesia: mac/sedation Indications for procedure: The patient understands ESWL may be a staged procedure and subsequent intervention may be required based on imaging after ESWL. Quoted stone clearance rates for a solitary procedure are in the 70-80% range based primarily on stone location. They also understand there is a risk of bleeding to the kidney, infection, damage to adjacent organs, and stone migration following the procedure. - Imaging right 8mm fragment Procedure optimization has been performed with IV acetaminophen given in the holding area and 1 L of lactated Ringer's to be given in order to optimize the fluid-stone interface. 20 mg of IV Lasix will be given in the last 5 minutes of the procedure to optimize stone clearance. Procedure: After informed consent was verified the patient was brought to the operating room and placed in a supine position. Anesthesia was performed per protocol. Safety pause time-out was performed. Imaging was displayed in the room and laterality confirmed. ESWL was performed. The 1st 500 shocks were performed at 60 hertz. These were performed with increasing power. Once maximum power was reached the rate was increased to 180 hertz. A total of 2500 shocks were given. Targeted imaging with ultrasound/fluoroscopy showed stone smudging suggestive of disintegration. The patient tolerated the procedure well and was transferred to the recovery area upon completion. Post procedure imaging will be organized. There was no evidence for flank discoloration.
[2024-09-25 09:30] VITALS: BP 151/73; PULSE 47; RESP 16; TEMP 36.1; O2SAT 97
[2024-09-25 09:45] VITALS: BP 157/79; PULSE 46; RESP 18; TEMP 36.1; O2SAT 99
--- NOTE | 2024-09-25 10:23 | P.CONAN_ITS ---
HPI - Anesthesia Eval Consult details Narrative: lithotripsy PMFSH Active Problems Active Problems: All Active Problems Gastroenteritis (Acute) Status post colon resection (Acute) Superficial postoperative wound infection (Acute) Nephrolithiasis (Acute) Large bowel obstruction (Acute) Essential hypertension (Acute) Aortic stenosis (Acute) Past Medical History Medical History Seasonal allergies History of anemia Hx of panniculitis GERD (gastroesophageal reflux disease) HTN (hypertension) Anxiety History of kidney stones Family History Family History Father Heart attack Mother Hypertension Brother Hypertension Sister Hypertension Sister Hypertension Family history of problems with anesthesia: No Surgical History Surgical History History of ureteroscopy History of colostomy reversal Hx of colectomy (~12/27/22) Hx of colonoscopy Status post panniculectomy Hx of esophagogastroduodenoscopy Hx of gastric bypass History of Problems with Anesthesia: Yes (severe ponv on the car ride home.) Social History Social History Household Members: Family Household Members Other:: mother Housing: House Are you a primary clinical care manager to a significant other at home: No Do you presently have visiting nurse or other home services: No Alcohol intake: current Alcohol intake frequency: holidays/special occasions only Patient Tobacco Use Status: Former Tobacco user Tobacco use type: Cigarette Years Smoked: 20+ off/on Second Hand Smoke Exposure: No Substance Use Type: Marijuana service: No Meds Allergies Allergy/AdvReac Type Severity Reaction Status Date / Time Seasonal Allergies Allergy Mild itching Uncoded 08/02/24 15:51 Home Medications ?Medication ?Instructions ?Recorded ?Confirmed ?Last Taken ?Type atenolol 50 mg tablet 25 mg PO DAILY 01/14/21 09/25/24 09/25/24 History bupropion HCl 150 mg 24 hr tablet, 150 mg PO DAILY 01/14/21 09/25/24 12/27/23 History extended release fluoxetine 20 mg capsule 20 mg PO DAILY 01/14/21 09/25/24 12/27/23 History cyanocobalamin (vitamin B-12) 1,000 mcg PO DAILY 12/26/22 09/25/24 12/27/23 History 1,000 mcg tablet cholecalciferol (vitamin D3) 50 50 mcg PO DAILY 06/07/23 09/25/24 12/27/23 History mcg (2,000 unit) tablet (Vitamin D3) valsartan 80 mg tablet 80 mg PO BEDTIME 12/29/23 09/25/24 12/27/23 History Exam Height,Weight and Vital Signs: Height 5 ft 1 in Weight 71 kg Last Vital Signs Temp 97 F 09/25/24 09:45 Pulse 46 L 09/25/24 09:45 Resp 18 09/25/24 09:45 BP 157/79 H 09/25/24 09:45 Pulse Ox 99 09/25/24 09:45 O2 Del Method Room Air 09/25/24 09:45 Airway Mallampati Class: II TM Dist: >3cm Neck ROM: Full Heart: rrr Lungs: cta Assessment and Plan Assessment Anesthesia Assessment: Anesthesia Plan Discussed and Chart Reviewed Final Anesthetic Review Family History of Problems with Anesthesia: No History of Problems with Anesthesia: Yes (severe ponv on the car ride home.) NPO: Yes ASA Class: III Final Preanesthetic Review: No Changes in Pt Med Stat, Meds/Allgs Chart Reviewed, Consent Obtained/Reviewed and Anes Risks/Benef Reviewed Patient Risk: Intermediate Procedure Risk: Low Anesthetic Plan Anesthetic Plan: MAC: Disposition: Standard PACU
== END 2024-09-25 10:14 | disposition home or self-care (01) ==
PROVIDERS: PCP Physician Assistant Surgical; Visit Provider Urology
PROC: (CPT 50590; principal; 2024-09-25 10:00)
DX: N20.0 Calculus of kidney (principal); Z87.442 Personal history of urinary calculi; J30.2 Other seasonal allergic rhinitis; I10 Essential (primary) hypertension; K21.9 Gastro-esophageal reflux disease without esophagitis; F41.9 Anxiety disorder, unspecified; Z79.899 Other long term (current) drug therapy; Z98.84 Bariatric surgery status; Z98.890 Other specified postprocedural states; Z87.891 Personal history of nicotine dependence
CPT/HCPCS: 50590; 74018; J0131; J1938; J1940; J2003; J2704; J3010

== ENCOUNTER → 2024-09-25 07:38 | Outpatient (BNV) | payer BC, SELFPAY | PROVIDERS: PCP Physician Assistant Surgical; Visit Provider Urology | DX: N20.0 Calculus of kidney (principal) | CPT/HCPCS: 50590 ==

== ENCOUNTER 2024-10-21 15:32 | Outpatient (REF) | payer BC, SELFPAY ==
--- NOTE | ~2024-10-21 | US_ITS ---
EXAMINATION: US KIDNEY BILATERAL HISTORY: N20.0 - Calculus of kidney TECHNIQUE: Real-time grayscale ultrasound imaging of the kidneys was performed and images were reviewed. COMPARISON: Comparison is made with the prior examination dated 07/26/2024. FINDINGS: Right kidney: The right kidney measures 11.1 x 5.1 x 5.1 cm. Renal parenchymal echotexture and thickness are normal. There are no masses. There is a nonobstructing 7 x 6 x 7 mm calculus in the interpolar region. There is no hydronephrosis. Left Kidney: The left kidney measures 10.3 x 5.9 x 6.0 cm. Renal parenchymal echotexture and thickness are normal. There are no masses. There are multiple calculi in the interpolar region measuring 6 x 5 x 6 mm, 4 x 3 x 4 mm, and 4 x 5 x 4 mm. There is no hydronephrosis. US/US renal BI IMPRESSION: Bilateral nephrolithiasis as described. Electronically signed by: Hebert Jimenez MD 10/22/2024 07:00 AM EDT
--- OUTSIDE RECORDS SUMMARY | 2024-10-21 15:36 | XMS_ITS ---
Author Organization [facility] Address [address] [place] [address] Care Team Providers Care Senior Qc Technician Name Role Phone Asiya LEACH, Vianca Primary Care Provider Hebert Landa [phone] REASON FOR VISIT screening Encounters Encounter Location Date Provider Diagnosis [facility] [place] [address] [place], [place] [phone] 05/22/2023 Hebert Marino Encounter for scre ening colonoscopy Z12.11 Assessments Encounter Date Diagnosis (ICD Code) Assessment Notes Treatment Notes Treatment Clinical Notes Section Notes 05/22/2023 Encounter for screening colonoscopy (ICD-10 - Z12.11) Plan Of Treatment No Information Progress Notes * YADIEL PRATERLI ADOB:[birth year] (54 yo F)Acc No.[id number]:05/22/2023 COLON WITH MAC Patient:?YADIEL PRATERLI Antony Provider:?Hebert Marino MD :1970???Age:52 Y???Sex:Female D ate:05/22/2023 Address[address], [place] Pcp:Vianca Braden NP Subjective: * Chief Complaints: * ???1. Screening. * Medical History:? Objective: * Vitals:? Assessment: * Assessment: 1.?Encounter for screening c olonoscopy - Z12.11 (Primary)??? Plan: * Treatment: * Procedure Codes:?82815 COLON ENDOSCOPY, Modifiers: 33 * * The named appointment provid er may or may not be the originator of this progress note, and it is not deemed complete until electronically signed by the appointment provider. Sign off status: Pending * Provider:?Hebert Marino MD Date:? 023 Generated for Jerry zamora/Tu/Jennifer on:?10/21/2024 03:36 PM EDT
--- OUTSIDE RECORDS SUMMARY | 2024-10-21 15:36 | XMS_ITS | Patient Health Record ---
Author Organization [facility] Address [address] [place] [address] Care Team Providers Care Christian Science Nurse Name Role Phone Asiya LEACH, Vianca Primary Care Provider Hebert Landa Unavailable [phone] Allergies No Known Allergies Reason For Referral No Information Medications Medication SIG (Take, Route, Frequency, Duration) Notes [...] O NCE A DAY Active atenolol Active Immunizations Vaccine Route Administration Date Status Comme nts Influenza Unknown 04/12/2022 Administered Influenza Unknown 03/22/2022 Administered Social History Tobacco Use: Social History Observation Description Date Details (start date - stop date) Former Smoker NA - NA Tobacco Use/Smoking Question Answer Notes Patient is [...] Never (0 point) Points 1 Interpretation Negative Section Notes: Nonsmoker; no significant al cohol Nonsmoker; no significant al cohol Problems Problem Type SNOMED Code ICD Code Onset Dates Problem Status W/U Status Risk Notes Problem Colon cancer screening (170327936) Colon cancer screening (Z12.11) Active confirmed Problem Preprocedural examination (192096412724348) Preprocedural examination (Z01.818) Active confirmed Problem 074462065 Abnormal CT scan , colon (R93.3) Active confirmed Problem 784505367 Anemia, unspecif ied type (D64.9) Active confirmed Problem Diverticulosis of colon (064056755) Diverticulosis of colon (K57.30) Active confirmed Problem 787764964 Gastroesophageal reflux disease, unspecified whether esophagitis present (K21.9) Active confirmed Problem 477146396 Large bowel obstruction (K56.609) Active confirmed Plan Of Treatment Future Test Test Name Order Date COLONOSCOPY 05/20/2022 COLONOSCOPY 03/28/2023 Insurance Providers Payer Name Payer Address Payer Phone Subscriber Number Group Number Insured Name Patient Relationship to Insured Coverage Start Date Coverage End Date [facility] [place] [employer] PROFESSIONAL CLAIMS [address] [place] [address] [id number] PATRICIO PRATER Self - patient is the insured Medical (General) History Medical History History ICD Code Kidney stones---seeing [facility] [place] 03/31 23 Hypertension Anxiety Denies [place],DM,CVA,Lung disease,renal dise ase GERD-EGD with me in [...]
--- OUTSIDE RECORDS SUMMARY | 2024-10-21 15:36 | XMS_ITS ---
Author Organization [facility] Address [address] [place] [address] Care Team Providers Care C T Tech Name Role Phone Asiya LEACH, Vianca Primary Care Provider Hebert Landa Unavailable [phone] REASON FOR VISIT discuss another screening colonoscopy Encounters Encounter Location Date Provider Diagnosis [facility] [address] [place] [address] 07/18/2023 Hebert Marino Plan Of Treatment No Information Progress Notes * PATRICIO PRATER ADOB:[birth year] (54 yo F)Acc No.[id number]:07/18/2023 Progress Notes Patient:?PATRICIO PRATER Provider:?Hebert Marino MD :1970???Age:52 Y???Sex:Female D ate:07/18/2023 Address[address], [place] Pcp:Vianca Braden NP Subjective: * Chief Complaints: * ???1. Discuss another screen ing colonoscopy. * Medical History:? Objective: * Vitals:? Assessment: Plan: * Treatment: * * The named appointment provid er may or may not be the originator of this progress note, and it is not deemed complete until electronically signed by the appointment provider. Sign off status: Pending * Provider:?Hebert Marino MD Date:? 024 Generated for Jerry zamora/Tu/eTransmitting on:?10/21/2024 03:35 PM EDT
--- OUTSIDE RECORDS SUMMARY | 2024-10-21 15:36 | XMS_ITS ---
Author Organization [facility] Address [address] [place] [id number] Care Team Providers Care Boiler Operator Helper Name Role Phone Asiya LEACH, Vianca Primary Care Provider Hebert Landa [phone] Encounters Encounter Location Date Provider Diagnosis [facility] [address] [place] [phone] 08/02/2023 Hebert Marino Plan Of Treatment No Information Progress Notes * PATRICIO PRATER ADOB:[birth year] (53 yo F)Acc No.[id number]:08/02/2023 Patient:?PATRICIO PRATER :1970???Age:52 Y???Sex:Female Address:[facility] [place] [address] [place] [address] * true * Date:? Generated for Brianai noah/Tu/eTransmitting on:?10/21/2024 03:35 PM EDT
== END 2024-10-21 15:33 | disposition home or self-care (01) ==
LOC: HO.HMGCX 15:32
PROVIDERS: PCP Physician Assistant Surgical; Visit Provider Urology
DX: N20.0 Calculus of kidney (principal)
CPT/HCPCS: 76775

== ENCOUNTER → 2024-10-21 15:36 | Outpatient (BNV) | payer BC, SELFPAY | PROVIDERS: PCP Physician Assistant Surgical; Visit Provider Radiology Diagnostic Radiology | DX: N20.0 Calculus of kidney (principal) | CPT/HCPCS: 76775 ==

== ENCOUNTER 2024-11-08 14:34 | Outpatient (AMB) | payer BC, SELFPAY ==
--- NOTE | 2024-11-08 14:37 | MHC.OFFVIS ---
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 She is a patient of Dr. Cormier. She is seen for the following urologic conditions - nephrolithiasis Urinary Symptoms Review - Presence of kidney stones: 7 mm on the right; smaller stones on the left - No current passage of stones since previous episodes - Discussion of urinary risk factors and management with hydration Discussion Notes During our discussion, I advised the patient on the reduced stone size, with current management focusing on further evaluation with a 24-hour urine collection to assess the risk of stone formation and the potential introduction of potassium citrate. The importance of proper hydration was highlighted, acknowledging challenges post-gastric bypass surgery. We discussed shipment and handling of urine collection samples, emphasizing that refrigeration is unnecessary. Discussion included gastrointestinal history and how it impacts stone formation. I recommended follow-up scheduling in three months for reassessment with an ultrasound and evaluating the results of the urine collections. Risks and potential side effects of potassium citrate and vitamin B6 supplementation were discussed, along with the rationale for each recommendation. Patient consented to planned management approach and follow-up schedule, and no immediate procedures are required. Nephrolithiasis Background of Zia's pouch May have malabsorption CT scan - 06/03 Large nonobstructing calculus in the right renal pelvis measures 2.0 x 1.4 cm - 08/06 renal ultrasound right 6 mm, left 5 mm Intervention - 09/02 right ESWL, 01/02 ureteroscopy Stone composition - 01/02 calcium oxalate monohydrate PENDING SALE TO [facility] Medical History Seasonal allergies History of anemia Hx of panniculitis GERD (gastroesophageal reflux disease) HTN (hypertension) Anxiety History of kidney stones Surgical History History of ureteroscopy History of colostomy reversal Hx of colectomy (~12/27/22) Hx of colonoscopy Status post panniculectomy Hx of esophagogastroduodenoscopy Hx of gastric bypass Family History Father Heart attack Mother Hypertension Brother Hypertension Sister Hypertension Sister Hypertension Social History Household Members: Family Household Members Other:: mother Housing: House Are you a primary childcare administrator to a significant other at home: No Do you presently have visiting nurse or other home services: No Alcohol intake: current Alcohol intake frequency: holidays/special occasions only Patient Tobacco Use Status: Former Tobacco user Tobacco use type: Cigarette Years Smoked: 20+ off/on Second Hand Smoke Exposure: No Substance Use Type: Marijuana service: No Review of Systems Const Denies chills and Denies fever(s) Card Reports no additional complaints and Denies syncope Resp Denies cough GI Denies abdominal pain and Denies heartburn Reports as per HPI and Denies change in libido Neuro Denies syncope Psych Denies change in libido Endo Denies change in libido Physical Exam Const General: cooperative, healthy appearing, comfortable and no acute distress Orientation/consciousness: patient oriented x3 HEENT Face and sinus: Yes normal facial exam Mouth: moist mucous membranes Neck Neck: Yes normal visual inspection, Yes full ROM and Yes trachea midline Chest Chest palpation & inspection: normal inspection of the chest Resp Effort & Inspection: normal respiratory effort, able to speak in complete sentences and no respiratory distress GI Inspection: Yes normal to inspection Back/Spine/Pelvis Cervical Spine: normal cervical lordosis Thoracic/Lumbar Spine: thoracic and lumbar spine normal to inspection Skin General skin exam: no rashes or lesions noted Neuro General: patient oriented x3, gait normal, tone normal and moves all extremities Extrem General: Yes normal to inspection and Yes capillary refill normal Assessment & Plan Assessment & Plan (1) Nephrolithiasis: Code(s): N20.0 - Calculus of kidney Category: Medical Plan 1. Nephrolithiasis Monitor stone size, 24-hour urine collection scheduled for urorisk. Discussed potassium citrate use post-assessment. 2. Management Of Post-Gastric Bypass Emphasize hydration strategies, nutritional focus post-surgery. 3. Monitoring Post-Bowel Obstruction Observing for GI concerns affecting urological health. Patient Instructions - Collect 24-hour urine sample according to provided instructions. - Maintain adequate hydration, aim for small, frequent sips throughout the day. - Monitor for symptoms of stone passage and unusual gastrointestinal symptoms. - Follow dietary recommendations post-gastric bypass. - Await further instructions post-urine sample analysis. - Schedule follow-up in three months for reassessment via phone. Orders: Orders URORISK Today N20.0 - Calculus of kidney US renal BI 3 Months N20.0 - Calculus of kidney Medications: New pyridoxine (vitamin B6) 50 mg PO DAILY 90 tabs 1RF 90 days N20.0 - Calculus of kidney Coding Level of Care Code Est Pt Level 3 (38402) Complex EM visit Add On G2211 Diagnoses Nephrolithiasis N20.0
== END 2024-11-08 15:00 | disposition home or self-care (01) ==
LOC: HO.HUSH 14:34
PROVIDERS: PCP Physician Assistant Surgical; Visit Provider Urology
DX: N20.0 Calculus of kidney (principal)
CPT/HCPCS: 99024

== ENCOUNTER 2025-01-24 08:21 | Outpatient (REF) | payer BC, SELFPAY ==
--- NOTE | ~2025-01-24 | US_ITS ---
EXAMINATION: US RETROPERITONEAL LIMITED (RENAL ONLY) CLINICAL INFORMATION: Calculus of the kidney.. COMPARISON: October 21, 2024. TECHNIQUE: Real-time ultrasound kidneys using grayscale and color Doppler technique. FINDINGS: RIGHT KIDNEY: 11 x 4 x 5 cm (SAG x AP x TRV). Volume: 113 cc. Normal echotexture. Normal renal cortical thickness. No hydronephrosis. There is a 4 mm hyperechoic abnormality at the corticomedullary junction midportion. LEFT KIDNEY: 10 x 5 x 5 cm (SAG x AP x TRV). Volume: 131 cc. Normal echotexture. Normal renal cortical thickness. No hydronephrosis. There is a 7 mm hyperechoic abnormality in the lower pole and a 7 mm hyperechoic abnormality in the mid portion. US/US renal BI IMPRESSION: Nephrolithiasis without hydronephrosis, both kidneys.. Electronically signed by: Sukumar Oconnor MD 01/24/2025 08:46 AM EDT
--- OUTSIDE RECORDS SUMMARY | 2025-01-24 08:26 | XMS_ITS | Patient Health Record ---
Author Organization [facility] Address [address] [place] [address] Care Team Providers Care Life Advisor Name Role Phone Asiya LEACH, Vianca Primary Care Provider Hebert Landa Unavailable [phone] Allergies No Known Allergies Reason For Referral [...] Status Risk Notes Problem Colon cancer screening (585240252) Colon cancer screening (Z12.11) Active confirmed Problem Preprocedural examination (660300744391304) Preprocedural examination (Z01.818) Active confirmed Problem 937958301 Abnormal CT scan , colon (R93.3) Active confirmed Problem 108646884 Anemia, unspecif ied type (D64.9) Active confirmed Problem Diverticulosis of colon (054227326) Diverticulosis of colon (K57.30) Active confirmed Problem 193285411 Gastroesophageal reflux disease, unspecified whether esophagitis present (K21.9) Active confirmed Problem 202403089 Large bowel obstruction (K56.609) Active confirmed Plan Of Treatment Future Test Test Name Order Date COLONOSCOPY 05/20/2022 COLONOSCOPY 03/28/2023 Insurance Providers Payer Name Payer Address Payer Phone Subscriber Number Group Number Insured Name Patient Relationship to Insured Coverage Start Date Coverage End Date [facility] [employer] [address] [place] [address] [id number] PATRICIO PRATER Self - patient is the insured Medical (General) History Medical History History ICD Code Kidney stones---seeing [facility] Urology 03/31 23 Hypertension Anxiety Denies AK,DM,CVA,Lung disease,renal dise ase GERD-EGD with me in [...]
--- OUTSIDE RECORDS SUMMARY | 2025-01-24 08:26 | XMS_ITS | Clinical Summary ---
Author Organization [facility] Address [address] [place] [address] Phone Care Team Providers Care Network Systems Operator Name Role Phone Best Peters MD Unavailable [phone] Bharat Hassan PA-C Primary Care Provider [phone] Allergies No known active allergies Medications cyanocobalamin, vitamin B-12, 1000 MCG tablet Take 500 mcg by mouth daily. Active cholecalciferol (VITAMIN D3) 2,000 unit capsule Take 2,000 Units by mouth daily. Active acetaminophen (TYLENOL) 325 mg tablet Take 650 mg by mouth nightly at bedtime as needed for mild pain. Active omeprazole (PRILOSEC) 20 MG capsuleIndicatio ns:Gastroesophag eal reflux disease without esophagitis TAKE 1 CAPSULE BY MOUTH EVERY DAY 90 capsule 3 02/07/20 23 Active cetirizine (ZYRTEC) 10 MG tablet Take 10 mg by mouth daily. Active valsartan (DIOVAN) 80 MG tabletIndication s:Essential hypertension TAKE 1 TABLET BY MOUTH NIGHTLY AT BEDTIME. 90 tablet 3 07/10/19 25 Active buPROPion (WELLBUTRIN XL) 150 MG ER 24 hr tabletIndication s:Anxiety TAKE 1 TABLET BY MOUTH EVERY DAY 90 tablet 3 10/02/19 25 Active atenolol (TENORMIN) 50 mg tabletIndication s:Essential hypertension TAKE 1/2 TABLET BY MOUTH DAILY 45 tablet 3 10/02/19 25 Active FLUoxetine (PROZAC) 20 MG capsuleIndicatio ns:Anxiety TAKE 1 CAPSULE BY MOUTH EVERY DAY 90 capsule 3 01/02/20 25 Active FLUoxetine (PROZAC) 20 MG capsuleIndicatio ns:Anxiety Take 1 capsule (20 mg total) by mouth daily. 90 capsule 3 10/03/19 24 025 Discontinued Active Problems Problem Noted Date Diagnosed Date Cold intolerance 06/20/2024 Assessment & Plan (06/20/2024 1:34 PM EST): Patient with a history of anemia in the past during her heavy menses however she has been noticing cold intolerance. Her TSH is well within normal limits. We will obtain a CBC and iron studies. Annual physical exam 06/20/2024 Assessment & Plan (06/20/2024 1:35 PM EST): Labs reviewed with patient during physical exam. Mammogram order has been placed and patient will call to schedule. MICROFILM CLERK referral placed for patient to call and schedule. Colonoscopy she is not due for 10 years with her last 1 being in May Follow-up annual physical 1 year Flu vaccine need 03/07/2024 Assessment & Plan (03/07/2024 2:51 PM EDT): Flu vaccine Encounter for screening mamm ogram for malignant neoplasm of breast 03/07/2024 Assessment & Plan (03/07/2024 2:52 PM EDT): Mammogram-annual Murmur, cardiac 01/04/2023 Assessment & Plan (06/20/2024 1:34 PM EST): Patient follows with cardiology and last seen at [facility] in the fall 2023. Assessment & Plan (03/07/2024 2:50 PM EDT): Follows with [facility] cardiology and has an appointment coming up this fall. Assessment & Plan (01/04/2023 2:58 PM EDT): Murmur on exam. Pt states this is KNOWN and she is followed by cardiology. I do not see notes- will ask MA to reach out to the pt and ask who is seeing her and request last notes. She denies any SOB/ dizziness Anxiety 05/12/2017 Assessment & Plan (06/20/2024 1:36 PM EST): With depression. Patient is well-controlled on Wellbutrin XL 150 mg daily and Prozac 20 mg daily. Patient does not follow with a therapist. She states that her mood has been stable. Assessment & Plan (03/07/2024 2:51 PM EDT): With depression. Well-controlled on bupropion 150 mg p.o. daily and Prozac 20 mg p.o. daily Essential hypertension 05/12/2017 Assessment & Plan (06/20/2024 1:34 PM EST): Well-controlled on atenolol 25 mg p.o. daily and valsartan 80 mg p.o. nightly patient follows with cardiology at [facility]. She was last seen in the follow-up 2023. Assessment & Plan (03/07/2024 2:50 PM EDT): Well-controlled on atenolol 25 mg p.o. daily and valsartan 80 mg p.o. nightly Gastroesophageal reflux disease without esophagi tis 05/12/2017 Assessment & Plan (06/20/2024 1:34 PM EST): Well-controlled on Prilosec 20 mg p.o. daily Assessment & Plan (03/07/2024 2:51 PM EDT): Continue Prilosec 20 mg p.o. daily Seasonal allergies 11/26/2012 Assessment & Plan (03/07/2024 2:51 PM EDT): Continue Zyrtec 10 mg p.o. daily Resolved Problems Problem Noted Date Diagnosed Date Resolved Date Vitamin D deficiency 09/23/2023 024 History of colostomy reversal 06/22/2023 03/07/2024 Diverticulosis of colon 01/25/2023 01/25/202302/11 Difficulty concentrating 01/19/2022 Abdominal pannus 08/11/2021 03/07/2024 Idiopathic gout of right foot 03/04/2020 03/07/2024 History of bariatric surgery 09/24/2019 03/07/2024 Impaired fasting blood sugar 05/12/2017 05/12/2017 Mixed hyperlipidemia 05/12/2017 024 Seborrheic dermatitis 05/12/20172023 Encounters Date Type Department Care Team Description 01/01/2025 Refill [facility] [address] [place] [address] [place] [address] Ashley Burton, BRIGETTE Medication Refill from Last 3 Months Immunizations Immunization Administration Dates Next Due COVID-19 (Pre-04/03) Pfizer Vaccine, mRNA, PF 09/19/2020,08/29/2020 INFLUENZA, SPLIT VIRUS, TRIVALENT PF 03/07/2024, 03/01/2016,03/13/2015 INFLUENZA, SPLIT VIRUS, TRIV ALENT W/ PRESERVATIVE IM 04/12/2022,03/16/2014 Influenza Quadrivalent MDCK Preservative Free IM 04/14/2023,05/06/2022 Influenza Quadrivalent Prese rvative Free IM 03/20/2021,03/04/2020,03/08/2019,2017 Influenza trivalent preserva tive free intradermal 03/06/2013 Influenza, Unspecified Formulation 04/08/2009 Td (adult) 5 Lf Tetanus Toxo id, PF, Adsorbed 01/18/2022 Tdap 02/17/2012 Zoster recombinant 03/08/2024,04/14/2023 Family History Medical History Relation Comments Hypertension Brother CV disease Father Stroke Father Stomach cancer Maternal Uncle Hypertension Mother Osteoporosis Mother Hypertension Sister 1 Relation Status Comments Brother Alive Father (Age 50) SD/smoker/drin ker Maternal Uncle Mother Alive Sister 1 Alive Sister 2 Alive Social History Tobacco Use Types Packs/Day Years Used Date Smoking Tobacco: Former Cigarettes 1 10 0 06/12/1991 - 06/12/2001 Smokeless Tobacco: Never Tobacco Cessation:Counseling Given: Not Answered Alcohol Use Standard Drinks/Week Comments Yes 0 (1 standard drink = 0.6 oz pur e alcohol) 1-2 drinks, 2-4 x month Child or Family Care Answer Date Record ed Do you have problems with on e of the following making it difficult for you to work, study, or receive health care? No 06/19/2024 Education Answer Date Recorded Are you interested in help w ith more adult education (for example, completing high school, GED, job training, learning the [place] language, technical skills, or developing parenting skills)? No 06/19/2024 Are you concerned about learning? Not on file 06/19/2024 No 06/19/2024 Yes 06/19/2024 Food Answer Date Recorded Within the past 6 months we worried whether our food would run out before we got money to buy more. Never True 06/19/2024 Within the past 6 months the food we bought just didn't last and we didn't have enough money to get more. Never True Residential Stability Answer Date Recor ded What is your housing situation today? I have joanna sing 06/19/2024 How many times have you move d in the past 12 months? Zero (I did not move) 06/19/2024 Paying for Meds Answer Date Recorded Do you have trouble paying for medicines? No 06/19/2024 Paying Utility Bills Answer Date Record ed Do you have trouble paying your heating or elect ricity bill? No 06/19/2024 Transportation Answer Date Recorded Has the lack of transportati on kept you from medical appointments or from getting medications? No 06/19/2024 Unemployment Answer Date Recorded Are you currently unemployed or working on a part-time or temporary basis, and looking for work? No 01/18/2022 Digital Access Answer Date Recorded No 06/19/2024 Yes 06/19/2024 Do you have reliable internet access at home? Ye s 06/19/2024 Do you have a device (e.g., phone, tablet, computer) with a working camera? Yes 06/19/2024 Intimate Partner Violence Answer Date R ecorded Denied Basic Needs Not on file 06/19/2024 In the past 12 months have y ou been in a relationship with a person who hurts, threatens, or tries to control you? No 06/19/2024 Worried food would run out Not on file 06/19 In the past 12 months have y ou been in a relationship with a person who hurts, threatens, or tries to control you? No 06/19/2024 Comments No Sex and Gender Information Value Date Recorded Sex Assigned at Not on file Legal Sex Female 9:36 PM EDT Gender Identity Not on file Sexual Orientation Not on file Last Filed Vital Signs Vital Sign Reading Time Taken Comments Blood Pressure 108/62 06/20/2024 12:55 PM EST Pulse 53 06/20/2024 12:55 PM EST Temperature 36.8 C (98.2 F) 11/13/2023 4:39 PM EDT Respiratory Rate 19 06/20/2024 12:55 PM EST Oxygen Saturation 98% 06/20/2024 12:55 PM EST Inhaled Oxygen Concentration - - Weight 69.6 kg (153 lb 6.4 oz) 06/20/2024 12:55 PM EST Height 153.7 cm (5' 0.5 ) 06/20/2024 12:55 PM ES T Body Mass Index 29.47 06/20/2024 12:55 PM EST Plan of Treatment Upcoming Encounters Date Type Department Care Team (Late st Contact Info) Description 06/23/2025 2:40 PM EST Office Visit [facility] Internal Medicine [address] [place] [address] Bharat Hassan PA-C [address] [place] [address] [email or web address] Health Maintenance Due Date Last Done Comments FIT TEST 2014 FOBT 2014 SIGMOIDOSCOPY 2014 VIRTUAL COLONOSCOPY 2014 PNEUMOCOCCAL VACCINES (50+ years) (1 of 1 - PCV) 2019 PAP SMEAR 06/23/2020 06/23/2017, 07/13/2012 BLOOD PRESSURE 12/18/2024 06/20/2024 CREATININE LEVEL 06/17/2025 06/17/2024, 05/2023, 12/26/2022, Additional history exists POTASSIUM LEVEL 06/17/2025 06/17/2024, 01/10, 12/26/2022, Additional history exists DEPRESSION SCREENING 06/19/2025 06/19/2024 COLOGUARD 08/25/2025 08/25/2022 MAMMOGRAM 03/07/2026 03/07/2024, 08/0 02/2022, 11/11/2020, Additional history exists SCREENING FOR DIABETES 06/17/2027 06/17/2024 LIPID PANEL 06/17/2029 06/17/2024, 07/2 11/2021, 04/27/2021, Additional history exists Adult Td,Tdap Booster 01/19/2032 01/18/2022, 012 COLONOSCOPY 07/25/2032 07/25/2022 COLORECTAL CANCER SCREENING 07/25/2032 HIV ONE-TIME SCREENING (18-65 YEARS) Completed 03/08/2019 HEPATITIS C SCREENING Completed 04/27/2021 COVID-19 VACCINE Completed 03/08/2024, , 04/30/2021, Additional history exists ZOSTER VACCINES Completed 03/08/2024, 04/14/2023 SMOKING STATUS SCREENING (Once After 26 Yrs) Completed 06/20/2024 HEPATITIS A VACCINES Aged Out No long er eligible based on patient's age to complete this topic HIB VACCINES Aged Out No longer eligi ble based on patient's age to complete this topic MENINGOCOCCAL VACCINES (ACWY) Aged Out No longer eligible based on patient's age to complete this topic MENINGOCOCCAL VACCINES (B) Aged Out N o longer eligible based on patient's age to complete this topic Medical Devices Not on file Procedures Procedure Name Priority Date/Time Associated Diagnosis Comments LIPID PANEL Routine 06/17/2024 8:04 AM EST Annual physical exam COMPREHENSIVE METABOLIC PANEL Routine 06/17/2024 8:04 AM EST Annual physical exam BI MAMMOGRAM SCREENING (BILATERAL) Routine 03/07/2024 8:12 AM EDT Encounter for screening mammogram for malignant neoplasm of breast HM COLONOSCOPY FOR RESULT ENTRY ONLY Routine 07/25/2022 HEPATITIS C ANTIBODY, QUALITATIVE Routine 04/27/2021 3:09 PM EST Need for hepatitis C screening test HM PAP SMEAR FOR RESULT ENTRY ONLY Routine 06/23/2017 from Last 3 Months or Most Recently Relevant to Health Maintenance Results * (ABNORMAL) Comprehensive metabolic panel (06/17/2024 8:04 AM EST) SODIUM 142 133 - 146 mmol/L [facility] POTASSIUM 4.1 3.3 - 5.1 mmol/L [facility] CHLORIDE 105 96 - 108 mmol/L [facility] CO2 26 21 - 35 mmol/L [facility] BUN 28(H) 6 - 19 mg/dL [facility] CREATININE 1.00 0.5 - 1.5 mg/dL [facility] GLUCOSE 88 70 - 99 mg/dL [facility] ALBUMIN 4.1 3.9 - 4.8 g/dL [facility] TOTAL PROTEIN 7.1 6.5 - 8.0 g/dL [facility] CALCIUM 9.3 8.4 - 10.3 mg/dL [facility] ALKALINE PHOSPHATASE 100 39 - 117 U/L [facility] TOTAL BILIRUBIN 0.4 0.0 - 1.2 mg/dL [facility] AST 12 0 - 37 U/L [facility] ALT 7 0 - 40 U/L [facility] GLOBULIN 3.0 1 - 4.8 g/dL [facility] EGFR 67 >59 mL/min/1.7 3m2 [facility] Comment:Estimated glomerular filtration rate calculated using the CKD-EPI refit equation. ANION GAP 15 10 - 20 mmol/L [facility] Blood 06/17/2024 8:04 AM EST 06/17/2024 8:08 AM EST us Bharat Hassan PA-C LAB BLOOD ORDERABLES Final Re sult [facility] [address] [place] [address] * (ABNORMAL) Lipid panel (06/17/2024 8:04 AM EST) HDL 77 mg/dL [facility] Comment: Interpretation <40 mg/dL: Low HDL cholesterol (major risk factor for CHD) Greater than or equal to 60 mg/dL: High HDL cholesterol ( negative risk factor for CHD) HDL - cholesterol is affected by a number of factors, e.g. smoking, excerise, hormones, sex and age. CHOLESTEROL 208 0 - 240 mg/dL [facility] TRIGLYCERIDES 72 30 - 160 mg/dL [facility] LDL 117 50 - 129 mg/dL [facility] Comment: LDL levels in terms of risk for coronary heart disease: <100 mg/dL: Optimal 100-129 mg/dL: Near or above optimal 130-159 mg/dL: Borderline high 160-189 mg/dL: High >190 mg/dL: Very High CARDIAC RISK RATIO 2.7(L) 3.3 - 4.4 C [facility] Blood 06/17/2024 8:04 AM EST 06/17/2024 8:08 AM EST us Bharat Hassan PA-C LAB BLOOD ORDERABLES Final Re sult Performing Organization Address City/[facility]/ZIP Co de Phone Number [address] [address] * HM COLONOSCOPY FOR RESULT ENTRY ONLY (07/25/2022) Vianca Braden NP HEALTH MAINTENANCE Edited Resul t - Final * Hepatitis C antibody, qualitative (04/27/2021 3:09 PM EST) HCV NON-REACTIV E NON-REACTI VE [facility] Blood 04/27/2021 3:09 PM EST 04/27/2021 3:13 PM EST Vianca Braden NP LAB BLOOD ORDERABLES Final Resu lt [address] [address] * HM MAMMOGRAPHY FOR RESULT ENTRY ONLY (11/11/2020) us Chel Jeffries MD HEALTH MAINTENANCE Edited Result - Final * HM PAP SMEAR FOR RESULT ENTRY ONLY (06/23/2017) HM Pap smear NILM, HPV negative us Historical Provider MD HEALTH MAINTENANCE Final Result from Last 3 Months or Most Recently Relevant to Health Maintenance Insurance [place] [address] [place] [address] [place] [address] [place] [address] [place] [address] [place] [address] Advance Directives For more information, please contact: [phone] (9AM - 5PM [facility], Monday-Monday) * Full Code (Latest Code Status on File) Date Activated Date Inactivated Comments 08/11/2021 10:15 AM Question Answer Comments Code Status Confirmed With: Other (specify below ) Code Discussion Comments: periop Care Teams Network Systems Operator Relationship Specialty Start Date End Date Bharat Hassan PA-C [address] [place] [address] PCP - General Physician Crosscutter [employer] 01/05/24 Best Peters MD [address] [place] [address] Insurance Assigned Provider 09/16/23 Additional Source Comments The information contained in this document represents components of the legal health record. It is not the complete legal health record.[facility]
== END 2025-01-24 08:22 | disposition home or self-care (01) ==
LOC: HO.HMGCX 08:21
PROVIDERS: PCP Physician Assistant Surgical; Visit Provider Urology
DX: N20.0 Calculus of kidney (principal)
CPT/HCPCS: 76775

== ENCOUNTER → 2025-01-24 08:23 | Outpatient (BNV) | payer BC, SELFPAY | PROVIDERS: PCP Physician Assistant Surgical; Visit Provider Radiology Diagnostic Radiology | DX: N20.0 Calculus of kidney (principal) | CPT/HCPCS: 76775 ==

== ENCOUNTER 2025-02-11 14:57 | Outpatient (AMB) | payer BC, SELFPAY ==
--- NOTE | 2025-02-11 14:58 | MHC.OFFVIS ---
Intake Visit Reasons: 3m/US Intake Note: Patient is present 3 MO follow up for kidney stones uRology Medication:VITAMIN B12,VIT B-6 Antibiotic Allergy:NONE Blood Thinner:NONE Outsewer Required: No Accompanied by: Self / Same As Patient Allergies Seasonal Allergies Allergy (Mild, Uncoded 11/08/24 14:38) itching HPI Comments Details: Nicole is a pleasant female. She is a patient of Dr. Cormier. She is seen for the following urologic conditions - nephrolithiasis - calcium oxalate Telemedicine Evaluation 15 min Consultation [employer] Devin Video Urinary Symptoms Review - Presence of kidney stones: 7 mm left side - 24 hour urine shows low urinary citrate, low calcium, low salt, adequate volume - discussed lemon water therapy - six-month follow-up repeat imaging Nephrolithiasis Background of Zia's pouch May have malabsorption CT scan - 06/03 Large nonobstructing calculus in the right renal pelvis measures 2.0 x 1.4 cm - 08/06 renal ultrasound right 6 mm, left 5 mm Intervention - 09/02 right ESWL, 01/02 ureteroscopy, 10/04 r ESWL Stone composition - 01/02 calcium oxalate monohydrate [facility] Medical History Seasonal allergies History of anemia Hx of panniculitis GERD (gastroesophageal reflux disease) HTN (hypertension) Anxiety History of kidney stones Surgical History History of ureteroscopy History of colostomy reversal Hx of colectomy (~12/27/22) Hx of colonoscopy Status post panniculectomy Hx of esophagogastroduodenoscopy Hx of gastric bypass Family History Father Heart attack Mother Hypertension Brother Hypertension Sister Hypertension Sister Hypertension Social History Household Members: Family Household Members Other:: mother Housing: House Are you a primary healthcare customer service to a significant other at home: No Do you presently have visiting nurse or other home services: No Alcohol intake: current Alcohol intake frequency: holidays/special occasions only Patient Tobacco Use Status: Former Tobacco user Tobacco use type: Cigarette Years Smoked: 20+ off/on Second Hand Smoke Exposure: No Substance Use Type: Marijuana service: No Review of Systems Const All systems reviewed & are unremarkable except as noted in HPI and below Reports no additional complaints Resp Reports no additional complaints GI Reports no additional complaints Reports as per HPI Musc Reports no additional complaints Physical Exam Telemedicine evaluation Appropriate responses Regular breathing rate and rhythm HEENT Head: Yes normal to inspection Ears: hearing grossly normal bilaterally Eyes General: appearance normal, both eyes and all related structures Neck Neck: Yes normal visual inspection Chest Chest palpation & inspection: normal inspection of the chest Resp Effort & Inspection: normal respiratory effort and able to speak in complete sentences Telehealth Telehealth Telehealth Platform: [employer] Location of provider rendering services: practice address Location of patient: address on file Patient Identification confirmed using: Name, : Yes Telehealth method: video Patient verbally consented to treatment: Yes Patient verbally consented to billing insurance company: Yes Patient informed of any privacy concerns related to visit: Yes Minutes spent on Phone/Video with Pt.: 15 Assessment & Plan Assessment & Plan (1) Nephrolithiasis: Code(s): N20.0 - Calculus of kidney Category: Medical Plan Six-month follow-up imaging Orders: Orders US renal BI 6 Months N20.0 - Calculus of kidney Patient Instructions: This note is constructed using voice recognition software. While every effort has been made to ensure accuracy patternmaker plaster and plastic errors may have been included. Imaging studies, laboratory and physical exam results were discussed and reviewed in detail. No major barriers to patient understanding were identified. An opportunity to ask questions regarding the treatment plan was provided. All questions were answered. The patient expressed understanding and agreement with the above treatment plan. The patient is aware they should contact our office by phone for worsening of their current condition or the appearance of new urologic symptoms. Compliance is encouraged with any medications and followup testing that is ordered. It is a privilege to participate in the urologic care of your patient. If you have any questions or concerns regarding treatment for the above conditions, or other urologic issues, please do not hesitate to contact me. The office telephone contact is [phone]. Sincerely, Dr Hal Hartley MD, JONATHAN [facility] - Urology Compassionate Specialist Care for the Genitourinary System Coding Level of Care Code Tele Est Pt Level 3 (31569) Complex EM visit Add On G2211 Diagnoses Nephrolithiasis N20.0
--- OUTSIDE RECORDS SUMMARY | 2025-02-11 16:10 | XMS_ITS | Encounter Summary ---
Author Organization [facility] Address [address] [place] [address] Phone Care Team Providers Care Cobol Application Developer Name Role Phone Best Peters MD Unavailable [phone] Bharat Hassan PA-C Primary Care Provider [phone] Encounter Details Date Type Department Care Team (Latest Contact Info) Description 02/04/2025 Transcribe Orders [facility] Laboratory [address] [address] Maximiliano Guzman MD, MPH [address] [place] [address] [address] [place] [address] [email or web address] Pre-employment health screening examination (Primary Dx) Social History Tobacco Use Types Packs/Day Years Used Date Smoking Tobacco: Former Cigarettes 1 10 0 06/12/1991 - 06/12/2001 Smokeless Tobacco: Never Alcohol Use Standard Drinks/Week Comments Yes 0 [...] high school, GED, job training, learning the Tunisian language, technical skills, or developing parenting skills)? [...] on file Sexual Orientation Not on file documented as of this encounter Plan of Treatment Upcoming Encounters Date Type Department Care Team (Late st Contact Info) Description 06/23/2025 2:40 PM EST Office Visit [facility] Internal Medicine [address] [place] [address] Bharat Hsasan PA-C [address] [place] [address] [email or web address] documented as of this encounter Results * Mumps antibody, IgG (02/04/2025 8:49 AM EDT) MUMPS IGG AB Positive Positive [facility] Blood (Blood) 02/04/2025 8:4 9 AM EDT 02/04/2025 9:01 AM EDT us Maximiliano Guzman MD, MPH NON CULTURE MICROBIOLOGY Final Result Performing Organization Address [facility]/ZIP Co de Phone Number [address] [address] * Rubella antibody, IgG (02/04/2025 8:49 AM EDT) Rubella Ab, IgG Positive Positive [facility] Blood (Blood) 02/04/2025 8:4 9 AM EDT 02/04/2025 9:01 AM EDT Maximiliano Guzman MD, MPH NON CULTURE MICROBIOLOGY Final Result Performing Organization Address City/[facility]/ZIP Co de Phone Number [address] [address] * Measles antibody, IgG (02/04/2025 8:49 AM EDT) RUBEOLA IGG Positive Positive [facility] Blood (Blood) 02/04/2025 8:4 9 AM EDT 02/04/2025 9:01 AM EDT us Maximiliano Guzman MD, MPH NON CULTURE MICROBIOLOGY Final Result Performing Organization Address [facility]/ZIP Co de Phone Number [address] [address] * Quantiferon-TB Gold (02/04/2025 8:49 AM EDT) [facility] Signature QuantiFERON-TB Gold Negative Negative [facility] [address] Comment: (NOTE) No interferon-gamma response to M. tuberculosis antigens was detected. Latent infection with M. tuberculosis is unlikely. A single negative result does not exclude infection with M. tuberculosis. In patients at high risk for M.tuberculosis infection, a second test should be considered in accordance with the 2017 ATS/IDSA/CDC Clinical Practice Guidelines for Diagnosis of Tuberculosis in Adults and Children [Lewinsohn DM et. al. Clin. Infect. Dis. 2017;64(2):111-115]. The reference range for the 'TB1 Ag minus Nil Result' and 'TB2 Ag minus Nil Result' is an Interferon-gamma level <0.35 IU/mL. TB1 Ag minus Nil 0.00 IU/mL [facility] [place] TB2 Ag minus Nil 0.00 IU/mL [facility] [place] Mitogen minus Nil 9.30 IU/mL [facility]/PATH [place] Nil Result 0.01 IU/mL [facility] [place] Blood 02/04/2025 8:49 AM EDT 02/04/2025 9:01 AM EDT us Maximiliano Guzman MD, MPH LAB BLOOD ORDERABLES Fin al Result [facility]/PATH [place] [address] [place] [address] documented in this encounter Visit Diagnoses Diagnosis Pre-employment health screening examination- Primary Health examination of defined subpopulation documented in this encounter Additional Health Concerns Assessment Noted Time PHQ-2 Depression Total Score: 1 06/19/19 25 10:12 PM EST documented as of this encounter Care Teams Cobol Application Developer Relationship Specialty Start Date End Date Bharat Hassan PA-C [address] [place] [address] PCP - General Physician Lead Ramp Agent 01/05/24 Best Peters MD [address] [place] [phone] [email or web address] Insurance Assigned Provider 09/16/23 documented as of this encounter Additional Source Comments The information contained in this document represents components of the legal health record. It is not the complete legal health record.[facility]
--- OUTSIDE RECORDS SUMMARY | 2025-02-11 16:10 | XMS_ITS | Encounter Summary ---
Author Organization [facility] Address [address] [place] [address] Phone Care Team Providers Care Patent Agent Name Role Phone Best Peters MD Unavailable [phone] Bharat Hassan PA-C Primary Care Provider [phone] Encounter Details Date Type Department Care Team (Late st Contact Info) Description 01/24/2025 Orders Only [facility] Internal Medicine [address] [place] [address] Provider, MD Chel [facility] [place] [address] Social History Tobacco Use Types Packs/Day Years [...] high school, GED, job training, learning the Portuguese language, technical skills, or developing parenting skills)? [...] your housing situation today? I have joanna gibson 06/19/2024 How many times have you move [...] Description 06/23/2025 2:40 PM EST Office Visit [facility] Internal Medicine [address] [facility] [address] Bharat Hassan PA-C [address] [place] [address] [email or web address] documented as of this encounter Procedures Procedure Name Priority Date/Time Associated Diagnosis Comments OUTSIDE US IMAGING REPORT ONLY Routine 01/24/2025 1:53 PM EDT documented in this encounter Results * Outside US Imaging??Report Only (01/24/2025 1:53 PM EDT) us Historical Provider MD GARCIA US OP Final Res ult documented in this encounter Visit Diagnoses Not on filedocumented in this encounter Additional Health Concerns Assessment Noted Time PHQ-2 Depression Total Score: 1 06/19/19 25 10:12 PM EST documented as of this encounter Care Teams Patent Agent Relationship Specialty Start Date End Date Bharat Hassan PA-C [address] [place] [address] PCP - General Physician Documentation Engineer 01/05/24 Best Peters MD [address] [place] [address] Insurance Assigned Provider 09/16/23 documented as of this encounter Additional Source Comments The information contained in this document represents components of the legal health record. It is not the complete legal health record.[facility]
--- OUTSIDE RECORDS SUMMARY | 2025-02-11 16:11 | XMS_ITS | Encounter Summary ---
Author Organization [facility] Address [address] [place] [address] Phone Care Team Providers Care Jewelry Internship Name Role Phone Best Peters MD Unavailable [phone] Bharat Hassan PA-C Primary Care Provider [phone] Encounter Details Date Type Department Care Team (Late st Contact Info) Description 01/27/2025 Orders Only [facility] Internal Medicine [address] [place] [address] Provider, MD Chel [facility] [place] [address] Social History Tobacco Use Types Packs/Day Years [...] high school, GED, job training, learning the [place] language, technical skills, or developing parenting skills)? [...] 2:40 PM EST Office Visit [facility] Internal Medicine 40 [facility] [address] Bharat Hassan PA-C [address] [place] [address] documented as of this encounter Procedures Procedure Name Priority Date/Time Associated Diagnosis Comments OUTSIDE IMAGING Routine 01/24/2025 11:02 AM EDT documented in this encounter Results * Outside Imaging Report Only (01/24/2025 11:02 AM EDT) us Historical Provider MD GARCIA XR CHEST Final Res ult documented in this encounter Visit Diagnoses Not on filedocumented in this encounter Additional Health Concerns Assessment Noted Time PHQ-2 Depression Total Score: 1 06/19/19 25 10:12 PM EST documented as of this encounter Care Teams Jewelry Internship Relationship Specialty Start Date End Date Bharat Hassan PA-C [address] [place] [address] [email or web address] PCP - General Physician [employer] Consultant 01/05/24 Best Peters MD [address] [place] [address] Insurance Assigned Provider 09/16/23 documented as of this encounter Additional Source Comments The information contained in this document represents components of the legal health record. It is not the complete legal health record.[facility]
--- OUTSIDE RECORDS SUMMARY | 2025-02-11 16:11 | XMS_ITS | Clinical Summary ---
Author Organization [facility] Address [address] [place] [address] Phone Care Team Providers Care Customer Sales Consultant Name Role Phone Best Peters MD Unavailable [phone] Bharat Hassan PA-C Primary Care Provider [phone] Allergies No known active allergies Medications cyanocobalamin, vitamin B-12, 1000 MCG tablet Take 500 mcg by mouth daily. Active cholecalciferol (VITAMIN D3) 2,000 unit capsule Take 2,000 Units by mouth daily. Active acetaminophen (TYLENOL) 325 mg tablet Take 650 mg by mouth nightly at bedtime as needed for mild pain. Active omeprazole (PRILOSEC) 20 MG capsuleIndication s:Gastroesophagea l reflux disease without esophagitis TAKE 1 CAPSULE BY MOUTH EVERY DAY 90 capsule 3 3 Active cetirizine (ZYRTEC) 10 MG tablet Take 10 mg by mouth daily. Active valsartan (DIOVAN) 80 MG tabletIndications :Essential hypertension TAKE 1 TABLET BY MOUTH NIGHTLY AT BEDTIME. 90 tablet 3 5 Active buPROPion (WELLBUTRIN XL) 150 MG ER 24 hr tabletIndications :Anxiety TAKE 1 TABLET BY MOUTH EVERY DAY 90 tablet 3 5 Active atenolol (TENORMIN) 50 mg tabletIndications :Essential hypertension TAKE 1/2 TABLET BY MOUTH DAILY 45 tablet 3 5 Active FLUoxetine (PROZAC) 20 MG capsuleIndication s:Anxiety TAKE 1 CAPSULE BY MOUTH EVERY DAY 90 capsule 3 5 Active Active Problems Problem Noted Date Diagnosed Date [...] placed and patient will call to schedule. CHUCKING LATHE OPERATOR referral placed for patient to call and [...] follows with cardiology and last seen at [facility] in the fall 2023. Assessment & Plan (03/07/2024 2:50 PM EDT): Follows with [facility] cardiology and has an appointment coming [...] p.o. nightly patient follows with cardiology at [facility]. She was last seen in the [...] Encounters Date Type Department Care Team Description 02/04/2025 8:49 AM EDT - 02/04/2025 11:59 PM EDT Hospital Encounter [facility] Laboratory [address] [address] Maximiliano Guzman MD, MPH Discharge Disposition: Home or Self Care 02/04/2025 Transcribe Orders [facility] Laboratory [address] [address] Maximiliano Guzman MD, MPH Pre-employment health screening examination (Primary Dx) 01/31/2025 9:45 AM EDT - 01/31/2025 11:59 PM EDT Hospital Encounter [facility] Laboratory [address] [place] [address] Maximiliano Guzman MD, MPH Discharge Disposition: Home or Self Care 01/27/2025 Orders Only [facility] Internal Medicine [address] [place] [address] Chel Jeffries MD 01/24/2025 Orders Only [facility] Internal Medicine [address] [place] [address] Chel Jeffries MD 01/01/2025 Refill [facility] Medical [address] [place] [address] Ashley Burton, BRIGETTE Medication Refill from Last [...] Status Comments Brother Alive Father (Age 50) [place]/smoker/drin ker Maternal Uncle Mother Alive Sister 1 [...] high school, GED, job training, learning the Croatian language, technical skills, or developing parenting skills)? [...] 2:40 PM EST Office Visit [facility] Internal Medicine [address] [place] [address] Bharat Hassan PA-C [address] [place] [address] [email or web address] Maintenance Due Date Last Done Comments FIT TEST 2014 FOBT 2014 SIGMOIDOSCOPY 2014 VIRTUAL COLONOSCOPY 2014 PNEUMOCOCCAL VACCINES (50+ years) (1 of 1 - PCV) 2019 PAP SMEAR 06/23/2020 06/23/2017, 07/13/2012 BLOOD PRESSURE 12/18/2024 06/20/2024 INFLUENZA VACCINE (#1) 2025 , 04/14/2023, 05/06/2022, Additional history exists CREATININE LEVEL 06/17/2025 06/17/2024, 05/2023, 12/26/2022, Additional history exists POTASSIUM LEVEL 06/17/2025 06/17/2024, 081 07/2022, 12/26/2022, Additional history exists DEPRESSION SCREENING 06/19/2025 [...] Procedure Name Priority Date/Time Associated Diagnosis Comments HC TB CELL MEDIATED ANTIGN RESPNSE GAMMA INTERFERON Routine 02/04/2025 8:49 AM EDT Pre-employment health screening examination MEASLES ANTIBODY, IGG Routine 02/04/2025 8:49 AM EDT Pre-employment health screening examination RUBELLA ANTIBODY, IGG Routine 02/04/2025 8:49 AM EDT Pre-employment health screening examination MUMPS ANTIBODY, IGG Routine 02/04/2025 8 :49 AM EDT Pre-employment health screening examination OUTSIDE US IMAGING REPORT ONLY Routine 01/24/2025 1:53 PM EDT OUTSIDE IMAGING Routine 01/24/2025 11:02 AM EDT LIPID PANEL Routine 06/17/2024 8:04 AM EST Annual physical exam COMPREHENSIVE METABOLIC PANEL Routine 06/17/2024 8:04 AM EST Annual physical exam BI MAMMOGRAM SCREENING (BILATERAL) Routine 03/07/2024 8:12 AM EDT Encounter for screening mammogram for malignant neoplasm of breast COLONOSCOPY FOR RESULT ENTRY ONLY Routine 07/25/2022 HEPATITIS C ANTIBODY, QUALITATIVE Routine 04/27/2021 3:09 PM EST Need for hepatitis C screening test HM PAP SMEAR FOR RESULT ENTRY ONLY Routine 06/23/2017 from Last 3 Months or Most Recently Relevant to Health Maintenance Results * Quantiferon-TB Gold (02/04/2025 8:49 AM EDT) QuantiFERON-TB Gold Negative Negative [facility] [address] Comment: (NOTE) No interferon-gamma response to M. tuberculosis antigens was detected. Latent infection with M. tuberculosis is unlikely. A single negative result does not exclude infection with M. tuberculosis. In patients at high risk for M.tuberculosis infection, a second test should be considered in accordance with the 2017 ATS/IDSA/CDC Clinical Practice Guidelines for Diagnosis of Tuberculosis in Adults and Children [Jared ACOSTA et. al. Clin. Infect. Dis. 2017;64(2):111-115]. The reference range for the 'TB1 Ag minus Nil Result' and 'TB2 Ag minus Nil Result' is an Interferon-gamma level <0.35 IU/mL. TB1 Ag minus Nil 0.00 IU/mL [facility] [place] TB2 Ag minus Nil 0.00 IU/mL [facility] [place] Mitogen minus Nil 9.30 IU/mL [facility]/PATH [place] Nil Result 0.01 IU/mL [facility] [place] Blood 02/04/2025 8:49 AM EDT 02/04/2025 9:01 AM EDT Maximiliano Guzman MD, MPH LAB BLOOD ORDERABLES Fin al Result Performing Organization Address [facility] Co de Phone Number [facility] MED/PATH [place] [address] [place] [address] * Mumps antibody, IgG (02/04/2025 8:49 AM EDT) Pathologist [facility] MUMPS IGG AB Positive Positive [facility] Blood (Blood) 02/04/2025 8:4 9 AM EDT 02/04/2025 9:01 AM EDT Maximiliano Guzman MD, MPH NON CULTURE MICROBIOLOGY Final Result Performing Organization Address [facility] Co de Phone Number [facility] [address] [place] [address] * Rubella antibody, IgG (02/04/2025 8:49 AM EDT) [facility] Rubella Ab, IgG Positive Positive [facility] Blood (Blood) 02/04/2025 8:4 9 AM EDT 02/04/2025 9:01 AM EDT Maximiliano Guzman MD, MPH NON CULTURE MICROBIOLOGY Final Result Performing Organization Address [facility]/ZIP Co de Phone Number [address] [address] * Measles antibody, IgG (02/04/2025 8:49 AM EDT) RUBEOLA IGG Positive Positive [facility] Blood (Blood) 02/04/2025 8:4 9 AM EDT 02/04/2025 9:01 AM EDT Maximiliano Guzman MD, MPH NON CULTURE MICROBIOLOGY Final Result Performing Organization Address [facility] Co de Phone Number [address] [address] * Outside US Imaging??Report Only (01/24/2025 1:53 PM EDT) Historical Provider MD GARCIA US OP Final Res ult * Outside Imaging Report Only (01/24/2025 11:02 AM EDT) Historical Provider MD GARCIA XR CHEST Final Res ult * (ABNORMAL) Comprehensive metabolic panel (06/17/2024 8:04 AM EST) SODIUM 142 133 - 146 mmol/L [facility] POTASSIUM 4.1 3.3 - 5.1 mmol/L [facility] CHLORIDE 105 96 - 108 mmol/L [facility] CO2 26 21 - 35 mmol/L [facility] BUN 28(H) 6 - 19 mg/dL [facility] CREATININE 1.00 0.5 - 1.5 mg/dL [facility] GLUCOSE 88 70 - 99 mg/dL [facility] ALBUMIN 4.1 3.9 - 4.8 g/dL [facility] TOTAL PROTEIN 7.1 6.5 - 8.0 g/dL [facility] CALCIUM 9.3 8.4 - 10.3 mg/dL [facility] ALKALINE PHOSPHATASE 100 39 - 117 U/L [facility] TOTAL BILIRUBIN 0.4 0.0 - 1.2 mg/dL [facility] AST 12 0 - 37 U/L [facility] ALT 7 0 - 40 U/L [facility] GLOBULIN 3.0 1 - 4.8 g/dL [facility] EGFR 67 >59 mL/min/1.7 3m2 [facility] Comment:Estimated glomerular filtration rate calculated using the CKD-EPI refit equation. ANION GAP 15 10 - 20 mmol/L [facility] Blood 06/17/2024 8:04 AM EST 06/17/2024 8:08 AM EST us Bhaart Hassan PA-C LAB BLOOD ORDERABLES Final Re sult Performing Organization Address City/State/[facility] Co de Phone Number [address] [address] * (ABNORMAL) Lipid panel (06/17/2024 8:04 AM EST) HDL 77 mg/dL [facility] Comment: Interpretation <40 mg/dL: Low HDL cholesterol (major risk factor for CHD) Greater than or equal to 60 mg/dL: High HDL cholesterol ( negative risk factor for CHD) HDL - cholesterol is affected by a number of factors, e.g. smoking, excerise, hormones, sex and age. CHOLESTEROL 208 0 - 240 mg/dL [facility] TRIGLYCERIDES 72 30 - 160 mg/dL [facility] LDL 117 50 - 129 mg/dL [facility] Comment: LDL levels in terms of risk for coronary heart disease: <100 mg/dL: Optimal 100-129 mg/dL: Near or above optimal 130-159 mg/dL: Borderline high 160-189 mg/dL: High >190 mg/dL: Very High CARDIAC RISK RATIO 2.7(L) 3.3 - 4.4 [facility] Blood 06/17/2024 8:04 AM EST 06/17/2024 8:08 AM EST Bharat Hassan PA-C LAB BLOOD ORDERABLES Final Re sult Performing Organization Address [facility]/ZIP Co de Phone Number [address] [address] * HM COLONOSCOPY FOR RESULT ENTRY ONLY (07/25/2022) Vianca Braden NP HEALTH MAINTENANCE Edited Resul t - Final * Hepatitis C antibody, qualitative (04/27/2021 3:09 PM EST) HCV NON-REACTIV E NON-REACTI VE [facility] Blood 04/27/2021 3:09 PM EST 04/27/2021 3:13 PM EST Vianca Braden NP LAB BLOOD ORDERABLES Final Resu lt Performing Organization Address [facility] Co de Phone Number [address] [address] * HM MAMMOGRAPHY FOR RESULT ENTRY ONLY (11/11/2020) Historical Provider HEALTH MAINTENANCE Edited Result - Final * HM PAP SMEAR FOR RESULT ENTRY ONLY (06/23/2017) HM Pap smear NILM, HPV negative Historical Provider HEALTH MAINTENANCE Final Result from Last 3 Months or Most Recently Relevant to Health Maintenance Insurance [facility] [place] [place] [address] [place] [address] [place] [address] [facility] [place] [address] Advance Directives For more information, please contact: [phone] (9AM - 5PM [place], Monday-Monday) * Full Code (Latest Code Status on File) Date Activated Date Inactivated Comments 08/11/2021 10:15 AM Question Answer Comments Code Status Confirmed With: Other (specify below ) Code Discussion Comments: periop Care Teams Customer Sales Consultant Relationship Specialty Start Date End Date Bharat Hassan PA-C [address] [place] [address] PCP - General Physician Gold Stamper 01/05/24 Best Peters MD [address] [place] [address] [email or web address] Insurance Assigned Provider 09/16/23 Additional Source Comments The information contained in this document represents components of the legal health record. It is not the complete legal health record.[facility]
--- OUTSIDE RECORDS SUMMARY | 2025-02-11 16:11 | XMS_ITS | Encounter Summary ---
Author Organization [facility] Address [address] [place] [address] Phone Care Team Providers Care Configuration Developer Name Role Phone Vianca Braden NP Primary Care Provider [phone] Best Peters MD Unavailable [phone] Unknown, Unknown Primary Care Provider Ashley Grace AUTOMOTIVE SERVICE TECHNICIAN Primary Care Provid er Bharat Hassan PA-C Primary Care Provider [phone] Encounter Details Date Type Department Care Team (Late st Contact Info) Description 08/11/2021 Procedure Pass [place] Admitting Dept - Virtual Department [address] [place] [address] Social History Tobacco Use Types Packs/Day Years Used Date Smoking Tobacco: Former Cigarettes 1 10 0 06/12/1991 - 06/12/2001 Smokeless Tobacco: Never Alcohol Use Standard Drinks/Week Comments Yes 0 (1 standard drink = 0.6 oz pure alcohol) 1-3 drinks, once a month at most Child or Family Care Answer Date Record ed Do you have problems with on e of the following making it difficult for you to work, study, or receive health care? No 01/14/2021 Education Answer Date Recorded Are you interested in help w ith more adult education (for example, completing high school, GED, job training, learning the [place] language, technical skills, or developing parenting skills)? No 01/14/2021 Are you concerned about learning? Not on file 01/14/2021 Not on file 01/14/2021 Not on file 01/14/2021 Food Answer Date Recorded Within the past 6 months we worried whether our food would run out before we got money to buy more. Never True 01/14/2021 Within the past 6 months the food we bought just didn't last and we didn't have enough money to get more. Never True Paying for Meds Answer Date Recorded Do you have trouble paying for medicines? No 01/14/2021 Paying Utility Bills Answer Date Record ed Do you have trouble paying your heating or elect ricity bill? No 01/14/2021 Transportation Answer Date Recorded Has the lack of transportati on kept you from medical appointments or from getting medications? No 01/14/2021 Comments No Sex and Gender Information Value Date Recorded Sex Assigned at Not on file Legal Sex Female 9:36 PM EDT Gender Identity Not on file Sexual Orientation Not on file documented as of this encounter Functional Status * Calculated C-SSRS Risk Score (Lifetime/Recent) Answer Date of Assessment Author No Risk Indicated 08/12/2021 1:00 AM Victorina Garay RN * [place] Suicide Severity Rating Scale (Screener/Recent Self-Report) Question Answer Date of Assessment Author 1. Wish to be (Past 1 Month) No 022 1:00 AM Victorina Garay RN 2. Non-Specific Active Suici neto Thoughts (Past 1 Month) No 08/12/2021 1:00 AM Victorina Garay RN 6. Suicidal Behavior (Lifetime) No 2 1:00 AM Victorina Garay RN documented as of this encounter Plan of Treatment Upcoming Encounters Date Type Department Care Team (Late st Contact Info) Description 06/23/2025 2:40 PM EST Office Visit [facility] [address] [place] [address] Bharat Hassan PA-C [address] [place] [address] [email or web address] documented as of this encounter Visit Diagnoses Not on filedocumented in this encounter Additional Health Concerns Assessment Noted Time PHQ-2 Depression Total Score: 1 01/15/20 21 1:18 PM EDT documented as of this encounter Care Teams Configuration Developer Relationship Specialty Start Date End Date Vianca Braden MIXER HELPER [email or web address] PCP - General Family Medicine 02/22/19 08/15/23 Unknown, Unknown, PCP - General 08/16/23 10/02/23 Ashley Burton, AUTOMOTIVE SERVICE TECHNICIAN [address] [place] [address], [address] [place] [address] [email or web address] PCP - General Family Medicine 10/03/23 01/04/24 Bharat Hassan PA-C [address] [place] [address] [email or web address] PCP - General Physician [employer] 01/05/24 Best Peters MD [address] [place] [address] [email or web address] Insurance Assigned Provider 09/16/23 documented as of this encounter Additional Source Comments The information contained in this document represents components of the legal health record. It is not the complete legal health record.[facility]
== END 2025-02-11 16:31 | disposition home or self-care (01) ==
LOC: HO.HUSH 14:57
PROVIDERS: PCP Physician Assistant Surgical; Visit Provider Urology
DX: N20.0 Calculus of kidney (principal)
CPT/HCPCS: 99213